=== PATIENT | male | born 1960 | race Two or more races ===

== ENCOUNTER 2016-03-16 18:07 | Inpatient (IN) | payer OTHER ==
[~2016-03-16] VITALS: Ht 177.8 cm; Wt 74.8 kg
[~2016-03-16 18:07] MED LIST: Vancomycin 1 GM in D5W 275 ML IVPB ONE
[2016-03-16 18:09] VITALS: BP 131/118
[2016-03-16] MEDS ORDERED: Acetaminophen 500mg (ES) tab ORAL ONE (18:45)
[2016-03-16 18:58] LABS: MEAN CORPUSCULAR HEMOGLOBIN 31.1 PG (27.0-31.0); MEAN CORPUSCULAR HGB CONC 33.3 G/DL (32.0-36.0); MEAN CORPUSCULAR VOLUME 94 FL (80-99); MEAN PLATELET VOLUME 9.7 FL (6.5-10.1); PLATELET COUNT 57 K/UL (150-450); RED BLOOD COUNT 2.04 M/UL (4.70-6.10); RED CELL DISTRIBUTION WIDTH 16.4 % (11.6-14.8)
--- NOTE | 2016-03-16 18:59 | Emergency Room Report ---
History of Present Illness General Chief Complaint: Generalized Weakness Source: Patient, EMS Present Illness HPI 55 YO M sent from PMD for "anemia" after seen in office yesterday for 1 week of weakness. Patient is HIV+, on HAART. Doesnt know CD4, viral load - last checked 1 month ago, but told PMD he "doesnt want to know the result because its probably low." No history of PCP PNA. Denies rectal bleed, hematuria, hematemesis. Denies known anemia. Denies chest pain, SOB. Denies fever/ chills. Endorses "mild cough." Allergies: Coded Allergies: No Known Allergies (Unverified , 03/16/16) Patient History Past Medical History: HIV Past Surgical History: none Pertinent Family History: none Social History: Denies: alcohol use, drug use, smoking Immunizations: UTD Reviewed Nursing Documentation: PMH: Agreed, PSxH: Agreed Nursing Documentation-[facility] Past Medical History: No History, Except For Review of Systems All Other Systems: negative except mentioned in HPI Physical Exam Vital Signs Date Time Temp Pulse Resp B/P Pulse Ox O2 Delivery O2 Flow Rate FiO2 03/16/16 17:57 99.3 118 21 93/59 100 Room Air Sp02 EP Interpretation: reviewed, abnormal General Appearance: alert, non-toxic, moderate distress, cachetic, other - oale Head: normocephalic, atraumatic Eyes: bilateral eye EOMI, bilateral eye PERRL ENT: normal ENT inspection, hearing grossly normal, normal voice Neck: normal inspection, full range of motion, supple, no bony tend Respiratory: normal inspection, lungs clear, normal breath sounds, no respiratory distress, no retraction, no wheezing, other - bilateral lower lung rhonci Cardiovascular #1: regular rate, rhythm, no edema, tachycardia Gastrointestinal: normal inspection, normal bowel sounds, non tender, soft, no guarding, no hernia Genitourinary: no CVA tenderness Musculoskeletal: normal inspection, back normal, normal range of motion, Judith' s Sign negative Neurologic: normal inspection, alert, oriented x3, responsive, doctor of pharmacy III-XII nml as tested, motor strength/tone normal, speech normal Psychiatric: normal inspection, judgement/insight normal, mood/affect normal Skin: normal inspection Lymphatic: normal inspection Medical Decision Making Diagnostic Impression: Primary Impression: Episode of generalized weakness Additional Impressions: Anemia Qualified Codes: D64.9 - Anemia, unspecified Pneumonia Qualified Codes: J18.9 - Pneumonia, unspecified organism Hypocalcemia Anemia in chronic illness Hypokalemia JF (acute kidney injury) Thrombocytopenia CAP (community acquired pneumonia) ER Course 55 YO M with anemia, clinical PNA. VS notable for tachycardia. Fever 103 oral. Empiric Abx Cef/Azithro given, PO tylenol, IVF NS EKG Diagnostic Results Rate: tachycardiac Rhythm: NSR ST Segments: no acute changes ASA given to the pt in ED: No Rhythm Strip Diag. Results EP Interpretation: yes Rate: 123 Rhythm: NSR, no PVC's, no ectopy Chest X-Ray Diagnostic Results EP Interpretation: Yes Findings: no effusion, no pneumothorax, no acute cardiopulmonary disease, other - possible LLQ pneumonia Reevaluation Time: 20:07 Last Vital Signs Date Time Temp Pulse Resp B/P Pulse Ox O2 Delivery O2 Flow Rate FiO2 03/16/16 18:09 103.0 124 21 131/118 100 Room Air Status: improved Reevaluation Impression Labs: 5K. H&H 6.3/19. Platelets 57. SerumCr 1.5 K 2.9 Calcium 3,.6 Trop 0 CXR: No obvious lobar pna A: 1) Anemia. Likely anemia of chronic disease d/t HIV. Will transfuse 2U PRBC 2) Clinical PNA. Possible infiltrate on CXR. Leuks 5K, but HIV + so ?actual leukocytosis might not be present. Empiric Abx given 3_ hypoK and hypoCA will be repleted 4_ Thrombocytopenia. Likely d/t chronic disease as well. Will need Hem?onc Endorsed to Dr Helton at 815pm for tele admission Disposition: ADMITTED INPATIENT Condition: Critical ILYA CRISOSTOMO M.D. Mar 16, 2016 18:59
[2016-03-16] MEDS ORDERED: cefTRIAXone 1 GM in NS 55 ML IV ONE (19:00)
[2016-03-16] MEDS ORDERED: Azithromycin 500 MG in NS 275 ML IV ONE (19:00)
[2016-03-16] MEDS ORDERED: Azithromycin Inj IV ONE (19:03)
[2016-03-16 19:10] LABS: INR 1.3 (0.9-1.1); PROTHROMBIN TIME 13.2 SEC (9.30-11.50)
[2016-03-16 19:11] LABS: TROPONIN I < 0.30 ng/mL (<=0.30)
[2016-03-16 19:16] LABS: ALANINE AMINOTRANSFERASE 8 U/L (3-41); ALBUMIN/GLOBULIN RATIO 0.3 (1.0-2.7); ANION GAP 16 (5-15); ASPARTATE AMINO TRANSFERASE 14 U/L (5-40); CARBON DIOXIDE 11 mEQ/L (20-30); CHLORIDE 115 mEQ/L (98-107); CREATININE 1.5 mg/dL (0.7-1.2); GLOMERULAR FILTRATION RATE 48.6 mL/min (>60); HEMOLYSIS 15; POTASSIUM 2.9 mEQ/L (3.4-4.9); SODIUM 142 mEQ/L (135-145); TOTAL PROTEIN 3.2 g/dL (6.6-8.7)
[2016-03-16 19:26] LABS: CKMB < 1.5 ng/mL (< 6.7)
[2016-03-16 19:42] LABS: CALCIUM 3.6 mg/dL (8.6-10.2)
[2016-03-16 19:59] LABS: LYMPHOCYTES % (MANUAL) 26 % (20-45); NEUTROPHILS % (MANUAL) 64 % (45-75); TOTAL CELLS COUNTED 100
[2016-03-16 20:02] LABS: BAND NEUTROPHILS % (MANUAL) 0 % (0-8); BASOPHILS % (MANUAL) 0 % (0-2); EOSINOPHILS % (MANUAL) 0 % (0-3); PLATELET ESTIMATE DECREASED
[2016-03-16 20:04] LABS: ANISOCYTOSIS 1+; HYPOCHROMASIA 3+; PLATELET MORPHOLOGY NORMAL
[2016-03-16] MEDS ORDERED: Nitroglycerin Subl 0.4mg tab (Bottle Of 25) SL PRN (22:15)
[2016-03-16] MEDS ORDERED: Miralax 17gm pkt ORAL PRN (22:15)
[2016-03-16] MEDS ORDERED: Morphine Sulfate 2mg/ml Inj IVP PRN (22:15)
[2016-03-16] MEDS ORDERED: DuoNeb 0.5-3(2.5)mg/3ml neb HHN PRN (22:15)
[2016-03-16 22:58] VITALS: BP 80/48
[2016-03-17] VITALS (9 sets, daily range): BP systolic 87–118; BP diastolic 47–57
[2016-03-17] MEDS ORDERED: Vancomycin 1 GM in D5W 275 ML IVPB ONE (01:00)
[2016-03-17] MEDS ORDERED: Vancomycin 1gm inj IVPB ONE (02:07)
[2016-03-17] MEDS ORDERED: TIVICAY50 MG ORAL (06:10)
[2016-03-17 07:09] LABS: INR 1.3 (0.9-1.1); PROTHROMBIN TIME 13.4 SEC (9.30-11.50)
[2016-03-17 07:18] LABS: ALANINE AMINOTRANSFERASE 18 U/L (3-41); ALBUMIN/GLOBULIN RATIO 0.4 (1.0-2.7); ANION GAP 13 (5-15); ASPARTATE AMINO TRANSFERASE 24 U/L (5-40); CALCIUM 7.5 mg/dL (8.6-10.2); CARBON DIOXIDE 22 mEQ/L (20-30); CHLORIDE 94 mEQ/L (98-107); CREATININE 2.8 mg/dL (0.7-1.2); GLOMERULAR FILTRATION RATE 23.6 mL/min (>60); LACTATE DEHYDROGENASE 180 U/L (135-230); MAGNESIUM 2.4 mg/dL (1.7-2.5); POTASSIUM 5.1 mEQ/L (3.4-4.9); SODIUM 129 mEQ/L (135-145); URIC ACID 10.3 mg/dL (3.0-7.5)
[2016-03-17 07:19] LABS: MEAN CORPUSCULAR HEMOGLOBIN 31.5 PG (27.0-31.0); MEAN CORPUSCULAR HGB CONC 33.8 G/DL (32.0-36.0); MEAN CORPUSCULAR VOLUME 93 FL (80-99); MEAN PLATELET VOLUME 9.5 FL (6.5-10.1); PLATELET COUNT 55 K/UL (150-450); RED CELL DISTRIBUTION WIDTH 15.7 % (11.6-14.8); WHITE BLOOD COUNT 4.6 K/UL (4.8-10.8)
[2016-03-17 07:33] LABS: FREE T3 1.3 pg/mL (2.3-4.2)
[2016-03-17 07:51] LABS: HEMOLYSIS 1; IRON 16 ug/dL (59-158); TOTAL IRON BINDING CAPACITY 199 ug/dL (250-400)
[2016-03-17 08:51] LABS: ERYTHROCYTE SEDIMENTATION RATE 140 MM/HR (0-20); PATH BLOOD SMEAR/OMC SENT TO PATHOLOGIST
[2016-03-17 08:53] LABS: BAND NEUTROPHILS % (MANUAL) 0 % (0-8); BASOPHILS % (MANUAL) 0 % (0-2); EOSINOPHILS % (MANUAL) 0 % (0-3); LYMPHOCYTES % (MANUAL) 18 % (20-45); NEUTROPHILS % (MANUAL) 76 % (45-75); PLATELET ESTIMATE DECREASED; TOTAL CELLS COUNTED 100
[2016-03-17 08:55] LABS: ANISOCYTOSIS 1+; HYPOCHROMASIA 1+; PLATELET MORPHOLOGY NORMAL
[2016-03-17] MEDS ORDERED: Cefepime HCl 2 GM in D5W 110 ML IV SCH (09:00)
[2016-03-17] MEDS ORDERED: Heparin 5000 units/ml inj SUBQ SCH (09:00)
[2016-03-17 10:05] LABS: RETICULOCYTE COUNT 0.3 % (0.0-2.0)
--- NOTE | 2016-03-17 11:11 | Diagnostic Imaging Report ---
Indication: Chest pain Technique: One view of the chest Comparison: none Findings: Lungs and pleural spaces are clear. Heart size is normal. Lower cervical spine fusion hardware is incidentally noted Impression: No acute process
[2016-03-17] MEDS ORDERED: Vancomycin 750mg/D5W 275ml IVPB SCH ×2 (13:00)
--- NOTE | 2016-03-17 15:02 | Diagnostic Imaging Report ---
Indication: Abnormal renal function tests Technique: Grayscale and duplex images of the kidneys, retroperitoneum, and bladder were obtained. Comparison: Findings: Right kidney measures 11.7 cm in length. Left kidney measures 11.4 cm in length. Both kidneys demonstrate normal echogenicity. No hydronephrosis. The left kidney demonstrates an 11 mm upper pole cyst. Normal inferior vena cava. Bladder is normal. Incidental noted is marked enlargement of the spleen, which measures 22 cm long axis dimension Impression: Negative for hydronephrosis Incidental finding of a left upper pole renal cyst Massive splenomegaly also noted.
[2016-03-17 16:37] LABS: APPEARANCE,URINE CLEAR; KETONES,URINE NEGATIVE (NEGATIVE); LEUKOCYTE ESTERASE ,URINE NEGATIVE (NEGATIVE); NITRITE,URINE NEGATIVE (NEGATIVE); PH,URINE 5 (4.5-8.0); PROTEIN,URINE 2+ (NEGATIVE); UROBILINOGEN,URINE NORMAL MG/DL (0.0-1.0)
[2016-03-17 16:39] LABS: BACTERIA,URINE MODERATE /HPF; RBC,URINE 0-2 /HPF (0 - 0); WBC,URINE 0-2 /HPF (0 - 0)
--- NOTE | 2016-03-17 17:30 | Consultation ---
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 // Leukopenia / pancytopenia r/o bone marrow infiltrative process - LDH WNL // Fever - improved // Symptomatic anemia SP PRBCs - denies blood loss // ARF - worse // Hypocalcemia / electrolyte imbalance // Massive splenomegaly // Thrombocytopenia // Elevated ESR // NKDA // Full Code PLAN: - continue empiric broad spectrum IV vancomycin, cefepime d# 1 - continue cART ( prezcobix, tivicay - ok for pt to take own meds ), change bactrim prophy to mepron given cytopenias - check AFB BCx, CrAg, coccidioides, histoplasma, blastomyces, parvovirus, QFT TB gold, stool studies, cortisol, ARMIDA, LAP, CD4 - check CT C/A/P - consider heme eval - f/u cultures - monitor CBC, temperatures - monitor BMP - transfuse prn Thanks! Will follow MANJEET GARDNER Mar 17, 2016 17:30
--- NOTE | 2016-03-17 18:00 | History and Physical ---
History of Present Illness General Date patient seen: Mar 17, 2016 Reason for Hospitalization: Generalized Weakness Present Illness HPI 55 year old male with Hx of HIV, wassent from PMD for "anemia" and weakness. there is no history of PCP PNA. His main complain is severe fatigue. Seems very noncompliant. He was diagnosed to have severe anemia and renal failure and admitted for further care. Allergies: Coded Allergies: No Known Allergies (Unverified , 03/16/16) Medication History Scheduled Dolutegravir Sodium (Tivicay), 50 MG ORAL DAILY, (Reported) Patient History Healthcare decision maker Resuscitation status Advanced Directive on File Past Medical/Surgical History Past Medical/Surgical History: (1) HIV disease Review of Systems Constitutional: Reports: malaise, weakness Respiratory: Reports: cough, sputum Physical Exam Lines, tubes and drains: peripheral HEENT: normocephalic, atraumatic Neck: non-tender, normal alignment Respiratory/Chest: chest wall non-tender, lungs clear Cardiovascular/Chest: normal peripheral pulses, normal rate Abdomen: normal bowel sounds Genitourinary/Rectal: normal genital exam, heme negative stool Last 24 Hour Vital Signs Date Time Temp Pulse Resp B/P Pulse Ox O2 Delivery O2 Flow Rate FiO2 03/17/16 17:35 99.7 118 22 90/57 98 Room Air 03/17/16 16:17 98.8 118 20 96/47 100 Room Air 03/17/16 11:51 99.1 113 20 96/55 98 Room Air 03/17/16 08:20 98.8 112 20 87/52 98 Nasal Cannula 2.0 03/17/16 07:15 95 20 Nasal Cannula 3.0 32 03/17/16 04:00 98.2 125 19 106/50 97 Nasal Cannula 3.0 03/17/16 01:05 97.5 97 20 93/54 86 Nasal Cannula 3.0 03/17/16 00:50 97.6 90 20 92/52 100 Room Air 21 03/17/16 00:24 97.6 94 19 03/17/16 00:15 98.4 90 20 92/52 100 Room Air 21 03/17/16 00:10 98.4 96 20 88/49 100 Room Air 03/17/16 00:10 98.4 96 20 03/17/16 00:06 84 20 Room Air 21 03/16/16 22:58 99.7 87 21 80/48 100 Room Air 03/16/16 18:09 103.0 124 21 131/118 100 Room Air Intake and Output 03/16/16 03/17/16 19:00 07:00 Intake Total 400 ml Output Total 300 ml Balance 100 ml IV Total 400 ml Output Urine Total 300 ml # Voids 1 1 Laboratory Tests Test 03/16/16 18:25 03/17/16 05:10 03/17/16 12:00 White Blood Count 5.0 K/UL (4.8-10.8) 4.6 K/UL (4.8-10.8) L Red Blood Count 2.04 M/UL (4.70-6.10) L 2.30 M/UL (4.70-6.10) L Hemoglobin 6.3 G/DL (14.2-18.0) *L 7.2 G/DL (14.2-18.0) L Hematocrit 19.0 % (42.0-52.0) L 21.4 % (42.0-52.0) L Mean Corpuscular Volume 94 FL (80-99) 93 FL (80-99) Mean Corpuscular Hemoglobin 31.1 PG (27.0-31.0) H 31.5 PG (27.0-31.0) H Mean Corpuscular Hemoglobin Concent 33.3 G/DL (32.0-36.0) 33.8 G/DL (32.0-36.0) Red Cell Distribution Width 16.4 % (11.6-14.8) H 15.7 % (11.6-14.8) H Platelet Count 57 K/UL (150-450) L 55 K/UL (150-450) L Mean Platelet Volume 9.7 FL (6.5-10.1) 9.5 FL (6.5-10.1) Neutrophils (%) (Auto) % (45.0-75.0) % (45.0-75.0) Lymphocytes (%) (Auto) % (20.0-45.0) % (20.0-45.0) Monocytes (%) (Auto) % (1.0-10.0) % (1.0-10.0) Eosinophils (%) (Auto) % (0.0-3.0) % (0.0-3.0) Basophils (%) (Auto) % (0.0-2.0) % (0.0-2.0) Differential Total Cells Counted 100 100 Neutrophils % (Manual) 64 % (45-75) 76 % (45-75) H Lymphocytes % (Manual) 26 % (20-45) 18 % (20-45) L Monocytes % (Manual) 10 % (1-10) 6 % (1-10) Eosinophils % (Manual) 0 % (0-3) 0 % (0-3) Basophils % (Manual) 0 % (0-2) 0 % (0-2) Band Neutrophils 0 % (0-8) 0 % (0-8) Platelet Estimate Decreased L Decreased L Platelet Morphology Normal Normal Red Blood Cell Morphology Normal Hypochromasia 3+ 1+ Anisocytosis 1+ 1+ Prothrombin Time 13.2 SEC (9.30-11.50) H 13.4 SEC (9.30-11.50) H Prothromb Time International Ratio 1.3 (0.9-1.1) H 1.3 (0.9-1.1) H Activated Partial Thromboplast Time 34 SEC (23-33) H 35 SEC (23-33) H Sodium Level 142 mEQ/L (135-145) 129 mEQ/L (135-145) #L Potassium Level 2.9 mEQ/L (3.4-4.9) L 5.1 mEQ/L (3.4-4.9) #H Chloride Level 115 mEQ/L (98-107) H 94 mEQ/L (98-107) L Carbon Dioxide Level 11 mEQ/L (20-30) L 22 mEQ/L (20-30) Anion Gap 16 (5-15) H 13 (5-15) Blood Urea Nitrogen 32 mg/dL (7-23) H 56 mg/dL (7-23) H Creatinine 1.5 mg/dL (0.7-1.2) H 2.8 mg/dL (0.7-1.2) #H Estimat Glomerular Filtration Rate 48.6 mL/min (>60) 23.6 mL/min (>60) Glucose Level 70 mg/dL (74-106) L 135 mg/dL (74-106) H Calcium Level 3.6 mg/dL (8.6-10.2) *L 7.5 mg/dL (8.6-10.2) #L Total Bilirubin < 0.2 mg/dL (0.0-1.2) 0.4 mg/dL (0.0-1.2) Aspartate Amino Transf (AST/SGOT) 14 U/L (5-40) 24 U/L (5-40) Alanine Aminotransferase (ALT/SGPT) 8 U/L (3-41) 18 U/L (3-41) Alkaline Phosphatase 41 U/L (40-129) 85 U/L (40-129) Total Creatine Kinase 8 U/L (38-174) L 15 U/L (38-174) L Creatine Kinase MB < 1.5 ng/mL (< 6.7) Creatine Kinase MB Relative Index 18.7 Troponin I < 0.30 ng/mL (<=0.30) Total Protein 3.2 g/dL (6.6-8.7) L 7.0 g/dL (6.6-8.7) # Albumin 0.9 g/dL (3.5-5.2) L 2.1 g/dL (3.5-5.2) L Globulin 2.3 g/dL 4.9 g/dL Albumin/Globulin Ratio 0.3 (1.0-2.7) L 0.4 (1.0-2.7) L Erythrocyte Sedimentation Rate 140 MM/HR (0-20) H Reticulocyte Count 0.3 % (0.0-2.0) Plasma/Serum Osmolality Pending Uric Acid 10.3 mg/dL (3.0-7.5) H Phosphorus Level 4.0 mg/dL (2.5-4.8) Magnesium Level 2.4 mg/dL (1.7-2.5) Iron Level 16 ug/dL (59-158) L Total Iron Binding Capacity 199 ug/dL (250-400) L Percent Iron Saturation 8 % (15-50) L Unsaturated Iron Binding 183 ug/dL (112-346) Lactate Dehydrogenase 180 U/L (135-230) Carcinoembryonic Antigen 0.6 ng/mL Vitamin B12 Level 474 pg/mL (211-946) Folate Pending Thyroid Stimulating Hormone (TSH) 1.830 uIU/mL (0.300-4.500) Free Thyroxine 1.01 ng/dL (0.86-1.85) Free Triiodothyronine 1.3 pg/mL (2.3-4.2) L Cortisol Pending Urine Color Yellow Urine Appearance Clear Urine pH 5 (4.5-8.0) Urine Specific [place] 1.010 (1.005-1.035) Urine Protein 2+ (NEGATIVE) H Urine Glucose (UA) Negative (NEGATIVE) Urine Ketones Negative (NEGATIVE) Urine Occult Blood Negative (NEGATIVE) Urine Nitrite Negative (NEGATIVE) Urine Bilirubin Negative (NEGATIVE) Urine Urobilinogen Normal MG/DL (0.0-1.0) Urine Leukocyte Esterase Negative (NEGATIVE) Urine RBC 0-2 /HPF (0 - 0) H Urine WBC 0-2 /HPF (0 - 0) Urine Squamous Epithelial Cells None /LPF (NONE/OCC) Urine Bacteria Moderate /HPF (NONE) H Height (Feet): 5 Height (Inches): 10.00 Weight (Pounds): 165 Medications Current Medications Medications (Trade) Dose Ordered Sig/Godwin Route PRN Reason Start Time Stop Time Status Last Admin Dose Admin Acetaminophen (Tylenol) 650 mg Q4H PRN ORAL fever 03/16/16 22:15 04/15/16 22:14 Albuterol/ Ipratropium (DuoNeb 0.5-3(2.5)mg/3ml) 3 ml EVERY 4 HOURS PRN HHN Shortness of Breath 03/16/16 22:15 03/21/16 22:14 Cefepime HCl/ Dextrose (Maxipime/D5W) 110 ml @ 220 mls/hr Q24H IV 03/18/16 10:00 03/25/16 09:59 Morphine Sulfate (Morphine Sulfate) 2 mg EVERY 4 HOURS PRN IVP Moderate Pain (Pain Scale 4-6) 03/16/16 22:15 03/23/16 22:14 Nitroglycerin (Ntg) 0.4 mg Every 5 Minutes PRN SL Prn Chest Pain 03/16/16 22:15 04/15/16 22:14 Ondansetron HCl (Zofran) 4 mg Q6H PRN IVP Nausea & Vomiting 03/16/16 22:15 04/15/16 22:14 Polyethylene Glycol (Miralax) 17 gm DAILYPRN PRN ORAL Constipation 03/16/16 22:15 04/15/16 22:14 Sodium Chloride (Sodium Chloride 1000ml bag) 1,000 ml @ 50 mls/hr Q20H IVLG 03/17/16 00:21 04/16/16 00:20 03/17/16 00:21 Temazepam (Restoril) 15 mg HSPRN PRN ORAL Insomnia 03/16/16 22:15 03/23/16 22:14 Vancomycin HCl 1 ea 1 ea DAILY PRN MISC . 03/17/16 17:00 04/16/16 16:59 Assessment/Plan Problem List: (1) Anemia ICD Codes: D64.9 - Anemia, unspecified SNOMED: 937220906 Qualifiers: Qualified Codes: D64.9 - Anemia, unspecified (2) JF (acute kidney injury) ICD Codes: N17.9 - Acute kidney failure, unspecified SNOMED: 58062053 (3) HIV disease ICD Codes: B20 - Human immunodeficiency virus [HIV] disease SNOMED: 33332472 (4) Thrombocytopenia ICD Codes: D69.6 - Thrombocytopenia, unspecified SNOMED: 190518793 (5) Hypocalcemia ICD Codes: E83.51 - Hypocalcemia SNOMED: 5056836 Assessment/Plan prbc anemia w/u stool for OB ID evaluation renal US MARIA ISABEL SZYMANSKI Mar 17, 2016 18:00
[2016-03-17] MEDS ORDERED: Nitroglycerin Subl 0.4mg tab (Bottle Of 25) SL PRN (19:15)
[2016-03-17] MEDS ORDERED: Miralax 17gm pkt ORAL PRN (20:00)
[2016-03-17] MEDS ORDERED: DuoNeb 0.5-3(2.5)mg/3ml neb HHN PRN (21:00)
[2016-03-17] MEDS ORDERED: Morphine Sulfate 2mg/ml Inj IVP PRN (21:00)
[2016-03-18] VITALS: BP 94/44
--- NOTE | 2016-03-18 00:58 | Consultation ---
DATE OF CONSULTATION: 03/17/2016 INFECTIOUS DISEASE CONSULTATION CONSULTING PHYSICIAN: Shivam Galarza M.D. REQUESTING PHYSICIAN: Rose Marie Helton M.D. REASON FOR CONSULTATION: Acquired immune deficiency syndrome. HISTORY OF PRESENT ILLNESS: This is a 55-year-old male with a history of HIV4/AIDS, on antiretroviral therapy, recently changed due to resistance, admitted from primary care's office for severe symptomatic anemia. Hemoglobin was 6.3. He has been transfused two units of packed red blood cells. Hemoglobin is now starting from 2. He has evidence of pancytopenia, and a fever of 103, elevated ESR and uric acid. LDH and LFTs are within normal limits. Urine culture is pending. He has been started on empiric IV vancomycin, cefepime and ID now consulted to assist in management. PAST MEDICAL HISTORY: 1. Human immunodeficiency virus 4/AIDS, on antiretroviral therapy. Recently changed to and tivicay due to resistance. 2. History of thrush. 3. Chronic anemia. PAST SURGICAL HISTORY: None. FAMILY HISTORY: Noncontributory. SOCIAL HISTORY: Unremarkable. ALLERGIES: No known drug allergies. MEDICATIONS: 1. Vancomycin. 2. Cefepime. REVIEW OF SYSTEMS: As per history present illness. Ten systems reviewed. All pertinent positives and negatives noted. PHYSICAL EXAMINATION: VITAL SIGNS: Maximum temperature 100.3, blood pressure 96/47, heart rate 118, respiratory rate 20, and saturating 100% on room air. GENERAL: The patient is chronically ill-appearing. HEENT: No thrush. Poor dentition. CARDIOVASCULAR: Tachycardic, no murmurs. PULMONARY: Coarse breath sounds bilaterally. ABDOMEN: Bowel sounds present. Soft, nondistended, and nontender. EXTREMITIES: No edema. SKIN: Multiple purple patches consistent with Kaposi sarcoma. NEUROLOGICAL: Alert and oriented x3, nonfocal. LABORATORY DATA: White blood cell count 4.6 with left shift, hemoglobin 7.2 increased from 6.3, platelets 55,000. Sodium 129, potassium 5.1, chloride 94, bicarbonate 22, BUN 56, creatinine 2.8, increased from 1.5. ESR 140, uric acid 10.3. LDH and liver function tests within normal limits. MICROBIOLOGY: On 03/17, urine culture pending. IMAGING: Reviewed. ASSESSMENT: 1. Probable sepsis, rule out opportunistic infection. 2. Diarrhea, rule out infectious. 3. Human immunodeficiency virus 4/AIDS, on a combination antiretroviral therapy with unknown CD4 count presumed less than 50. 4. Kaposi sarcoma. Rule out basilar involvement. 5. Leukopenia/pancytopenia. Rule out bone marrow infiltrative process. An LDH is within normal limits. 6. Fever, improved. 7. Symptomatic anemia, status post transfusion. Denies blood loss. 8. Acute renal failure, worsening. 9. Hypocalcemia and electrolyte imbalance. 10. Massive splenomegaly. 11. Thrombocytopenia. 12. Elevated erythrocyte sedimentation rate. 13. No known drug allergies. 14. Full Code. PLAN: 1. Continue empiric broad-spectrum IV vancomycin and cefepime day #1. 2. Continue combination of antiretroviral therapy with and tivicay. Okay for the patient to take his own medications. We will change his Bactrim prophylaxis to atovaquone given cytopenias. 3. Check AFB blood cultures, cryptococcal antigen coccidioides, serology, histoplasma and Blastomyces and parvovirus serology QuantiFERON-TB Gold, stool studies, Cortisol ARMIDA, leukocyte phosphatase stain and CD4. 4. Check CT of the chest, abdomen and pelvis. 5. Consider hematology evaluation. 6. Follow up cultures. 7. Monitor CBC and temperatures. 8. Monitor BMP. 9. Transfuse as needed. Thank you. We will follow. Shivam Galarza M.D. DR: JAMARCUS JOB#: [id number] CC: Rose Marie Helton M.D.; Fax#: [phone] Alborzi, M.D ; Fax#: [phone] Smith, M.D.
[2016-03-18 04:00] VITALS: BP 94/44
[2016-03-18 06:20] LABS: MEAN CORPUSCULAR HEMOGLOBIN 31.1 PG (27.0-31.0); MEAN CORPUSCULAR VOLUME 94 FL (80-99); PLATELET COUNT 54 K/UL (150-450); RED BLOOD COUNT 2.89 M/UL (4.70-6.10); RED CELL DISTRIBUTION WIDTH 15.8 % (11.6-14.8); WHITE BLOOD COUNT 5.4 K/UL (4.8-10.8)
[2016-03-18 07:23] LABS: ALBUMIN/GLOBULIN RATIO 0.5 (1.0-2.7); CALCIUM 7.5 mg/dL (8.6-10.2); CREATININE 2.7 mg/dL (0.7-1.2); GLOMERULAR FILTRATION RATE 24.7 mL/min (>60); POTASSIUM 5.3 mEQ/L (3.4-4.9); TOTAL PROTEIN 6.4 g/dL (6.6-8.7)
[2016-03-18 08:00] VITALS: BP 96/58
[2016-03-18] MEDS ORDERED: Atovaquone 750mg/5ml Susp ORAL SCH (09:00)
[2016-03-18] MEDS: PREZCOBIX ORAL SCH (09:13)
[2016-03-18] MEDS: Atovaquone 750mg/5ml Susp ORAL SCH (09:14)
[2016-03-18] MEDS ORDERED: Cefepime HCl 2 GM in D5W 110 ML IV SCH (10:00)
[2016-03-18] MEDS: Cefepime HCl 2 GM in D5W 110 ML IV SCH (10:16)
[2016-03-18] MEDS ORDERED: Sodium Polystyrene Sulfonate 15gm Powder ORAL ONE (11:15)
[2016-03-18 11:34] LABS: URIC ACID 8.1 mg/dL (3.0-7.5)
[2016-03-18 11:47] LABS: FREE T3 1.2 pg/mL (2.3-4.2)
[2016-03-18 12:00] VITALS: BP 86/47
--- NOTE | 2016-03-18 12:47 | Pulmonology Progress Note ---
Assessment/Plan Problems: (1) Anemia (2) JF (acute kidney injury) (3) HIV disease (4) Thrombocytopenia (5) Hypocalcemia Assessment/Plan s/p prbc Ct of abdomen done respiratory treatment continue antiboitics serology pending nephrology evaluation Subjective ROS Limited/Unobtainable: No Interval Events: feeling better Allergies: Coded Allergies: No Known Allergies (Unverified , 03/16/16) Objective Last 24 Hour Vital Signs Date Time Temp Pulse Resp B/P Pulse Ox O2 Delivery O2 Flow Rate FiO2 03/18/16 08:00 97.3 107 22 96/58 96 Nasal Cannula 03/18/16 08:00 119 03/18/16 06:52 Nasal Cannula 3.0 03/18/16 06:50 96 Nasal Cannula 3.0 03/18/16 06:49 88 18 Nasal Cannula 3.0 03/18/16 04:07 122 03/18/16 04:00 101.7 103 20 94/44 100 Nasal Cannula 03/18/16 00:00 99.1 103 24 94/44 100 Nasal Cannula 2.0 03/17/16 23:32 102 03/17/16 22:17 100.1 03/17/16 19:30 100.1 118 20 118/57 96 Room Air 03/17/16 19:00 93 20 Nasal Cannula 3.0 32 03/17/16 17:35 99.7 118 22 90/57 98 Room Air 03/17/16 16:17 98.8 118 20 96/47 100 Room Air Intake and Output 03/17/16 03/18/16 19:00 07:00 Intake Total 1560.0 ml 1865 ml Output Total 400 ml 300 ml Balance 1160.0 ml 1565 ml Intake Oral 650 ml 240 ml IV Total 910.0 ml 1625 ml Output Urine Total 400 ml 300 ml # Voids 2 # Bowel Movements 2 1 General Appearance: WD/WN, no acute distress HEENT: normocephalic, mucous membranes moist Respiratory/Chest: crackles/rales Cardiovascular: normal peripheral pulses, normal rate Abdomen: normal bowel sounds, soft, non tender Genitourinary: normal external genitalia Extremities: no cyanosis Skin: no rash 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: superintendent transmission II-XII grossly normal, no motor/sensory deficits Lymphatic: no neck adenopathy Microbiology Date/Time Source Procedure Growth Status 03/17/16 12:00 Urine,Clean Catch Urine Culture - Preliminary NO GROWTH Resulted Laboratory Tests 03/18/16 04:10: White Blood Count 5.4, Red Blood Count 2.89L, Hemoglobin 9.0L, Hematocrit 27.2L , Mean Corpuscular Volume 94, Mean Corpuscular Hemoglobin 31.1H, Mean Corpuscular Hemoglobin Concent 33.0, Red Cell Distribution Width 15.8H, Platelet Count 54L, Mean Platelet Volume 9.0, Neutrophils (%) (Auto) , Lymphocytes (%) (Auto) , Monocytes (%) (Auto) , Eosinophils (%) (Auto) , Basophils (%) (Auto) , Sodium Level 130L, Potassium Level 5.3H, Chloride Level 95L, Carbon Dioxide Level 20, Anion Gap 15, Blood Urea Nitrogen 53H, Creatinine 2.7H, Estimat Glomerular Filtration Rate 24.7, Glucose Level 126H, Calcium Level 7.5L, Total Bilirubin 0.3, Aspartate Amino Transf (AST/SGOT) 29, Alanine Aminotransferase (ALT/SGPT) 18, Alkaline Phosphatase 88, Pro-B-Type Natriuretic Peptide 1975H, Total Protein 6.4L, Albumin 2.2L, Globulin 4.2, Albumin/Globulin Ratio 0.5L, Random Vancomycin Level 24.3 03/18/16 11:10: Plasma/Serum Osmolality [Pending], Uric Acid 8.1H, Total Creatine Kinase 12L, Thyroid Stimulating Hormone (TSH) 2.300, Free Thyroxine 0.94, Free Triiodothyronine 1.2L, Cortisol [Pending], Anti-Nuclear Antibody Screen [Pending ], Blastomyces Ab Immunodiffusion [Pending], Coccidioides Antibody (Comp Fix) [ Pending], Cryptococcus Antigen [Pending], Histoplasma Mycelial Antibody [Pending ], Histoplasma Antibody w Mycelial Ag [Pending], Histoplasma Antibody with Yeast Ag [Pending], Parvovirus (B19) IgG Antibody [Pending], Parvovirus (B19) IgM Antibody [Pending], TB Test (T-Spot) [Pending], TB Test Nil Control (T-Spot ) [Pending], TB Test Panel A (T-Spot) [Pending], TB Test Panel B (T-Spot) [ Pending], TB Test Positive Control (T-Spot) [Pending] Current Medications Medications (Trade) Dose Ordered Sig/Godwin Route PRN Reason Start Time Stop Time Status Last Admin Dose Admin Acetaminophen (Tylenol) 650 mg Q4H PRN ORAL fever 03/17/16 20:00 04/16/16 19:59 03/18/16 06:36 Albuterol/ Ipratropium (DuoNeb 0.5-3(2.5)mg/3ml) 3 ml Q4H PRN HHN Shortness of Breath 03/17/16 21:00 03/22/16 20:59 Atovaquone (Mepron Susp) 1,500 mg DAILY ORAL 03/18/16 09:00 04/17/16 08:59 03/18/16 09:14 Cefepime HCl 2 gm/ Dextrose 110 ml @ 220 mls/hr Q24H IV 03/18/16 10:00 03/25/16 09:59 03/18/16 10:16 Morphine Sulfate (Morphine Sulfate) 2 mg Q4H PRN IVP Moderate Pain (Pain Scale 4-6) 03/17/16 21:00 03/24/16 20:59 Nitroglycerin (Ntg) 0.4 mg Every 5 Minutes PRN SL Prn Chest Pain 03/17/16 19:15 04/16/16 19:14 Ondansetron HCl (Zofran) 4 mg Q6H PRN IVP Nausea & Vomiting 03/17/16 20:00 04/16/16 19:59 Patient Own Medication (Patient's Own Med) 1 ea DAILY ORAL 03/18/16 09:00 04/17/16 08:59 03/18/16 09:13 Patient Own Medication (Patient's Own Med) 1 ea DAILY ORAL 03/18/16 09:00 04/17/16 08:59 03/18/16 09:13 Polyethylene Glycol (Miralax) 17 gm DAILYPRN PRN ORAL Constipation 03/17/16 20:00 04/16/16 19:59 Sodium Chloride (Sodium Chloride 1000ml bag) 1,000 ml @ 125 mls/hr Q8H IVLG 03/17/16 20:00 04/16/16 19:59 03/18/16 06:23 Temazepam (Restoril) 15 mg HSPRN PRN ORAL Insomnia 03/17/16 21:00 03/24/16 20:59 Vancomycin HCl (Vanco rx to dose) 1 ea DAILY PRN MISC PER RX PROTOCOL 03/17/16 20:00 04/16/16 19:59 MARIA ISABEL SZYMANSKI Mar 18, 2016 12:47
[2016-03-18 13:12] LABS: CORTISOL LC 23.1 ug/dL (.)
--- NOTE | 2016-03-18 14:11 | Diagnostic Imaging Report ---
Indication: ABN LABS Technique: Patient given oral contrast. No IV contrast, due to history of abnormal renal function. Spiral acquisitions obtained through the chest, abdomen, and pelvis. Multiplanar reconstructions were generated. Total dose length product 1006 mGycm. CTDIvol(s) 14 mGy. Radiation dose was minimized using automated exposure control Comparison: None Findings: Chest: There is trace pleural fluid bilaterally, slightly more abundant on the right. There is considerable atelectatic change at both lung bases, right greater than left, as well as possibly some consolidation. There is generalized bronchial wall thickening. There is interstitial septal thickening bilaterally, most striking in the right upper lobe. Some linear secretions are seen within the trachea and right mainstem bronchus. There is an irregular 4 mm pleural-based nodule adjacent to the inferior major fissure at the left lung base. Multiple sub-5 mm parenchymal nodules are seen throughout the left lung. The heart size is normal. There is anterior wall pericardial thickening versus fluid, thickness measuring approximately 6 mm. There is extensive mediastinal lymphadenopathy, with nodes measuring up to 28 mm long axis dimension. There is also bilateral axillary lymphadenopathy, largest node in left axilla measuring 2.6 cm long axis dimension. Abdomen pelvis: Lack of IV contrast limits assessment of the other solid organs. There is extensive lymphadenopathy, with numerous enlarged nodes present within the peripancreatic region, lesser sac, splenic hilum, mesenteric root, retroperitoneum, bilateral iliac chains and perirectal fat. Solid organs. The spleen is enlarged, measuring 15 cm long axis dimension. The liver, gallbladder, bile ducts, pancreas, bilateral are unremarkable. There is nonspecific bilateral perinephric fat stranding. No focal renal abnormality. No pelvic mass other than the above-described lymphadenopathy. The bladder is unremarkable. The stomach and duodenum are unremarkable. The appendix is normal. No evidence of diverticulosis or diverticulitis. No small bowel distention or small bowel wall thickening. Contrast is seen as far distally as the distal descending colon. No free or loculated intraperitoneal air or fluid. Impression: Splenomegaly Extensive thoracic, abdominal, and pelvic lymphadenopathy, as detailed above. This is nonspecific, likely related to stated clinical history of HIV. May indicate reactive, inflammatory, infectious adenopathy, or a lymphoproliferative disorder. Correlate with clinical history and findings Evidence of predominantly upper lobe pulmonary interstitial disease, as described, predominant findings being interstitial septal thickening and bronchial wall thickening. While the differential for this is quite broad, given the history of HIV positivity the possibility of lymphocytic interstitial pneumonitis should be considered Multiple sub-5 mm parenchymal nodules seen throughout the left lung. Possibly related to the above. If there are significant risk factors for lung carcinoma, however, short interval followup CT at 6-12 months should be considered. Bilateral basilar pulmonary parenchymal atelectatic changes and possibly some consolidation Small bilateral pleural effusions Nonspecific bilateral perinephric fat stranding The CT scanner at [facility] is accredited by the [employer] and the scans are performed using protocols designed to limit radiation exposure to as low as reasonably achievable to attain images of sufficient resolution adequate for diagnostic evaluation.
--- NOTE | 2016-03-18 14:28 | Infectious Diseases Prog Note ---
Assessment/Plan Assessment/Plan ASSESSMENT: 55 y/o male with: // Probable sepsis r/o opportunistic infection - cultures, serology pending // Diarrhea r/o infectious - stool studies pending // Possible PNA - CT: predominantly upper lobe pulmonary interstitial disease, possible lymphocytic interstitial pneumonitis. Multiple sub-5 mm parenchymal nodules seen throughout the left lung. Bilateral basilar pulmonary parenchymal atelectatic changes and possibly some consolidation. Small bilateral pleural effusions - LDH WNL, on bactrim PCP prophy prior to admission // Diffuse LAD r/o infectious vs myeloproliferative disorder - CT: Extensive thoracic, abdominal, and pelvic lymphadenopathy // HIV / AIDS, on cART ( recently changed to prezcobix, tivicay d/t genotype ) - unknown CD4 pending // Kaposi sarcoma // Leukopenia / pancytopenia r/o bone marrow infiltrative process - LDH WNL // Fever - improved // Symptomatic anemia SP PRBCs - denies blood loss // ARF - worse // Hypocalcemia / electrolyte imbalance // Massive splenomegaly // Thrombocytopenia // Elevated ESR // NKDA // Full Code PLAN: - continue empiric broad spectrum IV vancomycin, cefepime d# 2 - continue cART ( prezcobix, tivicay - ok for pt to take own meds ), changed bactrim prophy to mepron given cytopenias - consider heme eval, LN or BMBx r/o HIV-associated lymphoma - f/u AFB BCx, CrAg, coccidioides, histoplasma, blastomyces, parvovirus, QFT TB gold, stool studies, ARMIDA, LAP, CD4 - monitor CBC, temperatures - monitor BMP - transfuse prn Subjective Allergies: Coded Allergies: No Known Allergies (Unverified , 03/16/16) Subjective fever improved, feeling better SP PRBCs Objective Vital Signs Last 24 Hour Vital Signs Date Time Temp Pulse Resp B/P Pulse Ox O2 Delivery O2 Flow Rate FiO2 03/18/16 12:43 100 03/18/16 12:00 97.5 94 24 86/47 96 Nasal Cannula 03/18/16 08:00 97.3 107 22 96/58 96 Nasal Cannula 03/18/16 08:00 119 03/18/16 06:52 Nasal Cannula 3.0 03/18/16 06:50 96 Nasal Cannula 3.0 03/18/16 06:49 88 18 Nasal Cannula 3.0 03/18/16 04:07 122 03/18/16 04:00 101.7 103 20 94/44 100 Nasal Cannula 03/18/16 00:00 99.1 103 24 94/44 100 Nasal Cannula 2.0 03/17/16 23:32 102 03/17/16 22:17 100.1 03/17/16 19:30 100.1 118 20 118/57 96 Room Air 03/17/16 19:00 93 20 Nasal Cannula 3.0 32 03/17/16 17:35 99.7 118 22 90/57 98 Room Air 03/17/16 16:17 98.8 118 20 96/47 100 Room Air Height (Feet): 5 Height (Inches): 10.00 Weight (Pounds): 165 General Appearance: no acute distress HEENT: other - poor dentition Respiratory/Chest: no respiratory distress Cardiovascular: normal rate, regular rhythm Abdomen: normal bowel sounds, soft, non tender, non distended Skin: lesions Microbiology Date/Time Source Procedure Growth Status 03/17/16 12:00 Urine,Clean Catch Urine Culture - Preliminary NO GROWTH Resulted Laboratory Tests Test 03/18/16 04:10 03/18/16 11:10 White Blood Count 5.4 K/UL (4.8-10.8) Red Blood Count 2.89 M/UL (4.70-6.10) L Hemoglobin 9.0 G/DL (14.2-18.0) L Hematocrit 27.2 % (42.0-52.0) L Mean Corpuscular Volume 94 FL (80-99) Mean Corpuscular Hemoglobin 31.1 PG (27.0-31.0) H Mean Corpuscular Hemoglobin Concent 33.0 G/DL (32.0-36.0) Red Cell Distribution Width 15.8 % (11.6-14.8) H Platelet Count 54 K/UL (150-450) L Mean Platelet Volume 9.0 FL (6.5-10.1) Neutrophils (%) (Auto) % (45.0-75.0) Lymphocytes (%) (Auto) % (20.0-45.0) Monocytes (%) (Auto) % (1.0-10.0) Eosinophils (%) (Auto) % (0.0-3.0) Basophils (%) (Auto) % (0.0-2.0) Sodium Level 130 mEQ/L (135-145) L Potassium Level 5.3 mEQ/L (3.4-4.9) H Chloride Level 95 mEQ/L (98-107) L Carbon Dioxide Level 20 mEQ/L (20-30) Anion Gap 15 (5-15) Blood Urea Nitrogen 53 mg/dL (7-23) H Creatinine 2.7 mg/dL (0.7-1.2) H Estimat Glomerular Filtration Rate 24.7 mL/min (>60) Glucose Level 126 mg/dL (74-106) H Calcium Level 7.5 mg/dL (8.6-10.2) L Total Bilirubin 0.3 mg/dL (0.0-1.2) Aspartate Amino Transf (AST/SGOT) 29 U/L (5-40) Alanine Aminotransferase (ALT/SGPT) 18 U/L (3-41) Alkaline Phosphatase 88 U/L (40-129) Pro-B-Type Natriuretic Peptide 1975 pg/mL (0-125) H Total Protein 6.4 g/dL (6.6-8.7) L Albumin 2.2 g/dL (3.5-5.2) L Globulin 4.2 g/dL Albumin/Globulin Ratio 0.5 (1.0-2.7) L Random Vancomycin Level 24.3 ug/mL Plasma/Serum Osmolality Pending Uric Acid 8.1 mg/dL (3.0-7.5) H Total Creatine Kinase 12 U/L (38-174) L Thyroid Stimulating Hormone (TSH) 2.300 uIU/mL (0.300-4.500) Free Thyroxine 0.94 ng/dL (0.86-1.85) Free Triiodothyronine 1.2 pg/mL (2.3-4.2) L Cortisol Pending Anti-Nuclear Antibody Screen Pending Blastomyces Ab Immunodiffusion Pending Coccidioides Antibody (Comp Fix) Pending Cryptococcus Antigen Pending Histoplasma Mycelial Antibody Pending Histoplasma Antibody w Mycelial Ag Pending Histoplasma Antibody with Yeast Ag Pending Parvovirus (B19) IgG Antibody Pending Parvovirus (B19) IgM Antibody Pending TB Test (T-Spot) Pending TB Test Nil Control (T-Spot) Pending TB Test Panel A (T-Spot) Pending TB Test Panel B (T-Spot) Pending TB Test Positive Control (T-Spot) Pending Current Medications Medications (Trade) Dose Ordered Sig/Godwin Route PRN Reason Start Time Stop Time Status Last Admin Dose Admin Acetaminophen (Tylenol) 650 mg Q4H PRN ORAL fever 03/17/16 20:00 04/16/16 19:59 03/18/16 06:36 Albuterol/ Ipratropium (DuoNeb 0.5-3(2.5)mg/3ml) 3 ml Q4H PRN HHN Shortness of Breath 03/17/16 21:00 03/22/16 20:59 Atovaquone (Mepron Susp) 1,500 mg DAILY ORAL 03/18/16 09:00 04/17/16 08:59 03/18/16 09:14 Cefepime HCl 2 gm/ Dextrose 110 ml @ 220 mls/hr Q24H IV 03/18/16 10:00 03/25/16 09:59 03/18/16 10:16 Morphine Sulfate (Morphine Sulfate) 2 mg Q4H PRN IVP Moderate Pain (Pain Scale 4-6) 03/17/16 21:00 03/24/16 20:59 Nitroglycerin (Ntg) 0.4 mg Every 5 Minutes PRN SL Prn Chest Pain 03/17/16 19:15 04/16/16 19:14 Ondansetron HCl (Zofran) 4 mg Q6H PRN IVP Nausea & Vomiting 03/17/16 20:00 04/16/16 19:59 Patient Own Medication (Patient's Own Med) 1 ea DAILY ORAL 03/18/16 09:00 04/17/16 08:59 03/18/16 09:13 Patient Own Medication (Patient's Own Med) 1 ea DAILY ORAL 03/18/16 09:00 04/17/16 08:59 03/18/16 09:13 Polyethylene Glycol (Miralax) 17 gm DAILYPRN PRN ORAL Constipation 03/17/16 20:00 04/16/16 19:59 Sodium Chloride (Sodium Chloride 1000ml bag) 1,000 ml @ 125 mls/hr Q8H IVLG 03/17/16 20:00 04/16/16 19:59 03/18/16 06:23 Temazepam (Restoril) 15 mg HSPRN PRN ORAL Insomnia 03/17/16 21:00 03/24/16 20:59 Vancomycin HCl (Vanco rx to dose) 1 ea DAILY PRN MISC PER RX PROTOCOL 03/17/16 20:00 04/16/16 19:59 MANJEET GARDNER Mar 18, 2016 14:28
[2016-03-18 16:00] VITALS: BP 101/52
--- NOTE | 2016-03-18 16:36 | Consultation ---
Consult Note Consult Note asked to evaluate for worsening renal failure- Chief Complaint: Generalized Weakness 55 YO M sent from PMD for "anemia" after seen in office yesterday for 1 week of weakness. Patient is HIV+, on HAART. Doesnt know CD4, viral load - last checked 1 month ago, but told PMD he "doesnt want to know the result because its probably low." No history of PCP PNA. Denies rectal bleed, hematuria, hematemesis. Denies known anemia. Denies chest pain, SOB. Denies fever/ chills. Endorses "mild cough." Past Medical History: HIV Interviewed, examined- data reviewed . Assessment/Plan acute renal failure, multifactorial ( sepsis, HIV , Vanco...) PreRenal superimposed on Renal Sepsis, Diarrhea, HIV , Kaposi's Pneumonia Hypocalcemia, electrolyte imbalance Anemia in chronic illness, symptomatic Hypokalemia on admit now K elevated JF (acute kidney injury) Thrombocytopenia, massive splenomegali CAP (community acquired pneumonia) Plan: Hydrate- Hold Vanco- Check levels- Urine studies- Cortisol levels- Monitor renal parameters and lytes- Avoid Nephrotoxics Monitor Urine out put DEREK SMITH Mar 18, 2016 16:36
[2016-03-18 20:00] VITALS: BP 101/60
[2016-03-18] MEDS ORDERED: Tubing Blood Filter IV ONE (20:59)
[2016-03-18] MEDS ORDERED: NS 550ML IV ONE (20:59)
[2016-03-19] VITALS (7 sets, daily range): BP systolic 102–126; BP diastolic 46–80
[2016-03-19 04:50] LABS: APPEARANCE,URINE CLEAR; KETONES,URINE NEGATIVE (NEGATIVE); LEUKOCYTE ESTERASE ,URINE NEGATIVE (NEGATIVE); NITRITE,URINE NEGATIVE (NEGATIVE); PH,URINE 5 (4.5-8.0); PROTEIN,URINE 2+ (NEGATIVE); UROBILINOGEN,URINE 4 MG/DL (0.0-1.0)
[2016-03-19 05:03] LABS: RBC,URINE 0-2 /HPF (0 - 0); WBC,URINE 0-2 /HPF (0 - 0)
[2016-03-19 05:04] LABS: COARSE GRANULAR CASTS,URINE 0-2 /LPF
[2016-03-19 05:39] LABS: MEAN CORPUSCULAR HEMOGLOBIN 31.3 PG (27.0-31.0); MEAN CORPUSCULAR HGB CONC 33.7 G/DL (32.0-36.0); MEAN CORPUSCULAR VOLUME 93 FL (80-99); MEAN PLATELET VOLUME 8.9 FL (6.5-10.1); PLATELET COUNT 41 K/UL (150-450); RED BLOOD COUNT 2.35 M/UL (4.70-6.10); RED CELL DISTRIBUTION WIDTH 15.1 % (11.6-14.8); WHITE BLOOD COUNT 4.6 K/UL (4.8-10.8)
[2016-03-19 05:43] LABS: INR 1.4 (0.9-1.1); PROTHROMBIN TIME 13.9 SEC (9.30-11.50)
[2016-03-19 06:08] LABS: ALBUMIN/GLOBULIN RATIO 0.3 (1.0-2.7); CALCIUM 7.2 mg/dL (8.6-10.2); CREATININE 1.6 mg/dL (0.7-1.2); GLOMERULAR FILTRATION RATE 45.1 mL/min (>60); POTASSIUM 4.6 mEQ/L (3.4-4.9); TOTAL PROTEIN 6.1 g/dL (6.6-8.7)
[2016-03-19 06:09] LABS: CHOLESTEROL 60 mg/dL (< 200); CRP QUANT 22.5 mg/dL (< 0.5); HEMOLYSIS 2; LDL CHOLESTEROL (CALC.) 26 mg/dL (60-99); MAGNESIUM 1.9 mg/dL (1.7-2.5); PHOSPHORUS 3.4 mg/dL (2.5-4.8); URIC ACID 6.7 mg/dL (3.0-7.5)
[2016-03-19 08:08] LABS: CORTISOL LC 17.3 ug/dL (.)
--- NOTE | 2016-03-19 09:03 | General Progress Note ---
Assessment/Plan Status: stable - from renal stand Status Narrative Cr lower- Vanco level OK Assessment/Plan acute renal failure, multifactorial ( sepsis, HIV , Vanco...) PreRenal superimposed on Renal Sepsis, Diarrhea, HIV , Kaposi's Pneumonia Hypocalcemia, electrolyte imbalance Anemia in chronic illness, symptomatic Hypokalemia on admit now K elevated JF (acute kidney injury) Thrombocytopenia, massive splenomegali CAP (community acquired pneumonia) Plan: Hydrate- Resume Vanco- Check levels- Urine studies- Cortisol levels- Monitor renal parameters and lytes- Avoid Nephrotoxics Monitor Urine out put Protonix Transfuse Subjective ROS Limited/Unobtainable: No Constitutional: Reports: malaise, weakness Allergies: Coded Allergies: No Known Allergies (Unverified , 03/16/16) Objective Last 24 Hour Vital Signs Date Time Temp Pulse Resp B/P Pulse Ox O2 Delivery O2 Flow Rate FiO2 03/19/16 06:30 98.2 03/19/16 06:30 98.2 03/19/16 04:00 112 03/19/16 04:00 101.7 118 22 110/62 97 Nasal Cannula 03/19/16 00:00 98.4 116 22 102/62 98 Nasal Cannula 03/19/16 00:00 118 03/18/16 20:00 126 03/18/16 20:00 98.4 118 22 101/60 96 Nasal Cannula 03/18/16 19:00 95 Nasal Cannula 3.0 32 03/18/16 19:00 112 20 Nasal Cannula 3.0 32 03/18/16 19:00 Nasal Cannula 3.0 32 03/18/16 16:00 121 03/18/16 16:00 98.2 116 22 101/52 96 Nasal Cannula 03/18/16 12:43 100 03/18/16 12:00 97.5 94 24 86/47 96 Nasal Cannula Intake and Output 03/18/16 03/19/16 19:00 07:00 Intake Total 1737 ml 1402 ml Output Total 1200 ml 1875 ml Balance 537 ml -473 ml Intake Oral 240 ml IV Total 1497 ml 1402 ml Output Urine Total 1200 ml 1875 ml # Voids 5 8 # Bowel Movements 2 Laboratory Tests 03/18/16 11:10: Plasma/Serum Osmolality [Pending], Uric Acid 8.1H, Total Creatine Kinase 12L, Thyroid Stimulating Hormone (TSH) 2.300, Free Thyroxine 0.94, Free Triiodothyronine 1.2L, Cortisol 17.3, Anti-Nuclear Antibody Screen [Pending], Blastomyces Ab Immunodiffusion [Pending], Coccidioides Antibody (Comp Fix) [ Pending], Cryptococcus Antigen [Pending], Histoplasma Mycelial Antibody [Pending ], Histoplasma Antibody w Mycelial Ag [Pending], Histoplasma Antibody with Yeast Ag [Pending], Parvovirus (B19) IgG Antibody [Pending], Parvovirus (B19) IgM Antibody [Pending], TB Test (T-Spot) [Pending], TB Test Nil Control (T-Spot ) [Pending], TB Test Panel A (T-Spot) [Pending], TB Test Panel B (T-Spot) [ Pending], TB Test Positive Control (T-Spot) [Pending] 03/18/16 22:00: Urine Random Sodium 44 03/19/16 00:00: Urine Eosinophils [Pending] 03/19/16 02:00: Urine Random Sodium 55, Urine Eosinophils None seen, Urine Color Yellow, Urine Appearance Clear, Urine pH 5, Urine Specific [place] 1.010, Urine Protein 2+H, Urine Glucose (UA) Negative, Urine Ketones Negative, Urine Occult Blood 2+H, Urine Nitrite Negative, Urine Bilirubin Negative, Urine Urobilinogen 4H, Urine Leukocyte Esterase Negative, Urine RBC 0-2H, Urine WBC 0-2, Urine Squamous Epithelial Cells None, Urine Bacteria None, Urine Coarse Granular Casts 0-2H, Urine Random Chloride 46, Urine Potassium Timed 22 03/19/16 03:55: White Blood Count [Pending], Red Blood Count 2.35L, Hemoglobin 7.4L, Hematocrit 21.9L, Mean Corpuscular Volume 93, Mean Corpuscular Hemoglobin 31.3H, Mean Corpuscular Hemoglobin Concent 33.7, Red Cell Distribution Width 15.1H, Platelet Count 41L, Mean Platelet Volume 8.9, Neutrophils (%) (Auto) , Lymphocytes (%) (Auto) , Monocytes (%) (Auto) , Eosinophils (%) (Auto) , Basophils (%) (Auto) , Neutrophils % (Manual) [Pending], Lymphocytes % (Manual) [Pending], Lymphocytes [Pending], Platelet Estimate [Pending], Platelet Morphology [Pending], Prothrombin Time 13.9H, Prothromb Time International Ratio 1.4H, Activated Partial Thromboplast Time 38H, Sodium Level 129L, Potassium Level 4.6, Chloride Level 95L, Carbon Dioxide Level 21, Anion Gap 13, Blood Urea Nitrogen 28#H, Creatinine 1.6H, Estimat Glomerular Filtration Rate 45.1, Glucose Level 103, Hemoglobin A1c 5.0, Uric Acid 6.7, Calcium Level 7.2L, Phosphorus Level 3.4, Magnesium Level 1.9, Total Bilirubin 0.8, Gamma Glutamyl Transpeptidase 48, Aspartate Amino Transf (AST/SGOT) 34, Alanine Aminotransferase (ALT/SGPT) 24, Alkaline Phosphatase 134H, Total Creatine Kinase 11L, C-Reactive Protein, Quantitative 22.5H, Pro-B-Type Natriuretic Peptide 2811H, Total Protein 6.1L, Albumin 1.6L, Globulin 4.5, Albumin/Globulin Ratio 0.3L, Triglycerides Level 152H, Cholesterol Level 60, LDL Cholesterol 26L , HDL Cholesterol < 4, Cholesterol/HDL Ratio 15.0H, Vitamin B12 Level 391, Folate [Pending], Cortisol [Pending], Random Vancomycin Level 2.8, Percent CD3 Cells [Pending], Absolute CD3 Count [Pending], Percent CD4 Cells [Pending], Absolute CD4 Count [Pending], T-Lymphocyte CD4/CD8 Ratio [Pending], Percent CD8 Cells [Pending], Absolute CD8 Count [Pending] Height (Feet): 5 Height (Inches): 10.00 Weight (Pounds): 165 DEREK SMITH Mar 19, 2016 09:03
[2016-03-19] MEDS: Atovaquone 750mg/5ml Susp ORAL SCH (09:25)
[2016-03-19] MEDS: Cefepime HCl 2 GM in D5W 110 ML IV SCH (09:25)
[2016-03-19] MEDS: PREZCOBIX ORAL SCH (09:49)
[2016-03-19] MEDS ORDERED: Vitamin B12 1000mcg/ml Inj SUBQ SCH (10:00)
--- NOTE | 2016-03-19 10:25 | Pulmonology Progress Note ---
Assessment/Plan Problems: (1) Anemia (2) JF (acute kidney injury) (3) HIV disease (4) Thrombocytopenia (5) Hypocalcemia Assessment/Plan s/p prbc, still anemic, will transfuse again Ct of abdomen reviewed Ct chest showed muliple nodules respiratory treatment continue antiboitics serology pending nephrology evaluation Isolation, afb for sputum, ppd skin testing because of positive nodules on Ct scan Subjective Interval Events: feeling slightly better Allergies: Coded Allergies: No Known Allergies (Unverified , 03/16/16) Objective Last 24 Hour Vital Signs Date Time Temp Pulse Resp B/P Pulse Ox O2 Delivery O2 Flow Rate FiO2 03/19/16 08:00 102 03/19/16 07:43 Nasal Cannula 2.0 28 03/19/16 07:43 100 Nasal Cannula 2.0 28 03/19/16 07:43 102 18 Nasal Cannula 2.0 28 03/19/16 06:30 98.2 03/19/16 06:30 98.2 03/19/16 04:00 112 03/19/16 04:00 101.7 118 22 110/62 97 Nasal Cannula 03/19/16 00:00 98.4 116 22 102/62 98 Nasal Cannula 03/19/16 00:00 118 03/18/16 20:00 126 03/18/16 20:00 98.4 118 22 101/60 96 Nasal Cannula 03/18/16 19:00 95 Nasal Cannula 3.0 32 03/18/16 19:00 112 20 Nasal Cannula 3.0 32 03/18/16 19:00 Nasal Cannula 3.0 32 03/18/16 16:00 121 03/18/16 16:00 98.2 116 22 101/52 96 Nasal Cannula 03/18/16 12:43 100 03/18/16 12:00 97.5 94 24 86/47 96 Nasal Cannula Intake and Output 03/18/16 03/19/16 19:00 07:00 Intake Total 1737 ml 1402 ml Output Total 1200 ml 1875 ml Balance 537 ml -473 ml Intake Oral 240 ml IV Total 1497 ml 1402 ml Output Urine Total 1200 ml 1875 ml # Voids 5 8 # Bowel Movements 2 General Appearance: WD/WN HEENT: normocephalic, anicteric Respiratory/Chest: chest wall non-tender, normal breath sounds Cardiovascular: normal peripheral pulses, normal rate Abdomen: normal bowel sounds, soft, non tender Extremities: no cyanosis, no clubbing 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: 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, no motor/sensory deficits Microbiology Date/Time Source Procedure Growth Status 03/17/16 12:00 Urine,Clean Catch Urine Culture - Final NO GROWTH AFTER 48 HOURS Complete Laboratory Tests 03/18/16 11:10: Plasma/Serum Osmolality [Pending], Uric Acid 8.1H, Total Creatine Kinase 12L, Thyroid Stimulating Hormone (TSH) 2.300, Free Thyroxine 0.94, Free Triiodothyronine 1.2L, Cortisol 17.3, Anti-Nuclear Antibody Screen [Pending], Blastomyces Ab Immunodiffusion [Pending], Coccidioides Antibody (Comp Fix) [ Pending], Cryptococcus Antigen [Pending], Histoplasma Mycelial Antibody [Pending ], Histoplasma Antibody w Mycelial Ag [Pending], Histoplasma Antibody with Yeast Ag [Pending], Parvovirus (B19) IgG Antibody [Pending], Parvovirus (B19) IgM Antibody [Pending], TB Test (T-Spot) [Pending], TB Test Nil Control (T-Spot ) [Pending], TB Test Panel A (T-Spot) [Pending], TB Test Panel B (T-Spot) [ Pending], TB Test Positive Control (T-Spot) [Pending] 03/18/16 22:00: Urine Random Sodium 44 03/19/16 00:00: Urine Eosinophils [Pending] 03/19/16 02:00: Urine Random Sodium 55, Urine Eosinophils None seen, Urine Color Yellow, Urine Appearance Clear, Urine pH 5, Urine Specific [place] 1.010, Urine Protein 2+H, Urine Glucose (UA) Negative, Urine Ketones Negative, Urine Occult Blood 2+H, Urine Nitrite Negative, Urine Bilirubin Negative, Urine Urobilinogen 4H, Urine Leukocyte Esterase Negative, Urine RBC 0-2H, Urine WBC 0-2, Urine Squamous Epithelial Cells None, Urine Bacteria None, Urine Coarse Granular Casts 0-2H, Urine Random Chloride 46, Urine Potassium Timed 22 03/19/16 03:55: White Blood Count [Pending], Red Blood Count 2.35L, Hemoglobin 7.4L, Hematocrit 21.9L, Mean Corpuscular Volume 93, Mean Corpuscular Hemoglobin 31.3H, Mean Corpuscular Hemoglobin Concent 33.7, Red Cell Distribution Width 15.1H, Platelet Count 41L, Mean Platelet Volume 8.9, Neutrophils (%) (Auto) , Lymphocytes (%) (Auto) , Monocytes (%) (Auto) , Eosinophils (%) (Auto) , Basophils (%) (Auto) , Neutrophils % (Manual) [Pending], Lymphocytes % (Manual) [Pending], Lymphocytes [Pending], Platelet Estimate [Pending], Platelet Morphology [Pending], Prothrombin Time 13.9H, Prothromb Time International Ratio 1.4H, Activated Partial Thromboplast Time 38H, Sodium Level 129L, Potassium Level 4.6, Chloride Level 95L, Carbon Dioxide Level 21, Anion Gap 13, Blood Urea Nitrogen 28#H, Creatinine 1.6H, Estimat Glomerular Filtration Rate 45.1, Glucose Level 103, Hemoglobin A1c 5.0, Uric Acid 6.7, Calcium Level 7.2L, Phosphorus Level 3.4, Magnesium Level 1.9, Total Bilirubin 0.8, Gamma Glutamyl Transpeptidase 48, Aspartate Amino Transf (AST/SGOT) 34, Alanine Aminotransferase (ALT/SGPT) 24, Alkaline Phosphatase 134H, Total Creatine Kinase 11L, C-Reactive Protein, Quantitative 22.5H, Pro-B-Type Natriuretic Peptide 2811H, Total Protein 6.1L, Albumin 1.6L, Globulin 4.5, Albumin/Globulin Ratio 0.3L, Triglycerides Level 152H, Cholesterol Level 60, LDL Cholesterol 26L , HDL Cholesterol < 4, Cholesterol/HDL Ratio 15.0H, Vitamin B12 Level 391, Folate [Pending], Cortisol [Pending], Random Vancomycin Level 2.8, Percent CD3 Cells [Pending], Absolute CD3 Count [Pending], Percent CD4 Cells [Pending], Absolute CD4 Count [Pending], T-Lymphocyte CD4/CD8 Ratio [Pending], Percent CD8 Cells [Pending], Absolute CD8 Count [Pending] Current Medications Medications (Trade) Dose Ordered Sig/Godwin Route PRN Reason Start Time Stop Time Status Last Admin Dose Admin Acetaminophen (Tylenol) 650 mg Q4H PRN ORAL fever 03/17/16 20:00 04/16/16 19:59 03/19/16 05:31 Albuterol/ Ipratropium (DuoNeb 0.5-3(2.5)mg/3ml) 3 ml Q4H PRN HHN Shortness of Breath 03/17/16 21:00 03/22/16 20:59 Atovaquone (Mepron Susp) 1,500 mg DAILY ORAL 03/18/16 09:00 04/17/16 08:59 03/19/16 09:25 Cefepime HCl/ Dextrose (Maxipime/D5W) 110 ml @ 220 mls/hr Q24H IV 03/18/16 10:00 03/25/16 09:59 03/19/16 09:25 Cyanocobalamin (Vitamin B12) 1,000 mcg DAILY SUBQ 03/19/16 10:00 03/21/16 09:01 03/19/16 09:37 Iron Sucrose/ Sodium Chloride (Venofer/Sodium Chloride) 120 ml @ 240 mls/hr ONCE ONCE IVPB 03/19/16 11:00 03/19/16 11:29 Morphine Sulfate (Morphine Sulfate) 2 mg Q4H PRN IVP Moderate Pain (Pain Scale 4-6) 03/17/16 21:00 03/24/16 20:59 Nitroglycerin (Ntg) 0.4 mg Every 5 Minutes PRN SL Prn Chest Pain 03/17/16 19:15 04/16/16 19:14 Ondansetron HCl (Zofran) 4 mg Q6H PRN IVP Nausea & Vomiting 03/17/16 20:00 04/16/16 19:59 Pantoprazole (Protonix) 40 mg EVERY 12 HOURS ORAL 03/19/16 10:00 04/18/16 09:59 03/19/16 09:36 Patient Own Medication (Patient's Own Med) 1 ea DAILY ORAL 03/18/16 09:00 04/17/16 08:59 03/19/16 09:49 Patient Own Medication 1 ea 1 ea DAILY ORAL 03/18/16 09:00 04/17/16 08:59 03/19/16 09:49 Polyethylene Glycol (Miralax) 17 gm DAILYPRN PRN ORAL Constipation 03/17/16 20:00 04/16/16 19:59 Sodium Chloride (Sodium Chloride 1000ml bag) 1,000 ml @ 75 mls/hr [id number] IVLG 03/19/16 20:00 04/18/16 19:59 03/19/16 09:29 Temazepam (Restoril) 15 mg HSPRN PRN ORAL Insomnia 03/17/16 21:00 03/24/16 20:59 Vancomycin HCl 1 ea 1 ea DAILY PRN MISC Per rx protocol 03/19/16 09:00 04/18/16 08:59 MARIA ISABEL JAMES Mar 19, 2016 10:25
[2016-03-19 10:32] LABS: ANISOCYTOSIS 1+; BAND NEUTROPHILS % (MANUAL) 0 % (0-8); BASOPHILS % (MANUAL) 0 % (0-2); EOSINOPHILS % (MANUAL) 0 % (0-3); HYPOCHROMASIA 1+; LYMPHOCYTES % (MANUAL) 12 % (20-45); NEUTROPHILS % (MANUAL) 77 % (45-75); PLATELET ESTIMATE DECREASED; PLATELET MORPHOLOGY NORMAL; TOTAL CELLS COUNTED 100
[2016-03-19] MEDS ORDERED: Iron Sucrose 200 MG in NS 110 ML IVPB ONE (11:00)
[2016-03-19] MEDS ORDERED: Nitroglycerin Subl 0.4mg tab (Bottle Of 25) SL PRN (11:45)
[2016-03-19] MEDS ORDERED: DuoNeb 0.5-3(2.5)mg/3ml neb HHN PRN (12:00)
[2016-03-19] MEDS ORDERED: Vancomycin 1 GM in D5W 275 ML IVPB ONE (12:00)
[2016-03-19] MEDS ORDERED: PPD Tuberculin Skin Test 5TU IDERMAL ONE ×2 (12:00→13:00)
[2016-03-19] MEDS ORDERED: Vancomycin 1gm in D5W 275ml IVPB ONE (12:00)
[2016-03-19] MEDS ORDERED: Miralax 17gm pkt ORAL PRN (12:00)
[2016-03-19 16:09] LABS: MEAN CORPUSCULAR HEMOGLOBIN 31.4 PG (27.0-31.0); MEAN CORPUSCULAR HGB CONC 33.9 G/DL (32.0-36.0); MEAN CORPUSCULAR VOLUME 93 FL (80-99); MEAN PLATELET VOLUME 10.8 FL (6.5-10.1); PLATELET COUNT 33 K/UL (150-450); RED BLOOD COUNT 2.74 M/UL (4.70-6.10); RED CELL DISTRIBUTION WIDTH 15.4 % (11.6-14.8); WHITE BLOOD COUNT 5.6 K/UL (4.8-10.8)
[2016-03-19 16:13] LABS: ANTI-NUCLEAR ANTIBODY SCREEN Negative (Negative)
[2016-03-19 16:13] LABS: BASOPHILS % (AUTO) 0.2 % (0.0-2.0); EOSINOPHILS % (AUTO) 0.1 % (0.0-3.0); LYMPHOCYTES % (AUTO) 11.4 % (20.0-45.0); MONOCYTES % (AUTO) 5.8 % (1.0-10.0); NEUTROPHILS % (AUTO) 82.4 % (45.0-75.0)
--- NOTE | 2016-03-19 21:36 | General Progress Note ---
Assessment/Plan Assessment/Plan Assessment - Anemia - Thrombocytopenia - HIV - Diarrhea Recommendations - Stool w.u - check OB - consider Heme eval - EGD/Colon when stable Subjective Allergies: Coded Allergies: No Known Allergies (Unverified , 03/16/16) Objective Last 24 Hour Vital Signs Date Time Temp Pulse Resp B/P Pulse Ox O2 Delivery O2 Flow Rate FiO2 03/19/16 20:31 112 18 Nasal Cannula 2.0 28 03/19/16 20:31 96 Nasal Cannula 2.0 28 03/19/16 20:31 Nasal Cannula 2.0 28 03/19/16 20:00 98.6 101 20 107/46 96 03/19/16 16:17 98.4 122 20 119/65 95 Nasal Cannula 2.0 03/19/16 14:00 99.3 126 126/80 03/19/16 12:50 98.9 116 20 120/64 95 Nasal Cannula 2.0 03/19/16 08:00 102 03/19/16 08:00 98.2 106 21 114/60 100 Nasal Cannula 03/19/16 07:43 Nasal Cannula 2.0 28 03/19/16 07:43 100 Nasal Cannula 2.0 28 03/19/16 07:43 102 18 Nasal Cannula 2.0 28 03/19/16 06:30 98.2 03/19/16 06:30 98.2 03/19/16 04:00 112 03/19/16 04:00 101.7 118 22 110/62 97 Nasal Cannula 03/19/16 00:00 98.4 116 22 102/62 98 Nasal Cannula 03/19/16 00:00 118 Intake and Output 03/18/16 03/19/16 19:00 07:00 Intake Total 1737 ml 1402 ml Output Total 1200 ml 1875 ml Balance 537 ml -473 ml Intake Oral 240 ml IV Total 1497 ml 1402 ml Output Urine Total 1200 ml 1875 ml # Voids 5 8 # Bowel Movements 2 Laboratory Tests 03/18/16 22:00: Urine Random Sodium 44 03/19/16 00:00: Urine Eosinophils [Pending] 03/19/16 02:00: Urine Random Sodium 55, Urine Eosinophils None seen, Urine Color Yellow, Urine Appearance Clear, Urine pH 5, Urine Specific [place] 1.010, Urine Protein 2+H, Urine Glucose (UA) Negative, Urine Ketones Negative, Urine Occult Blood 2+H, Urine Nitrite Negative, Urine Bilirubin Negative, Urine Urobilinogen 4H, Urine Leukocyte Esterase Negative, Urine RBC 0-2H, Urine WBC 0-2, Urine Squamous Epithelial Cells None, Urine Bacteria None, Urine Coarse Granular Casts 0-2H, Urine Random Chloride 46, Urine Potassium Timed 22 03/19/16 03:55: White Blood Count [Pending], Red Blood Count 2.35L, Hemoglobin 7.4L, Hematocrit 21.9L, Mean Corpuscular Volume 93, Mean Corpuscular Hemoglobin 31.3H, Mean Corpuscular Hemoglobin Concent 33.7, Red Cell Distribution Width 15.1H, Platelet Count 41L, Mean Platelet Volume 8.9, Neutrophils (%) (Auto) , Lymphocytes (%) (Auto) , Monocytes (%) (Auto) , Eosinophils (%) (Auto) , Basophils (%) (Auto) , Differential Total Cells Counted 100, Neutrophils % ( Manual) 77H, Lymphocytes % (Manual) 12L, Monocytes % (Manual) 11H, Eosinophils % (Manual) 0, Basophils % (Manual) 0, Band Neutrophils 0, Lymphocytes [Pending] , Platelet Estimate DecreasedL, Platelet Morphology Normal, Hypochromasia 1+, Anisocytosis 1+, Prothrombin Time 13.9H, Prothromb Time International Ratio 1.4H , Activated Partial Thromboplast Time 38H, Sodium Level 129L, Potassium Level 4.6, Chloride Level 95L, Carbon Dioxide Level 21, Anion Gap 13, Blood Urea Nitrogen 28#H, Creatinine 1.6H, Estimat Glomerular Filtration Rate 45.1, Glucose Level 103, Hemoglobin A1c 5.0, Uric Acid 6.7, Calcium Level 7.2L, Phosphorus Level 3.4, Magnesium Level 1.9, Total Bilirubin 0.8, Gamma Glutamyl Transpeptidase 48, Aspartate Amino Transf (AST/SGOT) 34, Alanine Aminotransferase (ALT/SGPT) 24, Alkaline Phosphatase 134H, Lactate Dehydrogenase 160, Total Creatine Kinase 11L, C-Reactive Protein, Quantitative 22.5H, Pro-B-Type Natriuretic Peptide 2811H, Total Protein 6.1L, Albumin 1.6L, Globulin 4.5, Albumin/Globulin Ratio 0.3L, Triglycerides Level 152H, Cholesterol Level 60, LDL Cholesterol 26L, HDL Cholesterol < 4, Cholesterol/HDL Ratio 15.0H, Carcinoembryonic Antigen 0.7, Vitamin B12 Level 391, Folate [ Pending], Cortisol [Pending], Random Vancomycin Level 2.8, Percent CD3 Cells [ Pending], Absolute CD3 Count [Pending], Percent CD4 Cells [Pending], Absolute CD4 Count [Pending], T-Lymphocyte CD4/CD8 Ratio [Pending], Percent CD8 Cells [ Pending], Absolute CD8 Count [Pending] 03/19/16 15:35: White Blood Count 5.6, Red Blood Count 2.74L, Hemoglobin 8.6L, Hematocrit 25.4L , Mean Corpuscular Volume 93, Mean Corpuscular Hemoglobin 31.4H, Mean Corpuscular Hemoglobin Concent 33.9, Red Cell Distribution Width 15.4H, Platelet Count 33L, Mean Platelet Volume 10.8H, Neutrophils (%) (Auto) 82.4H, Lymphocytes (%) (Auto) 11.4L, Monocytes (%) (Auto) 5.8, Eosinophils (%) (Auto) 0.1, Basophils (%) (Auto) 0.2 Height (Feet): 5 Height (Inches): 10.00 Weight (Pounds): 165 MARCELOTOMMYDIO Mar 19, 2016 21:36
[2016-03-20] MEDS ORDERED: Vancomycin 750 MG in D5W 275 ML IVPB SCH (01:00)
[2016-03-20] MEDS ORDERED: Vancomycin 750mg/D5W 275ml IVPB SCH ×2 (01:00)
[2016-03-20] MEDS ORDERED: Vancomycin 750mg Inj IVPB ONE (01:27)
[2016-03-20 04:30] VITALS: BP 95/47
[2016-03-20 06:42] LABS: MEAN CORPUSCULAR HEMOGLOBIN 30.9 PG (27.0-31.0); MEAN CORPUSCULAR HGB CONC 33.8 G/DL (32.0-36.0); MEAN CORPUSCULAR VOLUME 91 FL (80-99); MEAN PLATELET VOLUME 10.8 FL (6.5-10.1); PLATELET COUNT 29 K/UL (150-450); RED CELL DISTRIBUTION WIDTH 15.4 % (11.6-14.8); WHITE BLOOD COUNT 4.9 K/UL (4.8-10.8)
[2016-03-20 07:20] LABS: ALANINE AMINOTRANSFERASE 20 U/L (3-41); ALBUMIN/GLOBULIN RATIO 0.3 (1.0-2.7); ANION GAP 14 (5-15); ASPARTATE AMINO TRANSFERASE 30 U/L (5-40); CALCIUM 7.5 mg/dL (8.6-10.2); CARBON DIOXIDE 22 mEQ/L (20-30); CHLORIDE 92 mEQ/L (98-107); CREATININE 1.6 mg/dL (0.7-1.2); GLOMERULAR FILTRATION RATE 45.1 mL/min (>60); HEMOLYSIS 3; MAGNESIUM 1.8 mg/dL (1.7-2.5); PHOSPHORUS 3.7 mg/dL (2.5-4.8); POTASSIUM 4.2 mEQ/L (3.4-4.9); SODIUM 128 mEQ/L (135-145); URIC ACID 6.1 mg/dL (3.0-7.5)
[2016-03-20 08:10] VITALS: BP 95/50
[2016-03-20] MEDS: PREZCOBIX ORAL SCH (09:53)
[2016-03-20] MEDS: Vitamin B12 1000mcg/ml Inj SUBQ SCH (09:53)
[2016-03-20] MEDS: DOLUTEGRAVIR 50 MG ORAL SCH (09:53)
[2016-03-20] MEDS: Atovaquone 750mg/5ml Susp ORAL SCH (09:55)
[2016-03-20 09:59] LABS: ANISOCYTOSIS 1+; BAND NEUTROPHILS % (MANUAL) 1 % (0-8); BASOPHILS % (MANUAL) 0 % (0-2); EOSINOPHILS % (MANUAL) 0 % (0-3); HYPOCHROMASIA 1+; LYMPHOCYTES % (MANUAL) 15 % (20-45); NEUTROPHILS % (MANUAL) 75 % (45-75); PLATELET ESTIMATE DECREASED; PLATELET MORPHOLOGY NORMAL; TOTAL CELLS COUNTED 100
[2016-03-20] MEDS ORDERED: Cefepime HCl 2 GM in D5W 110 ML IV SCH ×4 (10:00)
[2016-03-20] MEDS: Morphine Sulfate 2mg/ml Inj IVP PRN (10:09)
--- NOTE | 2016-03-20 10:40 | Infectious Diseases Prog Note ---
Assessment/Plan Assessment/Plan ASSESSMENT: 55 y/o male with: // Probable sepsis r/o opportunistic infection - cultures, serology pending // Diarrhea r/o infectious - stool studies pending // Possible PNA - CT: predominantly upper lobe pulmonary interstitial disease, possible lymphocytic interstitial pneumonitis. Multiple sub-5 mm parenchymal nodules seen throughout the left lung. Bilateral basilar pulmonary parenchymal atelectatic changes and possibly some consolidation. Small bilateral pleural effusions - LDH WNL, on bactrim PCP prophy prior to admission // Diffuse LAD r/o infectious vs myeloproliferative disorder - CT: Extensive thoracic, abdominal, and pelvic lymphadenopathy // HIV / AIDS, on cART ( recently changed to prezcobix, tivicay d/t genotype ) - unknown CD4 pending // Kaposi sarcoma // Leukopenia / pancytopenia r/o bone marrow infiltrative process - LDH WNL // Fever - improved // Symptomatic anemia SP PRBCs - denies blood loss // ARF improved // Hypocalcemia / electrolyte imbalance // Massive splenomegaly // Thrombocytopenia // Elevated ESR // NKDA // Full Code PLAN: - continue empiric broad spectrum IV vancomycin, cefepime d# 4 - continue cART ( prezcobix, tivicay - ok for pt to take own meds ), changed bactrim prophy to mepron given cytopenias - consider heme eval, LN or BMBx r/o HIV-associated lymphoma - f/u AFB BCx, CrAg, coccidioides, histoplasma, blastomyces, parvovirus, QFT TB gold, stool studies, ARMIDA, LAP, CD4 - monitor CBC, temperatures - monitor BMP - transfuse prn Subjective Constitutional: Denies: anorexia, chills, drenching sweats, fatigue, fever, no symptoms, other Allergies: Coded Allergies: No Known Allergies (Unverified , 03/16/16) Objective Vital Signs Last 24 Hour Vital Signs Date Time Temp Pulse Resp B/P Pulse Ox O2 Delivery O2 Flow Rate FiO2 03/20/16 08:10 98.1 108 20 95/50 96 Nasal Cannula 2.0 03/20/16 08:00 116 03/20/16 07:44 97 Nasal Cannula 2.0 28 03/20/16 07:44 106 18 Nasal Cannula 2.0 28 03/20/16 07:33 Nasal Cannula 2.0 28 03/20/16 04:30 98.6 55 20 95/47 96 Room Air 03/20/16 04:00 110 03/20/16 00:00 112 03/19/16 20:31 112 18 Nasal Cannula 2.0 28 03/19/16 20:31 96 Nasal Cannula 2.0 28 03/19/16 20:31 Nasal Cannula 2.0 28 03/19/16 20:00 98.6 101 20 107/46 96 03/19/16 20:00 109 03/19/16 16:17 98.4 122 20 119/65 95 Nasal Cannula 2.0 03/19/16 16:00 122 03/19/16 14:00 99.3 126 126/80 03/19/16 12:50 98.9 116 20 120/64 95 Nasal Cannula 2.0 Height (Feet): 5 Height (Inches): 10.00 Weight (Pounds): 165 HEENT: anicteric Respiratory/Chest: no respiratory distress Cardiovascular: regularly irregular Abdomen: non distended Microbiology Date/Time Source Procedure Growth Status 03/18/16 08:15 Blood Blood Culture - Preliminary NO GROWTH AFTER 24 HOURS Resulted 03/18/16 07:40 Blood Blood Culture - Preliminary NO GROWTH AFTER 24 HOURS Resulted 03/17/16 12:00 Urine,Clean Catch Urine Culture - Final NO GROWTH AFTER 48 HOURS Complete Laboratory Tests Test 03/19/16 15:35 03/20/16 05:15 03/20/16 07:30 White Blood Count 5.6 K/UL (4.8-10.8) 4.9 K/UL (4.8-10.8) Red Blood Count 2.74 M/UL (4.70-6.10) L 2.60 M/UL (4.70-6.10) L Hemoglobin 8.6 G/DL (14.2-18.0) L 8.0 G/DL (14.2-18.0) L Hematocrit 25.4 % (42.0-52.0) L 23.8 % (42.0-52.0) L Mean Corpuscular Volume 93 FL (80-99) 91 FL (80-99) Mean Corpuscular Hemoglobin 31.4 PG (27.0-31.0) H 30.9 PG (27.0-31.0) Mean Corpuscular Hemoglobin Concent 33.9 G/DL (32.0-36.0) 33.8 G/DL (32.0-36.0) Red Cell Distribution Width 15.4 % (11.6-14.8) H 15.4 % (11.6-14.8) H Platelet Count 33 K/UL (150-450) L 29 K/UL (150-450) L Mean Platelet Volume 10.8 FL (6.5-10.1) H 10.8 FL (6.5-10.1) H Neutrophils (%) (Auto) 82.4 % (45.0-75.0) H % (45.0-75.0) Lymphocytes (%) (Auto) 11.4 % (20.0-45.0) L % (20.0-45.0) Monocytes (%) (Auto) 5.8 % (1.0-10.0) % (1.0-10.0) Eosinophils (%) (Auto) 0.1 % (0.0-3.0) % (0.0-3.0) Basophils (%) (Auto) 0.2 % (0.0-2.0) % (0.0-2.0) Differential Total Cells Counted 100 Neutrophils % (Manual) 75 % (45-75) Lymphocytes % (Manual) 15 % (20-45) L Monocytes % (Manual) 9 % (1-10) Eosinophils % (Manual) 0 % (0-3) Basophils % (Manual) 0 % (0-2) Band Neutrophils 1 % (0-8) Platelet Estimate Decreased L Platelet Morphology Normal Hypochromasia 1+ Anisocytosis 1+ Sodium Level 128 mEQ/L (135-145) L Potassium Level 4.2 mEQ/L (3.4-4.9) Chloride Level 92 mEQ/L (98-107) L Carbon Dioxide Level 22 mEQ/L (20-30) Anion Gap 14 (5-15) Blood Urea Nitrogen 24 mg/dL (7-23) H Creatinine 1.6 mg/dL (0.7-1.2) H Estimat Glomerular Filtration Rate 45.1 mL/min (>60) Glucose Level 106 mg/dL (74-106) Uric Acid 6.1 mg/dL (3.0-7.5) Calcium Level 7.5 mg/dL (8.6-10.2) L Phosphorus Level 3.7 mg/dL (2.5-4.8) Magnesium Level 1.8 mg/dL (1.7-2.5) Total Bilirubin 1.0 mg/dL (0.0-1.2) Gamma Glutamyl Transpeptidase 58 U/L (8-61) Aspartate Amino Transf (AST/SGOT) 30 U/L (5-40) Alanine Aminotransferase (ALT/SGPT) 20 U/L (3-41) Alkaline Phosphatase 150 U/L (40-129) H Total Creatine Kinase 9 U/L (38-174) L C-Reactive Protein, Quantitative 22.0 mg/dL (< 0.5) H Pro-B-Type Natriuretic Peptide 3374 pg/mL (0-125) H Total Protein 6.0 g/dL (6.6-8.7) L Albumin 1.6 g/dL (3.5-5.2) L Globulin 4.4 g/dL Albumin/Globulin Ratio 0.3 (1.0-2.7) L Urine Eosinophils None seen Current Medications Medications (Trade) Dose Ordered Sig/Godwin Route PRN Reason Start Time Stop Time Status Last Admin Dose Admin Acetaminophen (Tylenol) 650 mg Q4H PRN ORAL fever 03/19/16 12:00 04/18/16 11:59 Albuterol/ Ipratropium (DuoNeb 0.5-3(2.5)mg/3ml) 3 ml Q4H PRN HHN Shortness of Breath 03/19/16 12:00 03/24/16 11:59 Atovaquone (Mepron Susp) 1,500 mg DAILY ORAL 03/20/16 09:00 04/19/16 08:59 03/20/16 09:55 Cefepime HCl/ Dextrose (Maxipime/D5W) 110 ml @ 220 mls/hr Q12H IV 03/20/16 10:00 03/26/16 21:59 03/20/16 09:54 Cyanocobalamin (Vitamin B12) 1,000 mcg DAILY SUBQ 03/20/16 09:00 03/21/16 09:01 03/20/16 09:53 Morphine Sulfate (Morphine Sulfate) 2 mg Q4H PRN IVP Moderate Pain (Pain Scale 4-6) 03/19/16 12:00 03/26/16 11:59 03/20/16 10:09 Nitroglycerin (Ntg) 0.4 mg Every 5 Minutes PRN SL Prn Chest Pain 03/19/16 11:45 04/18/16 11:44 Ondansetron HCl (Zofran) 4 mg Q6H PRN IVP Nausea & Vomiting 03/19/16 12:00 04/18/16 11:59 Pantoprazole (Protonix) 40 mg EVERY 12 HOURS ORAL 03/19/16 21:00 04/18/16 20:59 03/20/16 09:53 Patient Own Medication (Patient's Own Med) 1 ea DAILY ORAL 03/20/16 09:00 04/19/16 08:59 03/20/16 09:53 Patient Own Medication (Patient's Own Med) 1 ea DAILY ORAL 03/20/16 09:00 04/19/16 08:59 03/20/16 09:53 Polyethylene Glycol (Miralax) 17 gm DAILYPRN PRN ORAL Constipation 03/19/16 12:00 04/18/16 11:59 Sodium Chloride 1,000 ml @ 75 mls/hr [id number] IVLG 03/19/16 12:30 04/18/16 12:29 03/20/16 01:37 Temazepam (Restoril) 15 mg HSPRN PRN ORAL Insomnia 03/19/16 21:00 03/26/16 20:59 Vancomycin HCl 1 ea 1 ea DAILY PRN MISC Per rx protocol 03/20/16 09:00 04/19/16 08:59 Vancomycin HCl/ Dextrose (Vancomycin/D5W) 275 ml @ 183.708 mls/hr Q12H IVPB 03/20/16 01:00 03/25/16 00:59 03/20/16 01:37 DANIEL GODINEZ M.D. Mar 20, 2016 10:40
[2016-03-20 11:30] VITALS: BP 104/47
--- NOTE | 2016-03-20 13:24 | Pulmonology Progress Note ---
Assessment/Plan Problems: (1) Sepsis (2) Pneumonia (3) Anemia (4) JF (acute kidney injury) (5) HIV disease (6) Thrombocytopenia (7) Hypocalcemia (8) Splenomegaly with HIV infection Assessment/Plan s/p prbc, still anemic, will transfuse again Ct of abdomen reviewed Ct chest showed muliple nodules respiratory treatment continue antiboitics serology pending nephrology evaluation bone marrow biopsy Isolation, afb for sputum, ppd skin testing because of positive nodules on Ct scan Subjective ROS Limited/Unobtainable: No Interval Events: no Constitutional: Reports: no symptoms HEENT: Repors: no symptoms Respiratory: Reports: no symptoms Cardiovascular: Reports: no symptoms Gastrointestinal/Abdominal: Reports: no symptoms Allergies: Coded Allergies: No Known Allergies (Unverified , 03/16/16) Objective Last 24 Hour Vital Signs Date Time Temp Pulse Resp B/P Pulse Ox O2 Delivery O2 Flow Rate FiO2 03/20/16 11:30 98.8 113 20 104/47 96 Nasal Cannula 2.0 03/20/16 10:40 98.1 03/20/16 08:10 98.1 108 20 95/50 96 Nasal Cannula 2.0 03/20/16 08:00 116 03/20/16 07:44 97 Nasal Cannula 2.0 28 03/20/16 07:44 106 18 Nasal Cannula 2.0 28 03/20/16 07:33 Nasal Cannula 2.0 28 03/20/16 04:30 98.6 55 20 95/47 96 Room Air 03/20/16 04:00 110 03/20/16 00:00 112 03/19/16 20:31 112 18 Nasal Cannula 2.0 28 03/19/16 20:31 96 Nasal Cannula 2.0 28 03/19/16 20:31 Nasal Cannula 2.0 28 03/19/16 20:00 98.6 101 20 107/46 96 03/19/16 20:00 109 03/19/16 16:17 98.4 122 20 119/65 95 Nasal Cannula 2.0 03/19/16 16:00 122 03/19/16 14:00 99.3 126 126/80 Intake and Output 03/19/16 03/20/16 19:00 07:00 Intake Total 1220 ml 628 ml Output Total 850 ml Balance 370 ml 628 ml Intake Oral 365 ml IV Total 855 ml 628 ml Output Urine Total 850 ml # Bowel Movements 1 General Appearance: WD/WN HEENT: normocephalic Respiratory/Chest: chest wall non-tender, lungs clear Cardiovascular: normal peripheral pulses, regular rhythm Abdomen: normal bowel sounds, soft, non tender, no scars Extremities: no cyanosis Skin: no lesions 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: 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 normal Microbiology Date/Time Source Procedure Growth Status 03/18/16 08:15 Blood Blood Culture - Preliminary NO GROWTH AFTER 24 HOURS Resulted 03/18/16 07:40 Blood Blood Culture - Preliminary NO GROWTH AFTER 24 HOURS Resulted Laboratory Tests 03/19/16 15:35: White Blood Count 5.6, Red Blood Count 2.74L, Hemoglobin 8.6L, Hematocrit 25.4L , Mean Corpuscular Volume 93, Mean Corpuscular Hemoglobin 31.4H, Mean Corpuscular Hemoglobin Concent 33.9, Red Cell Distribution Width 15.4H, Platelet Count 33L, Mean Platelet Volume 10.8H, Neutrophils (%) (Auto) 82.4H, Lymphocytes (%) (Auto) 11.4L, Monocytes (%) (Auto) 5.8, Eosinophils (%) (Auto) 0.1, Basophils (%) (Auto) 0.2 03/20/16 05:15: White Blood Count 4.9, Red Blood Count 2.60L, Hemoglobin 8.0L, Hematocrit 23.8L , Mean Corpuscular Volume 91, Mean Corpuscular Hemoglobin 30.9, Mean Corpuscular Hemoglobin Concent 33.8, Red Cell Distribution Width 15.4H, Platelet Count 29L, Mean Platelet Volume 10.8H, Neutrophils (%) (Auto) , Lymphocytes (%) (Auto) , Monocytes (%) (Auto) , Eosinophils (%) (Auto) , Basophils (%) (Auto) , Differential Total Cells Counted 100, Neutrophils % ( Manual) 75, Lymphocytes % (Manual) 15L, Monocytes % (Manual) 9, Eosinophils % ( Manual) 0, Basophils % (Manual) 0, Band Neutrophils 1, Platelet Estimate DecreasedL, Platelet Morphology Normal, Hypochromasia 1+, Anisocytosis 1+, Sodium Level 128L, Potassium Level 4.2, Chloride Level 92L, Carbon Dioxide Level 22, Anion Gap 14, Blood Urea Nitrogen 24H, Creatinine 1.6H, Estimat Glomerular Filtration Rate 45.1, Glucose Level 106, Uric Acid 6.1, Calcium Level 7.5L, Phosphorus Level 3.7, Magnesium Level 1.8, Total Bilirubin 1.0, Gamma Glutamyl Transpeptidase 58, Aspartate Amino Transf (AST/SGOT) 30, Alanine Aminotransferase (ALT/SGPT) 20, Alkaline Phosphatase 150H, Total Creatine Kinase 9L, C-Reactive Protein, Quantitative 22.0H, Pro-B-Type Natriuretic Peptide 3374H, Total Protein 6.0L, Albumin 1.6L, Globulin 4.4, Albumin/Globulin Ratio 0.3L 03/20/16 07:30: Urine Eosinophils None seen Current Medications Medications (Trade) Dose Ordered Sig/Godwin Route PRN Reason Start Time Stop Time Status Last Admin Dose Admin Acetaminophen (Tylenol) 650 mg Q4H PRN ORAL fever 03/19/16 12:00 04/18/16 11:59 Albuterol/ Ipratropium (DuoNeb 0.5-3(2.5)mg/3ml) 3 ml Q4H PRN HHN Shortness of Breath 03/19/16 12:00 03/24/16 11:59 Atovaquone (Mepron Susp) 1,500 mg DAILY ORAL 03/20/16 09:00 04/19/16 08:59 03/20/16 09:55 Cefepime HCl 2 gm/ Dextrose 110 ml @ 220 mls/hr Q12HR IV 03/20/16 21:00 03/26/16 20:59 Cyanocobalamin (Vitamin B12) 1,000 mcg DAILY SUBQ 03/20/16 09:00 03/21/16 09:01 03/20/16 09:53 Morphine Sulfate (Morphine Sulfate) 2 mg Q4H PRN IVP Moderate Pain (Pain Scale 4-6) 03/19/16 12:00 03/26/16 11:59 03/20/16 10:09 Nitroglycerin (Ntg) 0.4 mg Every 5 Minutes PRN SL Prn Chest Pain 03/19/16 11:45 04/18/16 11:44 Ondansetron HCl (Zofran) 4 mg Q6H PRN IVP Nausea & Vomiting 03/19/16 12:00 04/18/16 11:59 Pantoprazole (Protonix) 40 mg EVERY 12 HOURS ORAL 03/19/16 21:00 04/18/16 20:59 03/20/16 09:53 Patient Own Medication (Patient's Own Med) 1 ea DAILY ORAL 03/20/16 09:00 04/19/16 08:59 03/20/16 09:53 Patient Own Medication (Patient's Own Med) 1 ea DAILY ORAL 03/20/16 09:00 04/19/16 08:59 03/20/16 09:53 Polyethylene Glycol (Miralax) 17 gm DAILYPRN PRN ORAL Constipation 03/19/16 12:00 04/18/16 11:59 Sodium Chloride (Sodium Chloride 1000ml bag) 1,000 ml @ 75 mls/hr [id number] IVLG 03/19/16 12:30 04/18/16 12:29 03/20/16 12:44 Temazepam (Restoril) 15 mg HSPRN PRN ORAL Insomnia 03/19/16 21:00 03/26/16 20:59 Vancomycin HCl 1 ea 1 ea DAILY PRN MISC Per rx protocol 03/20/16 09:00 04/19/16 08:59 Vancomycin HCl/ Dextrose (Vancomycin/D5W) 275 ml @ 183.333 mls/hr Q24H IVPB 03/20/16 22:00 03/25/16 21:59 MARIA ISABEL SZYMANSKI Mar 20, 2016 13:24
--- NOTE | 2016-03-20 14:23 | General Progress Note ---
Assessment/Plan Status: unchanged Assessment/Plan acute renal failure, multifactorial ( sepsis, HIV , Vanco...) PreRenal superimposed on Renal HypoNatremia Sepsis, Diarrhea, HIV , Kaposi's Pneumonia Hypocalcemia, electrolyte imbalance Anemia in chronic illness, symptomatic Hypokalemia on admit now K elevated JF (acute kidney injury) Thrombocytopenia, massive splenomegali CAP (community acquired pneumonia) Plan: Jaciel SOs UOs..Hyponatremia workup Hydrate- Resume Vanco- Check levels- Urine studies- Cortisol levels- Monitor renal parameters and lytes- Avoid Nephrotoxics Monitor Urine out put Protonix Transfuse Subjective ROS Limited/Unobtainable: No Constitutional: Reports: malaise, weakness Allergies: Coded Allergies: No Known Allergies (Unverified , 03/16/16) Objective Last 24 Hour Vital Signs Date Time Temp Pulse Resp B/P Pulse Ox O2 Delivery O2 Flow Rate FiO2 03/20/16 12:00 118 03/20/16 11:30 98.8 113 20 104/47 96 Nasal Cannula 2.0 03/20/16 10:40 98.1 03/20/16 08:10 98.1 108 20 95/50 96 Nasal Cannula 2.0 03/20/16 08:00 116 03/20/16 07:44 97 Nasal Cannula 2.0 28 03/20/16 07:44 106 18 Nasal Cannula 2.0 28 03/20/16 07:33 Nasal Cannula 2.0 28 03/20/16 04:30 98.6 55 20 95/47 96 Room Air 03/20/16 04:00 110 03/20/16 00:00 112 03/19/16 20:31 112 18 Nasal Cannula 2.0 28 03/19/16 20:31 96 Nasal Cannula 2.0 28 03/19/16 20:31 Nasal Cannula 2.0 28 03/19/16 20:00 98.6 101 20 107/46 96 03/19/16 20:00 109 03/19/16 16:17 98.4 122 20 119/65 95 Nasal Cannula 2.0 03/19/16 16:00 122 Intake and Output 03/19/16 03/20/16 19:00 07:00 Intake Total 1220 ml 628 ml Output Total 850 ml Balance 370 ml 628 ml Intake Oral 365 ml IV Total 855 ml 628 ml Output Urine Total 850 ml # Bowel Movements 1 Laboratory Tests 03/19/16 15:35: White Blood Count 5.6, Red Blood Count 2.74L, Hemoglobin 8.6L, Hematocrit 25.4L , Mean Corpuscular Volume 93, Mean Corpuscular Hemoglobin 31.4H, Mean Corpuscular Hemoglobin Concent 33.9, Red Cell Distribution Width 15.4H, Platelet Count 33L, Mean Platelet Volume 10.8H, Neutrophils (%) (Auto) 82.4H, Lymphocytes (%) (Auto) 11.4L, Monocytes (%) (Auto) 5.8, Eosinophils (%) (Auto) 0.1, Basophils (%) (Auto) 0.2 03/20/16 05:15: White Blood Count 4.9, Red Blood Count 2.60L, Hemoglobin 8.0L, Hematocrit 23.8L , Mean Corpuscular Volume 91, Mean Corpuscular Hemoglobin 30.9, Mean Corpuscular Hemoglobin Concent 33.8, Red Cell Distribution Width 15.4H, Platelet Count 29L, Mean Platelet Volume 10.8H, Neutrophils (%) (Auto) , Lymphocytes (%) (Auto) , Monocytes (%) (Auto) , Eosinophils (%) (Auto) , Basophils (%) (Auto) , Differential Total Cells Counted 100, Neutrophils % ( Manual) 75, Lymphocytes % (Manual) 15L, Monocytes % (Manual) 9, Eosinophils % ( Manual) 0, Basophils % (Manual) 0, Band Neutrophils 1, Platelet Estimate DecreasedL, Platelet Morphology Normal, Hypochromasia 1+, Anisocytosis 1+, Sodium Level 128L, Potassium Level 4.2, Chloride Level 92L, Carbon Dioxide Level 22, Anion Gap 14, Blood Urea Nitrogen 24H, Creatinine 1.6H, Estimat Glomerular Filtration Rate 45.1, Glucose Level 106, Uric Acid 6.1, Calcium Level 7.5L, Phosphorus Level 3.7, Magnesium Level 1.8, Total Bilirubin 1.0, Gamma Glutamyl Transpeptidase 58, Aspartate Amino Transf (AST/SGOT) 30, Alanine Aminotransferase (ALT/SGPT) 20, Alkaline Phosphatase 150H, Total Creatine Kinase 9L, C-Reactive Protein, Quantitative 22.0H, Pro-B-Type Natriuretic Peptide 3374H, Total Protein 6.0L, Albumin 1.6L, Globulin 4.4, Albumin/Globulin Ratio 0.3L 03/20/16 07:30: Urine Eosinophils None seen Height (Feet): 5 Height (Inches): 10.00 Weight (Pounds): 165 General Appearance: mild distress Cardiovascular: tachycardia Respiratory/Chest: decreased breath sounds Abdomen: distended Objective other PE not changed DEREK SMITH Mar 20, 2016 14:23
--- NOTE | 2016-03-20 15:27 | General Progress Note ---
Assessment/Plan Assessment/Plan Assessment - Anemia - Thrombocytopenia - HIV - Diarrhea Recommendations - Stool w.u - check OB - consider Heme eval - EGD/Colon when stable Subjective Allergies: Coded Allergies: No Known Allergies (Unverified , 03/16/16) Subjective No vomiting tolerating PO Objective Last 24 Hour Vital Signs Date Time Temp Pulse Resp B/P Pulse Ox O2 Delivery O2 Flow Rate FiO2 03/20/16 12:00 118 03/20/16 11:30 98.8 113 20 104/47 96 Nasal Cannula 2.0 03/20/16 10:40 98.1 03/20/16 08:10 98.1 108 20 95/50 96 Nasal Cannula 2.0 03/20/16 08:00 116 03/20/16 07:44 97 Nasal Cannula 2.0 28 03/20/16 07:44 106 18 Nasal Cannula 2.0 28 03/20/16 07:33 Nasal Cannula 2.0 28 03/20/16 04:30 98.6 55 20 95/47 96 Room Air 03/20/16 04:00 110 03/20/16 00:00 112 03/19/16 20:31 112 18 Nasal Cannula 2.0 28 03/19/16 20:31 96 Nasal Cannula 2.0 28 03/19/16 20:31 Nasal Cannula 2.0 28 03/19/16 20:00 98.6 101 20 107/46 96 03/19/16 20:00 109 03/19/16 16:17 98.4 122 20 119/65 95 Nasal Cannula 2.0 03/19/16 16:00 122 Intake and Output 03/19/16 03/20/16 19:00 07:00 Intake Total 1220 ml 628 ml Output Total 850 ml Balance 370 ml 628 ml Intake Oral 365 ml IV Total 855 ml 628 ml Output Urine Total 850 ml # Bowel Movements 1 Laboratory Tests 03/19/16 15:35: White Blood Count 5.6, Red Blood Count 2.74L, Hemoglobin 8.6L, Hematocrit 25.4L , Mean Corpuscular Volume 93, Mean Corpuscular Hemoglobin 31.4H, Mean Corpuscular Hemoglobin Concent 33.9, Red Cell Distribution Width 15.4H, Platelet Count 33L, Mean Platelet Volume 10.8H, Neutrophils (%) (Auto) 82.4H, Lymphocytes (%) (Auto) 11.4L, Monocytes (%) (Auto) 5.8, Eosinophils (%) (Auto) 0.1, Basophils (%) (Auto) 0.2 03/20/16 05:15: White Blood Count 4.9, Red Blood Count 2.60L, Hemoglobin 8.0L, Hematocrit 23.8L , Mean Corpuscular Volume 91, Mean Corpuscular Hemoglobin 30.9, Mean Corpuscular Hemoglobin Concent 33.8, Red Cell Distribution Width 15.4H, Platelet Count 29L, Mean Platelet Volume 10.8H, Neutrophils (%) (Auto) , Lymphocytes (%) (Auto) , Monocytes (%) (Auto) , Eosinophils (%) (Auto) , Basophils (%) (Auto) , Differential Total Cells Counted 100, Neutrophils % ( Manual) 75, Lymphocytes % (Manual) 15L, Monocytes % (Manual) 9, Eosinophils % ( Manual) 0, Basophils % (Manual) 0, Band Neutrophils 1, Platelet Estimate DecreasedL, Platelet Morphology Normal, Hypochromasia 1+, Anisocytosis 1+, Sodium Level 128L, Potassium Level 4.2, Chloride Level 92L, Carbon Dioxide Level 22, Anion Gap 14, Blood Urea Nitrogen 24H, Creatinine 1.6H, Estimat Glomerular Filtration Rate 45.1, Glucose Level 106, Uric Acid 6.1, Calcium Level 7.5L, Phosphorus Level 3.7, Magnesium Level 1.8, Total Bilirubin 1.0, Gamma Glutamyl Transpeptidase 58, Aspartate Amino Transf (AST/SGOT) 30, Alanine Aminotransferase (ALT/SGPT) 20, Alkaline Phosphatase 150H, Total Creatine Kinase 9L, C-Reactive Protein, Quantitative 22.0H, Pro-B-Type Natriuretic Peptide 3374H, Total Protein 6.0L, Albumin 1.6L, Globulin 4.4, Albumin/Globulin Ratio 0.3L 03/20/16 07:30: Urine Eosinophils None seen, Urine Osmolality [Pending], Urine Random Sodium 40 Height (Feet): 5 Height (Inches): 10.00 Weight (Pounds): 165 Objective WDWN NCAT supple CTA RRR Soft NT no edema MARCELOSYL Mar 20, 2016 15:27
--- NOTE | 2016-03-20 15:49 | Consultation ---
DATE OF CONSULTATION: 03/19/2016 NOTE: POOR AUDIO QUALITY GASTROLOGY CONSULTATION: CHIEF COMPLAINT: I was asked to see this patient by Dr. Rose Marie Helton for evaluation of anemia. HISTORY OF PRESENT ILLNESS: The patient is a 55-year-old white man with a history of HIV who was admitted for weakness and severe anemia. I was asked to evaluate anti-retroviral agents, but he is not aware of his CD4 count. The patient denies any abdominal pain, nausea, vomiting or hematochezia. He has never had endoscopy or colonoscopy before. somewhat better. He also has iron infusions. He is complaining about diarrhea. PAST MEDICAL HISTORY: HIV. FAMILY HISTORY: Noncontributory. SOCIAL HISTORY: The patient . PHYSICAL EXAMINATION: GENERAL: The patient is a pleasant white man seen in his room. HEENT: Normocephalic and atraumatic. Sclerae anicteric. Oropharynx clear. NECK: Supple. CHEST: Clear to auscultation. CARDIOVASCULAR: Revealed regular rate. ABDOMEN: Soft. EXTREMITIES: Revealed no edema. LABORATORY DATA: Noted. ASSESSMENT: This patient presents with severe anemia somewhat pancytopenia. The patient has a very low platelet count and also very low white count. This disorder and therefore hematology to be consulted to see if the . In the meantime, the patient can have iron infusions and blood transfusion and also stool evaluations. The patient's condition improved and becomes endoscopy and colonoscopy screening colonoscopy . RECOMMENDATIONS: 1. Continue current management. 2. Monitor CBC. 3. Transfuse as needed. 4. Iron infusion. 5. Check stool evaluation. 6. Further recommendations to follow. Thank you for asking me to participate in the care of this patient. Nidia Frost M.D. DR: NEWTON JOB#: [id number] CC:
[2016-03-20 16:28] VITALS: BP 102/51
[2016-03-20] MEDS ORDERED: Tubing Blood Filter IV ONE (17:26)
[2016-03-20] MEDS ORDERED: Tubing IV Secondary IV ONE (17:26)
[2016-03-20] MEDS ORDERED: NS 275ml ONE (17:26)
[2016-03-20 20:00] VITALS: BP 105/51
[2016-03-20] MEDS: Cefepime HCl 2 GM in D5W 110 ML IV SCH (20:01)
[2016-03-20] MEDS ORDERED: D5W 275ml ONE (22:30)
[2016-03-20] MEDS: Vancomycin 1250mg/D5W 275ml IVPB SCH ×2 (22:48)
[2016-03-21] VITALS: BP 99/52
[2016-03-21 04:30] VITALS: BP 96/44
[2016-03-21 07:34] LABS: MEAN CORPUSCULAR HEMOGLOBIN 31.2 PG (27.0-31.0); MEAN CORPUSCULAR HGB CONC 34.4 G/DL (32.0-36.0); MEAN CORPUSCULAR VOLUME 91 FL (80-99); MEAN PLATELET VOLUME 11.3 FL (6.5-10.1); PLATELET COUNT 24 K/UL (150-450); RED BLOOD COUNT 2.52 M/UL (4.70-6.10); RED CELL DISTRIBUTION WIDTH 15.4 % (11.6-14.8)
[2016-03-21 07:37] LABS: CRP QUANT 17.5 mg/dL (< 0.5); PHOSPHORUS 2.9 mg/dL (2.5-4.8); URIC ACID 5.5 mg/dL (3.0-7.5)
[2016-03-21 07:44] LABS: ALANINE AMINOTRANSFERASE 15 U/L (3-41); ALBUMIN/GLOBULIN RATIO 0.3 (1.0-2.7); ANION GAP 14 (5-15); ASPARTATE AMINO TRANSFERASE 24 U/L (5-40); CALCIUM 7.2 mg/dL (8.6-10.2); CARBON DIOXIDE 20 mEQ/L (20-30); CHLORIDE 93 mEQ/L (98-107); CHOLESTEROL 66 mg/dL (< 200); CREATININE 1.6 mg/dL (0.7-1.2); GLOMERULAR FILTRATION RATE 45.1 mL/min (>60); HEMOLYSIS 1; LDL CHOLESTEROL (CALC.) 30 mg/dL (60-99); POTASSIUM 4.1 mEQ/L (3.4-4.9); SODIUM 127 mEQ/L (135-145); TOTAL PROTEIN 5.7 g/dL (6.6-8.7)
[2016-03-21 08:00] VITALS: BP 100/54
[2016-03-21 08:13] LABS: BILIRUBIN,DIRECT 1.1 mg/dL (0.1-0.3)
[2016-03-21] MEDS: DOLUTEGRAVIR 50 MG ORAL SCH (09:28)
[2016-03-21] MEDS: PREZCOBIX ORAL SCH (09:28)
[2016-03-21] MEDS: Vitamin B12 1000mcg/ml Inj SUBQ SCH (09:29)
[2016-03-21] MEDS: Atovaquone 750mg/5ml Susp ORAL SCH (09:29)
[2016-03-21] MEDS: Cefepime HCl 2 GM in D5W 110 ML IV SCH ×2 (09:30→20:47)
[2016-03-21 10:16] LABS: CRYPTOCOCCAL ANTIGEN SERUM Negative (Negative)
[2016-03-21 11:19] LABS: ANISOCYTOSIS 1+; BAND NEUTROPHILS % (MANUAL) 0 % (0-8); BASOPHILS % (MANUAL) 0 % (0-2); EOSINOPHILS % (MANUAL) 1 % (0-3); HYPOCHROMASIA 3+; LYMPHOCYTES % (MANUAL) 2 % (20-45); NEUTROPHILS % (MANUAL) 93 % (45-75); NUCLEATED RED BLOOD CELLS 1 /100 WBC; PLATELET ESTIMATE DECREASED; PLATELET MORPHOLOGY NORMAL; TOTAL CELLS COUNTED 100
--- NOTE | 2016-03-21 11:31 | General Progress Note ---
Assessment/Plan Status: unchanged Status Narrative Na 127 Assessment/Plan acute renal failure, multifactorial ( sepsis, HIV , Vanco...) PreRenal superimposed on Renal HypoNatremia Sepsis, Diarrhea, HIV , Kaposi's Pneumonia Hypocalcemia, electrolyte imbalance Anemia in chronic illness, symptomatic Hypokalemia on admit now K elevated JF (acute kidney injury) Thrombocytopenia, massive splenomegali CAP (community acquired pneumonia) Plan: Jaciel SOs UOs..Hyponatremia workup- pending Hydrate- Resume Vanco- Check levels- Urine studies- Cortisol levels- pending Monitor renal parameters and lytes- Avoid Nephrotoxics Monitor Urine out put Protonix Transfuse ? stress dose of steroids? Subjective ROS Limited/Unobtainable: No Allergies: Coded Allergies: No Known Allergies (Unverified , 03/16/16) Objective Last 24 Hour Vital Signs Date Time Temp Pulse Resp B/P Pulse Ox O2 Delivery O2 Flow Rate FiO2 03/21/16 08:00 113 03/21/16 08:00 96.5 114 20 100/54 100 Nasal Cannula 2.0 03/21/16 06:45 116 21 Room Air 2.0 28 03/21/16 06:45 98 Nasal Cannula 2.0 28 03/21/16 06:45 Nasal Cannula 2.0 28 03/21/16 04:30 97.0 116 20 96/44 99 Room Air 03/21/16 04:00 113 03/21/16 00:00 98.0 100 20 99/52 99 Nasal Cannula 2.0 03/21/16 00:00 117 03/20/16 20:00 100.8 121 25 105/51 96 03/20/16 20:00 119 03/20/16 16:28 99.3 118 20 102/51 100 Nasal Cannula 2.0 03/20/16 16:00 117 03/20/16 12:00 118 03/20/16 11:30 98.8 113 20 104/47 96 Nasal Cannula 2.0 Intake and Output 03/20/16 03/21/16 19:00 07:00 Intake Total 1440 ml 450 ml Output Total 600 ml 550 ml Balance 840 ml -100 ml Intake Oral 480 ml 450 ml IV Total 710 ml Blood Product 250 ml Output Urine Total 600 ml 550 ml Laboratory Tests 03/20/16 19:50: Stool Occult Blood Negative, Giardia Antigen [Pending] 03/21/16 05:05: White Blood Count 5.0, Red Blood Count 2.52L, Hemoglobin 7.9L, Hematocrit 22.9L , Mean Corpuscular Volume 91, Mean Corpuscular Hemoglobin 31.2H, Mean Corpuscular Hemoglobin Concent 34.4, Red Cell Distribution Width 15.4H, Platelet Count 24L, Mean Platelet Volume 11.3H, Neutrophils (%) (Auto) , Lymphocytes (%) (Auto) , Monocytes (%) (Auto) , Eosinophils (%) (Auto) , Basophils (%) (Auto) , Differential Total Cells Counted 100, Neutrophils % ( Manual) 93H, Lymphocytes % (Manual) 2L, Monocytes % (Manual) 4, Eosinophils % ( Manual) 1, Basophils % (Manual) 0, Band Neutrophils 0, Nucleated Red Blood Cells 1, Platelet Estimate DecreasedL, Platelet Morphology Normal, Hypochromasia 3+, Anisocytosis 1+, Sodium Level 127L, Potassium Level 4.1, Chloride Level 93L, Carbon Dioxide Level 20, Anion Gap 14, Blood Urea Nitrogen 23, Creatinine 1.6H, Estimat Glomerular Filtration Rate 45.1, Glucose Level 92, Plasma/Serum Osmolality [Pending], Uric Acid 5.5, Calcium Level 7.2L, Phosphorus Level 2.9, Total Bilirubin 1.5H, Direct Bilirubin 1.1H, Gamma Glutamyl Transpeptidase 49, Aspartate Amino Transf (AST/SGOT) 24, Alanine Aminotransferase (ALT/SGPT) 15, Alkaline Phosphatase 121, Total Creatine Kinase 16L, C-Reactive Protein, Quantitative 17.5H, Pro-B-Type Natriuretic Peptide 4498H, Total Protein 5.7L, Albumin 1.6L, Globulin 4.1, Albumin/Globulin Ratio 0.3L, Triglycerides Level 161H, Cholesterol Level 66, LDL Cholesterol 30L, HDL Cholesterol < 4, Cholesterol/HDL Ratio 16.0H, Thyroid Stimulating Hormone (TSH) 2.960, TB Test (T-Spot) [Pending], TB Test Nil Control (T-Spot) [Pending], TB Test Panel A (T-Spot) [Pending], TB Test Panel B (T-Spot) [Pending], TB Test Positive Control (T-Spot) [Pending] Height (Feet): 5 Height (Inches): 10.00 Weight (Pounds): 165 General Appearance: mild distress Cardiovascular: tachycardia Respiratory/Chest: decreased breath sounds Abdomen: distended Objective other PE not changed DEREK SMITH Mar 21, 2016 11:31
[2016-03-21 12:00] VITALS: BP 121/50
--- NOTE | 2016-03-21 12:38 | GI Progress Note ---
Assessment/Plan Problems: (1) Diarrhea ICD Codes: R19.7 - Diarrhea, unspecified SNOMED: 22176777 (2) Splenomegaly with HIV infection ICD Codes: B20 - Human immunodeficiency virus [HIV] disease; R16.1 - Splenomegaly, not elsewhere classified SNOMED: 932599263 (3) Anemia ICD Codes: D64.9 - Anemia, unspecified SNOMED: 221953877 Qualifiers: Qualified Codes: D64.9 - Anemia, unspecified (4) Thrombocytopenia ICD Codes: D69.6 - Thrombocytopenia, unspecified SNOMED: 907656755 (5) HIV disease ICD Codes: B20 - Human immunodeficiency virus [HIV] disease SNOMED: 50590626 (6) Episode of generalized weakness ICD Codes: R53.1 - Weakness SNOMED: 12451718 Status: unchanged Status Narrative Discussed with Dr. Epps. Assessment/Plan Assessment - Anemia - Thrombocytopenia - HIV - Diarrhea - r/o TB Recommendations - monitor H&H, transfuse prn - Stool w.u >> negative - check OB >> negative - consider Heme eval - EGD/Colon when stable - APCT reviewed. Subjective Gastrointestinal/Abdominal: Reports: diarrhea - improved Objective Last 24 Hour Vital Signs Date Time Temp Pulse Resp B/P Pulse Ox O2 Delivery O2 Flow Rate FiO2 03/21/16 08:00 113 03/21/16 08:00 96.5 114 20 100/54 100 Nasal Cannula 2.0 03/21/16 06:45 116 21 Room Air 2.0 28 03/21/16 06:45 98 Nasal Cannula 2.0 28 03/21/16 06:45 Nasal Cannula 2.0 28 03/21/16 04:30 97.0 116 20 96/44 99 Room Air 03/21/16 04:00 113 03/21/16 00:00 98.0 100 20 99/52 99 Nasal Cannula 2.0 03/21/16 00:00 117 03/20/16 20:00 100.8 121 25 105/51 96 03/20/16 20:00 119 03/20/16 16:28 99.3 118 20 102/51 100 Nasal Cannula 2.0 03/20/16 16:00 117 Intake and Output 03/20/16 03/21/16 19:00 07:00 Intake Total 1440 ml 450 ml Output Total 600 ml 550 ml Balance 840 ml -100 ml Intake Oral 480 ml 450 ml IV Total 710 ml Blood Product 250 ml Output Urine Total 600 ml 550 ml Laboratory Tests Test 03/20/16 19:50 03/21/16 05:05 Stool Occult Blood Negative (NEGATIVE) Giardia Antigen Pending White Blood Count 5.0 K/UL (4.8-10.8) Red Blood Count 2.52 M/UL (4.70-6.10) L Hemoglobin 7.9 G/DL (14.2-18.0) L Hematocrit 22.9 % (42.0-52.0) L Mean Corpuscular Volume 91 FL (80-99) Mean Corpuscular Hemoglobin 31.2 PG (27.0-31.0) H Mean Corpuscular Hemoglobin Concent 34.4 G/DL (32.0-36.0) Red Cell Distribution Width 15.4 % (11.6-14.8) H Platelet Count 24 K/UL (150-450) L Mean Platelet Volume 11.3 FL (6.5-10.1) H Neutrophils (%) (Auto) % (45.0-75.0) Lymphocytes (%) (Auto) % (20.0-45.0) Monocytes (%) (Auto) % (1.0-10.0) Eosinophils (%) (Auto) % (0.0-3.0) Basophils (%) (Auto) % (0.0-2.0) Differential Total Cells Counted 100 Neutrophils % (Manual) 93 % (45-75) H Lymphocytes % (Manual) 2 % (20-45) L Monocytes % (Manual) 4 % (1-10) Eosinophils % (Manual) 1 % (0-3) Basophils % (Manual) 0 % (0-2) Band Neutrophils 0 % (0-8) Nucleated Red Blood Cells 1 /100 WBC Platelet Estimate Decreased L Platelet Morphology Normal Hypochromasia 3+ Anisocytosis 1+ Sodium Level 127 mEQ/L (135-145) L Potassium Level 4.1 mEQ/L (3.4-4.9) Chloride Level 93 mEQ/L (98-107) L Carbon Dioxide Level 20 mEQ/L (20-30) Anion Gap 14 (5-15) Blood Urea Nitrogen 23 mg/dL (7-23) Creatinine 1.6 mg/dL (0.7-1.2) H Estimat Glomerular Filtration Rate 45.1 mL/min (>60) Glucose Level 92 mg/dL (74-106) Plasma/Serum Osmolality Pending Uric Acid 5.5 mg/dL (3.0-7.5) Calcium Level 7.2 mg/dL (8.6-10.2) L Phosphorus Level 2.9 mg/dL (2.5-4.8) Total Bilirubin 1.5 mg/dL (0.0-1.2) H Direct Bilirubin 1.1 mg/dL (0.1-0.3) H Gamma Glutamyl Transpeptidase 49 U/L (8-61) Aspartate Amino Transf (AST/SGOT) 24 U/L (5-40) Alanine Aminotransferase (ALT/SGPT) 15 U/L (3-41) Alkaline Phosphatase 121 U/L (40-129) Total Creatine Kinase 16 U/L (38-174) L C-Reactive Protein, Quantitative 17.5 mg/dL (< 0.5) H Pro-B-Type Natriuretic Peptide 4498 pg/mL (0-125) H Total Protein 5.7 g/dL (6.6-8.7) L Albumin 1.6 g/dL (3.5-5.2) L Globulin 4.1 g/dL Albumin/Globulin Ratio 0.3 (1.0-2.7) L Triglycerides Level 161 mg/dL (< 150) H Cholesterol Level 66 mg/dL (< 200) LDL Cholesterol 30 mg/dL (60-99) L HDL Cholesterol < 4 mg/dL (> 60) Cholesterol/HDL Ratio 16.0 (3.3-4.4) H Thyroid Stimulating Hormone (TSH) 2.960 uIU/mL (0.300-4.500) TB Test (T-Spot) Pending TB Test Nil Control (T-Spot) Pending TB Test Panel A (T-Spot) Pending TB Test Panel B (T-Spot) Pending TB Test Positive Control (T-Spot) Pending Microbiology Date/Time Source Procedure Growth Status 03/20/16 19:50 Stool Stool Culture - Preliminary Resulted Height (Feet): 5 Height (Inches): 10.00 Weight (Pounds): 165 General Appearance: no apparent distress, alert Cardiovascular: normal rate Respiratory/Chest: no respiratory distress, other Abdominal Exam: normal bowel sounds, non tender, soft Extremities: normal range of motion Objective Procedure: CT CHEST Abdomen Pelvis WO Con Indication: ABN LABS Impression: Splenomegaly Extensive thoracic, abdominal, and pelvic lymphadenopathy, as detailed above. This is nonspecific, likely related to stated clinical history of HIV. May indicate reactive, inflammatory, infectious adenopathy, or a lymphoproliferative disorder. Correlate with clinical history and findings Evidence of predominantly upper lobe pulmonary interstitial disease, as described, predominant findings being interstitial septal thickening and bronchial wall thickening. While the differential for this is quite broad, given the history of HIV positivity the possibility of lymphocytic interstitial pneumonitis should be considered Multiple sub-5 mm parenchymal nodules seen throughout the left lung. Possibly related to the above. If there are significant risk factors for lung carcinoma, however, short interval followup CT at 6-12 months should be considered. Bilateral basilar pulmonary parenchymal atelectatic changes and possibly some consolidation Small bilateral pleural effusions Nonspecific bilateral perinephric fat stranding Genesis Keller N.P. Mar 21, 2016 12:38
[2016-03-21 13:11] LABS: PARVOVIRUS B-19 ANTIBODY IGM 0.3 index (0.0-0.8)
--- NOTE | 2016-03-21 14:18 | Diagnostic Imaging Report ---
Indication: DYSPNEA Technique: One view of the chest Comparison: 03/18/2016 Findings: There is increased infiltrate and pleural fluid at the right lung base, as well as persistent atelectatic change. Left lung and pleural space remain clear. Heart size is normal. Impression: Increasing right basilar consolidation and pleural fluid, over 3 days
--- NOTE | 2016-03-21 15:00 | Pulmonology Progress Note ---
Assessment/Plan Problems: (1) Sepsis (2) Pneumonia (3) Anemia (4) JF (acute kidney injury) (5) HIV disease (6) Thrombocytopenia (7) Hypocalcemia (8) Splenomegaly with HIV infection Assessment/Plan s/p prbc, still anemic, will transfuse again Ct of abdomen reviewed Ct chest showed muliple nodules respiratory treatment d/w pathologist about bone marrow biopsy, apparently pt declined continue antiboitics serology pending nephrology evaluation Isolation, afb for sputum, ppd skin testing because of positive nodules on Ct scan Subjective ROS Limited/Unobtainable: No Interval Events: feeling better Constitutional: Reports: no symptoms HEENT: Repors: no symptoms Respiratory: Reports: no symptoms Allergies: Coded Allergies: No Known Allergies (Unverified , 03/16/16) Objective Last 24 Hour Vital Signs Date Time Temp Pulse Resp B/P Pulse Ox O2 Delivery O2 Flow Rate FiO2 03/21/16 12:00 106 03/21/16 12:00 97.2 70 19 121/50 96 Nasal Cannula 2.0 03/21/16 08:00 113 03/21/16 08:00 96.5 114 20 100/54 100 Nasal Cannula 2.0 03/21/16 06:45 116 21 Room Air 2.0 28 03/21/16 06:45 98 Nasal Cannula 2.0 28 03/21/16 06:45 Nasal Cannula 2.0 28 03/21/16 04:30 97.0 116 20 96/44 99 Room Air 03/21/16 04:00 113 03/21/16 00:00 98.0 100 20 99/52 99 Nasal Cannula 2.0 03/21/16 00:00 117 03/20/16 20:00 100.8 121 25 105/51 96 03/20/16 20:00 119 03/20/16 16:28 99.3 118 20 102/51 100 Nasal Cannula 2.0 03/20/16 16:00 117 Intake and Output 03/20/16 03/21/16 19:00 07:00 Intake Total 1440 ml 450 ml Output Total 600 ml 550 ml Balance 840 ml -100 ml Intake Oral 480 ml 450 ml IV Total 710 ml Blood Product 250 ml Output Urine Total 600 ml 550 ml General Appearance: WD/WN HEENT: normocephalic, atraumatic Respiratory/Chest: chest wall non-tender, lungs clear Cardiovascular: normal peripheral pulses, normal rate Abdomen: normal bowel sounds, soft, non tender Genitourinary: normal external genitalia Extremities: no cyanosis Skin: no rash, no lesions 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: clinical data assistant II-XII grossly normal, no motor/sensory deficits Microbiology Date/Time Source Procedure Growth Status 03/20/16 19:50 Stool Stool Culture - Preliminary Resulted Laboratory Tests 03/20/16 19:50: Stool Occult Blood Negative, Giardia Antigen [Pending] 03/21/16 05:05: White Blood Count 5.0, Red Blood Count 2.52L, Hemoglobin 7.9L, Hematocrit 22.9L , Mean Corpuscular Volume 91, Mean Corpuscular Hemoglobin 31.2H, Mean Corpuscular Hemoglobin Concent 34.4, Red Cell Distribution Width 15.4H, Platelet Count 24L, Mean Platelet Volume 11.3H, Neutrophils (%) (Auto) , Lymphocytes (%) (Auto) , Monocytes (%) (Auto) , Eosinophils (%) (Auto) , Basophils (%) (Auto) , Differential Total Cells Counted 100, Neutrophils % ( Manual) 93H, Lymphocytes % (Manual) 2L, Monocytes % (Manual) 4, Eosinophils % ( Manual) 1, Basophils % (Manual) 0, Band Neutrophils 0, Nucleated Red Blood Cells 1, Platelet Estimate DecreasedL, Platelet Morphology Normal, Hypochromasia 3+, Anisocytosis 1+, Sodium Level 127L, Potassium Level 4.1, Chloride Level 93L, Carbon Dioxide Level 20, Anion Gap 14, Blood Urea Nitrogen 23, Creatinine 1.6H, Estimat Glomerular Filtration Rate 45.1, Glucose Level 92, Plasma/Serum Osmolality [Pending], Uric Acid 5.5, Calcium Level 7.2L, Phosphorus Level 2.9, Total Bilirubin 1.5H, Direct Bilirubin 1.1H, Gamma Glutamyl Transpeptidase 49, Aspartate Amino Transf (AST/SGOT) 24, Alanine Aminotransferase (ALT/SGPT) 15, Alkaline Phosphatase 121, Total Creatine Kinase 16L, C-Reactive Protein, Quantitative 17.5H, Pro-B-Type Natriuretic Peptide 4498H, Total Protein 5.7L, Albumin 1.6L, Globulin 4.1, Albumin/Globulin Ratio 0.3L, Triglycerides Level 161H, Cholesterol Level 66, LDL Cholesterol 30L, HDL Cholesterol < 4, Cholesterol/HDL Ratio 16.0H, Thyroid Stimulating Hormone (TSH) 2.960, TB Test (T-Spot) [Pending], TB Test Nil Control (T-Spot) [Pending], TB Test Panel A (T-Spot) [Pending], TB Test Panel B (T-Spot) [Pending], TB Test Positive Control (T-Spot) [Pending] Current Medications Medications (Trade) Dose Ordered Sig/Godwin Route PRN Reason Start Time Stop Time Status Last Admin Dose Admin Acetaminophen (Tylenol) 650 mg Q4H PRN ORAL fever 03/19/16 12:00 04/18/16 11:59 Albuterol/ Ipratropium (DuoNeb 0.5-3(2.5)mg/3ml) 3 ml Q4H PRN HHN Shortness of Breath 03/19/16 12:00 03/24/16 11:59 Atovaquone (Mepron Susp) 1,500 mg DAILY ORAL 03/20/16 09:00 04/19/16 08:59 03/21/16 09:29 Cefepime HCl 2 gm/ Dextrose 110 ml @ 220 mls/hr Q12HR IV 03/20/16 21:00 03/26/16 20:59 03/21/16 09:30 Morphine Sulfate (Morphine Sulfate) 2 mg Q4H PRN IVP Moderate Pain (Pain Scale 4-6) 03/19/16 12:00 03/26/16 11:59 03/20/16 10:09 Nitroglycerin (Ntg) 0.4 mg Every 5 Minutes PRN SL Prn Chest Pain 03/19/16 11:45 04/18/16 11:44 Ondansetron HCl (Zofran) 4 mg Q6H PRN IVP Nausea & Vomiting 03/19/16 12:00 04/18/16 11:59 Pantoprazole (Protonix) 40 mg EVERY 12 HOURS ORAL 03/19/16 21:00 04/18/16 20:59 03/21/16 09:29 Patient Own Medication (Patient's Own Med) 1 ea DAILY ORAL 03/20/16 09:00 04/19/16 08:59 03/21/16 09:28 Patient Own Medication (Patient's Own Med) 1 ea DAILY ORAL 03/20/16 09:00 04/19/16 08:59 03/21/16 09:28 Polyethylene Glycol (Miralax) 17 gm DAILYPRN PRN ORAL Constipation 03/19/16 12:00 04/18/16 11:59 Sodium Chloride (Sodium Chloride 1000ml bag) 1,000 ml @ 75 mls/hr [id number] IVLG 03/19/16 12:30 04/18/16 12:29 03/21/16 04:11 Temazepam (Restoril) 15 mg HSPRN PRN ORAL Insomnia 03/19/16 21:00 03/26/16 20:59 03/21/16 05:35 Vancomycin HCl 1 ea 1 ea DAILY PRN MISC Per rx protocol 03/20/16 09:00 04/19/16 08:59 Vancomycin HCl/ Dextrose (Vancomycin/D5W) 275 ml @ 183.333 mls/hr Q24H IVPB 03/20/16 22:00 03/25/16 21:59 03/20/16 22:48 MARIA ISABEL SZYMANSKI Mar 21, 2016 15:00
--- NOTE | 2016-03-21 15:12 | Infectious Diseases Prog Note ---
Assessment/Plan Assessment/Plan ASSESSMENT: 55 y/o male with: // Probable sepsis r/o opportunistic infection - cultures NGTD, serology pending // Diarrhea r/o infectious - stool studies pending // Possible PNA r/o TB, NTM, fungal - sputum AFB, QFT TB gold pending - CT: predominantly upper lobe pulmonary interstitial disease, possible lymphocytic interstitial pneumonitis. Multiple sub-5 mm parenchymal nodules seen throughout the left lung. Bilateral basilar pulmonary parenchymal atelectatic changes and possibly some consolidation. Small bilateral pleural effusions - negative/WNL: LDH, CrAg // Diffuse LAD r/o infectious vs myeloproliferative disorder - CT: Extensive thoracic, abdominal, and pelvic lymphadenopathy // HIV / AIDS, on cART ( recently changed to prezcobix, tivicay d/t genotype ) - unknown CD4 pending // Kaposi sarcoma // Leukopenia / pancytopenia r/o bone marrow infiltrative process - pt agrees - negative/WNL: LDH, ARMIDA, CrAg, Parvovirus IgM // Fever - persistent intermittent // Symptomatic anemia SP PRBCs - denies blood loss // ARF - improved, stable // Hypocalcemia / electrolyte imbalance // Massive splenomegaly // Thrombocytopenia // Anxiety // Elevated ESR // NKDA // Full Code PLAN: - continue empiric broad spectrum IV vancomycin, cefepime d# 5 - continue cART ( prezcobix, tivicay - ok for pt to take own meds ), changed bactrim prophy to mepron given cytopenias - discussed BMBx, pt agreed - f/u AFB BCx, coccidioides, histoplasma, blastomyces, QFT TB gold, stool studies, LAP, CD4 - monitor CBC, temperatures - monitor BMP - transfuse prn - anxiolytic prn Subjective Allergies: Coded Allergies: No Known Allergies (Unverified , 03/16/16) Subjective intermittent low grade fevers anxious, wants rest Objective Vital Signs Last 24 Hour Vital Signs Date Time Temp Pulse Resp B/P Pulse Ox O2 Delivery O2 Flow Rate FiO2 03/21/16 12:00 106 03/21/16 12:00 97.2 70 19 121/50 96 Nasal Cannula 2.0 03/21/16 08:00 113 03/21/16 08:00 96.5 114 20 100/54 100 Nasal Cannula 2.0 03/21/16 06:45 116 21 Room Air 2.0 28 03/21/16 06:45 98 Nasal Cannula 2.0 28 03/21/16 06:45 Nasal Cannula 2.0 28 03/21/16 04:30 97.0 116 20 96/44 99 Room Air 03/21/16 04:00 113 03/21/16 00:00 98.0 100 20 99/52 99 Nasal Cannula 2.0 03/21/16 00:00 117 03/20/16 20:00 100.8 121 25 105/51 96 03/20/16 20:00 119 03/20/16 16:28 99.3 118 20 102/51 100 Nasal Cannula 2.0 03/20/16 16:00 117 Height (Feet): 5 Height (Inches): 10.00 Weight (Pounds): 165 General Appearance: no acute distress Respiratory/Chest: no respiratory distress Cardiovascular: normal rate, regular rhythm Abdomen: normal bowel sounds, soft, non tender, non distended Microbiology Date/Time Source Procedure Growth Status 03/20/16 19:50 Stool Stool Culture - Preliminary Resulted Laboratory Tests Test 03/20/16 19:50 03/21/16 05:05 Stool Occult Blood Negative (NEGATIVE) Giardia Antigen Pending White Blood Count 5.0 K/UL (4.8-10.8) Red Blood Count 2.52 M/UL (4.70-6.10) L Hemoglobin 7.9 G/DL (14.2-18.0) L Hematocrit 22.9 % (42.0-52.0) L Mean Corpuscular Volume 91 FL (80-99) Mean Corpuscular Hemoglobin 31.2 PG (27.0-31.0) H Mean Corpuscular Hemoglobin Concent 34.4 G/DL (32.0-36.0) Red Cell Distribution Width 15.4 % (11.6-14.8) H Platelet Count 24 K/UL (150-450) L Mean Platelet Volume 11.3 FL (6.5-10.1) H Neutrophils (%) (Auto) % (45.0-75.0) Lymphocytes (%) (Auto) % (20.0-45.0) Monocytes (%) (Auto) % (1.0-10.0) Eosinophils (%) (Auto) % (0.0-3.0) Basophils (%) (Auto) % (0.0-2.0) Differential Total Cells Counted 100 Neutrophils % (Manual) 93 % (45-75) H Lymphocytes % (Manual) 2 % (20-45) L Monocytes % (Manual) 4 % (1-10) Eosinophils % (Manual) 1 % (0-3) Basophils % (Manual) 0 % (0-2) Band Neutrophils 0 % (0-8) Nucleated Red Blood Cells 1 /100 WBC Platelet Estimate Decreased L Platelet Morphology Normal Hypochromasia 3+ Anisocytosis 1+ Sodium Level 127 mEQ/L (135-145) L Potassium Level 4.1 mEQ/L (3.4-4.9) Chloride Level 93 mEQ/L (98-107) L Carbon Dioxide Level 20 mEQ/L (20-30) Anion Gap 14 (5-15) Blood Urea Nitrogen 23 mg/dL (7-23) Creatinine 1.6 mg/dL (0.7-1.2) H Estimat Glomerular Filtration Rate 45.1 mL/min (>60) Glucose Level 92 mg/dL (74-106) Plasma/Serum Osmolality Pending Uric Acid 5.5 mg/dL (3.0-7.5) Calcium Level 7.2 mg/dL (8.6-10.2) L Phosphorus Level 2.9 mg/dL (2.5-4.8) Total Bilirubin 1.5 mg/dL (0.0-1.2) H Direct Bilirubin 1.1 mg/dL (0.1-0.3) H Gamma Glutamyl Transpeptidase 49 U/L (8-61) Aspartate Amino Transf (AST/SGOT) 24 U/L (5-40) Alanine Aminotransferase (ALT/SGPT) 15 U/L (3-41) Alkaline Phosphatase 121 U/L (40-129) Total Creatine Kinase 16 U/L (38-174) L C-Reactive Protein, Quantitative 17.5 mg/dL (< 0.5) H Pro-B-Type Natriuretic Peptide 4498 pg/mL (0-125) H Total Protein 5.7 g/dL (6.6-8.7) L Albumin 1.6 g/dL (3.5-5.2) L Globulin 4.1 g/dL Albumin/Globulin Ratio 0.3 (1.0-2.7) L Triglycerides Level 161 mg/dL (< 150) H Cholesterol Level 66 mg/dL (< 200) LDL Cholesterol 30 mg/dL (60-99) L HDL Cholesterol < 4 mg/dL (> 60) Cholesterol/HDL Ratio 16.0 (3.3-4.4) H Thyroid Stimulating Hormone (TSH) 2.960 uIU/mL (0.300-4.500) TB Test (T-Spot) Pending TB Test Nil Control (T-Spot) Pending TB Test Panel A (T-Spot) Pending TB Test Panel B (T-Spot) Pending TB Test Positive Control (T-Spot) Pending Current Medications Medications (Trade) Dose Ordered Sig/Godwin Route PRN Reason Start Time Stop Time Status Last Admin Dose Admin Acetaminophen (Tylenol) 650 mg Q4H PRN ORAL fever 03/19/16 12:00 04/18/16 11:59 Albuterol/ Ipratropium (DuoNeb 0.5-3(2.5)mg/3ml) 3 ml Q4H PRN HHN Shortness of Breath 03/19/16 12:00 03/24/16 11:59 Atovaquone (Mepron Susp) 1,500 mg DAILY ORAL 03/20/16 09:00 04/19/16 08:59 03/21/16 09:29 Cefepime HCl 2 gm/ Dextrose 110 ml @ 220 mls/hr Q12HR IV 03/20/16 21:00 03/26/16 20:59 03/21/16 09:30 Morphine Sulfate (Morphine Sulfate) 2 mg Q4H PRN IVP Moderate Pain (Pain Scale 4-6) 03/19/16 12:00 03/26/16 11:59 03/20/16 10:09 Nitroglycerin (Ntg) 0.4 mg Every 5 Minutes PRN SL Prn Chest Pain 03/19/16 11:45 04/18/16 11:44 Ondansetron HCl (Zofran) 4 mg Q6H PRN IVP Nausea & Vomiting 03/19/16 12:00 04/18/16 11:59 Pantoprazole (Protonix) 40 mg EVERY 12 HOURS ORAL 03/19/16 21:00 04/18/16 20:59 03/21/16 09:29 Patient Own Medication (Patient's Own Med) 1 ea DAILY ORAL 03/20/16 09:00 04/19/16 08:59 03/21/16 09:28 Patient Own Medication (Patient's Own Med) 1 ea DAILY ORAL 03/20/16 09:00 04/19/16 08:59 03/21/16 09:28 Polyethylene Glycol (Miralax) 17 gm DAILYPRN PRN ORAL Constipation 03/19/16 12:00 04/18/16 11:59 Temazepam (Restoril) 15 mg HSPRN PRN ORAL Insomnia 03/19/16 21:00 03/26/16 20:59 03/21/16 05:35 Vancomycin HCl 1 ea 1 ea DAILY PRN MISC Per rx protocol 03/20/16 09:00 04/19/16 08:59 Vancomycin HCl/ Dextrose (Vancomycin/D5W) 275 ml @ 183.333 mls/hr Q24H IVPB 03/20/16 22:00 03/25/16 21:59 03/20/16 22:48 MANJEET GARDNER Mar 21, 2016 15:12
[2016-03-21 16:00] VITALS: BP 109/59
[2016-03-21] MEDS: LORazepam 0.5mg tab ORAL PRN (16:05)
[2016-03-21 17:09] LABS: BLASTOMYCES AB - ID Negative (Neg:<1:1)
[2016-03-21 20:00] VITALS: BP 110/78
[2016-03-21] MEDS: Vancomycin 1250mg/D5W 275ml IVPB SCH ×2 (22:00)
[2016-03-22] VITALS: BP 97/58
[2016-03-22 01:13] LABS: CD3 ABSOLUTE 585 /uL (622-2402); CD4 ABSOLUTE 37 /uL (359-1519); CD8 ABSOLUTE 550 /uL (109-897); LYMPHOCYTES ABSOLUTE 0.7 x10E3/uL (0.7-3.1); LYMPHS 17 % (.); WBC 4.3 x10E3/uL (3.4-10.8)
[2016-03-22 04:00] VITALS: BP 104/60
[2016-03-22 08:43] VITALS: BP 90/50
[2016-03-22] MEDS: PREZCOBIX ORAL SCH (09:25)
[2016-03-22] MEDS: Cefepime HCl 2 GM in D5W 110 ML IV SCH ×2 (09:25→21:23)
[2016-03-22] MEDS: DOLUTEGRAVIR 50 MG ORAL SCH (09:25)
[2016-03-22] MEDS: Atovaquone 750mg/5ml Susp ORAL SCH (09:25)
--- NOTE | 2016-03-22 09:41 | GI Progress Note ---
Assessment/Plan Problems: (1) Diarrhea ICD Codes: R19.7 - Diarrhea, unspecified SNOMED: 38886022 (2) Splenomegaly with HIV infection ICD Codes: B20 - Human immunodeficiency virus [HIV] disease; R16.1 - Splenomegaly, not elsewhere classified SNOMED: 393882041 (3) Anemia ICD Codes: D64.9 - Anemia, unspecified SNOMED: 134502906 Qualifiers: Qualified Codes: D64.9 - Anemia, unspecified (4) Thrombocytopenia ICD Codes: D69.6 - Thrombocytopenia, unspecified SNOMED: 250664012 (5) HIV disease ICD Codes: B20 - Human immunodeficiency virus [HIV] disease SNOMED: 36288614 (6) Episode of generalized weakness ICD Codes: R53.1 - Weakness SNOMED: 61959453 Status: unchanged Status Narrative Discussed with Dr. Epps. Assessment/Plan Assessment - Anemia - Thrombocytopenia - HIV - Diarrhea - r/o TB Recommendations - monitor H&H, transfuse prn - Stool w.u >> negative - check OB >> negative / #2 pending - consider Heme eval - EGD/Colon when stable - APCT reviewed. Subjective Gastrointestinal/Abdominal: Reports: no symptoms Subjective No vomiting tolerating PO Objective Last 24 Hour Vital Signs Date Time Temp Pulse Resp B/P Pulse Ox O2 Delivery O2 Flow Rate FiO2 03/22/16 08:43 98.1 104 20 90/50 95 Nasal Cannula 2.0 03/22/16 07:52 Nasal Cannula 3.0 32 03/22/16 07:51 95 Nasal Cannula 3.0 32 03/22/16 07:50 104 20 Nasal Cannula 3.0 32 03/22/16 04:00 118 03/22/16 04:00 97.5 110 22 104/60 96 Room Air 03/22/16 00:00 108 03/22/16 00:00 97.9 119 22 97/58 94 Room Air 03/21/16 20:00 114 03/21/16 20:00 98.4 118 20 110/78 Nasal Cannula 2.0 98 03/21/16 19:30 95 Nasal Cannula 3.0 32 03/21/16 19:30 112 20 Nasal Cannula 3.0 32 03/21/16 19:30 Nasal Cannula 3.0 32 03/21/16 16:00 118 03/21/16 16:00 117 18 109/59 Nasal Cannula 2.0 97 03/21/16 12:00 106 03/21/16 12:00 97.2 70 19 121/50 96 Nasal Cannula 2.0 Intake and Output 03/21/16 03/22/16 19:00 07:00 Intake Total 1425 ml 500 ml Output Total 700 ml Balance 1425 ml -200 ml Intake Oral 680 ml 500 ml IV Total 745 ml Output Urine Total 700 ml # Voids 1 Laboratory Tests Test 03/21/16 19:00 Stool Occult Blood Pending Height (Feet): 5 Height (Inches): 10.00 Weight (Pounds): 165 General Appearance: no apparent distress, alert Cardiovascular: normal rate Respiratory/Chest: other - 2LNC Abdominal Exam: normal bowel sounds, non tender, soft Extremities: normal range of motion Objective Procedure: CT CHEST Abdomen Pelvis WO Con Indication: ABN LABS Impression: Splenomegaly Extensive thoracic, abdominal, and pelvic lymphadenopathy, as detailed above. This is nonspecific, likely related to stated clinical history of HIV. May indicate reactive, inflammatory, infectious adenopathy, or a lymphoproliferative disorder. Correlate with clinical history and findings Evidence of predominantly upper lobe pulmonary interstitial disease, as described, predominant findings being interstitial septal thickening and bronchial wall thickening. While the differential for this is quite broad, given the history of HIV positivity the possibility of lymphocytic interstitial pneumonitis should be considered Multiple sub-5 mm parenchymal nodules seen throughout the left lung. Possibly related to the above. If there are significant risk factors for lung carcinoma, however, short interval followup CT at 6-12 months should be considered. Bilateral basilar pulmonary parenchymal atelectatic changes and possibly some consolidation Small bilateral pleural effusions Nonspecific bilateral perinephric fat stranding Genesis Keller N.P. Mar 22, 2016 09:41
[2016-03-22 11:47] VITALS: BP 97/48
--- NOTE | 2016-03-22 12:38 | General Progress Note ---
Assessment/Plan Status: unchanged Assessment/Plan acute renal failure, multifactorial ( sepsis, HIV , Vanco...) PreRenal superimposed on Renal HypoNatremia Sepsis, Diarrhea, HIV , Kaposi's Pneumonia Hypocalcemia, electrolyte imbalance Anemia in chronic illness, symptomatic Hypokalemia on admit now K elevated JF (acute kidney injury) Thrombocytopenia, massive splenomegali CAP (community acquired pneumonia) Plan: No labs today Jcaiel SOs UOs..Hyponatremia workup- pending Hydrate- Resume Vanco- Check levels- Urine studies- Cortisol levels- pending Monitor renal parameters and lytes- Avoid Nephrotoxics Monitor Urine out put Protonix Transfuse ? stress dose of steroids? Subjective ROS Limited/Unobtainable: No Constitutional: Reports: malaise, weakness Allergies: Coded Allergies: No Known Allergies (Unverified , 03/16/16) Objective Last 24 Hour Vital Signs Date Time Temp Pulse Resp B/P Pulse Ox O2 Delivery O2 Flow Rate FiO2 03/22/16 11:47 97.9 110 20 97/48 97 Nasal Cannula 2.0 03/22/16 08:43 98.1 104 20 90/50 95 Nasal Cannula 2.0 03/22/16 08:00 105 03/22/16 07:52 Nasal Cannula 3.0 32 03/22/16 07:51 95 Nasal Cannula 3.0 32 03/22/16 07:50 104 20 Nasal Cannula 3.0 32 03/22/16 04:00 118 03/22/16 04:00 97.5 110 22 104/60 96 Room Air 03/22/16 00:00 108 03/22/16 00:00 97.9 119 22 97/58 94 Room Air 03/21/16 20:00 114 03/21/16 20:00 98.4 118 20 110/78 Nasal Cannula 2.0 98 03/21/16 19:30 95 Nasal Cannula 3.0 32 03/21/16 19:30 112 20 Nasal Cannula 3.0 32 03/21/16 19:30 Nasal Cannula 3.0 32 03/21/16 16:00 118 03/21/16 16:00 117 18 109/59 Nasal Cannula 2.0 97 Intake and Output 03/21/16 03/22/16 19:00 07:00 Intake Total 1425 ml 500 ml Output Total 700 ml Balance 1425 ml -200 ml Intake Oral 680 ml 500 ml IV Total 745 ml Output Urine Total 700 ml # Voids 1 Laboratory Tests 03/21/16 19:00: Stool Occult Blood [Pending] Height (Feet): 5 Height (Inches): 10.00 Weight (Pounds): 165 General Appearance: no apparent distress Objective other PE not changed DEREK SMITH Mar 22, 2016 12:38
--- NOTE | 2016-03-22 12:58 | Infectious Diseases Prog Note ---
Assessment/Plan Assessment/Plan ASSESSMENT: 55 y/o male with: // Probable sepsis r/o opportunistic infection - cultures NGTD, serology pending // Diarrhea r/o infectious - stool studies pending // Possible PNA r/o TB, NTM, fungal - sputum AFB, QFT TB gold pending - CT: predominantly upper lobe pulmonary interstitial disease, possible lymphocytic interstitial pneumonitis. Multiple sub-5 mm parenchymal nodules seen throughout the left lung. Bilateral basilar pulmonary parenchymal atelectatic changes and possibly some consolidation. Small bilateral pleural effusions - negative/WNL: LDH, CrAg, blastomyces // Diffuse LAD r/o infectious vs myeloproliferative disorder - CT: Extensive thoracic, abdominal, and pelvic lymphadenopathy // HIV / AIDS, on cART ( recently changed to prezcobix, tivicay d/t genotype ) - CD4 37(5.3%) // Kaposi sarcoma // Leukopenia / pancytopenia r/o bone marrow infiltrative process - pt agrees - negative/WNL: LDH, ARMIDA, CrAg, Parvovirus IgM, blastomyces // Fever - persistent intermittent // Symptomatic anemia SP PRBCs - denies blood loss. GI following, plan EGD/ colonoscopy // ARF - improved, stable // Hypocalcemia / electrolyte imbalance // Massive splenomegaly // Thrombocytopenia // Anxiety // Elevated ESR // NKDA // Full Code PLAN: - continue empiric broad spectrum IV vancomycin, cefepime d# 6 - continue cART ( prezcobix, tivicay - ok for pt to take own meds ), changed bactrim prophy to mepron given cytopenias - discussed BMBx, pt agreed - f/u AFB BCx, coccidioides, histoplasma, QFT TB gold, stool studies, LAP - monitor CBC, temperatures - monitor BMP - transfuse prn - anxiolytic prn Subjective Allergies: Coded Allergies: No Known Allergies (Unverified , 03/16/16) Subjective intermittent low grade fevers no new complaint Objective Vital Signs Last 24 Hour Vital Signs Date Time Temp Pulse Resp B/P Pulse Ox O2 Delivery O2 Flow Rate FiO2 03/22/16 11:47 97.9 110 20 97/48 97 Nasal Cannula 2.0 03/22/16 08:43 98.1 104 20 90/50 95 Nasal Cannula 2.0 03/22/16 08:00 105 03/22/16 07:52 Nasal Cannula 3.0 32 03/22/16 07:51 95 Nasal Cannula 3.0 32 03/22/16 07:50 104 20 Nasal Cannula 3.0 32 03/22/16 04:00 118 03/22/16 04:00 97.5 110 22 104/60 96 Room Air 03/22/16 00:00 108 03/22/16 00:00 97.9 119 22 97/58 94 Room Air 03/21/16 20:00 114 03/21/16 20:00 98.4 118 20 110/78 Nasal Cannula 2.0 98 03/21/16 19:30 95 Nasal Cannula 3.0 32 03/21/16 19:30 112 20 Nasal Cannula 3.0 32 03/21/16 19:30 Nasal Cannula 3.0 32 03/21/16 16:00 118 03/21/16 16:00 117 18 109/59 Nasal Cannula 2.0 97 Height (Feet): 5 Height (Inches): 10.00 Weight (Pounds): 165 General Appearance: no acute distress Respiratory/Chest: no respiratory distress Cardiovascular: normal rate, regular rhythm Abdomen: normal bowel sounds, soft, non tender, non distended Microbiology Date/Time Source Procedure Growth Status 03/20/16 19:50 Stool Stool Culture - Preliminary NO GROWTH Resulted Laboratory Tests Test 03/21/16 19:00 Stool Occult Blood Pending Current Medications Medications (Trade) Dose Ordered Sig/Godwin Route PRN Reason Start Time Stop Time Status Last Admin Dose Admin Acetaminophen (Tylenol) 650 mg Q4H PRN ORAL fever 03/19/16 12:00 04/18/16 11:59 Albuterol/ Ipratropium (DuoNeb 0.5-3(2.5)mg/3ml) 3 ml Q4H PRN HHN Shortness of Breath 03/19/16 12:00 03/24/16 11:59 Atovaquone (Mepron Susp) 1,500 mg DAILY ORAL 03/20/16 09:00 04/19/16 08:59 03/22/16 09:25 Cefepime HCl 2 gm/ Dextrose 110 ml @ 220 mls/hr Q12HR IV 03/20/16 21:00 03/26/16 20:59 03/22/16 09:25 Escitalopram Oxalate (Lexapro) 10 mg DAILY ORAL 03/23/16 09:00 04/22/16 08:59 UNV Lorazepam (Ativan) 0.5 mg Q6H PRN ORAL For Anxiety 03/21/16 15:30 03/28/16 15:29 03/21/16 16:05 Morphine Sulfate (Morphine Sulfate) 2 mg Q4H PRN IVP Moderate Pain (Pain Scale 4-6) 03/19/16 12:00 03/26/16 11:59 03/20/16 10:09 Nitroglycerin (Ntg) 0.4 mg Every 5 Minutes PRN SL Prn Chest Pain 03/19/16 11:45 04/18/16 11:44 Ondansetron HCl (Zofran) 4 mg Q6H PRN IVP Nausea & Vomiting 03/19/16 12:00 04/18/16 11:59 Pantoprazole (Protonix) 40 mg EVERY 12 HOURS ORAL 03/19/16 21:00 04/18/16 20:59 03/22/16 09:25 Patient Own Medication (Patient's Own Med) 1 ea DAILY ORAL 03/20/16 09:00 04/19/16 08:59 03/22/16 09:25 Patient Own Medication (Patient's Own Med) 1 ea DAILY ORAL 03/20/16 09:00 04/19/16 08:59 03/22/16 09:25 Polyethylene Glycol (Miralax) 17 gm DAILYPRN PRN ORAL Constipation 03/19/16 12:00 04/18/16 11:59 Temazepam (Restoril) 15 mg HSPRN PRN ORAL Insomnia 03/19/16 21:00 03/26/16 20:59 03/21/16 23:42 Vancomycin HCl 1 ea 1 ea DAILY PRN MISC Per rx protocol 03/20/16 09:00 04/19/16 08:59 Vancomycin HCl/ Dextrose (Vancomycin/D5W) 275 ml @ 183.333 mls/hr Q24H IVPB 03/20/16 22:00 03/25/16 21:59 03/21/16 22:00 MANJEET GARDNER Mar 22, 2016 12:58
[2016-03-22] MEDS: LORazepam 0.5mg tab ORAL PRN (13:22)
--- NOTE | 2016-03-22 13:33 | Pulmonology Progress Note ---
Assessment/Plan Problems: (1) Sepsis (2) Pneumonia (3) Anemia (4) JF (acute kidney injury) (5) HIV disease (6) Thrombocytopenia (7) Hypocalcemia (8) Splenomegaly with HIV infection Assessment/Plan s/p prbc, still anemic, will transfuse again Ct of abdomen reviewed Ct chest showed muliple nodules respiratory treatment d/w pathologist about bone marrow biopsy, apparently pt declined continue antiboitics serology pending nephrology evaluation Isolation, afb for sputum, ppd skin testing because of positive nodules on Ct scan Subjective ROS Limited/Unobtainable: No Interval Events: feeling better Allergies: Coded Allergies: No Known Allergies (Unverified , 03/16/16) Objective Last 24 Hour Vital Signs Date Time Temp Pulse Resp B/P Pulse Ox O2 Delivery O2 Flow Rate FiO2 03/22/16 11:47 97.9 110 20 97/48 97 Nasal Cannula 2.0 03/22/16 08:43 98.1 104 20 90/50 95 Nasal Cannula 2.0 03/22/16 08:00 105 03/22/16 07:52 Nasal Cannula 3.0 32 03/22/16 07:51 95 Nasal Cannula 3.0 32 03/22/16 07:50 104 20 Nasal Cannula 3.0 32 03/22/16 04:00 118 03/22/16 04:00 97.5 110 22 104/60 96 Room Air 03/22/16 00:00 108 03/22/16 00:00 97.9 119 22 97/58 94 Room Air 03/21/16 20:00 114 03/21/16 20:00 98.4 118 20 110/78 Nasal Cannula 2.0 98 03/21/16 19:30 95 Nasal Cannula 3.0 32 03/21/16 19:30 112 20 Nasal Cannula 3.0 32 03/21/16 19:30 Nasal Cannula 3.0 32 03/21/16 16:00 118 03/21/16 16:00 117 18 109/59 Nasal Cannula 2.0 97 Intake and Output 03/21/16 03/22/16 19:00 07:00 Intake Total 1425 ml 500 ml Output Total 700 ml Balance 1425 ml -200 ml Intake Oral 680 ml 500 ml IV Total 745 ml Output Urine Total 700 ml # Voids 1 Objective General Appearance: WD/WN Lines, tubes and drains: peripheral HEENT: normocephalic, atraumatic Neck: non-tender, normal alignment Respiratory/Chest: chest wall non-tender, rhonchi - left, rhonchi - right Cardiovascular/Chest: normal peripheral pulses, normal rate Abdomen: normal bowel sounds, non tender Genitourinary/Rectal: normal genital exam Extremities: normal range of motion, non-tender, normal inspection, no calf tenderness, normal capillary refill Skin Exam: normal pigmentation 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 Microbiology Date/Time Source Procedure Growth Status 03/20/16 19:50 Stool Stool Culture - Preliminary NO GROWTH Resulted Laboratory Tests 03/21/16 19:00: Stool Occult Blood [Pending] Current Medications Medications (Trade) Dose Ordered Sig/Godwin Route PRN Reason Start Time Stop Time Status Last Admin Dose Admin Acetaminophen (Tylenol) 650 mg Q4H PRN ORAL fever 03/19/16 12:00 04/18/16 11:59 Albuterol/ Ipratropium (DuoNeb 0.5-3(2.5)mg/3ml) 3 ml Q4H PRN HHN Shortness of Breath 03/19/16 12:00 03/24/16 11:59 Atovaquone (Mepron Susp) 1,500 mg DAILY ORAL 03/20/16 09:00 04/19/16 08:59 03/22/16 09:25 Cefepime HCl 2 gm/ Dextrose 110 ml @ 220 mls/hr Q12HR IV 03/20/16 21:00 03/26/16 20:59 03/22/16 09:25 Escitalopram Oxalate (Lexapro) 10 mg DAILY ORAL 03/23/16 09:00 04/22/16 08:59 Lorazepam (Ativan) 0.5 mg Q6H PRN ORAL For Anxiety 03/21/16 15:30 03/28/16 15:29 03/22/16 13:22 Morphine Sulfate (Morphine Sulfate) 2 mg Q4H PRN IVP Moderate Pain (Pain Scale 4-6) 03/19/16 12:00 03/26/16 11:59 03/20/16 10:09 Nitroglycerin (Ntg) 0.4 mg Every 5 Minutes PRN SL Prn Chest Pain 03/19/16 11:45 04/18/16 11:44 Ondansetron HCl (Zofran) 4 mg Q6H PRN IVP Nausea & Vomiting 03/19/16 12:00 04/18/16 11:59 Pantoprazole (Protonix) 40 mg EVERY 12 HOURS ORAL 03/19/16 21:00 04/18/16 20:59 03/22/16 09:25 Patient Own Medication (Patient's Own Med) 1 ea DAILY ORAL 03/20/16 09:00 04/19/16 08:59 03/22/16 09:25 Patient Own Medication (Patient's Own Med) 1 ea DAILY ORAL 03/20/16 09:00 04/19/16 08:59 03/22/16 09:25 Polyethylene Glycol (Miralax) 17 gm DAILYPRN PRN ORAL Constipation 03/19/16 12:00 04/18/16 11:59 Temazepam (Restoril) 15 mg HSPRN PRN ORAL Insomnia 03/19/16 21:00 03/26/16 20:59 03/21/16 23:42 Vancomycin HCl 1 ea 1 ea DAILY PRN MISC Per rx protocol 03/20/16 09:00 04/19/16 08:59 Vancomycin HCl/ Dextrose (Vancomycin/D5W) 275 ml @ 183.333 mls/hr Q24H IVPB 03/20/16 22:00 03/25/16 21:59 03/21/16 22:00 MARIA ISABEL SZYMANSKI Mar 22, 2016 13:33
[2016-03-22 13:55] LABS: PARVOVIRUS B-19 ANTIBODY IGG 6.4 index (0.0-0.8)
[2016-03-22 16:00] VITALS: BP 92/46
[2016-03-22] MEDS ORDERED: Tubing Blood Filter IV ONE (18:05)
[2016-03-22] MEDS ORDERED: NS 275ml ONE (18:05)
[2016-03-22 20:00] VITALS: BP 94/43
--- NOTE | 2016-03-22 20:19 | Consultation ---
DATE OF CONSULTATION: 03/22/2016 HISTORY OF PRESENT ILLNESS: The patient is a 55-year-old male with a history of HIV, anemia, sepsis, thyromegaly, pneumonia, CAD, and acute kidney failure, who has been admitted to the hospital for medical stabilization. The patient has been noncompliant with medication. Complaining of weakness. The patient denies any sadness, however, his affect is very flat. He has an irritable mood and anxiety. The patient has been remained noncompliant with medication. Denies any suicidal or homicidal ideation. No manic or psychotic symptoms. PAST PSYCHIATRIC HISTORY: He denies any psychiatric history of suicidal ideations in the past, suicide attempts, violent behavior, or any psychotropic in the past. However, he stated that he had anxiety. PAST MEDICAL HISTORY: Includes HIV, pneumonia, and sepsis. MEDICATION: He has history of noncompliance with medication. ALLERGIES: No known drug allergies. SUBSTANCE ABUSE HISTORY: No history of illicit drug use or alcohol. MENTAL STATUS EXAMINATION: The patient is alert and oriented x4. Mood is depressed. Affect is constricted. Congruent mood. Thought process is concrete. Thought content, no suicidal or homicidal ideation. 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 Anxiety disorder. AXIS II Deferred. AXIS III Noncompliance. AXIS IV Low. AXIS V Global assessment of functioning is 20. PLAN: 1. The patient will be continued on Ativan p.r.n. and Restoril was started and citalopram 10 mg q.a.m. 2. The patient was discussed about the medication and also was told about having a right to refuse the medication. 3. We will continue to follow and readjust the medications. 4. Provided with reality orientation and supportive therapy. Maria T Zhang M.D. DR: JOSE JOB#: [id number] CC:
[2016-03-22] MEDS: Vancomycin 1250mg/D5W 275ml IVPB SCH ×2 (22:08)
[2016-03-23] VITALS (9 sets, daily range): BP systolic 90–121; BP diastolic 46–68
[2016-03-23 08:03] LABS: MEAN CORPUSCULAR HEMOGLOBIN 30.6 PG (27.0-31.0); MEAN CORPUSCULAR HGB CONC 32.9 G/DL (32.0-36.0); MEAN CORPUSCULAR VOLUME 93 FL (80-99); MEAN PLATELET VOLUME 9.8 FL (6.5-10.1); PLATELET COUNT 17 K/UL (150-450); RED BLOOD COUNT 2.43 M/UL (4.70-6.10); RED CELL DISTRIBUTION WIDTH 14.9 % (11.6-14.8); WHITE BLOOD COUNT 4.1 K/UL (4.8-10.8)
[2016-03-23] MEDS: Cefepime HCl 2 GM in D5W 110 ML IV SCH ×2 (08:13→20:49)
[2016-03-23] MEDS: Atovaquone 750mg/5ml Susp ORAL SCH (08:13)
[2016-03-23] MEDS: DOLUTEGRAVIR 50 MG ORAL SCH (08:14)
[2016-03-23] MEDS: PREZCOBIX ORAL SCH (08:14)
[2016-03-23 08:15] LABS: ALBUMIN/GLOBULIN RATIO 0.3 (1.0-2.7); CALCIUM 7.4 mg/dL (8.6-10.2); CREATININE 1.5 mg/dL (0.7-1.2); CRP QUANT 13.2 mg/dL (< 0.5); GLOMERULAR FILTRATION RATE 48.6 mL/min (>60); MAGNESIUM 1.7 mg/dL (1.7-2.5); PHOSPHORUS 3.2 mg/dL (2.5-4.8); TOTAL PROTEIN 5.7 g/dL (6.6-8.7); URIC ACID 5.3 mg/dL (3.0-7.5)
[2016-03-23] MEDS: LORazepam 0.5mg tab ORAL PRN ×2 (08:32→14:33)
[2016-03-23 10:30] LABS: BILIRUBIN,DIRECT 1.2 mg/dL (0.1-0.3)
[2016-03-23 10:48] LABS: BAND NEUTROPHILS % (MANUAL) 0 % (0-8); BASOPHILS % (MANUAL) 0 % (0-2); EOSINOPHILS % (MANUAL) 0 % (0-3); LYMPHOCYTES % (MANUAL) 15 % (20-45); NEUTROPHILS % (MANUAL) 78 % (45-75); PLATELET ESTIMATE DECREASED; PLATELET MORPHOLOGY NORMAL; TOTAL CELLS COUNTED 100
[2016-03-23 10:49] LABS: ANISOCYTOSIS 1+
[2016-03-23 10:50] LABS: HYPOCHROMASIA 1+
--- NOTE | 2016-03-23 11:05 | GI Progress Note ---
Assessment/Plan Problems: (1) Diarrhea ICD Codes: R19.7 - Diarrhea, unspecified SNOMED: 78350849 (2) Splenomegaly with HIV infection ICD Codes: B20 - Human immunodeficiency virus [HIV] disease; R16.1 - Splenomegaly, not elsewhere classified SNOMED: 581082757 (3) Anemia ICD Codes: D64.9 - Anemia, unspecified SNOMED: 400037842 Qualifiers: Qualified Codes: D64.9 - Anemia, unspecified (4) Thrombocytopenia ICD Codes: D69.6 - Thrombocytopenia, unspecified SNOMED: 052561600 (5) HIV disease ICD Codes: B20 - Human immunodeficiency virus [HIV] disease SNOMED: 21137023 (6) Episode of generalized weakness ICD Codes: R53.1 - Weakness SNOMED: 63041676 Status: unchanged Status Narrative Discussed with Dr. Epps. Assessment/Plan Assessment - Anemia - Thrombocytopenia - HIV - Diarrhea - r/o TB - refused bone biopsy - Stool w.u >> negative - O&P negative Recommendations - monitor H&H, transfuse prn - check OB >> negative / #2 pending - consider Heme eval - EGD/Colon when stable - APCT reviewed. Subjective Subjective No vomiting tolerating PO Objective Last 24 Hour Vital Signs Date Time Temp Pulse Resp B/P Pulse Ox O2 Delivery O2 Flow Rate FiO2 03/23/16 08:23 98.2 102 20 90/46 100 Nasal Cannula 2.0 03/23/16 07:58 Nasal Cannula 2.0 28 03/23/16 07:57 99 Nasal Cannula 2.0 28 03/23/16 07:56 104 20 Nasal Cannula 2.0 28 03/23/16 07:41 102 03/23/16 04:00 107 03/23/16 04:00 97.6 111 20 99/56 97 Nasal Cannula 2.0 03/23/16 00:00 109 03/23/16 00:00 98.2 109 20 97/54 97 Nasal Cannula 2.0 03/22/16 20:00 98.4 112 17 94/43 99 Room Air 03/22/16 20:00 109 03/22/16 19:30 Room Air 21 03/22/16 19:30 97 Room Air 21 03/22/16 19:30 110 20 Room Air 21 03/22/16 16:00 105 03/22/16 16:00 96.8 107 16 92/46 98 Room Air 03/22/16 12:00 106 03/22/16 11:47 97.9 110 20 97/48 97 Nasal Cannula 2.0 Intake and Output 03/22/16 03/23/16 19:00 07:00 Intake Total 460 ml 530 ml Output Total 500 ml Balance -40 ml 530 ml Intake Oral 240 ml 420 ml IV Total 220 ml 110 ml Output Urine Total 500 ml # Voids 4 # Bowel Movements 1 Laboratory Tests Test 03/22/16 21:05 03/23/16 05:00 03/23/16 07:30 Vancomycin Level Trough 11.6 ug/mL (5.0-12.0) Stool Occult Blood Pending White Blood Count 4.1 K/UL (4.8-10.8) L Red Blood Count 2.43 M/UL (4.70-6.10) L Hemoglobin 7.5 G/DL (14.2-18.0) L Hematocrit 22.7 % (42.0-52.0) L Mean Corpuscular Volume 93 FL (80-99) Mean Corpuscular Hemoglobin 30.6 PG (27.0-31.0) Mean Corpuscular Hemoglobin Concent 32.9 G/DL (32.0-36.0) Red Cell Distribution Width 14.9 % (11.6-14.8) H Platelet Count 17 K/UL (150-450) L Mean Platelet Volume 9.8 FL (6.5-10.1) Neutrophils (%) (Auto) % (45.0-75.0) Lymphocytes (%) (Auto) % (20.0-45.0) Monocytes (%) (Auto) % (1.0-10.0) Eosinophils (%) (Auto) % (0.0-3.0) Basophils (%) (Auto) % (0.0-2.0) Differential Total Cells Counted 100 Neutrophils % (Manual) 78 % (45-75) H Lymphocytes % (Manual) 15 % (20-45) L Monocytes % (Manual) 7 % (1-10) Eosinophils % (Manual) 0 % (0-3) Basophils % (Manual) 0 % (0-2) Band Neutrophils 0 % (0-8) Platelet Estimate Decreased L Platelet Morphology Normal Hypochromasia 1+ Anisocytosis 1+ Sodium Level 128 mEQ/L (135-145) L Potassium Level 4.0 mEQ/L (3.4-4.9) Chloride Level 95 mEQ/L (98-107) L Carbon Dioxide Level 20 mEQ/L (20-30) Anion Gap 13 (5-15) Blood Urea Nitrogen 29 mg/dL (7-23) H Creatinine 1.5 mg/dL (0.7-1.2) H Estimat Glomerular Filtration Rate 48.6 mL/min (>60) Glucose Level 102 mg/dL (74-106) Uric Acid 5.3 mg/dL (3.0-7.5) Calcium Level 7.4 mg/dL (8.6-10.2) L Phosphorus Level 3.2 mg/dL (2.5-4.8) Magnesium Level 1.7 mg/dL (1.7-2.5) Total Bilirubin 1.8 mg/dL (0.0-1.2) H Direct Bilirubin 1.2 mg/dL (0.1-0.3) H Aspartate Amino Transf (AST/SGOT) 21 U/L (5-40) Alanine Aminotransferase (ALT/SGPT) 11 U/L (3-41) Alkaline Phosphatase 123 U/L (40-129) C-Reactive Protein, Quantitative 13.2 mg/dL (< 0.5) H Pro-B-Type Natriuretic Peptide 2769 pg/mL (0-125) H Total Protein 5.7 g/dL (6.6-8.7) L Albumin 1.6 g/dL (3.5-5.2) L Globulin 4.1 g/dL Albumin/Globulin Ratio 0.3 (1.0-2.7) L Height (Feet): 5 Height (Inches): 10.00 Weight (Pounds): 165 General Appearance: no apparent distress, alert Cardiovascular: normal rate Respiratory/Chest: other - 2LNC Abdominal Exam: normal bowel sounds, non tender, soft Objective Procedure: CT CHEST Abdomen Pelvis WO Con Indication: ABN LABS Impression: Splenomegaly Extensive thoracic, abdominal, and pelvic lymphadenopathy, as detailed above. This is nonspecific, likely related to stated clinical history of HIV. May indicate reactive, inflammatory, infectious adenopathy, or a lymphoproliferative disorder. Correlate with clinical history and findings Evidence of predominantly upper lobe pulmonary interstitial disease, as described, predominant findings being interstitial septal thickening and bronchial wall thickening. While the differential for this is quite broad, given the history of HIV positivity the possibility of lymphocytic interstitial pneumonitis should be considered Multiple sub-5 mm parenchymal nodules seen throughout the left lung. Possibly related to the above. If there are significant risk factors for lung carcinoma, however, short interval followup CT at 6-12 months should be considered. Bilateral basilar pulmonary parenchymal atelectatic changes and possibly some consolidation Small bilateral pleural effusions Nonspecific bilateral perinephric fat stranding Genesis Keller N.P. Mar 23, 2016 11:05
[2016-03-23] MEDS: Vancomycin 1gm in D5W 275ml IVPB SCH ×2 (11:09→22:59)
--- NOTE | 2016-03-23 12:47 | General Progress Note ---
Assessment/Plan Status: stable - from renal stand Status Narrative NA 128 Assessment/Plan acute renal failure, multifactorial ( sepsis, HIV , Vanco...) PreRenal superimposed on Renal HypoNatremia Cr 2.8 down to 1.5 Sepsis, Diarrhea, HIV , Kaposi's Pneumonia Hypocalcemia, electrolyte imbalance Anemia in chronic illness, symptomatic Hypokalemia on admit now K elevated JF (acute kidney injury) Thrombocytopenia, massive splenomegali CAP (community acquired pneumonia) Plan: Resume Vanco- Check levels- Urine studies- Cortisol levels- 15 Monitor renal parameters and lytes- Avoid Nephrotoxics Monitor Urine out put Protonix Transfuse ? stress dose of steroids? Subjective ROS Limited/Unobtainable: No Constitutional: Reports: malaise Allergies: Coded Allergies: No Known Allergies (Unverified , 03/16/16) Objective Last 24 Hour Vital Signs Date Time Temp Pulse Resp B/P Pulse Ox O2 Delivery O2 Flow Rate FiO2 03/23/16 12:30 103 20 110/65 100 Nasal Cannula 2.0 03/23/16 11:26 97.7 103 20 93/46 99 Nasal Cannula 2.0 03/23/16 08:23 98.2 102 20 90/46 100 Nasal Cannula 2.0 03/23/16 07:58 Nasal Cannula 2.0 28 03/23/16 07:57 99 Nasal Cannula 2.0 28 03/23/16 07:56 104 20 Nasal Cannula 2.0 28 03/23/16 07:41 102 03/23/16 04:00 107 03/23/16 04:00 97.6 111 20 99/56 97 Nasal Cannula 2.0 03/23/16 00:00 109 03/23/16 00:00 98.2 109 20 97/54 97 Nasal Cannula 2.0 03/22/16 20:00 98.4 112 17 94/43 99 Room Air 03/22/16 20:00 109 03/22/16 19:30 Room Air 21 03/22/16 19:30 97 Room Air 21 03/22/16 19:30 110 20 Room Air 21 03/22/16 16:00 105 03/22/16 16:00 96.8 107 16 92/46 98 Room Air Intake and Output 03/22/16 03/23/16 19:00 07:00 Intake Total 460 ml 530 ml Output Total 500 ml Balance -40 ml 530 ml Intake Oral 240 ml 420 ml IV Total 220 ml 110 ml Output Urine Total 500 ml # Voids 4 # Bowel Movements 1 Laboratory Tests 03/22/16 21:05: Vancomycin Level Trough 11.6 03/23/16 05:00: Stool Occult Blood Negative 03/23/16 07:30: White Blood Count 4.1L, Red Blood Count 2.43L, Hemoglobin 7.5L, Hematocrit 22.7L , Mean Corpuscular Volume 93, Mean Corpuscular Hemoglobin 30.6, Mean Corpuscular Hemoglobin Concent 32.9, Red Cell Distribution Width 14.9H, Platelet Count 17L, Mean Platelet Volume 9.8, Neutrophils (%) (Auto) , Lymphocytes (%) (Auto) , Monocytes (%) (Auto) , Eosinophils (%) (Auto) , Basophils (%) (Auto) , Differential Total Cells Counted 100, Neutrophils % ( Manual) 78H, Lymphocytes % (Manual) 15L, Monocytes % (Manual) 7, Eosinophils % ( Manual) 0, Basophils % (Manual) 0, Band Neutrophils 0, Platelet Estimate DecreasedL, Platelet Morphology Normal, Hypochromasia 1+, Anisocytosis 1+, Sodium Level 128L, Potassium Level 4.0, Chloride Level 95L, Carbon Dioxide Level 20, Anion Gap 13, Blood Urea Nitrogen 29H, Creatinine 1.5H, Estimat Glomerular Filtration Rate 48.6, Glucose Level 102, Uric Acid 5.3, Calcium Level 7.4L, Phosphorus Level 3.2, Magnesium Level 1.7, Total Bilirubin 1.8H, Direct Bilirubin 1.2H, Aspartate Amino Transf (AST/SGOT) 21, Alanine Aminotransferase (ALT/SGPT) 11, Alkaline Phosphatase 123, C-Reactive Protein, Quantitative 13.2H, Pro-B-Type Natriuretic Peptide 2769H, Total Protein 5.7L, Albumin 1.6L, Globulin 4.1, Albumin/Globulin Ratio 0.3L Height (Feet): 5 Height (Inches): 10.00 Weight (Pounds): 165 General Appearance: mild distress Cardiovascular: tachycardia Respiratory/Chest: decreased breath sounds Abdomen: soft Objective other PE not changed DEREK SMITH Mar 23, 2016 12:47
--- NOTE | 2016-03-23 14:14 | Infectious Diseases Prog Note ---
Assessment/Plan Assessment/Plan ASSESSMENT: 55 y/o male with: // Probable sepsis r/o opportunistic infection - cultures NGTD // Diarrhea r/o infectious - improved - negative: giardia, O&P // Possible PNA r/o TB, NTM, fungal - sputum AFB, QFT TB gold pending - CT: predominantly upper lobe pulmonary interstitial disease, possible lymphocytic interstitial pneumonitis. Multiple sub-5 mm parenchymal nodules seen throughout the left lung. Bilateral basilar pulmonary parenchymal atelectatic changes and possibly some consolidation. Small bilateral pleural effusions - negative/WNL: LDH, CrAg, blastomyces // Diffuse LAD r/o infectious vs myeloproliferative disorder - CT: Extensive thoracic, abdominal, and pelvic lymphadenopathy // HIV / AIDS, on cART ( recently changed to prezcobix, tivicay d/t genotype ) - CD4 37(5.3%) // Kaposi sarcoma // Leukopenia / pancytopenia r/o bone marrow infiltrative process - negative/WNL: LDH, ARMIDA, CrAg, Parvovirus IgM, blastomyces // Fever - persistent intermittent // Symptomatic FOBT(-) anemia SP PRBCs - denies blood loss. GI following, plan EGD/colonoscopy // ARF - improved, stable // Hypocalcemia / electrolyte imbalance // Massive splenomegaly // Thrombocytopenia // Anxiety // Elevated ESR // NKDA // Full Code PLAN: - continue empiric broad spectrum IV vancomycin, cefepime d# -10 - continue cART ( prezcobix, tivicay - ok for pt to take own meds ), changed bactrim prophy to mepron given cytopenias - consider BMBx, pt agreed - f/u AFB BCx, coccidioides, histoplasma, QFT TB gold, stool studies, LAP - monitor CBC, temperatures - monitor BMP - transfuse prn - anxiolytic prn Subjective Allergies: Coded Allergies: No Known Allergies (Unverified , 03/16/16) Subjective intermittent low grade fevers no new complaint Objective Vital Signs Last 24 Hour Vital Signs Date Time Temp Pulse Resp B/P Pulse Ox O2 Delivery O2 Flow Rate FiO2 03/23/16 13:20 97.7 106 20 119/59 99 Nasal Cannula 2.0 03/23/16 12:44 97.9 103 20 113/62 99 Nasal Cannula 2.0 03/23/16 12:30 103 20 110/65 100 Nasal Cannula 2.0 03/23/16 11:26 97.7 103 20 93/46 99 Nasal Cannula 2.0 03/23/16 08:23 98.2 102 20 90/46 100 Nasal Cannula 2.0 03/23/16 07:58 Nasal Cannula 2.0 28 03/23/16 07:57 99 Nasal Cannula 2.0 28 03/23/16 07:56 104 20 Nasal Cannula 2.0 28 03/23/16 07:41 102 03/23/16 04:00 107 03/23/16 04:00 97.6 111 20 99/56 97 Nasal Cannula 2.0 03/23/16 00:00 109 03/23/16 00:00 98.2 109 20 97/54 97 Nasal Cannula 2.0 03/22/16 20:00 98.4 112 17 94/43 99 Room Air 03/22/16 20:00 109 03/22/16 19:30 Room Air 21 03/22/16 19:30 97 Room Air 21 03/22/16 19:30 110 20 Room Air 21 03/22/16 16:00 105 03/22/16 16:00 96.8 107 16 92/46 98 Room Air Height (Feet): 5 Height (Inches): 10.00 Weight (Pounds): 165 General Appearance: no acute distress Respiratory/Chest: no respiratory distress Cardiovascular: normal rate, regular rhythm Abdomen: normal bowel sounds, soft, non tender, non distended Microbiology Date/Time Source Procedure Growth Status 03/20/16 19:50 Stool Ova and Parasites - Final Complete 03/20/16 19:50 Stool Ova and Parasite Result 1 - Final Complete 03/20/16 19:50 Stool Stool Culture - Preliminary Resulted Laboratory Tests Test 03/22/16 21:05 03/23/16 05:00 03/23/16 07:30 Vancomycin Level Trough 11.6 ug/mL (5.0-12.0) Stool Occult Blood Negative (NEGATIVE) White Blood Count 4.1 K/UL (4.8-10.8) L Red Blood Count 2.43 M/UL (4.70-6.10) L Hemoglobin 7.5 G/DL (14.2-18.0) L Hematocrit 22.7 % (42.0-52.0) L Mean Corpuscular Volume 93 FL (80-99) Mean Corpuscular Hemoglobin 30.6 PG (27.0-31.0) Mean Corpuscular Hemoglobin Concent 32.9 G/DL (32.0-36.0) Red Cell Distribution Width 14.9 % (11.6-14.8) H Platelet Count 17 K/UL (150-450) L Mean Platelet Volume 9.8 FL (6.5-10.1) Neutrophils (%) (Auto) % (45.0-75.0) Lymphocytes (%) (Auto) % (20.0-45.0) Monocytes (%) (Auto) % (1.0-10.0) Eosinophils (%) (Auto) % (0.0-3.0) Basophils (%) (Auto) % (0.0-2.0) Differential Total Cells Counted 100 Neutrophils % (Manual) 78 % (45-75) H Lymphocytes % (Manual) 15 % (20-45) L Monocytes % (Manual) 7 % (1-10) Eosinophils % (Manual) 0 % (0-3) Basophils % (Manual) 0 % (0-2) Band Neutrophils 0 % (0-8) Platelet Estimate Decreased L Platelet Morphology Normal Hypochromasia 1+ Anisocytosis 1+ Sodium Level 128 mEQ/L (135-145) L Potassium Level 4.0 mEQ/L (3.4-4.9) Chloride Level 95 mEQ/L (98-107) L Carbon Dioxide Level 20 mEQ/L (20-30) Anion Gap 13 (5-15) Blood Urea Nitrogen 29 mg/dL (7-23) H Creatinine 1.5 mg/dL (0.7-1.2) H Estimat Glomerular Filtration Rate 48.6 mL/min (>60) Glucose Level 102 mg/dL (74-106) Uric Acid 5.3 mg/dL (3.0-7.5) Calcium Level 7.4 mg/dL (8.6-10.2) L Phosphorus Level 3.2 mg/dL (2.5-4.8) Magnesium Level 1.7 mg/dL (1.7-2.5) Total Bilirubin 1.8 mg/dL (0.0-1.2) H Direct Bilirubin 1.2 mg/dL (0.1-0.3) H Aspartate Amino Transf (AST/SGOT) 21 U/L (5-40) Alanine Aminotransferase (ALT/SGPT) 11 U/L (3-41) Alkaline Phosphatase 123 U/L (40-129) C-Reactive Protein, Quantitative 13.2 mg/dL (< 0.5) H Pro-B-Type Natriuretic Peptide 2769 pg/mL (0-125) H Total Protein 5.7 g/dL (6.6-8.7) L Albumin 1.6 g/dL (3.5-5.2) L Globulin 4.1 g/dL Albumin/Globulin Ratio 0.3 (1.0-2.7) L Current Medications Medications (Trade) Dose Ordered Sig/Godwin Route PRN Reason Start Time Stop Time Status Last Admin Dose Admin Acetaminophen (Tylenol) 650 mg Q4H PRN ORAL fever 03/19/16 12:00 04/18/16 11:59 Albuterol/ Ipratropium (DuoNeb 0.5-3(2.5)mg/3ml) 3 ml Q4H PRN HHN Shortness of Breath 03/19/16 12:00 03/24/16 11:59 Atovaquone (Mepron Susp) 1,500 mg DAILY ORAL 03/20/16 09:00 04/19/16 08:59 03/23/16 08:13 Cefepime HCl/ Dextrose (Maxipime/D5W) 110 ml @ 220 mls/hr Q12HR IV 03/20/16 21:00 03/26/16 20:59 03/23/16 08:13 Escitalopram Oxalate 10 mg 10 mg DAILY ORAL 03/23/16 09:00 04/22/16 08:59 03/23/16 09:24 Lorazepam (Ativan) 0.5 mg Q6H PRN ORAL For Anxiety 03/21/16 15:30 03/28/16 15:29 03/23/16 08:32 Morphine Sulfate (Morphine Sulfate) 2 mg Q4H PRN IVP Moderate Pain (Pain Scale 4-6) 03/19/16 12:00 03/26/16 11:59 03/20/16 10:09 Nitroglycerin (Ntg) 0.4 mg Every 5 Minutes PRN SL Prn Chest Pain 03/19/16 11:45 04/18/16 11:44 Ondansetron HCl (Zofran) 4 mg Q6H PRN IVP Nausea & Vomiting 03/19/16 12:00 04/18/16 11:59 Pantoprazole (Protonix) 40 mg EVERY 12 HOURS ORAL 03/19/16 21:00 04/18/16 20:59 03/23/16 08:13 Patient Own Medication (Patient's Own Med) 1 ea DAILY ORAL 03/20/16 09:00 04/19/16 08:59 03/23/16 08:14 Patient Own Medication (Patient's Own Med) 1 ea DAILY ORAL 03/20/16 09:00 04/19/16 08:59 03/23/16 08:14 Polyethylene Glycol (Miralax) 17 gm DAILYPRN PRN ORAL Constipation 03/19/16 12:00 04/18/16 11:59 Temazepam (Restoril) 15 mg HSPRN PRN ORAL Insomnia 03/19/16 21:00 03/26/16 20:59 03/22/16 22:06 Vancomycin HCl 1 ea 1 ea DAILY PRN MISC Per rx protocol 03/20/16 09:00 04/19/16 08:59 Vancomycin HCl/ Dextrose (Vancomycin/D5W) 275 ml @ 183.708 mls/hr Q12H IVPB 03/23/16 11:00 03/28/16 10:59 03/23/16 11:09 MANJEET GARDNER Mar 23, 2016 14:14
[2016-03-23] MEDS: Morphine Sulfate 2mg/ml Inj IVP PRN (16:08)
--- NOTE | 2016-03-23 17:22 | General Progress Note ---
Progress Note Progress Note Bone marrow aspiration and biopsy procedure Pathology Date/ Time: 03/23/2016 16:00PM Indication: pancytopenia Referred by: Rose Marie Helton M.D. - Time-out was called to confirm: patients name and date of , procedure, side and site of biopsy, safety procedures followed. - Performed by: Sabas Vallecillo M.D - Attending pathologist: Ludmila Smith Steven M.D - Other physicians present: Rose Thompson MD - Informed consent: signed by patient. - Aspiration and biopsy site: Right superior posterior iliac crest. - Patient position: Left lateral decubitus - Preparation and technique: sterile preparation of site with Betadyne, Chloraprep, draped to expose aspirate/biopsy area, local anesthesia with 1% lidocaine (approximately 4 ml), frequent pressure application on incision to maintain hemostasis. - Tissue obtained: bone marrow aspirate and biopsy were successfully obtained in sterile manner. - Toleration of procedure and any complications: slight localized bleeding (<1ml ). Patient tolerated procedure well with minimal pain. ROSE THOMPSON Mar 23, 2016 17:22
--- NOTE | 2016-03-23 18:00 | Pulmonology Progress Note ---
Assessment/Plan Problems: (1) Sepsis (2) Pneumonia (3) Anemia (4) JF (acute kidney injury) (5) HIV disease (6) Thrombocytopenia (7) Hypocalcemia (8) Splenomegaly with HIV infection Assessment/Plan s/p prbc, still anemic, will transfuse again Ct of abdomen reviewed Ct chest showed muliple nodules respiratory treatment d/w pathologist about bone marrow biopsy, apparently pt declined continue antiboitics serology pending nephrology evaluation Isolation, afb for sputum, ppd skin testing because of positive nodules on Ct scan Subjective Allergies: Coded Allergies: No Known Allergies (Unverified , 03/16/16) Objective Last 24 Hour Vital Signs Date Time Temp Pulse Resp B/P Pulse Ox O2 Delivery O2 Flow Rate FiO2 03/23/16 16:00 97.9 105 20 115/68 96 03/23/16 13:20 97.7 106 20 119/59 99 Nasal Cannula 2.0 03/23/16 12:44 97.9 103 20 113/62 99 Nasal Cannula 2.0 03/23/16 12:30 103 20 110/65 100 Nasal Cannula 2.0 03/23/16 11:44 106 03/23/16 11:26 97.7 103 20 93/46 99 Nasal Cannula 2.0 03/23/16 08:23 98.2 102 20 90/46 100 Nasal Cannula 2.0 03/23/16 07:58 Nasal Cannula 2.0 28 03/23/16 07:57 99 Nasal Cannula 2.0 28 03/23/16 07:56 104 20 Nasal Cannula 2.0 28 03/23/16 07:41 102 03/23/16 04:00 107 03/23/16 04:00 97.6 111 20 99/56 97 Nasal Cannula 2.0 03/23/16 00:00 109 03/23/16 00:00 98.2 109 20 97/54 97 Nasal Cannula 2.0 03/22/16 20:00 98.4 112 17 94/43 99 Room Air 03/22/16 20:00 109 03/22/16 19:30 Room Air 21 03/22/16 19:30 97 Room Air 21 03/22/16 19:30 110 20 Room Air 21 Intake and Output 03/22/16 03/23/16 18:59 06:59 Intake Total 460 ml 530 ml Output Total 500 ml Balance -40 ml 530 ml Intake Oral 240 ml 420 ml IV Total 220 ml 110 ml Output Urine Total 500 ml # Voids 4 # Bowel Movements 1 Objective General Appearance: WD/WN Lines, tubes and drains: peripheral HEENT: normocephalic, atraumatic Neck: non-tender, normal alignment Respiratory/Chest: chest wall non-tender, rhonchi - left, rhonchi - right Cardiovascular/Chest: normal peripheral pulses, normal rate Abdomen: normal bowel sounds, non tender Genitourinary/Rectal: normal genital exam Extremities: normal range of motion, non-tender, normal inspection, no calf tenderness, normal capillary refill Skin Exam: normal pigmentation 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: 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 normal Microbiology Date/Time Source Procedure Growth Status 03/20/16 19:50 Stool Ova and Parasites - Final Complete 03/20/16 19:50 Stool Ova and Parasite Result 1 - Final Complete 03/20/16 19:50 Stool Stool Culture - Preliminary Resulted Laboratory Tests 03/22/16 21:05: Vancomycin Level Trough 11.6 03/23/16 05:00: Stool Occult Blood Negative 03/23/16 07:30: White Blood Count 4.1L, Red Blood Count 2.43L, Hemoglobin 7.5L, Hematocrit 22.7L , Mean Corpuscular Volume 93, Mean Corpuscular Hemoglobin 30.6, Mean Corpuscular Hemoglobin Concent 32.9, Red Cell Distribution Width 14.9H, Platelet Count 17L, Mean Platelet Volume 9.8, Neutrophils (%) (Auto) , Lymphocytes (%) (Auto) , Monocytes (%) (Auto) , Eosinophils (%) (Auto) , Basophils (%) (Auto) , Differential Total Cells Counted 100, Neutrophils % ( Manual) 78H, Lymphocytes % (Manual) 15L, Monocytes % (Manual) 7, Eosinophils % ( Manual) 0, Basophils % (Manual) 0, Band Neutrophils 0, Platelet Estimate DecreasedL, Platelet Morphology Normal, Hypochromasia 1+, Anisocytosis 1+, Sodium Level 128L, Potassium Level 4.0, Chloride Level 95L, Carbon Dioxide Level 20, Anion Gap 13, Blood Urea Nitrogen 29H, Creatinine 1.5H, Estimat Glomerular Filtration Rate 48.6, Glucose Level 102, Uric Acid 5.3, Calcium Level 7.4L, Phosphorus Level 3.2, Magnesium Level 1.7, Total Bilirubin 1.8H, Direct Bilirubin 1.2H, Aspartate Amino Transf (AST/SGOT) 21, Alanine Aminotransferase (ALT/SGPT) 11, Alkaline Phosphatase 123, C-Reactive Protein, Quantitative 13.2H, Pro-B-Type Natriuretic Peptide 2769H, Total Protein 5.7L, Albumin 1.6L, Globulin 4.1, Albumin/Globulin Ratio 0.3L Current Medications Medications (Trade) Dose Ordered Sig/Godwin Route PRN Reason Start Time Stop Time Status Last Admin Dose Admin Acetaminophen (Tylenol) 650 mg Q4H PRN ORAL fever 03/19/16 12:00 04/18/16 11:59 Albuterol/ Ipratropium (DuoNeb 0.5-3(2.5)mg/3ml) 3 ml Q4H PRN HHN Shortness of Breath 03/19/16 12:00 03/24/16 11:59 Atovaquone (Mepron Susp) 1,500 mg DAILY ORAL 03/20/16 09:00 04/19/16 08:59 03/23/16 08:13 Cefepime HCl/ Dextrose (Maxipime/D5W) 110 ml @ 220 mls/hr Q12HR IV 03/20/16 21:00 03/26/16 20:59 03/23/16 08:13 Escitalopram Oxalate 10 mg 10 mg DAILY ORAL 03/23/16 09:00 04/22/16 08:59 03/23/16 09:24 Lorazepam (Ativan) 0.5 mg Q6H PRN ORAL For Anxiety 03/21/16 15:30 03/28/16 15:29 03/23/16 14:33 Morphine Sulfate (Morphine Sulfate) 2 mg Q4H PRN IVP Moderate Pain (Pain Scale 4-6) 03/19/16 12:00 03/26/16 11:59 03/23/16 16:08 Nitroglycerin (Ntg) 0.4 mg Every 5 Minutes PRN SL Prn Chest Pain 03/19/16 11:45 04/18/16 11:44 Ondansetron HCl (Zofran) 4 mg Q6H PRN IVP Nausea & Vomiting 03/19/16 12:00 04/18/16 11:59 Pantoprazole (Protonix) 40 mg EVERY 12 HOURS ORAL 03/19/16 21:00 04/18/16 20:59 03/23/16 08:13 Patient Own Medication (Patient's Own Med) 1 ea DAILY ORAL 03/20/16 09:00 04/19/16 08:59 03/23/16 08:14 Patient Own Medication (Patient's Own Med) 1 ea DAILY ORAL 03/20/16 09:00 04/19/16 08:59 03/23/16 08:14 Polyethylene Glycol (Miralax) 17 gm DAILYPRN PRN ORAL Constipation 03/19/16 12:00 04/18/16 11:59 Temazepam (Restoril) 15 mg HSPRN PRN ORAL Insomnia 03/19/16 21:00 03/26/16 20:59 03/22/16 22:06 Vancomycin HCl 1 ea 1 ea DAILY PRN MISC Per rx protocol 03/20/16 09:00 04/19/16 08:59 Vancomycin HCl/ Dextrose (Vancomycin/D5W) 275 ml @ 183.708 mls/hr Q12H IVPB 03/23/16 11:00 03/28/16 10:59 03/23/16 11:09 MARIA ISABEL SZYMANSKI Mar 23, 2016 18:00
[2016-03-23 20:09] LABS: HISTOPLASMA MYCELIAL ID AB Negative (Negative)
[2016-03-24 00:29] VITALS: BP 101/49
[2016-03-24 04:33] LABS: MEAN CORPUSCULAR HEMOGLOBIN 31.4 PG (27.0-31.0); MEAN CORPUSCULAR HGB CONC 33.8 G/DL (32.0-36.0); MEAN CORPUSCULAR VOLUME 93 FL (80-99); MEAN PLATELET VOLUME 8.5 FL (6.5-10.1); PLATELET COUNT 22 K/UL (150-450); RED BLOOD COUNT 2.32 M/UL (4.70-6.10); RED CELL DISTRIBUTION WIDTH 14.2 % (11.6-14.8); WHITE BLOOD COUNT 4.1 K/UL (4.8-10.8)
[2016-03-24 04:38] VITALS: BP 100/54
[2016-03-24 05:12] LABS: ALBUMIN/GLOBULIN RATIO 0.3 (1.0-2.7); CALCIUM 7.5 mg/dL (8.6-10.2); CREATININE 1.6 mg/dL (0.7-1.2); GLOMERULAR FILTRATION RATE 45.1 mL/min (>60); POTASSIUM 4.4 mEQ/L (3.4-4.9); TOTAL PROTEIN 5.7 g/dL (6.6-8.7)
[2016-03-24 08:00] VITALS: BP 105/65
[2016-03-24 08:05] LABS: LYMPHOCYTES % (MANUAL) 11 % (20-45); NEUTROPHILS % (MANUAL) 83 % (45-75); TOTAL CELLS COUNTED 100
[2016-03-24 08:06] LABS: ANISOCYTOSIS 1+; BAND NEUTROPHILS % (MANUAL) 0 % (0-8); BASOPHILS % (MANUAL) 0 % (0-2); EOSINOPHILS % (MANUAL) 0 % (0-3); HYPOCHROMASIA 3+; PLATELET ESTIMATE DECREASED; PLATELET MORPHOLOGY NORMAL
[2016-03-24] MEDS: Atovaquone 750mg/5ml Susp ORAL SCH (09:00)
[2016-03-24] MEDS: DOLUTEGRAVIR 50 MG ORAL SCH (09:38)
[2016-03-24] MEDS: PREZCOBIX ORAL SCH (09:38)
[2016-03-24] MEDS: Cefepime HCl 2 GM in D5W 110 ML IV SCH ×2 (09:39→21:28)
--- NOTE | 2016-03-24 10:33 | General Progress Note ---
Assessment/Plan Status: unchanged Status Narrative stable S Cr- Na 129 stable Assessment/Plan acute renal failure, multifactorial ( sepsis, HIV , Vanco...) PreRenal superimposed on Renal HypoNatremia Cr 2.8 down to 1.5 Sepsis, Diarrhea, HIV , Kaposi's Pneumonia Hypocalcemia, electrolyte imbalance Anemia in chronic illness, symptomatic Hypokalemia on admit now K elevated JF (acute kidney injury) Thrombocytopenia, massive splenomegali CAP (community acquired pneumonia) Plan: Resume Vanco- Check levels- Urine studies- Cortisol levels- 15 Monitor renal parameters and lytes- Avoid Nephrotoxics Monitor Urine out put Protonix Transfuse ? stress dose of steroids? Subjective ROS Limited/Unobtainable: No Constitutional: Reports: malaise, weakness Allergies: Coded Allergies: No Known Allergies (Unverified , 03/16/16) Objective Last 24 Hour Vital Signs Date Time Temp Pulse Resp B/P Pulse Ox O2 Delivery O2 Flow Rate FiO2 03/24/16 08:00 97.0 100 17 105/65 98 Room Air 03/24/16 07:37 98 03/24/16 07:28 98 Nasal Cannula 2.0 28 03/24/16 07:28 98 18 Nasal Cannula 2.0 28 03/24/16 07:28 Nasal Cannula 2.0 28 03/24/16 04:38 97.0 90 20 100/54 98 Room Air 03/24/16 04:00 102 03/24/16 00:29 98.1 114 20 101/49 97 Nasal Cannula 2.0 03/24/16 00:00 111 03/23/16 20:00 97.8 113 20 121/66 97 03/23/16 20:00 114 03/23/16 19:39 Nasal Cannula 2.0 28 03/23/16 19:39 99 Nasal Cannula 2.0 28 03/23/16 19:39 93 20 Nasal Cannula 2.0 28 03/23/16 16:38 97.9 03/23/16 16:00 106 03/23/16 16:00 97.9 105 20 115/68 96 03/23/16 13:20 97.7 106 20 119/59 99 Nasal Cannula 2.0 03/23/16 12:44 97.9 103 20 113/62 99 Nasal Cannula 2.0 03/23/16 12:30 103 20 110/65 100 Nasal Cannula 2.0 03/23/16 11:44 106 03/23/16 11:26 97.7 103 20 93/46 99 Nasal Cannula 2.0 Intake and Output 03/23/16 03/24/16 19:00 07:00 Intake Total 597.416 ml 795.000 ml Output Total 450 ml 500 ml Balance 147.416 ml 295.000 ml Intake Oral 120 ml 300 ml IV Total 477.416 ml 495.000 ml Output Urine Total 450 ml 500 ml # Voids 2 # Bowel Movements 2 1 Laboratory Tests 03/24/16 04:10: White Blood Count 4.1L, Red Blood Count 2.32L, Hemoglobin 7.3L, Hematocrit 21.5L , Mean Corpuscular Volume 93, Mean Corpuscular Hemoglobin 31.4H, Mean Corpuscular Hemoglobin Concent 33.8, Red Cell Distribution Width 14.2, Platelet Count 22L, Mean Platelet Volume 8.5, Neutrophils (%) (Auto) , Lymphocytes (%) ( Auto) , Monocytes (%) (Auto) , Eosinophils (%) (Auto) , Basophils (%) (Auto) , Differential Total Cells Counted 100, Neutrophils % (Manual) 83H, Lymphocytes % (Manual) 11L, Monocytes % (Manual) 6, Eosinophils % (Manual) 0, Basophils % ( Manual) 0, Band Neutrophils 0, Platelet Estimate DecreasedL, Platelet Morphology Normal, Hypochromasia 3+, Anisocytosis 1+, Sodium Level 129L, Potassium Level 4.4, Chloride Level 98, Carbon Dioxide Level 19L, Anion Gap 12, Blood Urea Nitrogen 32H, Creatinine 1.6H, Estimat Glomerular Filtration Rate 45.1, Glucose Level 119H, Calcium Level 7.5L, Total Bilirubin 1.9H, Direct Bilirubin 1.0H, Aspartate Amino Transf (AST/SGOT) 21, Alanine Aminotransferase ( ALT/SGPT) 10, Alkaline Phosphatase 151H, Total Protein 5.7L, Albumin 1.4L, Globulin 4.3, Albumin/Globulin Ratio 0.3L Height (Feet): 5 Height (Inches): 10.00 Weight (Pounds): 165 General Appearance: mild distress Cardiovascular: tachycardia Respiratory/Chest: decreased breath sounds Abdomen: distended Objective other PE not changed DEREK SMITH Mar 24, 2016 10:33
--- NOTE | 2016-03-24 11:04 | GI Progress Note ---
Assessment/Plan Problems: (1) Diarrhea ICD Codes: R19.7 - Diarrhea, unspecified SNOMED: 15691506 (2) Splenomegaly with HIV infection ICD Codes: B20 - Human immunodeficiency virus [HIV] disease; R16.1 - Splenomegaly, not elsewhere classified SNOMED: 715236003 (3) Anemia ICD Codes: D64.9 - Anemia, unspecified SNOMED: 906760411 Qualifiers: Qualified Codes: D64.9 - Anemia, unspecified (4) Thrombocytopenia ICD Codes: D69.6 - Thrombocytopenia, unspecified SNOMED: 598260178 (5) HIV disease ICD Codes: B20 - Human immunodeficiency virus [HIV] disease SNOMED: 16785571 (6) Episode of generalized weakness ICD Codes: R53.1 - Weakness SNOMED: 67939293 Status: unchanged Status Narrative Discussed with Dr. Epps. Assessment/Plan Assessment - Anemia - Thrombocytopenia - HIV - Diarrhea - r/o TB - s/p bone biopsy - Stool w.u >> negative - O&P negative - OB stool negative x 3 Recommendations - monitor H&H, transfuse prn - EGD/Colon when stable - APCT reviewed - ppi - fu labs Subjective Subjective No vomiting tolerating PO Objective Last 24 Hour Vital Signs Date Time Temp Pulse Resp B/P Pulse Ox O2 Delivery O2 Flow Rate FiO2 03/24/16 08:00 97.0 100 17 105/65 98 Room Air 03/24/16 07:37 98 03/24/16 07:28 98 Nasal Cannula 2.0 28 03/24/16 07:28 98 18 Nasal Cannula 2.0 28 03/24/16 07:28 Nasal Cannula 2.0 28 03/24/16 04:38 97.0 90 20 100/54 98 Room Air 03/24/16 04:00 102 03/24/16 00:29 98.1 114 20 101/49 97 Nasal Cannula 2.0 03/24/16 00:00 111 03/23/16 20:00 97.8 113 20 121/66 97 03/23/16 20:00 114 03/23/16 19:39 Nasal Cannula 2.0 28 03/23/16 19:39 99 Nasal Cannula 2.0 28 03/23/16 19:39 93 20 Nasal Cannula 2.0 28 03/23/16 16:38 97.9 03/23/16 16:00 106 03/23/16 16:00 97.9 105 20 115/68 96 03/23/16 13:20 97.7 106 20 119/59 99 Nasal Cannula 2.0 03/23/16 12:44 97.9 103 20 113/62 99 Nasal Cannula 2.0 03/23/16 12:30 103 20 110/65 100 Nasal Cannula 2.0 03/23/16 11:44 106 03/23/16 11:26 97.7 103 20 93/46 99 Nasal Cannula 2.0 Intake and Output 03/23/16 03/24/16 19:00 07:00 Intake Total 597.416 ml 795.000 ml Output Total 450 ml 500 ml Balance 147.416 ml 295.000 ml Intake Oral 120 ml 300 ml IV Total 477.416 ml 495.000 ml Output Urine Total 450 ml 500 ml # Voids 2 # Bowel Movements 2 1 Laboratory Tests Test 03/24/16 04:10 White Blood Count 4.1 K/UL (4.8-10.8) L Red Blood Count 2.32 M/UL (4.70-6.10) L Hemoglobin 7.3 G/DL (14.2-18.0) L Hematocrit 21.5 % (42.0-52.0) L Mean Corpuscular Volume 93 FL (80-99) Mean Corpuscular Hemoglobin 31.4 PG (27.0-31.0) H Mean Corpuscular Hemoglobin Concent 33.8 G/DL (32.0-36.0) Red Cell Distribution Width 14.2 % (11.6-14.8) Platelet Count 22 K/UL (150-450) L Mean Platelet Volume 8.5 FL (6.5-10.1) Neutrophils (%) (Auto) % (45.0-75.0) Lymphocytes (%) (Auto) % (20.0-45.0) Monocytes (%) (Auto) % (1.0-10.0) Eosinophils (%) (Auto) % (0.0-3.0) Basophils (%) (Auto) % (0.0-2.0) Differential Total Cells Counted 100 Neutrophils % (Manual) 83 % (45-75) H Lymphocytes % (Manual) 11 % (20-45) L Monocytes % (Manual) 6 % (1-10) Eosinophils % (Manual) 0 % (0-3) Basophils % (Manual) 0 % (0-2) Band Neutrophils 0 % (0-8) Platelet Estimate Decreased L Platelet Morphology Normal Hypochromasia 3+ Anisocytosis 1+ Sodium Level 129 mEQ/L (135-145) L Potassium Level 4.4 mEQ/L (3.4-4.9) Chloride Level 98 mEQ/L (98-107) Carbon Dioxide Level 19 mEQ/L (20-30) L Anion Gap 12 (5-15) Blood Urea Nitrogen 32 mg/dL (7-23) H Creatinine 1.6 mg/dL (0.7-1.2) H Estimat Glomerular Filtration Rate 45.1 mL/min (>60) Glucose Level 119 mg/dL (74-106) H Calcium Level 7.5 mg/dL (8.6-10.2) L Total Bilirubin 1.9 mg/dL (0.0-1.2) H Direct Bilirubin 1.0 mg/dL (0.1-0.3) H Aspartate Amino Transf (AST/SGOT) 21 U/L (5-40) Alanine Aminotransferase (ALT/SGPT) 10 U/L (3-41) Alkaline Phosphatase 151 U/L (40-129) H Total Protein 5.7 g/dL (6.6-8.7) L Albumin 1.4 g/dL (3.5-5.2) L Globulin 4.3 g/dL Albumin/Globulin Ratio 0.3 (1.0-2.7) L Microbiology Date/Time Source Procedure Growth Status 03/23/16 16:00 Bone Marrow Gram Stain Pending Resulted 03/23/16 16:00 Bone Marrow Bone Marrow Culture - Preliminary NO GROWTH AFTER 24 HOURS Resulted Height (Feet): 5 Height (Inches): 10.00 Weight (Pounds): 165 General Appearance: no apparent distress, alert Cardiovascular: normal rate Respiratory/Chest: normal breath sounds, no respiratory distress Abdominal Exam: normal bowel sounds, non tender, soft Extremities: normal range of motion Objective Procedure: CT CHEST Abdomen Pelvis WO Con Indication: ABN LABS Impression: Splenomegaly Extensive thoracic, abdominal, and pelvic lymphadenopathy, as detailed above. This is nonspecific, likely related to stated clinical history of HIV. May indicate reactive, inflammatory, infectious adenopathy, or a lymphoproliferative disorder. Correlate with clinical history and findings Evidence of predominantly upper lobe pulmonary interstitial disease, as described, predominant findings being interstitial septal thickening and bronchial wall thickening. While the differential for this is quite broad, given the history of HIV positivity the possibility of lymphocytic interstitial pneumonitis should be considered Multiple sub-5 mm parenchymal nodules seen throughout the left lung. Possibly related to the above. If there are significant risk factors for lung carcinoma, however, short interval followup CT at 6-12 months should be considered. Bilateral basilar pulmonary parenchymal atelectatic changes and possibly some consolidation Small bilateral pleural effusions Nonspecific bilateral perinephric fat stranding Genesis Keller N.P. Mar 24, 2016 11:04
[2016-03-24] MEDS ORDERED: Nitroglycerin Subl 0.4mg tab (Bottle Of 25) SL PRN (11:45)
[2016-03-24 11:47] VITALS: BP 100/68
[2016-03-24] MEDS ORDERED: Miralax 17gm pkt ORAL PRN (12:00)
[2016-03-24] MEDS ORDERED: Morphine Sulfate 2mg/ml Inj IVP PRN (12:00)
[2016-03-24] MEDS ORDERED: DuoNeb 0.5-3(2.5)mg/3ml neb HHN PRN (12:00)
[2016-03-24] MEDS: Vancomycin 1 GM in D5W 275 ML IVPB SCH (13:54)
--- NOTE | 2016-03-24 15:30 | Infectious Diseases Prog Note ---
Assessment/Plan Assessment/Plan ASSESSMENT: 55 y/o male with: // Probable sepsis r/o opportunistic infection - cultures NGTD - negative: coccidioides, histoplasma, blastomyces, CrAg, ( coccidioides indeterminant ) // Diarrhea r/o infectious - improved - negative: giardia, O&P // Possible PNA r/o TB, NTM, fungal - sputum AFB, QFT TB gold pending - CT: predominantly upper lobe pulmonary interstitial disease, possible lymphocytic interstitial pneumonitis. Multiple sub-5 mm parenchymal nodules seen throughout the left lung. Bilateral basilar pulmonary parenchymal atelectatic changes and possibly some consolidation. Small bilateral pleural effusions - negative/WNL: LDH, CrAg, blastomyces, histoplasma, ( coccidioides indeterminant ) // Diffuse LAD r/o infectious vs myeloproliferative disorder - CT: Extensive thoracic, abdominal, and pelvic lymphadenopathy // HIV / AIDS, on cART ( recently changed to prezcobix, tivicay d/t genotype ) - CD4 37(5.3%) // Kaposi sarcoma // Leukopenia / pancytopenia r/o bone marrow infiltrative process - SP BMBx 03/23: path pending - negative/WNL: LDH, ARMIDA, CrAg, Parvovirus IgM, blastomyces, histoplasma, ( coccidioides indeterminant ) // Fever - intermittent, improved // Symptomatic FOBT(-) anemia SP PRBCs - denies blood loss. GI following, plan EGD/colonoscopy // ARF - improved, stable // Hypocalcemia / electrolyte imbalance // Massive splenomegaly // Thrombocytopenia // Anxiety // Elevated ESR // NKDA // Full Code PLAN: - continue empiric broad spectrum IV vancomycin, cefepime d# 8 / 10 - continue cART ( prezcobix, tivicay - ok for pt to take own meds ), changed bactrim prophy to mepron given cytopenias - f/u AFB BCx, QFT TB gold, stool studies, LAP - f/u path - monitor CBC, temperatures - monitor BMP - transfuse prn - anxiolytic prn Subjective Allergies: Coded Allergies: No Known Allergies (Unverified , 03/16/16) Subjective intermittent low grade fevers resolved no new complaint SP BMBx, path pending Objective Vital Signs Last 24 Hour Vital Signs Date Time Temp Pulse Resp B/P Pulse Ox O2 Delivery O2 Flow Rate FiO2 03/24/16 11:47 96.9 98 19 100/68 96 Nasal Cannula 2.0 03/24/16 08:00 97.0 100 17 105/65 98 Room Air 03/24/16 07:37 98 03/24/16 07:28 98 Nasal Cannula 2.0 28 03/24/16 07:28 98 18 Nasal Cannula 2.0 28 03/24/16 07:28 Nasal Cannula 2.0 28 03/24/16 04:38 97.0 90 20 100/54 98 Room Air 03/24/16 04:00 102 03/24/16 00:29 98.1 114 20 101/49 97 Nasal Cannula 2.0 03/24/16 00:00 111 03/23/16 20:00 97.8 113 20 121/66 97 03/23/16 20:00 114 03/23/16 19:39 Nasal Cannula 2.0 28 03/23/16 19:39 99 Nasal Cannula 2.0 28 03/23/16 19:39 93 20 Nasal Cannula 2.0 28 03/23/16 16:38 97.9 03/23/16 16:00 106 03/23/16 16:00 97.9 105 20 115/68 96 Height (Feet): 5 Height (Inches): 10.00 Weight (Pounds): 165 General Appearance: no acute distress Respiratory/Chest: no respiratory distress Cardiovascular: normal rate, regular rhythm Abdomen: normal bowel sounds, soft, non tender, non distended Microbiology Date/Time Source Procedure Growth Status 03/23/16 16:00 Bone Marrow Gram Stain - Final Resulted 03/23/16 16:00 Bone Marrow Bone Marrow Culture - Preliminary NO GROWTH AFTER 24 HOURS Resulted Laboratory Tests Test 03/24/16 04:10 03/24/16 12:45 White Blood Count 4.1 K/UL (4.8-10.8) L Red Blood Count 2.32 M/UL (4.70-6.10) L Hemoglobin 7.3 G/DL (14.2-18.0) L Hematocrit 21.5 % (42.0-52.0) L Mean Corpuscular Volume 93 FL (80-99) Mean Corpuscular Hemoglobin 31.4 PG (27.0-31.0) H Mean Corpuscular Hemoglobin Concent 33.8 G/DL (32.0-36.0) Red Cell Distribution Width 14.2 % (11.6-14.8) Platelet Count 22 K/UL (150-450) L Mean Platelet Volume 8.5 FL (6.5-10.1) Neutrophils (%) (Auto) % (45.0-75.0) Lymphocytes (%) (Auto) % (20.0-45.0) Monocytes (%) (Auto) % (1.0-10.0) Eosinophils (%) (Auto) % (0.0-3.0) Basophils (%) (Auto) % (0.0-2.0) Differential Total Cells Counted 100 Neutrophils % (Manual) 83 % (45-75) H Lymphocytes % (Manual) 11 % (20-45) L Monocytes % (Manual) 6 % (1-10) Eosinophils % (Manual) 0 % (0-3) Basophils % (Manual) 0 % (0-2) Band Neutrophils 0 % (0-8) Platelet Estimate Decreased L Platelet Morphology Normal Hypochromasia 3+ Anisocytosis 1+ Sodium Level 129 mEQ/L (135-145) L Potassium Level 4.4 mEQ/L (3.4-4.9) Chloride Level 98 mEQ/L (98-107) Carbon Dioxide Level 19 mEQ/L (20-30) L Anion Gap 12 (5-15) Blood Urea Nitrogen 32 mg/dL (7-23) H Creatinine 1.6 mg/dL (0.7-1.2) H Estimat Glomerular Filtration Rate 45.1 mL/min (>60) Glucose Level 119 mg/dL (74-106) H Calcium Level 7.5 mg/dL (8.6-10.2) L Total Bilirubin 1.9 mg/dL (0.0-1.2) H Direct Bilirubin 1.0 mg/dL (0.1-0.3) H Aspartate Amino Transf (AST/SGOT) 21 U/L (5-40) Alanine Aminotransferase (ALT/SGPT) 10 U/L (3-41) Alkaline Phosphatase 151 U/L (40-129) H Total Protein 5.7 g/dL (6.6-8.7) L Albumin 1.4 g/dL (3.5-5.2) L Globulin 4.3 g/dL Albumin/Globulin Ratio 0.3 (1.0-2.7) L TB Test (T-Spot) Pending TB Test Nil Control (T-Spot) Pending TB Test Panel A (T-Spot) Pending TB Test Panel B (T-Spot) Pending TB Test Positive Control (T-Spot) Pending Current Medications Medications (Trade) Dose Ordered Sig/Godwin Route PRN Reason Start Time Stop Time Status Last Admin Dose Admin Acetaminophen (Tylenol) 650 mg Q4H PRN ORAL fever 03/24/16 12:00 04/23/16 11:59 Albuterol/ Ipratropium (DuoNeb 0.5-3(2.5)mg/3ml) 3 ml Q4HRT PRN HHN Shortness of Breath 03/24/16 12:00 03/29/16 11:59 Atovaquone (Mepron Susp) 1,500 mg DAILY ORAL 03/25/16 09:00 04/24/16 08:59 Cefepime HCl 2 gm/ Dextrose 110 ml @ 220 mls/hr Q12HR IV 03/24/16 21:00 03/31/16 20:59 Escitalopram Oxalate (Lexapro) 10 mg DAILY ORAL 03/25/16 09:00 04/24/16 08:59 Lorazepam (Ativan) 0.5 mg Q6H PRN ORAL For Anxiety 03/24/16 15:30 03/31/16 15:29 Morphine Sulfate (Morphine Sulfate) 2 mg Q4H PRN IVP Moderate Pain (Pain Scale 4-6) 03/24/16 12:00 03/31/16 11:59 Nitroglycerin (Ntg) 0.4 mg Every 5 Minutes PRN SL Prn Chest Pain 03/24/16 11:45 04/23/16 11:44 Ondansetron HCl (Zofran) 4 mg Q6H PRN IVP Nausea & Vomiting 03/24/16 12:00 04/23/16 11:59 Pantoprazole (Protonix) 40 mg EVERY 12 HOURS ORAL 03/24/16 21:00 04/23/16 20:59 Patient Own Medication (Patient's Own Med) 1 ea DAILY ORAL 03/25/16 09:00 04/24/16 08:59 Patient Own Medication (Patient's Own Med) 1 ea DAILY ORAL 03/25/16 09:00 04/24/16 08:59 Polyethylene Glycol (Miralax) 17 gm DAILYPRN PRN ORAL Constipation 03/24/16 12:00 04/23/16 11:59 Temazepam (Restoril) 15 mg HSPRN PRN ORAL Insomnia 03/24/16 21:00 03/31/16 20:59 Vancomycin HCl (Vanco rx to dose) 1 ea DAILY PRN MISC Per rx protocol 03/25/16 09:00 04/24/16 08:59 Vancomycin HCl/ Dextrose (Vancomycin/D5W) 275 ml @ 183.708 mls/hr Q12H IVPB 03/24/16 12:00 03/29/16 11:59 03/24/16 13:54 MANJEET GARDNER Mar 24, 2016 15:30
[2016-03-24 16:19] VITALS: BP 112/60
--- NOTE | 2016-03-24 18:19 | Progress Note ---
SUBJECTIVE: The patient's mental condition is unchanged since previous encounter. He is in no acute distress, calm and cooperative. He is having hopelessness and helplessness. compliant with the medication. The patient is complaining of fatigue. He has refused the bone-marrow biopsy. MENTAL STATUS EXAMINATION: The patient is alert and oriented x3. Mood is dysphoric. Affect is constricted. Congruent mood. Thought process is concrete. Thought content, there is no suicidal or homicidal ideation. The patient is able to understand process, communicate and appreciate the information is given to him in regards to his medical condition. The patient has capacity to refuse bone marrow biopsy. ASSESSMENT: Mood disorder due to general medical condition. PLAN: 1. The patient will be continued on current medication. 2. We will continue to follow and readjust the medications. Maria T Zhang M.D. DR: KERRY JOB#: [id number] CC:
[2016-03-24 20:30] VITALS: BP 105/48
[2016-03-24] MEDS: Hydrocortisone 100mg Inj IV SCH (21:28)
--- NOTE | 2016-03-24 21:28 | Pulmonology Progress Note ---
Assessment/Plan Problems: (1) Sepsis (2) Pneumonia (3) Anemia (4) JF (acute kidney injury) (5) HIV disease (6) Thrombocytopenia (7) Hypocalcemia (8) Splenomegaly with HIV infection (9) Kaposi sarcoma Assessment/Plan s/p prbc, still anemic, will transfuse again Ct of abdomen reviewed Ct chest showed muliple nodules and intersiti respiratory treatment BM biopsy done continue antiboitics serology pending renal function improving low grade fever improving Subjective ROS Limited/Unobtainable: No Interval Events: feeling better Constitutional: Reports: no symptoms HEENT: Repors: no symptoms Allergies: Coded Allergies: No Known Allergies (Unverified , 03/16/16) Objective Last 24 Hour Vital Signs Date Time Temp Pulse Resp B/P Pulse Ox O2 Delivery O2 Flow Rate FiO2 03/24/16 20:30 98.4 110 20 105/48 100 Nasal Cannula 2.0 03/24/16 16:19 98.1 100 18 112/60 98 Nasal Cannula 2.0 03/24/16 11:47 96.9 98 19 100/68 96 Nasal Cannula 2.0 03/24/16 08:00 97.0 100 17 105/65 98 Room Air 03/24/16 07:37 98 03/24/16 07:28 98 Nasal Cannula 2.0 28 03/24/16 07:28 98 18 Nasal Cannula 2.0 28 03/24/16 07:28 Nasal Cannula 2.0 28 03/24/16 04:38 97.0 90 20 100/54 98 Room Air 03/24/16 04:00 102 03/24/16 00:29 98.1 114 20 101/49 97 Nasal Cannula 2.0 03/24/16 00:00 111 Intake and Output 03/23/16 03/24/16 19:00 07:00 Intake Total 597.416 ml 795.000 ml Output Total 450 ml 500 ml Balance 147.416 ml 295.000 ml Intake Oral 120 ml 300 ml IV Total 477.416 ml 495.000 ml Output Urine Total 450 ml 500 ml # Voids 2 # Bowel Movements 2 1 Objective General Appearance: WD/WN Lines, tubes and drains: peripheral HEENT: normocephalic, atraumatic Neck: non-tender, normal alignment Respiratory/Chest: chest wall non-tender, rhonchi - left, rhonchi - right Cardiovascular/Chest: normal peripheral pulses, normal rate Abdomen: normal bowel sounds, non tender Genitourinary/Rectal: normal genital exam Extremities: normal range of motion, non-tender, normal inspection, no calf tenderness, normal capillary refill Skin Exam: normal pigmentation Neurologic: clerical support II-XII grossly normal Microbiology Date/Time Source Procedure Growth Status 03/23/16 16:00 Bone Marrow Gram Stain - Final Resulted 03/23/16 16:00 Bone Marrow Bone Marrow Culture - Preliminary NO GROWTH AFTER 24 HOURS Resulted Laboratory Tests 03/24/16 04:10: White Blood Count 4.1L, Red Blood Count 2.32L, Hemoglobin 7.3L, Hematocrit 21.5L , Mean Corpuscular Volume 93, Mean Corpuscular Hemoglobin 31.4H, Mean Corpuscular Hemoglobin Concent 33.8, Red Cell Distribution Width 14.2, Platelet Count 22L, Mean Platelet Volume 8.5, Neutrophils (%) (Auto) , Lymphocytes (%) ( Auto) , Monocytes (%) (Auto) , Eosinophils (%) (Auto) , Basophils (%) (Auto) , Differential Total Cells Counted 100, Neutrophils % (Manual) 83H, Lymphocytes % (Manual) 11L, Monocytes % (Manual) 6, Eosinophils % (Manual) 0, Basophils % ( Manual) 0, Band Neutrophils 0, Platelet Estimate DecreasedL, Platelet Morphology Normal, Hypochromasia 3+, Anisocytosis 1+, Sodium Level 129L, Potassium Level 4.4, Chloride Level 98, Carbon Dioxide Level 19L, Anion Gap 12, Blood Urea Nitrogen 32H, Creatinine 1.6H, Estimat Glomerular Filtration Rate 45.1, Glucose Level 119H, Calcium Level 7.5L, Total Bilirubin 1.9H, Direct Bilirubin 1.0H, Aspartate Amino Transf (AST/SGOT) 21, Alanine Aminotransferase ( ALT/SGPT) 10, Alkaline Phosphatase 151H, Total Protein 5.7L, Albumin 1.4L, Globulin 4.3, Albumin/Globulin Ratio 0.3L 03/24/16 12:45: TB Test (T-Spot) [Pending], TB Test Nil Control (T-Spot) [Pending], TB Test Panel A (T-Spot) [Pending], TB Test Panel B (T-Spot) [Pending], TB Test Positive Control (T-Spot) [Pending] Current Medications Medications (Trade) Dose Ordered Sig/Godwin Route PRN Reason Start Time Stop Time Status Last Admin Dose Admin Acetaminophen (Tylenol) 650 mg Q4H PRN ORAL fever 03/24/16 12:00 04/23/16 11:59 Albuterol/ Ipratropium (DuoNeb 0.5-3(2.5)mg/3ml) 3 ml Q4HRT PRN HHN Shortness of Breath 03/24/16 12:00 03/29/16 11:59 Atovaquone (Mepron Susp) 1,500 mg DAILY ORAL 03/25/16 09:00 04/24/16 08:59 Cefepime HCl 2 gm/ Dextrose 110 ml @ 220 mls/hr Q12HR IV 03/24/16 21:00 03/31/16 20:59 Escitalopram Oxalate (Lexapro) 10 mg DAILY ORAL 03/25/16 09:00 04/24/16 08:59 Hydrocortisone (Solu-CORTEF) 100 mg EVERY 8 HOURS IV 03/24/16 22:00 04/23/16 21:59 Lorazepam (Ativan) 0.5 mg Q6H PRN ORAL For Anxiety 03/24/16 15:30 03/31/16 15:29 Morphine Sulfate (Morphine Sulfate) 2 mg Q4H PRN IVP Moderate Pain (Pain Scale 4-6) 03/24/16 12:00 03/31/16 11:59 Nitroglycerin (Ntg) 0.4 mg Every 5 Minutes PRN SL Prn Chest Pain 03/24/16 11:45 04/23/16 11:44 Ondansetron HCl (Zofran) 4 mg Q6H PRN IVP Nausea & Vomiting 03/24/16 12:00 04/23/16 11:59 Pantoprazole (Protonix) 40 mg EVERY 12 HOURS ORAL 03/24/16 21:00 04/23/16 20:59 03/24/16 20:38 Patient Own Medication (Patient's Own Med) 1 ea DAILY ORAL 03/25/16 09:00 04/24/16 08:59 Patient Own Medication (Patient's Own Med) 1 ea DAILY ORAL 03/25/16 09:00 04/24/16 08:59 Polyethylene Glycol (Miralax) 17 gm DAILYPRN PRN ORAL Constipation 03/24/16 12:00 04/23/16 11:59 Temazepam (Restoril) 15 mg HSPRN PRN ORAL Insomnia 03/24/16 21:00 03/31/16 20:59 03/24/16 20:38 Vancomycin HCl (Vanco rx to dose) 1 ea DAILY PRN MISC Per rx protocol 03/25/16 09:00 04/24/16 08:59 Vancomycin HCl/ Dextrose (Vancomycin/D5W) 275 ml @ 183.708 mls/hr Q12H IVPB 03/24/16 12:00 03/29/16 11:59 03/24/16 13:54 MARIA ISABEL SZYMANSKI Mar 24, 2016 21:28
[2016-03-25] VITALS: BP 118/68
[2016-03-25 04:00] VITALS: BP 100/55
[2016-03-25] MEDS: Hydrocortisone 100mg Inj IV SCH ×3 (06:08→22:17)
[2016-03-25 07:14] LABS: MEAN CORPUSCULAR HEMOGLOBIN 30.6 PG (27.0-31.0); MEAN CORPUSCULAR HGB CONC 33.6 G/DL (32.0-36.0); MEAN CORPUSCULAR VOLUME 91 FL (80-99); MEAN PLATELET VOLUME 10.9 FL (6.5-10.1); PLATELET COUNT 24 K/UL (150-450); RED BLOOD COUNT 2.79 M/UL (4.70-6.10); RED CELL DISTRIBUTION WIDTH 14.2 % (11.6-14.8); WHITE BLOOD COUNT 4.3 K/UL (4.8-10.8)
[2016-03-25 07:32] LABS: CALCIUM 7.6 mg/dL (8.6-10.2); CREATININE 1.6 mg/dL (0.7-1.2); GLOMERULAR FILTRATION RATE 45.1 mL/min (>60); POTASSIUM 4.6 mEQ/L (3.4-4.9)
[2016-03-25 07:38] VITALS: BP 96/58
--- NOTE | 2016-03-25 07:44 | Pulmonology Progress Note ---
Assessment/Plan Assessment/Plan ASSESSMENT sepsis, r/o opportunistic infections possible pneumonia, r/o TB, fungal possible lymphocytic interstitial pneumonitis diarrhea, r/o infectious cause diffuse LAD r/o infectious vs myeloproliferative disorder anemia pancytopenia acute renal failure, multifactorial ( sepsis, HIV , Vanco): Pre Renal superimposed on Renal electrolyte imbalance; Hyponatremia HIV disease hyponatremia splenomegaly with HIV infection Kaposi sarcoma PLAN OF CARE MS floor empiric abx, ID follows urine, blood cx, sputum cx, stool cx, stool OP all negative, fungal serology negative: coccidioides, histoplasma, blastomyces, CrAg, ( coccidioides indeterminant ) bone marrow results pending sputum AFB x 3, TB test pending s/p blood transfusion (PRBC and PLT) monitor counts stool OB x 3 negative peripheral blood smear review: no blasts, no platelets aggregation, no change in morphology of PRBC bone marrow biopsy done, results pending CT chest showed multiple nodules and interstitial lung disease , predominantly upper lobe ? lymphocytic interstitial pneumonitis O2 prn respiratory treatment CT abdomen with evidence of extensive lymphadenopathy fup with BM biopsy results nephro follows no change in renal parameters ARF presumably multifactorial due to sepsis, high Vanco level, HIV disease monitor renal parameters, lytes, Vanco resumed, closely monitor levels avoid nephrotoxic stress dose steroids electrolytes management as per nephro CD4 -585, continue HAART therapy as per ID management GI follows EGD and colon when stable PPI pain management antiemetic prn case discussed and evaluated by supervising physician Subjective Allergies: Coded Allergies: No Known Allergies (Unverified , 03/16/16) Subjective renal parameters without change afebrile HH better, PLt still low no chest pain, no SOB cough dry, no hemoptysis, no wheezing Objective Last 24 Hour Vital Signs Date Time Temp Pulse Resp B/P Pulse Ox O2 Delivery O2 Flow Rate FiO2 03/25/16 04:00 96.8 90 20 100/55 99 Room Air 03/25/16 00:00 98.2 107 18 118/68 96 Room Air 03/24/16 20:30 98.4 110 20 105/48 100 Nasal Cannula 2.0 03/24/16 19:50 97 Nasal Cannula 2.0 28 03/24/16 19:50 105 20 Nasal Cannula 2.0 28 03/24/16 19:50 Nasal Cannula 2.0 28 03/24/16 16:19 98.1 100 18 112/60 98 Nasal Cannula 2.0 03/24/16 11:47 96.9 98 19 100/68 96 Nasal Cannula 2.0 03/24/16 08:00 97.0 100 17 105/65 98 Room Air 03/24/16 07:37 98 03/24/16 07:28 98 Nasal Cannula 2.0 28 03/24/16 07:28 98 18 Nasal Cannula 2.0 28 03/24/16 07:28 Nasal Cannula 2.0 28 Intake and Output 03/24/16 03/25/16 19:00 07:00 Intake Total 570 ml 607.416 ml Output Total 360 ml 1000 ml Balance 210 ml -392.584 ml Intake Oral 460 ml 240 ml IV Total 110 ml 367.416 ml Output Urine Total 360 ml 1000 ml # Voids 2 2 General Appearance: no acute distress HEENT: normocephalic, atraumatic, anicteric, PERRL Respiratory/Chest: lungs clear - with moderate air entry , no respiratory distress, no accessory muscle use Cardiovascular: normal rate, regular rhythm, no JVD Abdomen: soft, non tender, non distended Genitourinary: normal external genitalia Skin: rash - diffused purple spots of Kaposi sarcoma 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: no motor/sensory deficits, alert, oriented x 3, responsive Musculoskeletal: normal muscle bulk Microbiology Date/Time Source Procedure Growth Status 03/23/16 16:00 Bone Marrow Gram Stain - Final Resulted 03/23/16 16:00 Bone Marrow Bone Marrow Culture - Preliminary NO GROWTH AFTER 24 HOURS Resulted Laboratory Tests 03/24/16 12:45: TB Test (T-Spot) [Pending], TB Test Nil Control (T-Spot) [Pending], TB Test Panel A (T-Spot) [Pending], TB Test Panel B (T-Spot) [Pending], TB Test Positive Control (T-Spot) [Pending] 03/25/16 01:00: M. tuberculosis Complex DNA (PCR) [Pending] 03/25/16 06:15: White Blood Count 4.3L, Red Blood Count 2.79L, Hemoglobin 8.5L, Hematocrit 25.5L , Mean Corpuscular Volume 91, Mean Corpuscular Hemoglobin 30.6, Mean Corpuscular Hemoglobin Concent 33.6, Red Cell Distribution Width 14.2, Platelet Count 24L, Mean Platelet Volume 10.9H, Neutrophils (%) (Auto) , Lymphocytes (%) (Auto) , Monocytes (%) (Auto) , Eosinophils (%) (Auto) , Basophils (%) (Auto) , Neutrophils % (Manual) [Pending], Lymphocytes % (Manual) [Pending], Platelet Estimate [Pending], Platelet Morphology [Pending], Sodium Level [Pending], Potassium Level [Pending], Chloride Level [Pending], Carbon Dioxide Level [ Pending], Blood Urea Nitrogen [Pending], Creatinine [Pending], Estimat Glomerular Filtration Rate [Pending], Glucose Level [Pending], Calcium Level [ Pending] Current Medications Medications (Trade) Dose Ordered Sig/Godwin Route PRN Reason Start Time Stop Time Status Last Admin Dose Admin Acetaminophen (Tylenol) 650 mg Q4H PRN ORAL fever 03/24/16 12:00 04/23/16 11:59 Albuterol/ Ipratropium (DuoNeb 0.5-3(2.5)mg/3ml) 3 ml Q4HRT PRN HHN Shortness of Breath 03/24/16 12:00 03/29/16 11:59 Atovaquone (Mepron Susp) 1,500 mg DAILY ORAL 03/25/16 09:00 04/24/16 08:59 Cefepime HCl 2 gm/ Dextrose 110 ml @ 220 mls/hr Q12HR IV 03/24/16 21:00 03/31/16 20:59 03/24/16 21:28 Escitalopram Oxalate (Lexapro) 10 mg DAILY ORAL 03/25/16 09:00 04/24/16 08:59 Hydrocortisone (Solu-CORTEF) 100 mg EVERY 8 HOURS IV 03/24/16 22:00 04/23/16 21:59 03/25/16 06:08 Lorazepam (Ativan) 0.5 mg Q6H PRN ORAL For Anxiety 03/24/16 15:30 03/31/16 15:29 Morphine Sulfate (Morphine Sulfate) 2 mg Q4H PRN IVP Moderate Pain (Pain Scale 4-6) 03/24/16 12:00 03/31/16 11:59 Nitroglycerin (Ntg) 0.4 mg Every 5 Minutes PRN SL Prn Chest Pain 03/24/16 11:45 04/23/16 11:44 Ondansetron HCl (Zofran) 4 mg Q6H PRN IVP Nausea & Vomiting 03/24/16 12:00 04/23/16 11:59 Pantoprazole (Protonix) 40 mg EVERY 12 HOURS ORAL 03/24/16 21:00 04/23/16 20:59 03/24/16 20:38 Patient Own Medication (Patient's Own Med) 1 ea DAILY ORAL 03/25/16 09:00 04/24/16 08:59 Patient Own Medication (Patient's Own Med) 1 ea DAILY ORAL 03/25/16 09:00 04/24/16 08:59 Polyethylene Glycol (Miralax) 17 gm DAILYPRN PRN ORAL Constipation 03/24/16 12:00 04/23/16 11:59 Temazepam (Restoril) 15 mg HSPRN PRN ORAL Insomnia 03/24/16 21:00 03/31/16 20:59 03/24/16 20:38 Vancomycin HCl (Vanco rx to dose) 1 ea DAILY PRN MISC Per rx protocol 03/25/16 09:00 04/24/16 08:59 Vancomycin HCl/ Dextrose (Vancomycin/D5W) 275 ml @ 183.708 mls/hr Q12H IVPB 03/24/16 12:00 03/29/16 11:59 03/25/16 00:00 Madhuri Manzanares NP ([facility]) Mar 25, 2016 07:44
[2016-03-25] MEDS: Cefepime HCl 2 GM in D5W 110 ML IV SCH ×2 (10:09→20:18)
[2016-03-25] MEDS: PREZCOBIX ORAL SCH (10:09)
[2016-03-25 10:27] LABS: ANISOCYTOSIS 1+; BAND NEUTROPHILS % (MANUAL) 0 % (0-8); BASOPHILS % (MANUAL) 0 % (0-2); EOSINOPHILS % (MANUAL) 0 % (0-3); HYPOCHROMASIA 1+; LYMPHOCYTES % (MANUAL) 8 % (20-45); NEUTROPHILS % (MANUAL) 84 % (45-75); PLATELET ESTIMATE DECREASED; PLATELET MORPHOLOGY NORMAL; TOTAL CELLS COUNTED 100
--- NOTE | 2016-03-25 10:51 | GI Progress Note ---
Assessment/Plan Problems: (1) Diarrhea ICD Codes: R19.7 - Diarrhea, unspecified SNOMED: 81714147 (2) Splenomegaly with HIV infection ICD Codes: B20 - Human immunodeficiency virus [HIV] disease; R16.1 - Splenomegaly, not elsewhere classified SNOMED: 653873162 (3) Anemia ICD Codes: D64.9 - Anemia, unspecified SNOMED: 698322083 Qualifiers: Qualified Codes: D64.9 - Anemia, unspecified (4) Thrombocytopenia ICD Codes: D69.6 - Thrombocytopenia, unspecified SNOMED: 513357366 (5) HIV disease ICD Codes: B20 - Human immunodeficiency virus [HIV] disease SNOMED: 25778926 (6) Episode of generalized weakness ICD Codes: R53.1 - Weakness SNOMED: 41564113 Status: unchanged Status Narrative Discussed with Dr. Epps. Assessment/Plan Assessment - Anemia - Thrombocytopenia - HIV - Diarrhea - r/o TB - s/p bone biopsy >> GRAM STAIN RESULTS. RARE WHITE BLOOD CELLS. NO ORGANISMS SEEN. - Stool w.u >> negative - O&P negative - OB stool negative x 3 Recommendations - monitor H&H, transfuse prn - airborne isolation - EGD/Colon when stable - APCT reviewed - ppi - fu labs Subjective Subjective No vomiting tolerating PO Objective Last 24 Hour Vital Signs Date Time Temp Pulse Resp B/P Pulse Ox O2 Delivery O2 Flow Rate FiO2 03/25/16 09:30 98 Nasal Cannula 2.0 03/25/16 09:30 101 16 Nasal Cannula 2.0 03/25/16 09:30 Nasal Cannula 2.0 03/25/16 07:38 97.7 100 19 96/58 97 Room Air 03/25/16 04:00 96.8 90 20 100/55 99 Room Air 03/25/16 00:00 98.2 107 18 118/68 96 Room Air 03/24/16 20:30 98.4 110 20 105/48 100 Nasal Cannula 2.0 03/24/16 19:50 97 Nasal Cannula 2.0 28 03/24/16 19:50 105 20 Nasal Cannula 2.0 28 03/24/16 19:50 Nasal Cannula 2.0 28 03/24/16 16:19 98.1 100 18 112/60 98 Nasal Cannula 2.0 03/24/16 11:47 96.9 98 19 100/68 96 Nasal Cannula 2.0 Intake and Output 03/24/16 03/25/16 19:00 07:00 Intake Total 570 ml 607.416 ml Output Total 360 ml 1000 ml Balance 210 ml -392.584 ml Intake Oral 460 ml 240 ml IV Total 110 ml 367.416 ml Output Urine Total 360 ml 1000 ml # Voids 2 2 Laboratory Tests Test 03/24/16 12:45 03/25/16 01:00 03/25/16 06:15 TB Test (T-Spot) Pending TB Test Nil Control (T-Spot) Pending TB Test Panel A (T-Spot) Pending TB Test Panel B (T-Spot) Pending TB Test Positive Control (T-Spot) Pending M. tuberculosis Complex DNA (PCR) Pending White Blood Count 4.3 K/UL (4.8-10.8) L Red Blood Count 2.79 M/UL (4.70-6.10) L Hemoglobin 8.5 G/DL (14.2-18.0) L Hematocrit 25.5 % (42.0-52.0) L Mean Corpuscular Volume 91 FL (80-99) Mean Corpuscular Hemoglobin 30.6 PG (27.0-31.0) Mean Corpuscular Hemoglobin Concent 33.6 G/DL (32.0-36.0) Red Cell Distribution Width 14.2 % (11.6-14.8) Platelet Count 24 K/UL (150-450) L Mean Platelet Volume 10.9 FL (6.5-10.1) H Neutrophils (%) (Auto) % (45.0-75.0) Lymphocytes (%) (Auto) % (20.0-45.0) Monocytes (%) (Auto) % (1.0-10.0) Eosinophils (%) (Auto) % (0.0-3.0) Basophils (%) (Auto) % (0.0-2.0) Differential Total Cells Counted 100 Neutrophils % (Manual) 84 % (45-75) H Lymphocytes % (Manual) 8 % (20-45) L Monocytes % (Manual) 8 % (1-10) Eosinophils % (Manual) 0 % (0-3) Basophils % (Manual) 0 % (0-2) Band Neutrophils 0 % (0-8) Platelet Estimate Decreased L Platelet Morphology Normal Hypochromasia 1+ Anisocytosis 1+ Sodium Level 128 mEQ/L (135-145) L Potassium Level 4.6 mEQ/L (3.4-4.9) Chloride Level 94 mEQ/L (98-107) L Carbon Dioxide Level 19 mEQ/L (20-30) L Anion Gap 15 (5-15) Blood Urea Nitrogen 38 mg/dL (7-23) H Creatinine 1.6 mg/dL (0.7-1.2) H Estimat Glomerular Filtration Rate 45.1 mL/min (>60) Glucose Level 179 mg/dL (74-106) H Calcium Level 7.6 mg/dL (8.6-10.2) L Height (Feet): 5 Height (Inches): 10.00 Weight (Pounds): 165 General Appearance: no apparent distress, alert Cardiovascular: normal rate Respiratory/Chest: normal breath sounds, no respiratory distress Abdominal Exam: normal bowel sounds, non tender, soft Extremities: normal range of motion Objective Procedure: CT CHEST Abdomen Pelvis WO Con Indication: ABN LABS Impression: Splenomegaly Extensive thoracic, abdominal, and pelvic lymphadenopathy, as detailed above. This is nonspecific, likely related to stated clinical history of HIV. May indicate reactive, inflammatory, infectious adenopathy, or a lymphoproliferative disorder. Correlate with clinical history and findings Evidence of predominantly upper lobe pulmonary interstitial disease, as described, predominant findings being interstitial septal thickening and bronchial wall thickening. While the differential for this is quite broad, given the history of HIV positivity the possibility of lymphocytic interstitial pneumonitis should be considered Multiple sub-5 mm parenchymal nodules seen throughout the left lung. Possibly related to the above. If there are significant risk factors for lung carcinoma, however, short interval followup CT at 6-12 months should be considered. Bilateral basilar pulmonary parenchymal atelectatic changes and possibly some consolidation Small bilateral pleural effusions Nonspecific bilateral perinephric fat stranding Genesis Keller N.P. Mar 25, 2016 10:51
[2016-03-25 11:23] VITALS: BP 117/65
[2016-03-25] MEDS: Atovaquone 750mg/5ml Susp ORAL SCH (11:47)
[2016-03-25] MEDS: Vancomycin 1 GM in D5W 275 ML IVPB SCH ×4 (11:48→23:53)
--- NOTE | 2016-03-25 13:42 | Cardiology Report ---
APPROVED REPORT EKG Measurement Heart [id number] Sinus tachycardia Low voltage QRS Junctional ST depression, probably normal Borderline ECG
--- NOTE | 2016-03-25 14:04 | Infectious Diseases Prog Note ---
Assessment/Plan Assessment/Plan ASSESSMENT: 55 y/o male with: // Probable sepsis r/o opportunistic infection - cultures NGTD - negative: coccidioides, histoplasma, blastomyces, CrAg, ( coccidioides indeterminant ) // Diarrhea r/o infectious - improved - negative: giardia, O&P, stool Cx // Possible PNA r/o TB, NTM, fungal, lymphocytic interstitial pneumonitis - sputum AFB smear, Cx, PCR, QFT TB gold pending - CT: predominantly upper lobe pulmonary interstitial disease, possible lymphocytic interstitial pneumonitis. Multiple sub-5 mm parenchymal nodules seen throughout the left lung. Bilateral basilar pulmonary parenchymal atelectatic changes and possibly some consolidation. Small bilateral pleural effusions - negative/WNL: LDH, CrAg, blastomyces, histoplasma, ( coccidioides indeterminant ) // Diffuse LAD r/o infectious vs myeloproliferative disorder - SP BMBx: path pending - CT: Extensive thoracic, abdominal, and pelvic lymphadenopathy // HIV / AIDS, on cART ( recently changed to prezcobix, tivicay d/t genotype ) - CD4 37(5.3%) // Kaposi sarcoma // Leukopenia / pancytopenia r/o bone marrow infiltrative process - SP BMBx: path pending - negative/WNL: LDH, ARMIDA, CrAg, Parvovirus IgM, blastomyces, histoplasma, ( coccidioides indeterminant ) // Fever - intermittent, improved // Symptomatic FOBT(-) anemia SP PRBCs - denies blood loss. GI following, plan EGD/colonoscopy // ARF - improved, stable // Hypocalcemia / electrolyte imbalance // Massive splenomegaly // Thrombocytopenia // Anxiety // Elevated ESR // NKDA // Full Code PLAN: - continue empiric broad spectrum IV vancomycin, cefepime d# 9 / 10 - continue cART ( prezcobix, tivicay - ok for pt to take own meds ), changed bactrim prophy to mepron given cytopenias - f/u AFB BCx, sputum AFB smear, Cx, PCR, QFT TB gold - f/u path - monitor CBC, temperatures - monitor BMP - transfuse prn - EGD/colonoscopy per GI when more stable Subjective Allergies: Coded Allergies: No Known Allergies (Unverified , 03/16/16) Subjective intermittent low grade fevers resolved no new complaint Objective Vital Signs Last 24 Hour Vital Signs Date Time Temp Pulse Resp B/P Pulse Ox O2 Delivery O2 Flow Rate FiO2 03/25/16 11:23 97.9 99 20 117/65 100 Nasal Cannula 2.0 03/25/16 09:30 98 Nasal Cannula 2.0 28 03/25/16 09:30 101 16 Nasal Cannula 2.0 28 03/25/16 09:30 Nasal Cannula 2.0 28 03/25/16 07:38 97.7 100 19 96/58 97 Room Air 03/25/16 04:00 96.8 90 20 100/55 99 Room Air 03/25/16 00:00 98.2 107 18 118/68 96 Room Air 03/24/16 20:30 98.4 110 20 105/48 100 Nasal Cannula 2.0 03/24/16 19:50 97 Nasal Cannula 2.0 28 03/24/16 19:50 105 20 Nasal Cannula 2.0 28 03/24/16 19:50 Nasal Cannula 2.0 28 03/24/16 16:19 98.1 100 18 112/60 98 Nasal Cannula 2.0 Height (Feet): 5 Height (Inches): 10.00 Weight (Pounds): 165 General Appearance: no acute distress Respiratory/Chest: no respiratory distress Cardiovascular: normal rate, regular rhythm Abdomen: normal bowel sounds, soft, non tender, non distended Microbiology Date/Time Source Procedure Growth Status 03/23/16 16:00 Bone Marrow Gram Stain - Final Resulted 03/23/16 16:00 Bone Marrow Bone Marrow Culture - Preliminary Resulted Laboratory Tests Test 03/25/16 01:00 03/25/16 06:15 M. tuberculosis Complex DNA (PCR) Pending White Blood Count 4.3 K/UL (4.8-10.8) L Red Blood Count 2.79 M/UL (4.70-6.10) L Hemoglobin 8.5 G/DL (14.2-18.0) L Hematocrit 25.5 % (42.0-52.0) L Mean Corpuscular Volume 91 FL (80-99) Mean Corpuscular Hemoglobin 30.6 PG (27.0-31.0) Mean Corpuscular Hemoglobin Concent 33.6 G/DL (32.0-36.0) Red Cell Distribution Width 14.2 % (11.6-14.8) Platelet Count 24 K/UL (150-450) L Mean Platelet Volume 10.9 FL (6.5-10.1) H Neutrophils (%) (Auto) % (45.0-75.0) Lymphocytes (%) (Auto) % (20.0-45.0) Monocytes (%) (Auto) % (1.0-10.0) Eosinophils (%) (Auto) % (0.0-3.0) Basophils (%) (Auto) % (0.0-2.0) Differential Total Cells Counted 100 Neutrophils % (Manual) 84 % (45-75) H Lymphocytes % (Manual) 8 % (20-45) L Monocytes % (Manual) 8 % (1-10) Eosinophils % (Manual) 0 % (0-3) Basophils % (Manual) 0 % (0-2) Band Neutrophils 0 % (0-8) Platelet Estimate Decreased L Platelet Morphology Normal Hypochromasia 1+ Anisocytosis 1+ Sodium Level 128 mEQ/L (135-145) L Potassium Level 4.6 mEQ/L (3.4-4.9) Chloride Level 94 mEQ/L (98-107) L Carbon Dioxide Level 19 mEQ/L (20-30) L Anion Gap 15 (5-15) Blood Urea Nitrogen 38 mg/dL (7-23) H Creatinine 1.6 mg/dL (0.7-1.2) H Estimat Glomerular Filtration Rate 45.1 mL/min (>60) Glucose Level 179 mg/dL (74-106) H Calcium Level 7.6 mg/dL (8.6-10.2) L Current Medications Medications (Trade) Dose Ordered Sig/Godwin Route PRN Reason Start Time Stop Time Status Last Admin Dose Admin Acetaminophen (Tylenol) 650 mg Q4H PRN ORAL fever 03/24/16 12:00 04/23/16 11:59 Albuterol/ Ipratropium (DuoNeb 0.5-3(2.5)mg/3ml) 3 ml Q4HRT PRN HHN Shortness of Breath 03/24/16 12:00 03/29/16 11:59 Atovaquone (Mepron Susp) 1,500 mg DAILY ORAL 03/25/16 09:00 04/24/16 08:59 03/25/16 11:47 Cefepime HCl 2 gm/ Dextrose 110 ml @ 220 mls/hr Q12HR IV 03/24/16 21:00 03/31/16 20:59 03/25/16 10:09 Escitalopram Oxalate (Lexapro) 10 mg DAILY ORAL 03/25/16 09:00 04/24/16 08:59 03/25/16 10:09 Hydrocortisone (Solu-CORTEF) 100 mg EVERY 8 HOURS IV 03/24/16 22:00 04/23/16 21:59 03/25/16 13:52 Lorazepam (Ativan) 0.5 mg Q6H PRN ORAL For Anxiety 03/24/16 15:30 03/31/16 15:29 Morphine Sulfate (Morphine Sulfate) 2 mg Q4H PRN IVP Moderate Pain (Pain Scale 4-6) 03/24/16 12:00 03/31/16 11:59 Nitroglycerin (Ntg) 0.4 mg Every 5 Minutes PRN SL Prn Chest Pain 03/24/16 11:45 04/23/16 11:44 Ondansetron HCl (Zofran) 4 mg Q6H PRN IVP Nausea & Vomiting 03/24/16 12:00 04/23/16 11:59 Pantoprazole (Protonix) 40 mg EVERY 12 HOURS ORAL 03/24/16 21:00 04/23/16 20:59 03/25/16 10:10 Patient Own Medication (Patient's Own Med) 1 ea DAILY ORAL 03/25/16 09:00 04/24/16 08:59 03/25/16 10:09 Patient Own Medication (Patient's Own Med) 1 ea DAILY ORAL 03/25/16 09:00 04/24/16 08:59 03/25/16 10:09 Polyethylene Glycol (Miralax) 17 gm DAILYPRN PRN ORAL Constipation 03/24/16 12:00 04/23/16 11:59 Temazepam (Restoril) 15 mg HSPRN PRN ORAL Insomnia 03/24/16 21:00 03/31/16 20:59 03/24/16 20:38 Vancomycin HCl (Vanco rx to dose) 1 ea DAILY PRN MISC Per rx protocol 03/25/16 09:00 04/24/16 08:59 Vancomycin HCl/ Dextrose (Vancomycin/D5W) 275 ml @ 183.708 mls/hr Q12H IVPB 03/24/16 12:00 03/29/16 11:59 03/25/16 11:48 MANJEET GARDNER Mar 25, 2016 14:04
--- NOTE | 2016-03-25 14:53 | General Progress Note ---
Assessment/Plan Status: unchanged Status Narrative Cr 1.6 stable Assessment/Plan Acute renal failure, multifactorial ( sepsis, HIV , Vanco...) PreRenal superimposed on Renal HypoNatremia Cr 2.8 down to 1.5 Sepsis, Diarrhea, HIV , Kaposi's Pneumonia Hypocalcemia, electrolyte imbalance Anemia in chronic illness, symptomatic Hypokalemia on admit now K elevated JF (acute kidney injury) Thrombocytopenia, massive splenomegali CAP (community acquired pneumonia) Plan: Antibiotics per ID Urine studies- noted Cortisol levels- 15 Monitor renal parameters and lytes- Avoid Nephrotoxics Monitor Urine out put Protonix Transfuse decrease stress dose of steroids? Subjective ROS Limited/Unobtainable: No Constitutional: Reports: malaise, weakness Allergies: Coded Allergies: No Known Allergies (Unverified , 03/16/16) Objective Last 24 Hour Vital Signs Date Time Temp Pulse Resp B/P Pulse Ox O2 Delivery O2 Flow Rate FiO2 03/25/16 11:23 97.9 99 20 117/65 100 Nasal Cannula 2.0 03/25/16 09:30 98 Nasal Cannula 2.0 28 03/25/16 09:30 101 16 Nasal Cannula 2.0 28 03/25/16 09:30 Nasal Cannula 2.0 28 03/25/16 07:38 97.7 100 19 96/58 97 Room Air 03/25/16 04:00 96.8 90 20 100/55 99 Room Air 03/25/16 00:00 98.2 107 18 118/68 96 Room Air 03/24/16 20:30 98.4 110 20 105/48 100 Nasal Cannula 2.0 03/24/16 19:50 97 Nasal Cannula 2.0 28 03/24/16 19:50 105 20 Nasal Cannula 2.0 28 03/24/16 19:50 Nasal Cannula 2.0 28 03/24/16 16:19 98.1 100 18 112/60 98 Nasal Cannula 2.0 Intake and Output 03/24/16 03/25/16 19:00 07:00 Intake Total 570 ml 607.416 ml Output Total 360 ml 1000 ml Balance 210 ml -392.584 ml Intake Oral 460 ml 240 ml IV Total 110 ml 367.416 ml Output Urine Total 360 ml 1000 ml # Voids 2 2 Laboratory Tests 03/25/16 01:00: M. tuberculosis Complex DNA (PCR) [Pending] 03/25/16 06:15: White Blood Count 4.3L, Red Blood Count 2.79L, Hemoglobin 8.5L, Hematocrit 25.5L , Mean Corpuscular Volume 91, Mean Corpuscular Hemoglobin 30.6, Mean Corpuscular Hemoglobin Concent 33.6, Red Cell Distribution Width 14.2, Platelet Count 24L, Mean Platelet Volume 10.9H, Neutrophils (%) (Auto) , Lymphocytes (%) (Auto) , Monocytes (%) (Auto) , Eosinophils (%) (Auto) , Basophils (%) (Auto) , Differential Total Cells Counted 100, Neutrophils % (Manual) 84H, Lymphocytes % (Manual) 8L, Monocytes % (Manual) 8, Eosinophils % (Manual) 0, Basophils % ( Manual) 0, Band Neutrophils 0, Platelet Estimate DecreasedL, Platelet Morphology Normal, Hypochromasia 1+, Anisocytosis 1+, Sodium Level 128L, Potassium Level 4.6, Chloride Level 94L, Carbon Dioxide Level 19L, Anion Gap 15 , Blood Urea Nitrogen 38H, Creatinine 1.6H, Estimat Glomerular Filtration Rate 45.1, Glucose Level 179H, Calcium Level 7.6L Height (Feet): 5 Height (Inches): 10.00 Weight (Pounds): 165 General Appearance: no apparent distress Cardiovascular: tachycardia Respiratory/Chest: decreased breath sounds Abdomen: soft Objective other PE not changed DEREK SMITH Mar 25, 2016 14:53
[2016-03-25 15:57] VITALS: BP 108/65
[2016-03-25] MEDS ORDERED: D5W 275ml ONE (16:51)
[2016-03-25] MEDS ORDERED: NS 275ml ONE (16:51)
[2016-03-25 19:00] VITALS: BP 102/56
[2016-03-26] VITALS: BP 111/61
[2016-03-26] MEDS: LORazepam 0.5mg tab ORAL PRN (02:53)
[2016-03-26 04:00] VITALS: BP 99/55
[2016-03-26] MEDS: Hydrocortisone 100mg Inj IV SCH ×2 (05:58→21:59)
[2016-03-26 07:40] LABS: MEAN CORPUSCULAR HEMOGLOBIN 30.5 PG (27.0-31.0); MEAN CORPUSCULAR HGB CONC 33.6 G/DL (32.0-36.0); MEAN CORPUSCULAR VOLUME 91 FL (80-99); MEAN PLATELET VOLUME 11.8 FL (6.5-10.1); PLATELET COUNT 25 K/UL (150-450); RED BLOOD COUNT 2.58 M/UL (4.70-6.10); WHITE BLOOD COUNT 5.3 K/UL (4.8-10.8)
[2016-03-26 07:50] LABS: CALCIUM 8.1 mg/dL (8.6-10.2); CREATININE 1.7 mg/dL (0.7-1.2); GLOMERULAR FILTRATION RATE 42.1 mL/min (>60); POTASSIUM 4.5 mEQ/L (3.4-4.9)
[2016-03-26 08:26] VITALS: BP 96/55
[2016-03-26] MEDS: PREZCOBIX ORAL SCH (09:12)
[2016-03-26] MEDS: Atovaquone 750mg/5ml Susp ORAL SCH (09:12)
[2016-03-26] MEDS: Cefepime HCl 2 GM in D5W 110 ML IV SCH ×2 (09:13→20:31)
[2016-03-26 09:38] LABS: ANISOCYTOSIS 1+; BAND NEUTROPHILS % (MANUAL) 0 % (0-8); BASOPHILS % (MANUAL) 0 % (0-2); EOSINOPHILS % (MANUAL) 0 % (0-3); HYPOCHROMASIA 3+; LYMPHOCYTES % (MANUAL) 14 % (20-45); NEUTROPHILS % (MANUAL) 79 % (45-75); PLATELET ESTIMATE DECREASED; PLATELET MORPHOLOGY NORMAL; TOTAL CELLS COUNTED 100
[2016-03-26 11:38] VITALS: BP 112/62
[2016-03-26] MEDS: Vancomycin 1 GM in D5W 275 ML IVPB SCH (11:55)
--- NOTE | 2016-03-26 12:33 | General Progress Note ---
Assessment/Plan Status: unchanged Status Narrative Cr 1.7 Assessment/Plan Acute renal failure, multifactorial ( sepsis, HIV , Vanco...) PreRenal superimposed on Renal HypoNatremia Cr 2.8 down to 1.5 Sepsis, Diarrhea, HIV , Kaposi's Pneumonia Hypocalcemia, electrolyte imbalance Anemia in chronic illness, symptomatic Hypokalemia on admit now K elevated JF (acute kidney injury) Thrombocytopenia, massive splenomegali CAP (community acquired pneumonia) Plan: Antibiotics per ID Urine studies- noted Cortisol levels- 15 Monitor renal parameters and lytes- Avoid Nephrotoxics Monitor Urine out put Protonix Transfuse decrease stress dose of steroids? Subjective ROS Limited/Unobtainable: No Constitutional: Reports: malaise Allergies: Coded Allergies: No Known Allergies (Unverified , 03/16/16) Objective Last 24 Hour Vital Signs Date Time Temp Pulse Resp B/P Pulse Ox O2 Delivery O2 Flow Rate FiO2 03/26/16 11:38 97.5 88 14 112/62 99 Nasal Cannula 03/26/16 08:26 97.6 104 18 96/55 99 Nasal Cannula 03/26/16 07:20 98 18 Nasal Cannula 2.0 28 03/26/16 07:20 98 Nasal Cannula 2.0 28 03/26/16 07:20 Nasal Cannula 2.0 28 03/26/16 04:00 97.0 92 18 99/55 97 Nasal Cannula 2.0 03/26/16 00:00 97.3 103 20 111/61 100 Nasal Cannula 2.0 03/25/16 19:20 Nasal Cannula 2.0 28 03/25/16 19:20 103 18 Nasal Cannula 2.0 28 03/25/16 19:20 98 Nasal Cannula 2.0 28 03/25/16 19:00 97.5 100 20 102/56 100 Nasal Cannula 2.0 03/25/16 15:57 97.3 88 20 108/65 98 Nasal Cannula 2.0 Intake and Output 03/25/16 03/26/16 19:00 07:00 Intake Total 620 ml 907.416 ml Output Total 600 ml 750 ml Balance 20 ml 157.416 ml Intake Oral 620 ml 540 ml IV Total 367.416 ml Output Urine Total 600 ml 750 ml # Voids 6 Laboratory Tests 03/26/16 07:00: White Blood Count 5.3, Red Blood Count 2.58L, Hemoglobin 7.9L, Hematocrit 23.4L , Mean Corpuscular Volume 91, Mean Corpuscular Hemoglobin 30.5, Mean Corpuscular Hemoglobin Concent 33.6, Red Cell Distribution Width 14.0, Platelet Count 25L, Mean Platelet Volume 11.8H, Neutrophils (%) (Auto) , Lymphocytes (%) (Auto) , Monocytes (%) (Auto) , Eosinophils (%) (Auto) , Basophils (%) (Auto) , Differential Total Cells Counted 100, Neutrophils % (Manual) 79H, Lymphocytes % (Manual) 14L, Monocytes % (Manual) 7, Eosinophils % (Manual) 0, Basophils % ( Manual) 0, Band Neutrophils 0, Platelet Estimate DecreasedL, Platelet Morphology Normal, Hypochromasia 3+, Anisocytosis 1+, Sodium Level 130L, Potassium Level 4.5, Chloride Level 95L, Carbon Dioxide Level 20, Anion Gap 15, Blood Urea Nitrogen 49H, Creatinine 1.7H, Estimat Glomerular Filtration Rate 42.1, Glucose Level 174H, Calcium Level 8.1L Height (Feet): 5 Height (Inches): 10.00 Weight (Pounds): 165 General Appearance: no apparent distress Objective other PE not changed DEREK SMITH Mar 26, 2016 12:32
--- NOTE | 2016-03-26 13:28 | Pulmonology Progress Note ---
Assessment/Plan Assessment/Plan ASSESSMENT sepsis, r/o opportunistic infections possible pneumonia, r/o TB, fungal possible lymphocytic interstitial pneumonitis diarrhea, r/o infectious cause diffuse LAD r/o infectious vs myeloproliferative disorder anemia pancytopenia acute renal failure, multifactorial ( sepsis, HIV , Vanco): Pre Renal superimposed on Renal electrolyte imbalance; Hyponatremia HIV disease hyponatremia splenomegaly with HIV infection Kaposi sarcoma PLAN OF CARE MS floor empiric abx, ID follows urine, blood cx, sputum cx, stool cx, stool OP all negative, fungal serology negative: coccidioides, histoplasma, blastomyces, CrAg, ( coccidioides indeterminant ) bone marrow results pending , sputum AFB x 3, TB test pending s/p blood transfusion (PRBC and PLT) ; transfuse additional 1 u PRBC today monitor counts stool OB x 3 negative peripheral blood smear review: no blasts, no platelets aggregation, no change in morphology of PRBC bone marrow biopsy done, results pending CT chest showed multiple nodules and interstitial lung disease , predominantly upper lobe ? lymphocytic interstitial pneumonitis O2 prn respiratory treatment CT abdomen with evidence of extensive lymphadenopathy fup with BM biopsy results nephro follows no change in renal parameters ARF presumably multifactorial due to sepsis, high Vanco level, HIV disease monitor renal parameters, lytes, Vanco resumed, closely monitor levels avoid nephrotoxic stress dose steroids, decrease to q12 electrolytes management as per nephro CD4 -585, continue HAART therapy as per ID management GI follows EGD and colon when stable PPI pain management antiemetic prn case discussed and evaluated by supervising physician Subjective Allergies: Coded Allergies: No Known Allergies (Unverified , 03/16/16) Subjective afebrile HH down to 7.9/23.4 PLT still low no chest pain, no SOB cough dry, no hemoptysis, no wheezing Objective Last 24 Hour Vital Signs Date Time Temp Pulse Resp B/P Pulse Ox O2 Delivery O2 Flow Rate FiO2 03/26/16 11:38 97.5 88 14 112/62 99 Nasal Cannula 03/26/16 08:26 97.6 104 18 96/55 99 Nasal Cannula 03/26/16 07:20 98 18 Nasal Cannula 2.0 28 03/26/16 07:20 98 Nasal Cannula 2.0 28 03/26/16 07:20 Nasal Cannula 2.0 28 03/26/16 04:00 97.0 92 18 99/55 97 Nasal Cannula 2.0 03/26/16 00:00 97.3 103 20 111/61 100 Nasal Cannula 2.0 03/25/16 19:20 Nasal Cannula 2.0 28 03/25/16 19:20 103 18 Nasal Cannula 2.0 28 03/25/16 19:20 98 Nasal Cannula 2.0 28 03/25/16 19:00 97.5 100 20 102/56 100 Nasal Cannula 2.0 03/25/16 15:57 97.3 88 20 108/65 98 Nasal Cannula 2.0 Intake and Output 03/25/16 03/26/16 19:00 07:00 Intake Total 620 ml 907.416 ml Output Total 600 ml 750 ml Balance 20 ml 157.416 ml Intake Oral 620 ml 540 ml IV Total 367.416 ml Output Urine Total 600 ml 750 ml # Voids 6 Objective General Appearance: no acute distress HEENT: normocephalic, atraumatic, anicteric, PERRL Respiratory/Chest: lungs clear - with moderate air entry , no respiratory distress, no accessory muscle use Cardiovascular: normal rate, regular rhythm, no JVD Abdomen: soft, non tender, non distended Genitourinary: normal external genitalia Skin: rash - diffused purple spots of Kaposi sarcoma 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: no motor/sensory deficits, alert, oriented x 3, responsive Musculoskeletal: normal muscle bulk Microbiology Date/Time Source Procedure Growth Status 03/23/16 16:00 Bone Marrow Gram Stain - Final Resulted 03/23/16 16:00 Bone Marrow Bone Marrow Culture - Preliminary Resulted Laboratory Tests 03/26/16 07:00: White Blood Count 5.3, Red Blood Count 2.58L, Hemoglobin 7.9L, Hematocrit 23.4L , Mean Corpuscular Volume 91, Mean Corpuscular Hemoglobin 30.5, Mean Corpuscular Hemoglobin Concent 33.6, Red Cell Distribution Width 14.0, Platelet Count 25L, Mean Platelet Volume 11.8H, Neutrophils (%) (Auto) , Lymphocytes (%) (Auto) , Monocytes (%) (Auto) , Eosinophils (%) (Auto) , Basophils (%) (Auto) , Differential Total Cells Counted 100, Neutrophils % (Manual) 79H, Lymphocytes % (Manual) 14L, Monocytes % (Manual) 7, Eosinophils % (Manual) 0, Basophils % ( Manual) 0, Band Neutrophils 0, Platelet Estimate DecreasedL, Platelet Morphology Normal, Hypochromasia 3+, Anisocytosis 1+, Sodium Level 130L, Potassium Level 4.5, Chloride Level 95L, Carbon Dioxide Level 20, Anion Gap 15, Blood Urea Nitrogen 49H, Creatinine 1.7H, Estimat Glomerular Filtration Rate 42.1, Glucose Level 174H, Calcium Level 8.1L Current Medications Medications (Trade) Dose Ordered Sig/Godwin Route PRN Reason Start Time Stop Time Status Last Admin Dose Admin Acetaminophen (Tylenol) 650 mg Q4H PRN ORAL fever 03/24/16 12:00 04/23/16 11:59 Albuterol/ Ipratropium (DuoNeb 0.5-3(2.5)mg/3ml) 3 ml Q4HRT PRN HHN Shortness of Breath 03/24/16 12:00 03/29/16 11:59 Atovaquone (Mepron Susp) 1,500 mg DAILY ORAL 03/25/16 09:00 04/24/16 08:59 03/26/16 09:12 Cefepime HCl 2 gm/ Dextrose 110 ml @ 220 mls/hr Q12HR IV 03/24/16 21:00 03/26/16 23:59 03/26/16 09:13 Escitalopram Oxalate (Lexapro) 10 mg DAILY ORAL 03/25/16 09:00 04/24/16 08:59 03/26/16 09:12 Hydrocortisone (Solu-CORTEF) 100 mg EVERY 8 HOURS IV 03/24/16 22:00 04/23/16 21:59 03/26/16 05:58 Lorazepam (Ativan) 0.5 mg Q6H PRN ORAL For Anxiety 03/24/16 15:30 03/31/16 15:29 03/26/16 02:53 Morphine Sulfate (Morphine Sulfate) 2 mg Q4H PRN IVP Moderate Pain (Pain Scale 4-6) 03/24/16 12:00 03/31/16 11:59 Nitroglycerin (Ntg) 0.4 mg Every 5 Minutes PRN SL Prn Chest Pain 03/24/16 11:45 04/23/16 11:44 Ondansetron HCl (Zofran) 4 mg Q6H PRN IVP Nausea & Vomiting 03/24/16 12:00 04/23/16 11:59 Pantoprazole (Protonix) 40 mg EVERY 12 HOURS ORAL 03/24/16 21:00 04/23/16 20:59 03/26/16 09:12 Patient Own Medication (Patient's Own Med) 1 ea DAILY ORAL 03/25/16 09:00 04/24/16 08:59 03/26/16 09:12 Patient Own Medication (Patient's Own Med) 1 ea DAILY ORAL 03/25/16 09:00 04/24/16 08:59 03/26/16 09:12 Polyethylene Glycol (Miralax) 17 gm DAILYPRN PRN ORAL Constipation 03/24/16 12:00 04/23/16 11:59 Temazepam (Restoril) 15 mg HSPRN PRN ORAL Insomnia 03/24/16 21:00 03/31/16 20:59 03/25/16 22:17 Vancomycin HCl (Vanco rx to dose) 1 ea DAILY PRN MISC Per rx protocol 03/25/16 09:00 04/24/16 08:59 Vancomycin HCl/ Dextrose (Vancomycin/D5W) 275 ml @ 183.708 mls/hr Q12H IVPB 03/24/16 12:00 03/26/16 23:59 03/26/16 11:55 Madhuri Manzanares NP ([facility]) Mar 26, 2016 13:28
[2016-03-26] MEDS ORDERED: NS 275ml ONE (13:58)
[2016-03-26 16:53] VITALS: BP 107/64
[2016-03-26 20:00] VITALS: BP 99/44
[2016-03-27] VITALS: BP 115/67
[2016-03-27 04:00] VITALS: BP 97/50
[2016-03-27 08:15] VITALS: BP 104/64
[2016-03-27 08:23] LABS: MEAN CORPUSCULAR HEMOGLOBIN 30.8 PG (27.0-31.0); MEAN CORPUSCULAR HGB CONC 34.1 G/DL (32.0-36.0); MEAN CORPUSCULAR VOLUME 90 FL (80-99); PLATELET COUNT 25 K/UL (150-450); RED BLOOD COUNT 2.93 M/UL (4.70-6.10); RED CELL DISTRIBUTION WIDTH 14.2 % (11.6-14.8); WHITE BLOOD COUNT 5.1 K/UL (4.8-10.8)
[2016-03-27 08:35] LABS: CALCIUM 8.2 mg/dL (8.6-10.2); CREATININE 1.7 mg/dL (0.7-1.2); GLOMERULAR FILTRATION RATE 42.1 mL/min (>60); POTASSIUM 4.4 mEQ/L (3.4-4.9)
[2016-03-27] MEDS: LORazepam 0.5mg tab ORAL PRN (09:39)
[2016-03-27] MEDS: Hydrocortisone 100mg Inj IV SCH (09:39)
[2016-03-27] MEDS: Atovaquone 750mg/5ml Susp ORAL SCH (09:40)
[2016-03-27] MEDS: PREZCOBIX ORAL SCH (09:40)
[2016-03-27] MEDS ORDERED: NS 550ML IV ONE (10:29)
[2016-03-27] MEDS ORDERED: Tubing IV Blood Pump IV ONE (10:29)
[2016-03-27 10:47] LABS: ANISOCYTOSIS 1+; BAND NEUTROPHILS % (MANUAL) 0 % (0-8); BASOPHILS % (MANUAL) 0 % (0-2); EOSINOPHILS % (MANUAL) 0 % (0-3); HYPOCHROMASIA 1+; LYMPHOCYTES % (MANUAL) 8 % (20-45); NEUTROPHILS % (MANUAL) 80 % (45-75); PLATELET ESTIMATE DECREASED; PLATELET MORPHOLOGY NORMAL; TOTAL CELLS COUNTED 100
[2016-03-27 12:15] VITALS: BP 113/53
--- NOTE | 2016-03-27 12:16 | General Progress Note ---
Assessment/Plan Status: stable Status Narrative Cr 1.7 Assessment/Plan Acute renal failure, multifactorial ( sepsis, HIV , Vanco...) PreRenal superimposed on Renal HypoNatremia Cr 2.8 down to 1.5 Sepsis, Diarrhea, HIV , Kaposi's Pneumonia Hypocalcemia, electrolyte imbalance Anemia in chronic illness, symptomatic Hypokalemia on admit now K elevated JF (acute kidney injury) Thrombocytopenia, massive splenomegali CAP (community acquired pneumonia) Plan: Antibiotics per ID Urine studies- noted Cortisol levels- 15 Monitor renal parameters and lytes- Avoid Nephrotoxics Monitor Urine out put Protonix Transfuse decrease stress dose of steroids? Subjective ROS Limited/Unobtainable: No Allergies: Coded Allergies: No Known Allergies (Unverified , 03/16/16) Objective Last 24 Hour Vital Signs Date Time Temp Pulse Resp B/P Pulse Ox O2 Delivery O2 Flow Rate FiO2 03/27/16 08:15 97.6 99 19 104/64 97 Room Air 03/27/16 08:10 97 20 Nasal Cannula 2.0 28 03/27/16 08:10 98 Nasal Cannula 2.0 28 03/27/16 08:10 Nasal Cannula 2.0 28 03/27/16 04:00 97.5 100 18 97/50 100 Nasal Cannula 2.0 03/27/16 00:00 97.7 101 18 115/67 99 Nasal Cannula 2.0 03/26/16 20:00 97.3 88 22 99/44 97 Nasal Cannula 2.0 03/26/16 19:30 Nasal Cannula 2.0 28 03/26/16 19:30 98 Nasal Cannula 2.0 28 03/26/16 19:30 100 20 Nasal Cannula 2.0 28 03/26/16 16:53 97.1 98 16 107/64 99 Nasal Cannula Intake and Output 03/26/16 03/27/16 19:00 07:00 Intake Total 1000 ml 1110 ml Output Total 800 ml 1200 ml Balance 200 ml -90 ml Intake Oral 1000 ml 800 ml Blood Product 310 ml Output Urine Total 800 ml 1200 ml Laboratory Tests 03/27/16 06:55: White Blood Count 5.1, Red Blood Count 2.93L, Hemoglobin 9.0L, Hematocrit 26.5L , Mean Corpuscular Volume 90, Mean Corpuscular Hemoglobin 30.8, Mean Corpuscular Hemoglobin Concent 34.1, Red Cell Distribution Width 14.2, Platelet Count 25L, Mean Platelet Volume 16.0H, Neutrophils (%) (Auto) , Lymphocytes (%) (Auto) , Monocytes (%) (Auto) , Eosinophils (%) (Auto) , Basophils (%) (Auto) , Differential Total Cells Counted 100, Neutrophils % (Manual) 80H, Lymphocytes % (Manual) 8L, Monocytes % (Manual) 12H, Eosinophils % (Manual) 0, Basophils % ( Manual) 0, Band Neutrophils 0, Platelet Estimate DecreasedL, Platelet Morphology Normal, Hypochromasia 1+, Anisocytosis 1+, Sodium Level 131L, Potassium Level 4.4, Chloride Level 95L, Carbon Dioxide Level 20, Anion Gap 16H , Blood Urea Nitrogen 55H, Creatinine 1.7H, Estimat Glomerular Filtration Rate 42.1, Glucose Level 168H, Calcium Level 8.2L Height (Feet): 5 Height (Inches): 10.00 Weight (Pounds): 165 General Appearance: no apparent distress Objective other PE not changed DEREK SMITH Mar 27, 2016 12:16
--- NOTE | 2016-03-27 13:42 | Infectious Diseases Prog Note ---
Assessment/Plan Assessment/Plan ASSESSMENT: 55 y/o male with: // Probable sepsis r/o opportunistic infection - cultures NGTD - negative: coccidioides, histoplasma, blastomyces, CrAg, ( coccidioides indeterminant ) // Diarrhea r/o infectious - improved - negative: giardia, O&P, stool Cx // Possible PNA r/o TB, NTM, fungal, lymphocytic interstitial pneumonitis - sputum AFB smear(-) x1, Cx NGTD, PCR, QFT TB gold pending - CT: predominantly upper lobe pulmonary interstitial disease, possible lymphocytic interstitial pneumonitis. Multiple sub-5 mm parenchymal nodules seen throughout the left lung. Bilateral basilar pulmonary parenchymal atelectatic changes and possibly some consolidation. Small bilateral pleural effusions - negative/WNL: LDH, CrAg, blastomyces, histoplasma, ( coccidioides indeterminant ) // Diffuse LAD r/o infectious vs myeloproliferative disorder - SP BMBx: path pending - CT: Extensive thoracic, abdominal, and pelvic lymphadenopathy // HIV / AIDS, on cART ( recently changed to prezcobix, tivicay d/t genotype ) - CD4 37(5.3%) // Kaposi sarcoma // Leukopenia / pancytopenia r/o bone marrow infiltrative process - SP BMBx: path pending - negative/WNL: LDH, ARMIDA, CrAg, Parvovirus IgM, blastomyces, histoplasma, ( coccidioides indeterminant ) // Fever - resolved // Symptomatic FOBT(-) anemia SP PRBCs - denies blood loss. GI following, plan EGD/colonoscopy // ARF - improved, stable // Hypocalcemia / electrolyte imbalance // Massive splenomegaly // Thrombocytopenia // Anxiety // Elevated ESR // NKDA // Full Code PLAN: - monitor pt off of ABX for now ( 03/26 SP IV vancomycin, cefepime d# ) - continue cART ( prezcobix, tivicay - ok for pt to take own meds ), changed bactrim prophy to mepron given cytopenias - f/u AFB BCx, sputum AFB smear, Cx, PCR, QFT TB gold - f/u path - monitor CBC, temperatures - monitor BMP - transfuse prn - EGD/colonoscopy per GI when more stable Subjective Allergies: Coded Allergies: No Known Allergies (Unverified , 28/17) Subjective intermittent low grade fevers resolved no new complaint started on stress dose steroids Objective Vital Signs Last 24 Hour Vital Signs Date Time Temp Pulse Resp B/P Pulse Ox O2 Delivery O2 Flow Rate FiO2 03/27/16 12:15 98.4 108 21 113/53 97 Nasal Cannula 2.0 03/27/16 08:15 97.6 99 19 104/64 97 Room Air 03/27/16 08:10 97 20 Nasal Cannula 2.0 28 03/27/16 08:10 98 Nasal Cannula 2.0 28 03/27/16 08:10 Nasal Cannula 2.0 28 03/27/16 04:00 97.5 100 18 97/50 100 Nasal Cannula 2.0 03/27/16 00:00 97.7 101 18 115/67 99 Nasal Cannula 2.0 03/26/16 20:00 97.3 88 22 99/44 97 Nasal Cannula 2.0 03/26/16 19:30 Nasal Cannula 2.0 28 03/26/16 19:30 98 Nasal Cannula 2.0 28 03/26/16 19:30 100 20 Nasal Cannula 2.0 28 03/26/16 16:53 97.1 98 16 107/64 99 Nasal Cannula Height (Feet): 5 Height (Inches): 10.00 Weight (Pounds): 165 General Appearance: no acute distress Respiratory/Chest: no respiratory distress Cardiovascular: normal rate, regular rhythm Abdomen: normal bowel sounds, soft, non tender, non distended Microbiology Date/Time Source Procedure Growth Status 03/25/16 01:00 Sputum Expectorated AFB Specimen Processing Tissue - Final Resulted 03/25/16 01:00 Sputum Expectorated Acid Fast Bacilli Smear - Final Resulted 03/25/16 01:00 Sputum Expectorated Acid Fast Bacilli Culture Pending Resulted Laboratory Tests Test 03/27/16 06:55 White Blood Count 5.1 K/UL (4.8-10.8) Red Blood Count 2.93 M/UL (4.70-6.10) L Hemoglobin 9.0 G/DL (14.2-18.0) L Hematocrit 26.5 % (42.0-52.0) L Mean Corpuscular Volume 90 FL (80-99) Mean Corpuscular Hemoglobin 30.8 PG (27.0-31.0) Mean Corpuscular Hemoglobin Concent 34.1 G/DL (32.0-36.0) Red Cell Distribution Width 14.2 % (11.6-14.8) Platelet Count 25 K/UL (150-450) L Mean Platelet Volume 16.0 FL (6.5-10.1) H Neutrophils (%) (Auto) % (45.0-75.0) Lymphocytes (%) (Auto) % (20.0-45.0) Monocytes (%) (Auto) % (1.0-10.0) Eosinophils (%) (Auto) % (0.0-3.0) Basophils (%) (Auto) % (0.0-2.0) Differential Total Cells Counted 100 Neutrophils % (Manual) 80 % (45-75) H Lymphocytes % (Manual) 8 % (20-45) L Monocytes % (Manual) 12 % (1-10) H Eosinophils % (Manual) 0 % (0-3) Basophils % (Manual) 0 % (0-2) Band Neutrophils 0 % (0-8) Platelet Estimate Decreased L Platelet Morphology Normal Hypochromasia 1+ Anisocytosis 1+ Sodium Level 131 mEQ/L (135-145) L Potassium Level 4.4 mEQ/L (3.4-4.9) Chloride Level 95 mEQ/L (98-107) L Carbon Dioxide Level 20 mEQ/L (20-30) Anion Gap 16 (5-15) H Blood Urea Nitrogen 55 mg/dL (7-23) H Creatinine 1.7 mg/dL (0.7-1.2) H Estimat Glomerular Filtration Rate 42.1 mL/min (>60) Glucose Level 168 mg/dL (74-106) H Calcium Level 8.2 mg/dL (8.6-10.2) L Current Medications Medications (Trade) Dose Ordered Sig/Godwin Route PRN Reason Start Time Stop Time Status Last Admin Dose Admin Acetaminophen (Tylenol) 650 mg Q4H PRN ORAL fever 03/24/16 12:00 04/23/16 11:59 Albuterol/ Ipratropium (DuoNeb 0.5-3(2.5)mg/3ml) 3 ml Q4HRT PRN HHN Shortness of Breath 03/24/16 12:00 03/29/16 11:59 Atovaquone (Mepron Susp) 1,500 mg DAILY ORAL 03/25/16 09:00 04/24/16 08:59 03/27/16 09:40 Escitalopram Oxalate (Lexapro) 10 mg DAILY ORAL 03/25/16 09:00 04/24/16 08:59 03/27/16 09:39 Hydrocortisone (Solu-CORTEF) 100 mg Q12HR IV 03/26/16 21:00 04/25/16 20:59 03/27/16 09:39 Lorazepam (Ativan) 0.5 mg Q6H PRN ORAL For Anxiety 03/24/16 15:30 03/31/16 15:29 03/27/16 09:39 Morphine Sulfate (Morphine Sulfate) 2 mg Q4H PRN IVP Moderate Pain (Pain Scale 4-6) 03/24/16 12:00 03/31/16 11:59 Nitroglycerin (Ntg) 0.4 mg Every 5 Minutes PRN SL Prn Chest Pain 03/24/16 11:45 04/23/16 11:44 Ondansetron HCl (Zofran) 4 mg Q6H PRN IVP Nausea & Vomiting 03/24/16 12:00 04/23/16 11:59 Pantoprazole (Protonix) 40 mg EVERY 12 HOURS ORAL 03/24/16 21:00 04/23/16 20:59 03/27/16 09:39 Patient Own Medication (Patient's Own Med) 1 ea DAILY ORAL 03/25/16 09:00 04/24/16 08:59 03/27/16 09:40 Patient Own Medication (Patient's Own Med) 1 ea DAILY ORAL 03/25/16 09:00 04/24/16 08:59 03/27/16 09:40 Polyethylene Glycol (Miralax) 17 gm DAILYPRN PRN ORAL Constipation 03/24/16 12:00 04/23/16 11:59 Temazepam (Restoril) 15 mg HSPRN PRN ORAL Insomnia 03/24/16 21:00 03/31/16 20:59 03/26/16 20:31 MANJEET GARDNER Mar 27, 2016 13:42
--- NOTE | 2016-03-27 14:41 | Pulmonology Progress Note ---
Assessment/Plan Assessment/Plan ASSESSMENT sepsis, r/o opportunistic infections possible pneumonia, r/o TB, fungal possible lymphocytic interstitial pneumonitis diarrhea, r/o infectious cause diffuse LAD r/o infectious vs myeloproliferative disorder anemia pancytopenia acute renal failure, multifactorial ( sepsis, HIV , Vanco): Pre Renal superimposed on Renal electrolyte imbalance; Hyponatremia HIV disease hyponatremia splenomegaly with HIV infection Kaposi sarcoma PLAN OF CARE MS floor empiric abx, ID follows urine, blood cx, sputum cx, stool cx, stool OP all negative, fungal serology negative: coccidioides, histoplasma, blastomyces, CrAg, ( coccidioides indeterminant ) bone marrow pathology pending , bone marrow cx + Staph epidermidis sputum AFB x 3, #1 negative; TB test pending s/p blood transfusion (PRBC and PLT) ; transfuse additional 1 u PRBC today monitor counts stool OB x 3 negative peripheral blood smear review: no blasts, no platelets aggregation, no change in morphology of PRBC bone marrow biopsy done, results pending CT chest showed multiple nodules and interstitial lung disease , predominantly upper lobe ? lymphocytic interstitial pneumonitis O2 prn respiratory treatment CT abdomen with evidence of extensive lymphadenopathy fup with BM biopsy results nephro follows no change in renal parameters ARF presumably multifactorial due to sepsis, high Vanco level, HIV disease monitor renal parameters, lytes, Vanco resumed, closely monitor levels avoid nephrotoxic stress dose steroids, decrease to q12 electrolytes management as per nephro CD4 -585, continue HAART therapy as per ID management GI follows EGD and colon when stable PPI pain management antiemetic prn case discussed and evaluated by supervising physician Subjective Allergies: Coded Allergies: No Known Allergies (Unverified , 03/16/16) Subjective afebrile HH up after blood transfusion PLT still low, 16 no chest pain, no SOB cough dry, no hemoptysis, no wheezing Objective Last 24 Hour Vital Signs Date Time Temp Pulse Resp B/P Pulse Ox O2 Delivery O2 Flow Rate FiO2 03/27/16 12:15 98.4 108 21 113/53 97 Nasal Cannula 2.0 03/27/16 08:15 97.6 99 19 104/64 97 Room Air 03/27/16 08:10 97 20 Nasal Cannula 2.0 28 03/27/16 08:10 98 Nasal Cannula 2.0 28 03/27/16 08:10 Nasal Cannula 2.0 28 03/27/16 04:00 97.5 100 18 97/50 100 Nasal Cannula 2.0 03/27/16 00:00 97.7 101 18 115/67 99 Nasal Cannula 2.0 03/26/16 20:00 97.3 88 22 99/44 97 Nasal Cannula 2.0 03/26/16 19:30 Nasal Cannula 2.0 28 03/26/16 19:30 98 Nasal Cannula 2.0 28 03/26/16 19:30 100 20 Nasal Cannula 2.0 28 03/26/16 16:53 97.1 98 16 107/64 99 Nasal Cannula Intake and Output 03/26/16 03/27/16 19:00 07:00 Intake Total 1000 ml 1110 ml Output Total 800 ml 1200 ml Balance 200 ml -90 ml Intake Oral 1000 ml 800 ml Blood Product 310 ml Output Urine Total 800 ml 1200 ml Objective General Appearance: no acute distress HEENT: normocephalic, atraumatic, anicteric, PERRL Respiratory/Chest: lungs clear - with moderate air entry , no respiratory distress, no accessory muscle use Cardiovascular: normal rate, regular rhythm, no JVD Abdomen: soft, non tender, non distended Genitourinary: normal external genitalia Skin: rash - diffused purple spots of Kaposi sarcoma 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: no motor/sensory deficits, alert, oriented x 3, responsive Musculoskeletal: normal muscle bulk Microbiology Date/Time Source Procedure Growth Status 03/25/16 01:00 Sputum Expectorated AFB Specimen Processing Tissue - Final Resulted 03/25/16 01:00 Sputum Expectorated Acid Fast Bacilli Smear - Final Resulted 03/25/16 01:00 Sputum Expectorated Acid Fast Bacilli Culture Pending Resulted Laboratory Tests 03/27/16 06:55: White Blood Count 5.1, Red Blood Count 2.93L, Hemoglobin 9.0L, Hematocrit 26.5L , Mean Corpuscular Volume 90, Mean Corpuscular Hemoglobin 30.8, Mean Corpuscular Hemoglobin Concent 34.1, Red Cell Distribution Width 14.2, Platelet Count 25L, Mean Platelet Volume 16.0H, Neutrophils (%) (Auto) , Lymphocytes (%) (Auto) , Monocytes (%) (Auto) , Eosinophils (%) (Auto) , Basophils (%) (Auto) , Differential Total Cells Counted 100, Neutrophils % (Manual) 80H, Lymphocytes % (Manual) 8L, Monocytes % (Manual) 12H, Eosinophils % (Manual) 0, Basophils % ( Manual) 0, Band Neutrophils 0, Platelet Estimate DecreasedL, Platelet Morphology Normal, Hypochromasia 1+, Anisocytosis 1+, Sodium Level 131L, Potassium Level 4.4, Chloride Level 95L, Carbon Dioxide Level 20, Anion Gap 16H , Blood Urea Nitrogen 55H, Creatinine 1.7H, Estimat Glomerular Filtration Rate 42.1, Glucose Level 168H, Calcium Level 8.2L Current Medications Medications (Trade) Dose Ordered Sig/Godwin Route PRN Reason Start Time Stop Time Status Last Admin Dose Admin Acetaminophen (Tylenol) 650 mg Q4H PRN ORAL fever 03/24/16 12:00 04/23/16 11:59 Albuterol/ Ipratropium (DuoNeb 0.5-3(2.5)mg/3ml) 3 ml Q4HRT PRN HHN Shortness of Breath 03/24/16 12:00 03/29/16 11:59 Atovaquone (Mepron Susp) 1,500 mg DAILY ORAL 03/25/16 09:00 04/24/16 08:59 03/27/16 09:40 Escitalopram Oxalate (Lexapro) 10 mg DAILY ORAL 03/25/16 09:00 04/24/16 08:59 03/27/16 09:39 Hydrocortisone (Solu-CORTEF) 100 mg Q12HR IV 03/26/16 21:00 04/25/16 20:59 03/27/16 09:39 Lorazepam (Ativan) 0.5 mg Q6H PRN ORAL For Anxiety 03/24/16 15:30 03/31/16 15:29 03/27/16 09:39 Morphine Sulfate (Morphine Sulfate) 2 mg Q4H PRN IVP Moderate Pain (Pain Scale 4-6) 03/24/16 12:00 03/31/16 11:59 Nitroglycerin (Ntg) 0.4 mg Every 5 Minutes PRN SL Prn Chest Pain 03/24/16 11:45 04/23/16 11:44 Ondansetron HCl (Zofran) 4 mg Q6H PRN IVP Nausea & Vomiting 03/24/16 12:00 04/23/16 11:59 Pantoprazole (Protonix) 40 mg EVERY 12 HOURS ORAL 03/24/16 21:00 04/23/16 20:59 03/27/16 09:39 Patient Own Medication (Patient's Own Med) 1 ea DAILY ORAL 03/25/16 09:00 04/24/16 08:59 03/27/16 09:40 Patient Own Medication (Patient's Own Med) 1 ea DAILY ORAL 03/25/16 09:00 04/24/16 08:59 03/27/16 09:40 Polyethylene Glycol (Miralax) 17 gm DAILYPRN PRN ORAL Constipation 03/24/16 12:00 04/23/16 11:59 Temazepam (Restoril) 15 mg HSPRN PRN ORAL Insomnia 03/24/16 21:00 03/31/16 20:59 03/26/16 20:31 [facility] ([facility])Madhuri NP Mar 27, 2016 14:41
[2016-03-27 16:27] VITALS: BP 105/57
[2016-03-27 20:00] VITALS: BP 101/46
[2016-03-28] VITALS: BP 106/50
[2016-03-28 04:00] VITALS: BP 109/54
[2016-03-28] MEDS: LORazepam 0.5mg tab ORAL PRN ×4 (04:03→23:20)
[2016-03-28 07:45] VITALS: BP 124/84
[2016-03-28 09:25] LABS: NIL (NEG) CONTROL SPOT COUNT 1 (0-9); PANEL A SPOT COUNT 1; PANEL B SPOT COUNT 1; POSITIVE CONTROL SPOT COUNT > 20; T SPOT TB NEGATIVE
[2016-03-28] MEDS: Atovaquone 750mg/5ml Susp ORAL SCH (10:12)
[2016-03-28] MEDS: Hydrocortisone 100mg Inj IV SCH (10:12)
[2016-03-28] MEDS: PREZCOBIX ORAL SCH (10:12)
--- NOTE | 2016-03-28 10:59 | GI Progress Note ---
Assessment/Plan Problems: (1) Diarrhea ICD Codes: R19.7 - Diarrhea, unspecified SNOMED: 47229011 (2) Splenomegaly with HIV infection ICD Codes: B20 - Human immunodeficiency virus [HIV] disease; R16.1 - Splenomegaly, not elsewhere classified SNOMED: 650715792 (3) Anemia ICD Codes: D64.9 - Anemia, unspecified SNOMED: 100317910 Qualifiers: Qualified Codes: D64.9 - Anemia, unspecified (4) Thrombocytopenia ICD Codes: D69.6 - Thrombocytopenia, unspecified SNOMED: 750490838 (5) HIV disease ICD Codes: B20 - Human immunodeficiency virus [HIV] disease SNOMED: 27963349 (6) Episode of generalized weakness ICD Codes: R53.1 - Weakness SNOMED: 96656101 Status: unchanged Status Narrative Discussed with Dr. Epps. Assessment/Plan Assessment - Anemia - Thrombocytopenia - HIV - Diarrhea - r/o TB - s/p bone biopsy >> GRAM STAIN RESULTS. RARE WHITE BLOOD CELLS. NO ORGANISMS SEEN. - Stool w.u >> negative - O&P negative - OB stool negative x 3 Recommendations - monitor H&H, transfuse prn - airborne isolation - EGD/Colon when stable - APCT reviewed - ppi - fu labs Subjective Subjective denies any abdominal pain/diarrhea/constipation BM this morning, soft Objective Last 24 Hour Vital Signs Date Time Temp Pulse Resp B/P Pulse Ox O2 Delivery O2 Flow Rate FiO2 03/28/16 07:45 98.2 112 20 124/84 100 Nasal Cannula 2.0 03/28/16 07:17 Room Air 03/28/16 07:17 100 Room Air 03/28/16 07:16 117 20 Room Air 03/28/16 04:00 97.0 76 16 109/54 99 Room Air 03/28/16 02:45 86 20 96 Room Air 2.0 28 03/28/16 02:27 86 20 96 Room Air 03/28/16 00:00 97.6 84 19 106/50 96 Room Air 03/27/16 20:00 97.3 107 19 101/46 99 Room Air 03/27/16 19:30 Nasal Cannula 2.0 28 03/27/16 19:29 97 Nasal Cannula 2.0 28 03/27/16 19:29 102 20 Nasal Cannula 2.0 28 03/27/16 16:27 97.0 98 16 105/57 98 Nasal Cannula 03/27/16 12:15 98.4 108 21 113/53 97 Nasal Cannula 2.0 Intake and Output 03/27/16 03/28/16 19:00 07:00 Intake Total 1120 ml Output Total 900 ml 1100 ml Balance 220 ml -1100 ml Intake Oral 1120 ml Output Urine Total 900 ml 1100 ml # Voids 2 Height (Feet): 5 Height (Inches): 10.00 Weight (Pounds): 165 General Appearance: no apparent distress, alert Cardiovascular: normal rate, regular rhythm Respiratory/Chest: normal breath sounds, no respiratory distress Abdominal Exam: normal bowel sounds, non tender, soft Extremities: normal range of motion Objective Procedure: CT CHEST Abdomen Pelvis WO Con Indication: ABN LABS Impression: Splenomegaly Extensive thoracic, abdominal, and pelvic lymphadenopathy, as detailed above. This is nonspecific, likely related to stated clinical history of HIV. May indicate reactive, inflammatory, infectious adenopathy, or a lymphoproliferative disorder. Correlate with clinical history and findings Evidence of predominantly upper lobe pulmonary interstitial disease, as described, predominant findings being interstitial septal thickening and bronchial wall thickening. While the differential for this is quite broad, given the history of HIV positivity the possibility of lymphocytic interstitial pneumonitis should be considered Multiple sub-5 mm parenchymal nodules seen throughout the left lung. Possibly related to the above. If there are significant risk factors for lung carcinoma, however, short interval followup CT at 6-12 months should be considered. Bilateral basilar pulmonary parenchymal atelectatic changes and possibly some consolidation Small bilateral pleural effusions Nonspecific bilateral perinephric fat stranding Genesis Keller N.P. Mar 28, 2016 10:58
[2016-03-28 12:03] VITALS: BP 109/58
--- NOTE | 2016-03-28 12:48 | General Progress Note ---
Assessment/Plan Status: unchanged Assessment/Plan Acute renal failure, multifactorial ( sepsis, HIV , Vanco...) PreRenal superimposed on Renal HypoNatremia Cr 2.8 down to 1.5 Sepsis, Diarrhea, HIV , Kaposi's Pneumonia Hypocalcemia, electrolyte imbalance Anemia in chronic illness, symptomatic Hypokalemia on admit now K elevated JF (acute kidney injury) Thrombocytopenia, massive splenomegali CAP (community acquired pneumonia) Plan: No labs today- Antibiotics per ID Urine studies- noted Cortisol levels- 15 Monitor renal parameters and lytes- Avoid Nephrotoxics Monitor Urine out put Protonix Transfuse decrease stress dose of steroids? Subjective ROS Limited/Unobtainable: No Allergies: Coded Allergies: No Known Allergies (Unverified , 03/16/16) Objective Last 24 Hour Vital Signs Date Time Temp Pulse Resp B/P Pulse Ox O2 Delivery O2 Flow Rate FiO2 03/28/16 12:03 98.6 109 19 109/58 98 Room Air 03/28/16 07:45 98.2 112 20 124/84 100 Nasal Cannula 2.0 03/28/16 07:17 Room Air 03/28/16 07:17 100 Room Air 21 03/28/16 07:16 117 20 Room Air 21 03/28/16 04:00 97.0 76 16 109/54 99 Room Air 03/28/16 02:45 86 20 96 Room Air 2.0 28 03/28/16 02:27 86 20 96 Room Air 03/28/16 00:00 97.6 84 19 106/50 96 Room Air 03/27/16 20:00 97.3 107 19 101/46 99 Room Air 03/27/16 19:30 Nasal Cannula 2.0 28 03/27/16 19:29 97 Nasal Cannula 2.0 28 03/27/16 19:29 102 20 Nasal Cannula 2.0 28 03/27/16 16:27 97.0 98 16 105/57 98 Nasal Cannula Intake and Output 03/27/16 03/28/16 19:00 07:00 Intake Total 1120 ml Output Total 900 ml 1100 ml Balance 220 ml -1100 ml Intake Oral 1120 ml Output Urine Total 900 ml 1100 ml # Voids 2 Height (Feet): 5 Height (Inches): 10.00 Weight (Pounds): 165 General Appearance: no apparent distress Objective other PE not changed DEREK SMITH Mar 28, 2016 12:48
[2016-03-28 15:09] LABS: MTB PROCESSING Concentration (.)
--- NOTE | 2016-03-28 15:41 | Infectious Diseases Prog Note ---
Assessment/Plan Assessment/Plan ASSESSMENT: 55 y/o male with: // Bone marrow Cx <1+ S.epidermidis = contaminant // Probable sepsis r/o opportunistic infection - cultures NGTD - negative: coccidioides, histoplasma, blastomyces, CrAg, T-SPOT, ( coccidioides indeterminant ) // Diarrhea r/o infectious - improved - negative: giardia, O&P, stool Cx // Possible PNA r/o TB, NTM, fungal, lymphocytic interstitial pneumonitis - sputum AFB smear(-) x3, Cx NGTD, T-SPOT(-), TB PCR pending - CT: predominantly upper lobe pulmonary interstitial disease, possible lymphocytic interstitial pneumonitis. Multiple sub-5 mm parenchymal nodules seen throughout the left lung. Bilateral basilar pulmonary parenchymal atelectatic changes and possibly some consolidation. Small bilateral pleural effusions - negative/WNL: LDH, CrAg, blastomyces, histoplasma, ( coccidioides indeterminant ) // Diffuse LAD - SP BMBx: mild-mod fibrosis, granulomatous inflammation. AFB, fungal stains (-) - CT: Extensive thoracic, abdominal, and pelvic lymphadenopathy // HIV / AIDS, on cART ( recently changed to prezcobix, tivicay d/t genotype ) - CD4 37(5.3%) // Kaposi sarcoma // Leukopenia / pancytopenia r/o bone marrow infiltrative process - SP BMBx: mild-mod fibrosis, granulomatous inflammation. AFB, fungal stains (-) - negative/WNL: LDH, ARMIDA, CrAg, Parvovirus IgM, blastomyces, histoplasma, T- SPOT ( coccidioides indeterminant ) // Fever - resolved // Symptomatic FOBT(-) anemia SP PRBCs - denies blood loss. GI following, plan EGD/colonoscopy // ARF - improved, stable // Hypocalcemia / electrolyte imbalance // Massive splenomegaly // Thrombocytopenia // Anxiety // Elevated ESR // NKDA // Full Code PLAN: - monitor pt off of ABX for now ( 03/26 SP IV vancomycin, cefepime d# ) - continue cART ( prezcobix, tivicay - ok for pt to take own meds ), changed bactrim prophy to mepron given cytopenias - f/u AFB BCx, sputum AFB Cx, PCR - monitor CBC, temperatures - monitor BMP - transfuse prn - EGD/colonoscopy per GI when more stable Subjective Allergies: Coded Allergies: No Known Allergies (Unverified , 03/16/16) Subjective intermittent low grade fevers resolved no new complaint path noted Objective Vital Signs Last 24 Hour Vital Signs Date Time Temp Pulse Resp B/P Pulse Ox O2 Delivery O2 Flow Rate FiO2 03/28/16 12:03 98.6 109 19 109/58 98 Room Air 03/28/16 07:45 98.2 112 20 124/84 100 Nasal Cannula 2.0 03/28/16 07:17 Room Air 03/28/16 07:17 100 Room Air 21 03/28/16 07:16 117 20 Room Air 21 03/28/16 04:00 97.0 76 16 109/54 99 Room Air 03/28/16 02:45 86 20 96 Room Air 2.0 28 03/28/16 02:27 86 20 96 Room Air 03/28/16 00:00 97.6 84 19 106/50 96 Room Air 03/27/16 20:00 97.3 107 19 101/46 99 Room Air 03/27/16 19:30 Nasal Cannula 2.0 28 03/27/16 19:29 97 Nasal Cannula 2.0 28 03/27/16 19:29 102 20 Nasal Cannula 2.0 28 03/27/16 16:27 97.0 98 16 105/57 98 Nasal Cannula Height (Feet): 5 Height (Inches): 10.00 Weight (Pounds): 165 General Appearance: no acute distress Respiratory/Chest: no respiratory distress Cardiovascular: normal rate, regular rhythm Abdomen: normal bowel sounds, soft, non tender, non distended Microbiology Date/Time Source Procedure Growth Status 03/27/16 05:40 Sputum AFB Specimen Processing Tissue - Final Resulted 03/27/16 05:40 Sputum Acid Fast Bacilli Smear - Final Resulted 03/27/16 05:40 Sputum Acid Fast Bacilli Culture Pending Resulted 03/26/16 03:00 Sputum AFB Specimen Processing Tissue - Final Resulted 03/26/16 03:00 Sputum Acid Fast Bacilli Smear - Final Resulted 03/26/16 03:00 Sputum Acid Fast Bacilli Culture Pending Resulted Current Medications Medications (Trade) Dose Ordered Sig/Godwin Route PRN Reason Start Time Stop Time Status Last Admin Dose Admin Acetaminophen (Tylenol) 650 mg Q4H PRN ORAL fever 2/16/17 12:00 04/23/16 11:59 Albuterol/ Ipratropium (DuoNeb 0.5-3(2.5)mg/3ml) 3 ml Q4HRT PRN HHN Shortness of Breath 03/24/16 12:00 03/29/16 11:59 03/28/16 02:27 Atovaquone (Mepron Susp) 1,500 mg DAILY ORAL 03/25/16 09:00 04/24/16 08:59 03/28/16 10:12 Escitalopram Oxalate (Lexapro) 10 mg DAILY ORAL 03/25/16 09:00 04/24/16 08:59 03/28/16 10:12 Hydrocortisone (Solu-CORTEF) 100 mg DAILY IV 03/28/16 09:00 04/27/16 08:59 03/28/16 10:12 Lorazepam (Ativan) 0.5 mg Q6H PRN ORAL For Anxiety 03/24/16 15:30 03/31/16 15:29 03/28/16 14:59 Morphine Sulfate (Morphine Sulfate) 2 mg Q4H PRN IVP Moderate Pain (Pain Scale 4-6) 03/24/16 12:00 03/31/16 11:59 Nitroglycerin (Ntg) 0.4 mg Every 5 Minutes PRN SL Prn Chest Pain 03/24/16 11:45 04/23/16 11:44 Ondansetron HCl (Zofran) 4 mg Q6H PRN IVP Nausea & Vomiting 03/24/16 12:00 04/23/16 11:59 Pantoprazole (Protonix) 40 mg EVERY 12 HOURS ORAL 03/24/16 21:00 04/23/16 20:59 03/28/16 10:12 Patient Own Medication (Patient's Own Med) 1 ea DAILY ORAL 03/25/16 09:00 04/24/16 08:59 03/28/16 10:12 Patient Own Medication (Patient's Own Med) 1 ea DAILY ORAL 03/25/16 09:00 04/24/16 08:59 03/28/16 10:12 Polyethylene Glycol (Miralax) 17 gm DAILYPRN PRN ORAL Constipation 03/24/16 12:00 04/23/16 11:59 Temazepam (Restoril) 15 mg HSPRN PRN ORAL Insomnia 03/24/16 21:00 03/31/16 20:59 03/27/16 21:00 MANJEET GARDNER Mar 28, 2016 15:41
[2016-03-28 16:00] VITALS: BP 109/73
--- NOTE | 2016-03-28 17:40 | Pulmonology Progress Note ---
Assessment/Plan Problems: (1) Sepsis (2) Pneumonia (3) Anemia (4) JF (acute kidney injury) (5) HIV disease (6) Thrombocytopenia (7) Hypocalcemia (8) Splenomegaly with HIV infection (9) Kaposi sarcoma Assessment/Plan off antibiotics bone marrow biopsy reviewe, granulomatous disease?? respiratory treatment serology pending ( some) renal function improving fever resolved pt/ot Subjective ROS Limited/Unobtainable: No Constitutional: Reports: no symptoms HEENT: Repors: no symptoms Respiratory: Reports: no symptoms Allergies: Coded Allergies: No Known Allergies (Unverified , 03/16/16) Objective Last 24 Hour Vital Signs Date Time Temp Pulse Resp B/P Pulse Ox O2 Delivery O2 Flow Rate FiO2 03/28/16 16:00 97.9 112 20 109/73 96 Room Air 03/28/16 12:03 98.6 109 19 109/58 98 Room Air 03/28/16 07:45 98.2 112 20 124/84 100 Nasal Cannula 2.0 03/28/16 07:17 Room Air 03/28/16 07:17 100 Room Air 21 03/28/16 07:16 117 20 Room Air 21 03/28/16 04:00 97.0 76 16 109/54 99 Room Air 03/28/16 02:45 86 20 96 Room Air 2.0 28 03/28/16 02:27 86 20 96 Room Air 03/28/16 00:00 97.6 84 19 106/50 96 Room Air 03/27/16 20:00 97.3 107 19 101/46 99 Room Air 03/27/16 19:30 Nasal Cannula 2.0 28 03/27/16 19:29 97 Nasal Cannula 2.0 28 03/27/16 19:29 102 20 Nasal Cannula 2.0 28 Intake and Output 03/27/16 03/28/16 19:00 07:00 Intake Total 1120 ml Output Total 900 ml 1100 ml Balance 220 ml -1100 ml Intake Oral 1120 ml Output Urine Total 900 ml 1100 ml # Voids 2 Objective General Appearance: WD/WN Lines, tubes and drains: peripheral HEENT: normocephalic, atraumatic Neck: non-tender, normal alignment Respiratory/Chest: chest wall non-tender, rhonchi - left, rhonchi - right Cardiovascular/Chest: normal peripheral pulses, normal rate Abdomen: normal bowel sounds, non tender Genitourinary/Rectal: normal genital exam Extremities: normal range of motion, non-tender, normal inspection, no calf tenderness, normal capillary refill Skin Exam: normal pigmentation Neurologic: starch and prosize mixer II-XII grossly normal Microbiology Date/Time Source Procedure Growth Status 03/27/16 05:40 Sputum AFB Specimen Processing Tissue - Final Resulted 03/27/16 05:40 Sputum Acid Fast Bacilli Smear - Final Resulted 03/27/16 05:40 Sputum Acid Fast Bacilli Culture Pending Resulted 03/26/16 03:00 Sputum AFB Specimen Processing Tissue - Final Resulted 03/26/16 03:00 Sputum Acid Fast Bacilli Smear - Final Resulted 03/26/16 03:00 Sputum Acid Fast Bacilli Culture Pending Resulted Current Medications Medications (Trade) Dose Ordered Sig/Godwin Route PRN Reason Start Time Stop Time Status Last Admin Dose Admin Acetaminophen (Tylenol) 650 mg Q4H PRN ORAL fever 03/24/16 12:00 04/23/16 11:59 Albuterol/ Ipratropium (DuoNeb 0.5-3(2.5)mg/3ml) 3 ml Q4HRT PRN HHN Shortness of Breath 03/24/16 12:00 03/29/16 11:59 03/28/16 02:27 Atovaquone (Mepron Susp) 1,500 mg DAILY ORAL 03/25/16 09:00 04/24/16 08:59 03/28/16 10:12 Escitalopram Oxalate (Lexapro) 10 mg DAILY ORAL 03/25/16 09:00 04/24/16 08:59 03/28/16 10:12 Hydrocortisone (Solu-CORTEF) 100 mg DAILY IV 03/28/16 09:00 04/27/16 08:59 03/28/16 10:12 Lorazepam (Ativan) 0.5 mg Q6H PRN ORAL For Anxiety 03/24/16 15:30 03/31/16 15:29 03/28/16 14:59 Morphine Sulfate (Morphine Sulfate) 2 mg Q4H PRN IVP Moderate Pain (Pain Scale 4-6) 03/24/16 12:00 03/31/16 11:59 Nitroglycerin (Ntg) 0.4 mg Every 5 Minutes PRN SL Prn Chest Pain 03/24/16 11:45 04/23/16 11:44 Ondansetron HCl (Zofran) 4 mg Q6H PRN IVP Nausea & Vomiting 03/24/16 12:00 04/23/16 11:59 Pantoprazole (Protonix) 40 mg EVERY 12 HOURS ORAL 03/24/16 21:00 04/23/16 20:59 03/28/16 10:12 Patient Own Medication (Patient's Own Med) 1 ea DAILY ORAL 03/25/16 09:00 04/24/16 08:59 03/28/16 10:12 Patient Own Medication (Patient's Own Med) 1 ea DAILY ORAL 03/25/16 09:00 04/24/16 08:59 03/28/16 10:12 Polyethylene Glycol (Miralax) 17 gm DAILYPRN PRN ORAL Constipation 03/24/16 12:00 04/23/16 11:59 Temazepam (Restoril) 15 mg HSPRN PRN ORAL Insomnia 03/24/16 21:00 03/31/16 20:59 03/27/16 21:00 MARIA ISABEL SZYMANSKI Mar 28, 2016 17:40
[2016-03-28 20:00] VITALS: BP 109/64
[2016-03-29] VITALS (7 sets, daily range): BP systolic 98–126; BP diastolic 49–71
[2016-03-29 06:59] LABS: MEAN CORPUSCULAR HEMOGLOBIN 30.6 PG (27.0-31.0); MEAN CORPUSCULAR HGB CONC 33.2 G/DL (32.0-36.0); MEAN CORPUSCULAR VOLUME 92 FL (80-99); MEAN PLATELET VOLUME 13.7 FL (6.5-10.1); PLATELET COUNT 21 K/UL (150-450); RED BLOOD COUNT 2.01 M/UL (4.70-6.10); WHITE BLOOD COUNT 3.3 K/UL (4.8-10.8)
[2016-03-29 07:08] LABS: MTB DETECTION NAA Negative (Negative)
[2016-03-29 07:24] LABS: ALBUMIN/GLOBULIN RATIO 0.4 (1.0-2.7); CALCIUM 7.7 mg/dL (8.6-10.2); CREATININE 1.7 mg/dL (0.7-1.2); CRP QUANT 6.4 mg/dL (< 0.5); GLOMERULAR FILTRATION RATE 42.1 mL/min (>60); MAGNESIUM 1.7 mg/dL (1.7-2.5); PHOSPHORUS 2.5 mg/dL (2.5-4.8); POTASSIUM 4.2 mEQ/L (3.4-4.9); TOTAL PROTEIN 5.7 g/dL (6.6-8.7)
[2016-03-29] MEDS: PREZCOBIX ORAL SCH (08:30)
[2016-03-29] MEDS: Hydrocortisone 100mg Inj IV SCH (08:30)
[2016-03-29] MEDS: LORazepam 0.5mg tab ORAL PRN ×2 (08:30→18:16)
[2016-03-29] MEDS: Atovaquone 750mg/5ml Susp ORAL SCH (08:31)
--- NOTE | 2016-03-29 11:15 | Diagnostic Imaging Report ---
Indication: COUGH Technique: One view of the chest Comparison: 03/21/2016 Findings: Previously demonstrated right basilar infiltrate is no longer evident. There is mild central bronchial wall thickening still present. The left costophrenic angle is blunted. Again demonstrated is lower cervical spine surgical hardware Impression: Since 03/21/26, interim resolution of previously demonstrated right lower lobe infiltrate Possible small left pleural effusion Other findings as noted
[2016-03-29 11:54] LABS: BAND NEUTROPHILS % (MANUAL) 0 % (0-8); BASOPHILS % (MANUAL) 0 % (0-2); EOSINOPHILS % (MANUAL) 1 % (0-3); LYMPHOCYTES % (MANUAL) 25 % (20-45); NEUTROPHILS % (MANUAL) 67 % (45-75); PLATELET ESTIMATE DECREASED; PLATELET MORPHOLOGY NORMAL; TOTAL CELLS COUNTED 100
[2016-03-29 11:56] LABS: HYPOCHROMASIA 1+
--- NOTE | 2016-03-29 12:27 | General Progress Note ---
Assessment/Plan Status: unchanged Assessment/Plan Acute renal failure, multifactorial ( sepsis, HIV , Vanco...) PreRenal superimposed on Renal HypoNatremia Cr 2.8 down to 1.7 PanCytopenia Sepsis, Diarrhea, HIV , Kaposi's Pneumonia Hypocalcemia, electrolyte imbalance Anemia in chronic illness, symptomatic Hypokalemia on admit now K elevated JF (acute kidney injury) Thrombocytopenia, massive splenomegali CAP (community acquired pneumonia) Plan: Transfuse for low Hgb Antibiotics per ID Urine studies- noted Cortisol levels- 15 Monitor renal parameters and lytes- Avoid Nephrotoxics Monitor Urine out put Protonix Transfuse decrease stress dose of steroids? Subjective ROS Limited/Unobtainable: No Constitutional: Reports: malaise Allergies: Coded Allergies: No Known Allergies (Unverified , 03/16/16) Objective Last 24 Hour Vital Signs Date Time Temp Pulse Resp B/P Pulse Ox O2 Delivery O2 Flow Rate FiO2 03/29/16 11:40 100.0 105 20 107/49 94 Room Air 03/29/16 08:39 98.1 114 15 98/57 99 Room Air 03/29/16 06:59 Room Air 03/29/16 06:59 114 23 Room Air 03/29/16 06:59 99 Room Air 03/29/16 05:00 110 20 114/51 99 Nasal Cannula 2.0 03/29/16 04:00 97.5 124 17 104/57 97 Room Air 03/28/16 20:00 97.4 67 17 109/64 94 Room Air 03/28/16 19:00 94 Room Air 21 03/28/16 19:00 Room Air 03/28/16 19:00 94 20 Room Air 03/28/16 16:00 97.9 112 20 109/73 96 Room Air Intake and Output 03/28/16 03/29/16 19:00 07:00 Intake Total 450 ml Output Total 420 ml Balance 30 ml Intake Oral 450 ml Output Urine Total 420 ml # Voids 4 # Bowel Movements 2 Laboratory Tests 03/29/16 05:20: White Blood Count 3.3L, Red Blood Count 2.01L, Hemoglobin 6.1*L, Hematocrit 18.5L, Mean Corpuscular Volume 92, Mean Corpuscular Hemoglobin 30.6, Mean Corpuscular Hemoglobin Concent 33.2, Red Cell Distribution Width 14.0, Platelet Count 21L, Mean Platelet Volume 13.7H, Neutrophils (%) (Auto) , Lymphocytes (%) (Auto) , Monocytes (%) (Auto) , Eosinophils (%) (Auto) , Basophils (%) (Auto) , Differential Total Cells Counted 100, Neutrophils % (Manual) 67, Lymphocytes % ( Manual) 25, Monocytes % (Manual) 7, Eosinophils % (Manual) 1, Basophils % ( Manual) 0, Band Neutrophils 0, Platelet Estimate DecreasedL, Platelet Morphology Normal, Hypochromasia 1+, Sodium Level 136, Potassium Level 4.2, Chloride Level 99, Carbon Dioxide Level 24, Anion Gap 13, Blood Urea Nitrogen 52H, Creatinine 1.7H, Estimat Glomerular Filtration Rate 42.1, Glucose Level 132H, Calcium Level 7.7L, Phosphorus Level 2.5, Magnesium Level 1.7, Total Bilirubin 2.0H, Direct Bilirubin 1.0H, Aspartate Amino Transf (AST/SGOT) 18, Alanine Aminotransferase (ALT/SGPT) 13, Alkaline Phosphatase 88, C-Reactive Protein, Quantitative 6.4H, Pro-B-Type Natriuretic Peptide 1617H, Total Protein 5.7L, Albumin 1.8L, Globulin 3.9, Albumin/Globulin Ratio 0.4L Height (Feet): 5 Height (Inches): 10.00 Weight (Pounds): 165 General Appearance: no apparent distress Objective other PE not changed DEREK SMITH Mar 29, 2016 12:27
--- NOTE | 2016-03-29 12:43 | GI Progress Note ---
Assessment/Plan Problems: (1) Diarrhea ICD Codes: R19.7 - Diarrhea, unspecified SNOMED: 46041091 (2) Splenomegaly with HIV infection ICD Codes: B20 - Human immunodeficiency virus [HIV] disease; R16.1 - Splenomegaly, not elsewhere classified SNOMED: 487009945 (3) Anemia ICD Codes: D64.9 - Anemia, unspecified SNOMED: 070529971 Qualifiers: Qualified Codes: D64.9 - Anemia, unspecified (4) Thrombocytopenia ICD Codes: D69.6 - Thrombocytopenia, unspecified SNOMED: 099080498 (5) HIV disease ICD Codes: B20 - Human immunodeficiency virus [HIV] disease SNOMED: 44247965 (6) Episode of generalized weakness ICD Codes: R53.1 - Weakness SNOMED: 40317242 Status: unchanged Status Narrative Discussed with Dr. Epps. Assessment/Plan Assessment - Anemia - Thrombocytopenia - HIV - Diarrhea >> cdiff negative - r/o TB - s/p bone biopsy >> GRAM STAIN RESULTS. RARE WHITE BLOOD CELLS. NO ORGANISMS SEEN. - Stool w.u >> negative - O&P negative - OB stool negative x 3 Recommendations - monitor H&H, transfuse prn >> 1 unit today - airborne isolation - EGD/Colon when stable - APCT reviewed - ppi - fu labs Subjective Subjective denies any abdominal pain/diarrhea/constipation BM yesterda Objective Last 24 Hour Vital Signs Date Time Temp Pulse Resp B/P Pulse Ox O2 Delivery O2 Flow Rate FiO2 03/29/16 11:40 100.0 105 20 107/49 94 Room Air 03/29/16 08:39 98.1 114 15 98/57 99 Room Air 03/29/16 06:59 Room Air 03/29/16 06:59 114 23 Room Air 03/29/16 06:59 99 Room Air 03/29/16 05:00 110 20 114/51 99 Nasal Cannula 2.0 03/29/16 04:00 97.5 124 17 104/57 97 Room Air 03/28/16 20:00 97.4 67 17 109/64 94 Room Air 03/28/16 19:00 94 Room Air 21 03/28/16 19:00 Room Air 03/28/16 19:00 94 20 Room Air 03/28/16 16:00 97.9 112 20 109/73 96 Room Air Intake and Output 03/28/16 03/29/16 19:00 07:00 Intake Total 450 ml Output Total 420 ml Balance 30 ml Intake Oral 450 ml Output Urine Total 420 ml # Voids 4 # Bowel Movements 2 Laboratory Tests Test 03/29/16 05:20 White Blood Count 3.3 K/UL (4.8-10.8) L Red Blood Count 2.01 M/UL (4.70-6.10) L Hemoglobin 6.1 G/DL (14.2-18.0) *L Hematocrit 18.5 % (42.0-52.0) L Mean Corpuscular Volume 92 FL (80-99) Mean Corpuscular Hemoglobin 30.6 PG (27.0-31.0) Mean Corpuscular Hemoglobin Concent 33.2 G/DL (32.0-36.0) Red Cell Distribution Width 14.0 % (11.6-14.8) Platelet Count 21 K/UL (150-450) L Mean Platelet Volume 13.7 FL (6.5-10.1) H Neutrophils (%) (Auto) % (45.0-75.0) Lymphocytes (%) (Auto) % (20.0-45.0) Monocytes (%) (Auto) % (1.0-10.0) Eosinophils (%) (Auto) % (0.0-3.0) Basophils (%) (Auto) % (0.0-2.0) Differential Total Cells Counted 100 Neutrophils % (Manual) 67 % (45-75) Lymphocytes % (Manual) 25 % (20-45) Monocytes % (Manual) 7 % (1-10) Eosinophils % (Manual) 1 % (0-3) Basophils % (Manual) 0 % (0-2) Band Neutrophils 0 % (0-8) Platelet Estimate Decreased L Platelet Morphology Normal Hypochromasia 1+ Sodium Level 136 mEQ/L (135-145) Potassium Level 4.2 mEQ/L (3.4-4.9) Chloride Level 99 mEQ/L (98-107) Carbon Dioxide Level 24 mEQ/L (20-30) Anion Gap 13 (5-15) Blood Urea Nitrogen 52 mg/dL (7-23) H Creatinine 1.7 mg/dL (0.7-1.2) H Estimat Glomerular Filtration Rate 42.1 mL/min (>60) Glucose Level 132 mg/dL (74-106) H Calcium Level 7.7 mg/dL (8.6-10.2) L Phosphorus Level 2.5 mg/dL (2.5-4.8) Magnesium Level 1.7 mg/dL (1.7-2.5) Total Bilirubin 2.0 mg/dL (0.0-1.2) H Direct Bilirubin 1.0 mg/dL (0.1-0.3) H Aspartate Amino Transf (AST/SGOT) 18 U/L (5-40) Alanine Aminotransferase (ALT/SGPT) 13 U/L (3-41) Alkaline Phosphatase 88 U/L (40-129) C-Reactive Protein, Quantitative 6.4 mg/dL (< 0.5) H Pro-B-Type Natriuretic Peptide 1617 pg/mL (0-125) H Total Protein 5.7 g/dL (6.6-8.7) L Albumin 1.8 g/dL (3.5-5.2) L Globulin 3.9 g/dL Albumin/Globulin Ratio 0.4 (1.0-2.7) L Height (Feet): 5 Height (Inches): 10.00 Weight (Pounds): 165 General Appearance: no apparent distress, alert Cardiovascular: normal rate Respiratory/Chest: normal breath sounds, no respiratory distress Abdominal Exam: normal bowel sounds, non tender, soft Extremities: normal range of motion Objective Procedure: CT CHEST Abdomen Pelvis WO Con Indication: ABN LABS Impression: Splenomegaly Extensive thoracic, abdominal, and pelvic lymphadenopathy, as detailed above. This is nonspecific, likely related to stated clinical history of HIV. May indicate reactive, inflammatory, infectious adenopathy, or a lymphoproliferative disorder. Correlate with clinical history and findings Evidence of predominantly upper lobe pulmonary interstitial disease, as described, predominant findings being interstitial septal thickening and bronchial wall thickening. While the differential for this is quite broad, given the history of HIV positivity the possibility of lymphocytic interstitial pneumonitis should be considered Multiple sub-5 mm parenchymal nodules seen throughout the left lung. Possibly related to the above. If there are significant risk factors for lung carcinoma, however, short interval followup CT at 6-12 months should be considered. Bilateral basilar pulmonary parenchymal atelectatic changes and possibly some consolidation Small bilateral pleural effusions Nonspecific bilateral perinephric fat stranding Genesis Keller N.P. Mar 29, 2016 12:43
--- NOTE | 2016-03-29 14:09 | Diagnostic Imaging Report ---
Indication: DYSPNEA Technique: One view of the chest Comparison: 03/16/2016 Findings: There is mild elevation right hemidiaphragm and right basilar atelectasis. Lungs and pleural spaces are otherwise clear. The heart size is upper limits of normal. There is cervical spine fusion hardware again demonstrated. Impression: Right basilar atelectasis. No acute process otherwise
--- NOTE | 2016-03-29 14:59 | Infectious Diseases Prog Note ---
Assessment/Plan Assessment/Plan ASSESSMENT: 55 y/o male with: // Bone marrow Cx <1+ S.epidermidis = contaminant // Probable sepsis r/o opportunistic infection - cultures NGTD - negative: coccidioides, histoplasma, blastomyces, CrAg, T-SPOT, ( coccidioides indeterminant ) // Diarrhea r/o infectious - improved - negative: giardia, O&P, stool Cx // Possible PNA r/o TB, NTM, fungal, lymphocytic interstitial pneumonitis - sputum AFB smear(-) x3, Cx NGTD, T-SPOT(-), TB PCR(-) - CXR 03/29: interim resolution of previously demonstrated right lower lobe infiltrate. Possible small left pleural effusion - CT: predominantly upper lobe pulmonary interstitial disease, possible lymphocytic interstitial pneumonitis. Multiple sub-5 mm parenchymal nodules seen throughout the left lung. Bilateral basilar pulmonary parenchymal atelectatic changes and possibly some consolidation. Small bilateral pleural effusions - negative/WNL: LDH, CrAg, blastomyces, histoplasma, ( coccidioides indeterminant ) // Diffuse LAD - SP BMBx: mild-mod fibrosis, granulomatous inflammation. AFB, fungal stains (-) - CT: Extensive thoracic, abdominal, and pelvic lymphadenopathy // HIV / AIDS, on cART ( recently changed to prezcobix, tivicay d/t genotype ) - CD4 37(5.3%) // Kaposi sarcoma // Leukopenia / pancytopenia r/o bone marrow infiltrative process - SP BMBx: mild-mod fibrosis, granulomatous inflammation. AFB, fungal stains (-) - negative/WNL: LDH, ARMIDA, CrAg, Parvovirus IgM, blastomyces, histoplasma, T- SPOT ( coccidioides indeterminant ) // Fever - resolved // Symptomatic FOBT(-) anemia SP PRBCs - denies blood loss. GI following, plan EGD/colonoscopy // ARF - improved, stable // Hypocalcemia / electrolyte imbalance // Massive splenomegaly // Thrombocytopenia // Anxiety // Elevated ESR // NKDA // Full Code PLAN: - monitor pt off of ABX for now ( 03/26 SP IV vancomycin, cefepime d# ) - continue cART ( prezcobix, tivicay - ok for pt to take own meds ), changed bactrim prophy to mepron given cytopenias - f/u AFB BCx, sputum AFB Cx - monitor CBC, temperatures - monitor BMP - transfuse prn - EGD/colonoscopy per GI Subjective Allergies: Coded Allergies: No Known Allergies (Unverified , 03/16/16) Subjective intermittent low grade fevers recurrent x1 no new complaint Objective Vital Signs Last 24 Hour Vital Signs Date Time Temp Pulse Resp B/P Pulse Ox O2 Delivery O2 Flow Rate FiO2 03/29/16 12:10 97.2 03/29/16 11:40 100.0 105 20 107/49 94 Room Air 03/29/16 08:39 98.1 114 15 98/57 99 Room Air 03/29/16 06:59 Room Air 03/29/16 06:59 114 23 Room Air 03/29/16 06:59 99 Room Air 03/29/16 05:00 110 20 114/51 99 Nasal Cannula 2.0 03/29/16 04:00 97.5 124 17 104/57 97 Room Air 03/28/16 20:00 97.4 67 17 109/64 94 Room Air 03/28/16 19:00 94 Room Air 21 03/28/16 19:00 Room Air 03/28/16 19:00 94 20 Room Air 21 03/28/16 16:00 97.9 112 20 109/73 96 Room Air Height (Feet): 5 Height (Inches): 10.00 Weight (Pounds): 165 General Appearance: no acute distress Respiratory/Chest: no respiratory distress Cardiovascular: normal rate, regular rhythm Abdomen: normal bowel sounds, soft, non tender, non distended Microbiology Date/Time Source Procedure Growth Status 03/27/16 05:40 Sputum AFB Specimen Processing Tissue - Final Resulted 03/27/16 05:40 Sputum Acid Fast Bacilli Smear - Final Resulted 03/27/16 05:40 Sputum Acid Fast Bacilli Culture Pending Resulted Laboratory Tests Test 03/29/16 05:20 White Blood Count 3.3 K/UL (4.8-10.8) L Red Blood Count 2.01 M/UL (4.70-6.10) L Hemoglobin 6.1 G/DL (14.2-18.0) *L Hematocrit 18.5 % (42.0-52.0) L Mean Corpuscular Volume 92 FL (80-99) Mean Corpuscular Hemoglobin 30.6 PG (27.0-31.0) Mean Corpuscular Hemoglobin Concent 33.2 G/DL (32.0-36.0) Red Cell Distribution Width 14.0 % (11.6-14.8) Platelet Count 21 K/UL (150-450) L Mean Platelet Volume 13.7 FL (6.5-10.1) H Neutrophils (%) (Auto) % (45.0-75.0) Lymphocytes (%) (Auto) % (20.0-45.0) Monocytes (%) (Auto) % (1.0-10.0) Eosinophils (%) (Auto) % (0.0-3.0) Basophils (%) (Auto) % (0.0-2.0) Differential Total Cells Counted 100 Neutrophils % (Manual) 67 % (45-75) Lymphocytes % (Manual) 25 % (20-45) Monocytes % (Manual) 7 % (1-10) Eosinophils % (Manual) 1 % (0-3) Basophils % (Manual) 0 % (0-2) Band Neutrophils 0 % (0-8) Platelet Estimate Decreased L Platelet Morphology Normal Hypochromasia 1+ Sodium Level 136 mEQ/L (135-145) Potassium Level 4.2 mEQ/L (3.4-4.9) Chloride Level 99 mEQ/L (98-107) Carbon Dioxide Level 24 mEQ/L (20-30) Anion Gap 13 (5-15) Blood Urea Nitrogen 52 mg/dL (7-23) H Creatinine 1.7 mg/dL (0.7-1.2) H Estimat Glomerular Filtration Rate 42.1 mL/min (>60) Glucose Level 132 mg/dL (74-106) H Calcium Level 7.7 mg/dL (8.6-10.2) L Phosphorus Level 2.5 mg/dL (2.5-4.8) Magnesium Level 1.7 mg/dL (1.7-2.5) Total Bilirubin 2.0 mg/dL (0.0-1.2) H Direct Bilirubin 1.0 mg/dL (0.1-0.3) H Aspartate Amino Transf (AST/SGOT) 18 U/L (5-40) Alanine Aminotransferase (ALT/SGPT) 13 U/L (3-41) Alkaline Phosphatase 88 U/L (40-129) C-Reactive Protein, Quantitative 6.4 mg/dL (< 0.5) H Pro-B-Type Natriuretic Peptide 1617 pg/mL (0-125) H Total Protein 5.7 g/dL (6.6-8.7) L Albumin 1.8 g/dL (3.5-5.2) L Globulin 3.9 g/dL Albumin/Globulin Ratio 0.4 (1.0-2.7) L Current Medications Medications (Trade) Dose Ordered Sig/Godwin Route PRN Reason Start Time Stop Time Status Last Admin Dose Admin Acetaminophen (Tylenol) 650 mg Q4H PRN ORAL fever 03/24/16 12:00 04/23/16 11:59 03/29/16 11:07 Atovaquone (Mepron Susp) 1,500 mg DAILY ORAL 03/25/16 09:00 04/24/16 08:59 03/29/16 08:31 Escitalopram Oxalate (Lexapro) 10 mg DAILY ORAL 03/25/16 09:00 04/24/16 08:59 03/29/16 08:30 Hydrocortisone (Solu-CORTEF) 100 mg DAILY IV 03/28/16 09:00 04/27/16 08:59 03/29/16 08:30 Lorazepam (Ativan) 0.5 mg Q6H PRN ORAL For Anxiety 03/24/16 15:30 03/31/16 15:29 03/29/16 08:30 Morphine Sulfate (Morphine Sulfate) 2 mg Q4H PRN IVP Moderate Pain (Pain Scale 4-6) 03/24/16 12:00 03/31/16 11:59 Nitroglycerin (Ntg) 0.4 mg Every 5 Minutes PRN SL Prn Chest Pain 03/24/16 11:45 04/23/16 11:44 Ondansetron HCl (Zofran) 4 mg Q6H PRN IVP Nausea & Vomiting 03/24/16 12:00 04/23/16 11:59 Pantoprazole (Protonix) 40 mg EVERY 12 HOURS ORAL 03/24/16 21:00 04/23/16 20:59 03/29/16 08:30 Patient Own Medication (Patient's Own Med) 1 ea DAILY ORAL 03/25/16 09:00 04/24/16 08:59 03/29/16 08:29 Patient Own Medication (Patient's Own Med) 1 ea DAILY ORAL 03/25/16 09:00 04/24/16 08:59 03/29/16 08:30 Polyethylene Glycol (Miralax) 17 gm DAILYPRN PRN ORAL Constipation 03/24/16 12:00 04/23/16 11:59 Temazepam (Restoril) 15 mg HSPRN PRN ORAL Insomnia 03/24/16 21:00 03/31/16 20:59 03/28/16 20:16 MANJEET GARDNER Mar 29, 2016 14:59
[2016-03-29] MEDS: DuoNeb 0.5-3(2.5)mg/3ml neb HHN PRN (20:05)
--- NOTE | 2016-03-29 22:36 | Pulmonology Progress Note ---
Assessment/Plan Problems: (1) Sepsis (2) Pneumonia (3) Anemia (4) JF (acute kidney injury) (5) HIV disease (6) Thrombocytopenia (7) Hypocalcemia (8) Splenomegaly with HIV infection (9) Kaposi sarcoma Assessment/Plan off antibiotics bone marrow biopsy reviewe, granulomatous disease?? respiratory treatment serology pending ( some) renal function improving fever resolved pt/ot Subjective ROS Limited/Unobtainable: No Interval Events: feeling better Allergies: Coded Allergies: No Known Allergies (Unverified , 03/16/16) Objective Last 24 Hour Vital Signs Date Time Temp Pulse Resp B/P Pulse Ox O2 Delivery O2 Flow Rate FiO2 03/29/16 20:13 68 20 97 Nasal Cannula 2.0 28 03/29/16 20:12 65 20 95 Nasal Cannula 2.0 28 03/29/16 19:30 95 Nasal Cannula 2.0 28 03/29/16 19:30 Nasal Cannula 2.0 28 03/29/16 19:00 99.3 100 20 118/59 100 Room Air 03/29/16 19:00 65 20 Nasal Cannula 2.0 28 03/29/16 16:00 97.3 91 20 115/71 98 Room Air 03/29/16 12:10 97.2 03/29/16 11:40 100.0 105 20 107/49 94 Room Air 03/29/16 08:39 98.1 114 15 98/57 99 Room Air 03/29/16 06:59 Room Air 03/29/16 06:59 114 23 Room Air 03/29/16 06:59 99 Room Air 03/29/16 05:00 110 20 114/51 99 Nasal Cannula 2.0 03/29/16 04:00 97.5 124 17 104/57 97 Room Air Intake and Output 03/28/16 03/29/16 19:00 07:00 Intake Total 450 ml Output Total 420 ml Balance 30 ml Intake Oral 450 ml Output Urine Total 420 ml # Voids 4 # Bowel Movements 2 Objective General Appearance: WD/WN Lines, tubes and drains: peripheral HEENT: normocephalic, atraumatic Neck: non-tender, normal alignment Respiratory/Chest: chest wall non-tender, rhonchi - left, rhonchi - right Cardiovascular/Chest: normal peripheral pulses, normal rate Abdomen: normal bowel sounds, non tender Genitourinary/Rectal: normal genital exam Extremities: normal range of motion, non-tender, normal inspection, no calf tenderness, normal capillary refill Skin Exam: normal pigmentation Neurologic: forecast analyst II-XII grossly normal Microbiology Date/Time Source Procedure Growth Status 03/27/16 05:40 Sputum AFB Specimen Processing Tissue - Final Resulted 03/27/16 05:40 Sputum Acid Fast Bacilli Smear - Final Resulted 03/27/16 05:40 Sputum Acid Fast Bacilli Culture Pending Resulted Laboratory Tests 03/29/16 05:20: White Blood Count 3.3L, Red Blood Count 2.01L, Hemoglobin 6.1*L, Hematocrit 18.5L, Mean Corpuscular Volume 92, Mean Corpuscular Hemoglobin 30.6, Mean Corpuscular Hemoglobin Concent 33.2, Red Cell Distribution Width 14.0, Platelet Count 21L, Mean Platelet Volume 13.7H, Neutrophils (%) (Auto) , Lymphocytes (%) (Auto) , Monocytes (%) (Auto) , Eosinophils (%) (Auto) , Basophils (%) (Auto) , Differential Total Cells Counted 100, Neutrophils % (Manual) 67, Lymphocytes % ( Manual) 25, Monocytes % (Manual) 7, Eosinophils % (Manual) 1, Basophils % ( Manual) 0, Band Neutrophils 0, Platelet Estimate DecreasedL, Platelet Morphology Normal, Hypochromasia 1+, Sodium Level 136, Potassium Level 4.2, Chloride Level 99, Carbon Dioxide Level 24, Anion Gap 13, Blood Urea Nitrogen 52H, Creatinine 1.7H, Estimat Glomerular Filtration Rate 42.1, Glucose Level 132H, Calcium Level 7.7L, Phosphorus Level 2.5, Magnesium Level 1.7, Total Bilirubin 2.0H, Direct Bilirubin 1.0H, Aspartate Amino Transf (AST/SGOT) 18, Alanine Aminotransferase (ALT/SGPT) 13, Alkaline Phosphatase 88, C-Reactive Protein, Quantitative 6.4H, Pro-B-Type Natriuretic Peptide 1617H, Total Protein 5.7L, Albumin 1.8L, Globulin 3.9, Albumin/Globulin Ratio 0.4L Current Medications Medications (Trade) Dose Ordered Sig/Godwin Route PRN Reason Start Time Stop Time Status Last Admin Dose Admin Acetaminophen (Tylenol) 650 mg Q4H PRN ORAL fever 03/24/16 12:00 04/23/16 11:59 03/29/16 20:47 Albuterol/ Ipratropium (DuoNeb 0.5-3(2.5)mg/3ml) 3 ml Q4HRT PRN HHN Shortness of Breath 03/29/16 19:15 04/03/16 19:14 03/29/16 20:05 Atovaquone (Mepron Susp) 1,500 mg DAILY ORAL 03/25/16 09:00 04/24/16 08:59 03/29/16 08:31 Escitalopram Oxalate (Lexapro) 10 mg DAILY ORAL 03/25/16 09:00 04/24/16 08:59 03/29/16 08:30 Hydrocortisone (Solu-CORTEF) 100 mg DAILY IV 03/28/16 09:00 04/27/16 08:59 03/29/16 08:30 Lorazepam (Ativan) 0.5 mg Q6H PRN ORAL For Anxiety 03/24/16 15:30 03/31/16 15:29 03/29/16 18:16 Morphine Sulfate (Morphine Sulfate) 2 mg Q4H PRN IVP Moderate Pain (Pain Scale 4-6) 03/24/16 12:00 03/31/16 11:59 Nitroglycerin (Ntg) 0.4 mg Every 5 Minutes PRN SL Prn Chest Pain 03/24/16 11:45 04/23/16 11:44 Ondansetron HCl (Zofran) 4 mg Q6H PRN IVP Nausea & Vomiting 03/24/16 12:00 04/23/16 11:59 Pantoprazole (Protonix) 40 mg EVERY 12 HOURS ORAL 03/24/16 21:00 04/23/16 20:59 03/29/16 20:47 Patient Own Medication (Patient's Own Med) 1 ea DAILY ORAL 03/25/16 09:00 04/24/16 08:59 03/29/16 08:29 Patient Own Medication (Patient's Own Med) 1 ea DAILY ORAL 03/25/16 09:00 04/24/16 08:59 03/29/16 08:30 Polyethylene Glycol (Miralax) 17 gm DAILYPRN PRN ORAL Constipation 03/24/16 12:00 04/23/16 11:59 Temazepam (Restoril) 15 mg HSPRN PRN ORAL Insomnia 03/24/16 21:00 03/31/16 20:59 03/28/16 20:16 MARIA ISABEL SZYMANSKI Mar 29, 2016 22:36
[2016-03-30 04:00] VITALS: BP 117/85
[2016-03-30 07:03] LABS: MEAN CORPUSCULAR HGB CONC 33.9 G/DL (32.0-36.0); MEAN CORPUSCULAR VOLUME 91 FL (80-99); MEAN PLATELET VOLUME 15.2 FL (6.5-10.1); PLATELET COUNT 14 K/UL (150-450); RED BLOOD COUNT 2.54 M/UL (4.70-6.10); RED CELL DISTRIBUTION WIDTH 14.5 % (11.6-14.8); WHITE BLOOD COUNT 3.8 K/UL (4.8-10.8)
[2016-03-30 07:44] LABS: CALCIUM 7.9 mg/dL (8.6-10.2); CREATININE 1.5 mg/dL (0.7-1.2); GLOMERULAR FILTRATION RATE 48.6 mL/min (>60); POTASSIUM 4.3 mEQ/L (3.4-4.9)
[2016-03-30 08:35] VITALS: BP 104/54
[2016-03-30] MEDS: PREZCOBIX ORAL SCH (09:03)
[2016-03-30] MEDS: Atovaquone 750mg/5ml Susp ORAL SCH (09:03)
[2016-03-30] MEDS: Hydrocortisone 100mg Inj IV SCH (09:08)
--- NOTE | 2016-03-30 09:53 | General Progress Note ---
Assessment/Plan Status: stable Status Narrative Cr 1.5 Assessment/Plan Acute renal failure, multifactorial ( sepsis, HIV , Vanco...) PreRenal superimposed on Renal HypoNatremia Cr 2.8 down to 1.7 PanCytopenia Sepsis, Diarrhea, HIV , Kaposi's Pneumonia Hypocalcemia, electrolyte imbalance Anemia in chronic illness, symptomatic Hypokalemia on admit now K elevated JF (acute kidney injury) Thrombocytopenia, massive splenomegali CAP (community acquired pneumonia) Plan: Transfused yesterday Antibiotics per ID Urine studies- noted Cortisol levels- 15 Monitor renal parameters and lytes- Avoid Nephrotoxics Monitor Urine out put Protonix Transfuse decrease stress dose of steroids? Subjective ROS Limited/Unobtainable: No Constitutional: Reports: malaise Allergies: Coded Allergies: No Known Allergies (Unverified , 03/16/16) Objective Last 24 Hour Vital Signs Date Time Temp Pulse Resp B/P Pulse Ox O2 Delivery O2 Flow Rate FiO2 03/30/16 08:35 98.6 108 20 104/54 100 Nasal Cannula 2.0 03/30/16 04:00 97.9 67 20 117/85 97 Room Air 03/29/16 23:53 98.8 72 20 126/67 97 Room Air 03/29/16 21:46 98.6 03/29/16 20:13 68 20 97 Nasal Cannula 2.0 28 03/29/16 20:12 65 20 95 Nasal Cannula 2.0 28 03/29/16 19:30 95 Nasal Cannula 2.0 28 03/29/16 19:30 Nasal Cannula 2.0 28 03/29/16 19:00 99.3 100 20 118/59 100 Room Air 03/29/16 19:00 65 20 Nasal Cannula 2.0 28 03/29/16 16:00 97.3 91 20 115/71 98 Room Air 03/29/16 11:40 100.0 105 20 107/49 94 Room Air Intake and Output 03/29/16 03/30/16 19:00 07:00 Intake Total 1000 ml 240 ml Output Total 300 ml 500 ml Balance 700 ml -260 ml Intake Oral 1000 ml 240 ml Output Urine Total 300 ml 500 ml # Voids 4 Laboratory Tests 03/30/16 05:50: White Blood Count 3.8L, Red Blood Count 2.54L, Hemoglobin 7.9L, Hematocrit 23.2L , Mean Corpuscular Volume 91, Mean Corpuscular Hemoglobin 31.0, Mean Corpuscular Hemoglobin Concent 33.9, Red Cell Distribution Width 14.5, Platelet Count 14L, Mean Platelet Volume 15.2H, Neutrophils (%) (Auto) , Lymphocytes (%) (Auto) , Monocytes (%) (Auto) , Eosinophils (%) (Auto) , Basophils (%) (Auto) , Neutrophils % (Manual) [Pending], Lymphocytes % (Manual) [Pending], Platelet Estimate [Pending], Platelet Morphology [Pending], Sodium Level 136, Potassium Level 4.3, Chloride Level 99, Carbon Dioxide Level 25, Anion Gap 12, Blood Urea Nitrogen 45H, Creatinine 1.5H, Estimat Glomerular Filtration Rate 48.6, Glucose Level 124H, Calcium Level 7.9L, Angiotensin Converting Enzyme [Pending] Height (Feet): 5 Height (Inches): 10.00 Weight (Pounds): 165 General Appearance: no apparent distress Objective other PE not changed DEREK SMITH Mar 30, 2016 09:53
--- NOTE | 2016-03-30 10:40 | GI Progress Note ---
Assessment/Plan Problems: (1) Diarrhea ICD Codes: R19.7 - Diarrhea, unspecified SNOMED: 90921707 (2) Splenomegaly with HIV infection ICD Codes: B20 - Human immunodeficiency virus [HIV] disease; R16.1 - Splenomegaly, not elsewhere classified SNOMED: 549693149 (3) Anemia ICD Codes: D64.9 - Anemia, unspecified SNOMED: 269343812 Qualifiers: Qualified Codes: D64.9 - Anemia, unspecified (4) Thrombocytopenia ICD Codes: D69.6 - Thrombocytopenia, unspecified SNOMED: 768838808 (5) HIV disease ICD Codes: B20 - Human immunodeficiency virus [HIV] disease SNOMED: 18644037 (6) Episode of generalized weakness ICD Codes: R53.1 - Weakness SNOMED: 21640521 Status: unchanged Status Narrative Discussed with Dr. Epps. Assessment/Plan Assessment - Anemia - Thrombocytopenia - HIV - Diarrhea >> cdiff negative - r/o TB - s/p bone biopsy >> GRAM STAIN RESULTS. RARE WHITE BLOOD CELLS. NO ORGANISMS SEEN. - Stool w.u >> negative - O&P negative - OB stool negative x 3 Recommendations - monitor H&H, transfuse prn >> 2 units - airborne isolation - EGD/Colon when stable - APCT reviewed - ppi - fu labs Subjective Subjective denies any abdominal pain/diarrhea/constipation BM this morning, (no reports of blood or dark stools per RN) Objective Last 24 Hour Vital Signs Date Time Temp Pulse Resp B/P Pulse Ox O2 Delivery O2 Flow Rate FiO2 03/30/16 09:25 Nasal Cannula 2.0 28 03/30/16 09:25 96 Nasal Cannula 2.0 28 03/30/16 09:25 72 20 Nasal Cannula 2.0 28 03/30/16 08:35 98.6 108 20 104/54 100 Nasal Cannula 2.0 03/30/16 04:00 97.9 67 20 117/85 97 Room Air 03/29/16 23:53 98.8 72 20 126/67 97 Room Air 03/29/16 21:46 98.6 03/29/16 20:13 68 20 97 Nasal Cannula 2.0 28 03/29/16 20:12 65 20 95 Nasal Cannula 2.0 28 03/29/16 19:30 95 Nasal Cannula 2.0 28 03/29/16 19:30 Nasal Cannula 2.0 28 03/29/16 19:00 99.3 100 20 118/59 100 Room Air 03/29/16 19:00 65 20 Nasal Cannula 2.0 28 03/29/16 16:00 97.3 91 20 115/71 98 Room Air 03/29/16 11:40 100.0 105 20 107/49 94 Room Air Intake and Output 03/29/16 03/30/16 19:00 07:00 Intake Total 1000 ml 240 ml Output Total 300 ml 500 ml Balance 700 ml -260 ml Intake Oral 1000 ml 240 ml Output Urine Total 300 ml 500 ml # Voids 4 Laboratory Tests Test 03/30/16 05:50 White Blood Count 3.8 K/UL (4.8-10.8) L Red Blood Count 2.54 M/UL (4.70-6.10) L Hemoglobin 7.9 G/DL (14.2-18.0) L Hematocrit 23.2 % (42.0-52.0) L Mean Corpuscular Volume 91 FL (80-99) Mean Corpuscular Hemoglobin 31.0 PG (27.0-31.0) Mean Corpuscular Hemoglobin Concent 33.9 G/DL (32.0-36.0) Red Cell Distribution Width 14.5 % (11.6-14.8) Platelet Count 14 K/UL (150-450) L Mean Platelet Volume 15.2 FL (6.5-10.1) H Neutrophils (%) (Auto) % (45.0-75.0) Lymphocytes (%) (Auto) % (20.0-45.0) Monocytes (%) (Auto) % (1.0-10.0) Eosinophils (%) (Auto) % (0.0-3.0) Basophils (%) (Auto) % (0.0-2.0) Neutrophils % (Manual) Pending Lymphocytes % (Manual) Pending Platelet Estimate Pending Platelet Morphology Pending Sodium Level 136 mEQ/L (135-145) Potassium Level 4.3 mEQ/L (3.4-4.9) Chloride Level 99 mEQ/L (98-107) Carbon Dioxide Level 25 mEQ/L (20-30) Anion Gap 12 (5-15) Blood Urea Nitrogen 45 mg/dL (7-23) H Creatinine 1.5 mg/dL (0.7-1.2) H Estimat Glomerular Filtration Rate 48.6 mL/min (>60) Glucose Level 124 mg/dL (74-106) H Calcium Level 7.9 mg/dL (8.6-10.2) L Angiotensin Converting Enzyme Pending Height (Feet): 5 Height (Inches): 10.00 Weight (Pounds): 165 General Appearance: no apparent distress, alert Cardiovascular: normal rate Respiratory/Chest: normal breath sounds, no respiratory distress Abdominal Exam: normal bowel sounds, non tender, soft Extremities: normal range of motion Objective Procedure: CT CHEST Abdomen Pelvis WO Con Indication: ABN LABS Impression: Splenomegaly Extensive thoracic, abdominal, and pelvic lymphadenopathy, as detailed above. This is nonspecific, likely related to stated clinical history of HIV. May indicate reactive, inflammatory, infectious adenopathy, or a lymphoproliferative disorder. Correlate with clinical history and findings Evidence of predominantly upper lobe pulmonary interstitial disease, as described, predominant findings being interstitial septal thickening and bronchial wall thickening. While the differential for this is quite broad, given the history of HIV positivity the possibility of lymphocytic interstitial pneumonitis should be considered Multiple sub-5 mm parenchymal nodules seen throughout the left lung. Possibly related to the above. If there are significant risk factors for lung carcinoma, however, short interval followup CT at 6-12 months should be considered. Bilateral basilar pulmonary parenchymal atelectatic changes and possibly some consolidation Small bilateral pleural effusions Nonspecific bilateral perinephric fat stranding Genesis Keller N.P. Mar 30, 2016 10:40
[2016-03-30] MEDS ORDERED: CHLORPROMAZINE IM PRN (10:45)
[2016-03-30 11:34] LABS: BAND NEUTROPHILS % (MANUAL) 1 % (0-8); BASOPHILS % (MANUAL) 0 % (0-2); EOSINOPHILS % (MANUAL) 0 % (0-3); LYMPHOCYTES % (MANUAL) 21 % (20-45); NEUTROPHILS % (MANUAL) 74 % (45-75); PLATELET ESTIMATE DECREASED; PLATELET MORPHOLOGY NORMAL; TOTAL CELLS COUNTED 100
[2016-03-30 11:55] VITALS: BP 113/62
--- NOTE | 2016-03-30 14:21 | Infectious Diseases Prog Note ---
Assessment/Plan Assessment/Plan ASSESSMENT: 55 y/o male with: // Bone marrow Cx <1+ S.epidermidis = contaminant // Probable sepsis r/o opportunistic infection - cultures NGTD - negative: coccidioides, histoplasma, blastomyces, CrAg, T-SPOT, ( coccidioides indeterminant ) // Diarrhea r/o infectious - improved - negative: giardia, O&P, stool Cx // Possible PNA r/o TB, NTM, fungal, lymphocytic interstitial pneumonitis - sputum AFB smear(-) x3, Cx NGTD, T-SPOT(-), TB PCR(-) - CXR 03/29: interim resolution of previously demonstrated right lower lobe infiltrate. Possible small left pleural effusion - CT: predominantly upper lobe pulmonary interstitial disease, possible lymphocytic interstitial pneumonitis. Multiple sub-5 mm parenchymal nodules seen throughout the left lung. Bilateral basilar pulmonary parenchymal atelectatic changes and possibly some consolidation. Small bilateral pleural effusions - negative/WNL: LDH, CrAg, blastomyces, histoplasma, ( coccidioides indeterminant ) // Diffuse LAD - SP BMBx: mild-mod fibrosis, granulomatous inflammation. AFB, fungal stains (-) - CT: Extensive thoracic, abdominal, and pelvic lymphadenopathy // HIV / AIDS, on cART ( recently changed to prezcobix, tivicay d/t genotype ) - CD4 37(5.3%) // Kaposi sarcoma // Leukopenia / pancytopenia r/o bone marrow infiltrative process - SP BMBx: mild-mod fibrosis, granulomatous inflammation. AFB, fungal stains (-) - negative/WNL: LDH, ARMIDA, CrAg, Parvovirus IgM, blastomyces, histoplasma, T- SPOT ( coccidioides indeterminant ) // Fever - resolved // Symptomatic FOBT(-) anemia SP PRBCs - denies blood loss. GI following, plan EGD/colonoscopy // ARF - improved, stable // Hypocalcemia / electrolyte imbalance // Massive splenomegaly // Thrombocytopenia // Anxiety // Elevated ESR // NKDA // Full Code PLAN: - monitor pt off of ABX for now ( 03/26 SP IV vancomycin, cefepime d# ) - continue cART ( prezcobix, tivicay - ok for pt to take own meds ), changed bactrim prophy to mepron given cytopenias - f/u AFB BCx, sputum AFB Cx - monitor CBC, temperatures - monitor BMP - transfuse prn - EGD/colonoscopy per GI Subjective Allergies: Coded Allergies: No Known Allergies (Unverified , 03/16/16) Subjective intermittent low grade fevers recurrent x1 no new complaint Objective Vital Signs Last 24 Hour Vital Signs Date Time Temp Pulse Resp B/P Pulse Ox O2 Delivery O2 Flow Rate FiO2 03/30/16 11:55 98.2 100 21 113/62 99 Nasal Cannula 2.0 03/30/16 09:25 Nasal Cannula 2.0 28 03/30/16 09:25 96 Nasal Cannula 2.0 28 03/30/16 09:25 72 20 Nasal Cannula 2.0 28 03/30/16 08:35 98.6 108 20 104/54 100 Nasal Cannula 2.0 03/30/16 04:00 97.9 67 20 117/85 97 Room Air 03/29/16 23:53 98.8 72 20 126/67 97 Room Air 03/29/16 21:46 98.6 03/29/16 20:13 68 20 97 Nasal Cannula 2.0 28 03/29/16 20:12 65 20 95 Nasal Cannula 2.0 28 03/29/16 19:30 95 Nasal Cannula 2.0 28 03/29/16 19:30 Nasal Cannula 2.0 28 03/29/16 19:00 99.3 100 20 118/59 100 Room Air 03/29/16 19:00 65 20 Nasal Cannula 2.0 28 03/29/16 16:00 97.3 91 20 115/71 98 Room Air Height (Feet): 5 Height (Inches): 10.00 Weight (Pounds): 165 General Appearance: no acute distress Respiratory/Chest: no respiratory distress Cardiovascular: normal rate, regular rhythm Abdomen: normal bowel sounds, soft, non tender, non distended Laboratory Tests Test 03/30/16 05:50 White Blood Count 3.8 K/UL (4.8-10.8) L Red Blood Count 2.54 M/UL (4.70-6.10) L Hemoglobin 7.9 G/DL (14.2-18.0) L Hematocrit 23.2 % (42.0-52.0) L Mean Corpuscular Volume 91 FL (80-99) Mean Corpuscular Hemoglobin 31.0 PG (27.0-31.0) Mean Corpuscular Hemoglobin Concent 33.9 G/DL (32.0-36.0) Red Cell Distribution Width 14.5 % (11.6-14.8) Platelet Count 14 K/UL (150-450) L Mean Platelet Volume 15.2 FL (6.5-10.1) H Neutrophils (%) (Auto) % (45.0-75.0) Lymphocytes (%) (Auto) % (20.0-45.0) Monocytes (%) (Auto) % (1.0-10.0) Eosinophils (%) (Auto) % (0.0-3.0) Basophils (%) (Auto) % (0.0-2.0) Differential Total Cells Counted 100 Neutrophils % (Manual) 74 % (45-75) Lymphocytes % (Manual) 21 % (20-45) Monocytes % (Manual) 4 % (1-10) Eosinophils % (Manual) 0 % (0-3) Basophils % (Manual) 0 % (0-2) Band Neutrophils 1 % (0-8) Platelet Estimate Decreased L Platelet Morphology Normal Red Blood Cell Morphology Normal Basophilic Stippling Occasional Sodium Level 136 mEQ/L (135-145) Potassium Level 4.3 mEQ/L (3.4-4.9) Chloride Level 99 mEQ/L (98-107) Carbon Dioxide Level 25 mEQ/L (20-30) Anion Gap 12 (5-15) Blood Urea Nitrogen 45 mg/dL (7-23) H Creatinine 1.5 mg/dL (0.7-1.2) H Estimat Glomerular Filtration Rate 48.6 mL/min (>60) Glucose Level 124 mg/dL (74-106) H Calcium Level 7.9 mg/dL (8.6-10.2) L Angiotensin Converting Enzyme Pending Current Medications Medications (Trade) Dose Ordered Sig/Godwin Route PRN Reason Start Time Stop Time Status Last Admin Dose Admin Acetaminophen (Tylenol) 650 mg Q4H PRN ORAL fever 03/24/16 12:00 04/23/16 11:59 03/29/16 20:47 Albuterol/ Ipratropium (DuoNeb 0.5-3(2.5)mg/3ml) 3 ml Q4HRT PRN HHN Shortness of Breath 03/29/16 19:15 04/03/16 19:14 03/29/16 20:05 Atovaquone (Mepron Susp) 1,500 mg DAILY ORAL 03/25/16 09:00 04/24/16 08:59 03/30/16 09:03 Chlorpromazine (Thorazine) 25 mg Q6H PRN IM HICCUPS 03/30/16 10:45 04/29/16 10:44 Escitalopram Oxalate (Lexapro) 10 mg DAILY ORAL 03/25/16 09:00 04/24/16 08:59 03/30/16 09:03 Hydrocortisone (Solu-CORTEF) 100 mg DAILY IV 03/28/16 09:00 04/27/16 08:59 03/30/16 09:08 Lorazepam (Ativan) 0.5 mg Q6H PRN ORAL For Anxiety 03/24/16 15:30 03/31/16 15:29 03/29/16 18:16 Morphine Sulfate (Morphine Sulfate) 2 mg Q4H PRN IVP Moderate Pain (Pain Scale 4-6) 03/24/16 12:00 03/31/16 11:59 Nitroglycerin (Ntg) 0.4 mg Every 5 Minutes PRN SL Prn Chest Pain 03/24/16 11:45 04/23/16 11:44 Ondansetron HCl (Zofran) 4 mg Q6H PRN IVP Nausea & Vomiting 03/24/16 12:00 04/23/16 11:59 Pantoprazole (Protonix) 40 mg EVERY 12 HOURS ORAL 03/24/16 21:00 04/23/16 20:59 03/30/16 09:03 Patient Own Medication (Patient's Own Med) 1 ea DAILY ORAL 03/25/16 09:00 04/24/16 08:59 03/30/16 09:03 Patient Own Medication (Patient's Own Med) 1 ea DAILY ORAL 03/25/16 09:00 04/24/16 08:59 03/30/16 09:03 Polyethylene Glycol (Miralax) 17 gm DAILYPRN PRN ORAL Constipation 03/24/16 12:00 04/23/16 11:59 Temazepam (Restoril) 15 mg HSPRN PRN ORAL Insomnia 03/24/16 21:00 03/31/16 20:59 03/29/16 23:27 MANJEET GARDNER Mar 30, 2016 14:21
--- NOTE | 2016-03-30 15:51 | Pulmonology Progress Note ---
Assessment/Plan Problems: (1) Sepsis (2) Pneumonia (3) Anemia (4) JF (acute kidney injury) (5) HIV disease (6) Thrombocytopenia (7) Hypocalcemia (8) Splenomegaly with HIV infection (9) Kaposi sarcoma Assessment/Plan off antibiotics bone marrow biopsy reviewe, granulomatous disease?? respiratory treatment serology pending ( some) renal function improving fever resolved pt/ot CT abdomen/ pelvis ordered for am Subjective ROS Limited/Unobtainable: No Interval Events: doing better, wants to be discharged Allergies: Coded Allergies: No Known Allergies (Unverified , 03/16/16) Objective Last 24 Hour Vital Signs Date Time Temp Pulse Resp B/P Pulse Ox O2 Delivery O2 Flow Rate FiO2 03/30/16 11:55 98.2 100 21 113/62 99 Nasal Cannula 2.0 03/30/16 09:25 Nasal Cannula 2.0 28 03/30/16 09:25 96 Nasal Cannula 2.0 28 03/30/16 09:25 72 20 Nasal Cannula 2.0 28 03/30/16 08:35 98.6 108 20 104/54 100 Nasal Cannula 2.0 03/30/16 04:00 97.9 67 20 117/85 97 Room Air 03/29/16 23:53 98.8 72 20 126/67 97 Room Air 03/29/16 21:46 98.6 03/29/16 20:13 68 20 97 Nasal Cannula 2.0 03/29/16 20:12 65 20 95 Nasal Cannula 2.0 28 03/29/16 19:30 95 Nasal Cannula 2.0 28 03/29/16 19:30 Nasal Cannula 2.0 28 03/29/16 19:00 99.3 100 20 118/59 100 Room Air 03/29/16 19:00 65 20 Nasal Cannula 2.0 28 03/29/16 16:00 97.3 91 20 115/71 98 Room Air Intake and Output 03/29/16 03/30/16 19:00 07:00 Intake Total 1000 ml 240 ml Output Total 300 ml 500 ml Balance 700 ml -260 ml Intake Oral 1000 ml 240 ml Output Urine Total 300 ml 500 ml # Voids 4 Objective General Appearance: WD/WN Lines, tubes and drains: peripheral HEENT: normocephalic, atraumatic Neck: non-tender, normal alignment Respiratory/Chest: chest wall non-tender, rhonchi - left, rhonchi - right Cardiovascular/Chest: normal peripheral pulses, normal rate Abdomen: normal bowel sounds, non tender Genitourinary/Rectal: normal genital exam Extremities: normal range of motion, non-tender, normal inspection, no calf tenderness, normal capillary refill Skin Exam: normal pigmentation Neurologic: director of programming II-XII grossly normal General Appearance: WD/WN HEENT: normocephalic Respiratory/Chest: chest wall non-tender, lungs clear Cardiovascular: normal peripheral pulses, normal rate Abdomen: normal bowel sounds, soft, non tender Genitourinary: normal external genitalia Extremities: no cyanosis, no clubbing Skin: no lesions, no ulcers 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: director of programming II-XII grossly normal Lymphatic: no neck adenopathy Laboratory Tests 03/30/16 05:50: White Blood Count 3.8L, Red Blood Count 2.54L, Hemoglobin 7.9L, Hematocrit 23.2L , Mean Corpuscular Volume 91, Mean Corpuscular Hemoglobin 31.0, Mean Corpuscular Hemoglobin Concent 33.9, Red Cell Distribution Width 14.5, Platelet Count 14L, Mean Platelet Volume 15.2H, Neutrophils (%) (Auto) , Lymphocytes (%) (Auto) , Monocytes (%) (Auto) , Eosinophils (%) (Auto) , Basophils (%) (Auto) , Differential Total Cells Counted 100, Neutrophils % (Manual) 74, Lymphocytes % ( Manual) 21, Monocytes % (Manual) 4, Eosinophils % (Manual) 0, Basophils % ( Manual) 0, Band Neutrophils 1, Platelet Estimate DecreasedL, Platelet Morphology Normal, Red Blood Cell Morphology Normal, Basophilic Stippling Occasional, Sodium Level 136, Potassium Level 4.3, Chloride Level 99, Carbon Dioxide Level 25, Anion Gap 12, Blood Urea Nitrogen 45H, Creatinine 1.5H, Estimat Glomerular Filtration Rate 48.6, Glucose Level 124H, Calcium Level 7.9L , Angiotensin Converting Enzyme [Pending] Current Medications Medications (Trade) Dose Ordered Sig/Godwin Route PRN Reason Start Time Stop Time Status Last Admin Dose Admin Acetaminophen (Tylenol) 650 mg Q4H PRN ORAL fever 03/24/16 12:00 04/23/16 11:59 03/29/16 20:47 Albuterol/ Ipratropium (DuoNeb 0.5-3(2.5)mg/3ml) 3 ml Q4HRT PRN HHN Shortness of Breath 03/29/16 19:15 04/03/16 19:14 03/29/16 20:05 Atovaquone (Mepron Susp) 1,500 mg DAILY ORAL 03/25/16 09:00 04/24/16 08:59 03/30/16 09:03 Chlorpromazine (Thorazine) 25 mg Q6H PRN IM HICCUPS 03/30/16 15:15 04/29/16 10:44 Escitalopram Oxalate (Lexapro) 10 mg DAILY ORAL 03/25/16 09:00 04/24/16 08:59 03/30/16 09:03 Hydrocortisone (Solu-CORTEF) 100 mg DAILY IV 03/28/16 09:00 04/27/16 08:59 03/30/16 09:08 Lorazepam (Ativan) 0.5 mg Q6H PRN ORAL For Anxiety 03/24/16 15:30 03/31/16 15:29 03/29/16 18:16 Morphine Sulfate (Morphine Sulfate) 2 mg Q4H PRN IVP Moderate Pain (Pain Scale 4-6) 03/24/16 12:00 03/31/16 11:59 Nitroglycerin (Ntg) 0.4 mg Every 5 Minutes PRN SL Prn Chest Pain 03/24/16 11:45 04/23/16 11:44 Ondansetron HCl (Zofran) 4 mg Q6H PRN IVP Nausea & Vomiting 03/24/16 12:00 04/23/16 11:59 Pantoprazole (Protonix) 40 mg EVERY 12 HOURS ORAL 03/24/16 21:00 04/23/16 20:59 03/30/16 09:03 Patient Own Medication (Patient's Own Med) 1 ea DAILY ORAL 03/25/16 09:00 04/24/16 08:59 03/30/16 09:03 Patient Own Medication (Patient's Own Med) 1 ea DAILY ORAL 03/25/16 09:00 04/24/16 08:59 03/30/16 09:03 Polyethylene Glycol (Miralax) 17 gm DAILYPRN PRN ORAL Constipation 03/24/16 12:00 04/23/16 11:59 Temazepam (Restoril) 15 mg HSPRN PRN ORAL Insomnia 03/24/16 21:00 03/31/16 20:59 03/29/16 23:27 MARIA ISABEL SZYMANSKI Mar 30, 2016 15:51
[2016-03-30 16:00] VITALS: BP 113/62
[2016-03-30 19:00] VITALS: BP 110/52
[2016-03-31] VITALS: BP 102/51
[2016-03-31 04:00] VITALS: BP 116/60
[2016-03-31 05:55] LABS: MEAN CORPUSCULAR HEMOGLOBIN 30.9 PG (27.0-31.0); MEAN CORPUSCULAR HGB CONC 33.4 G/DL (32.0-36.0); MEAN CORPUSCULAR VOLUME 93 FL (80-99); MEAN PLATELET VOLUME 10.8 FL (6.5-10.1); PLATELET COUNT 13 K/UL (150-450); RED BLOOD COUNT 2.19 M/UL (4.70-6.10); RED CELL DISTRIBUTION WIDTH 15.1 % (11.6-14.8); WHITE BLOOD COUNT 2.5 K/UL (4.8-10.8)
[2016-03-31 06:17] LABS: CREATININE 1.5 mg/dL (0.7-1.2); GLOMERULAR FILTRATION RATE 48.6 mL/min (>60)
[2016-03-31 07:25] LABS: ANISOCYTOSIS 1+; BAND NEUTROPHILS % (MANUAL) 0 % (0-8); BASOPHILS % (MANUAL) 0 % (0-2); EOSINOPHILS % (MANUAL) 0 % (0-3); HYPOCHROMASIA 3+; LYMPHOCYTES % (MANUAL) 28 % (20-45); NEUTROPHILS % (MANUAL) 64 % (45-75); PLATELET ESTIMATE DECREASED; PLATELET MORPHOLOGY NORMAL; TOTAL CELLS COUNTED 100
[2016-03-31 08:16] VITALS: BP 108/56
[2016-03-31] MEDS: PREZCOBIX ORAL SCH (09:53)
[2016-03-31] MEDS: Hydrocortisone 100mg Inj IV SCH (09:54)
[2016-03-31] MEDS: Atovaquone 750mg/5ml Susp ORAL SCH (09:54)
--- NOTE | 2016-03-31 09:55 | General Progress Note ---
Assessment/Plan Status: stable - from renal stand Status Narrative Cr stable , Hgb again dropped Assessment/Plan Acute renal failure, multifactorial ( sepsis, HIV , Vanco...) PreRenal superimposed on Renal HypoNatremia Cr 2.8 down to 1.7 PanCytopenia Sepsis, Diarrhea, HIV , Kaposi's Pneumonia Hypocalcemia, electrolyte imbalance Anemia in chronic illness, symptomatic Hypokalemia on admit now K elevated JF (acute kidney injury) Thrombocytopenia, massive splenomegali CAP (community acquired pneumonia) Plan: Transfused yesterday Antibiotics per ID Urine studies- noted Cortisol levels- 15 Monitor renal parameters and lytes- Avoid Nephrotoxics Monitor Urine out put Protonix Transfuse decrease stress dose of steroids? Subjective ROS Limited/Unobtainable: No Constitutional: Reports: malaise, weakness Allergies: Coded Allergies: No Known Allergies (Unverified , 03/16/16) Objective Last 24 Hour Vital Signs Date Time Temp Pulse Resp B/P Pulse Ox O2 Delivery O2 Flow Rate FiO2 03/31/16 08:16 98.1 110 20 108/56 97 Nasal Cannula 2.0 03/31/16 07:39 98 Nasal Cannula 2.0 28 03/31/16 07:39 Nasal Cannula 2.0 28 03/31/16 07:38 117 20 Room Air 21 03/31/16 04:00 98.4 108 20 116/60 100 03/31/16 00:00 100.0 123 18 102/51 99 Nasal Cannula 03/30/16 19:00 Room Air 03/30/16 19:00 98.2 100 20 110/52 95 Room Air 03/30/16 19:00 100 Room Air 21 03/30/16 19:00 95 20 Room Air 21 03/30/16 16:00 97.7 100 20 113/62 100 Room Air 03/30/16 11:55 98.2 100 21 113/62 99 Nasal Cannula 2.0 Intake and Output 03/30/16 03/31/16 19:00 07:00 Intake Total 520 ml 320 ml Output Total 500 ml 600 ml Balance 20 ml -280 ml Intake Oral 520 ml 320 ml Output Urine Total 500 ml 600 ml # Voids 5 # Bowel Movements 1 Laboratory Tests 03/31/16 04:20: White Blood Count 2.5L, Red Blood Count 2.19L, Hemoglobin 6.8*L, Hematocrit 20.3L, Mean Corpuscular Volume 93, Mean Corpuscular Hemoglobin 30.9, Mean Corpuscular Hemoglobin Concent 33.4, Red Cell Distribution Width 15.1H, Platelet Count 13L, Mean Platelet Volume 10.8H, Neutrophils (%) (Auto) , Lymphocytes (%) (Auto) , Monocytes (%) (Auto) , Eosinophils (%) (Auto) , Basophils (%) (Auto) , Differential Total Cells Counted 100, Neutrophils % ( Manual) 64, Lymphocytes % (Manual) 28, Monocytes % (Manual) 8, Eosinophils % ( Manual) 0, Basophils % (Manual) 0, Band Neutrophils 0, Platelet Estimate DecreasedL, Platelet Morphology Normal, Hypochromasia 3+, Anisocytosis 1+, Sodium Level 135, Potassium Level 4.0, Chloride Level 100, Carbon Dioxide Level 26, Anion Gap 9, Blood Urea Nitrogen 41H, Creatinine 1.5H, Estimat Glomerular Filtration Rate 48.6, Glucose Level 122H, Calcium Level 8.0L Height (Feet): 5 Height (Inches): 10.00 Weight (Pounds): 165 General Appearance: no apparent distress Cardiovascular: tachycardia Respiratory/Chest: decreased breath sounds Objective other PE not changed DEREK SMITH Mar 31, 2016 09:55
[2016-03-31] MEDS: LORazepam 0.5mg tab ORAL PRN (10:22)
--- NOTE | 2016-03-31 10:42 | GI Progress Note ---
Assessment/Plan Problems: (1) Diarrhea ICD Codes: R19.7 - Diarrhea, unspecified SNOMED: 80597135 (2) Splenomegaly with HIV infection ICD Codes: B20 - Human immunodeficiency virus [HIV] disease; R16.1 - Splenomegaly, not elsewhere classified SNOMED: 133430307 (3) Anemia ICD Codes: D64.9 - Anemia, unspecified SNOMED: 859240392 Qualifiers: Qualified Codes: D64.9 - Anemia, unspecified (4) Thrombocytopenia ICD Codes: D69.6 - Thrombocytopenia, unspecified SNOMED: 762771597 (5) HIV disease ICD Codes: B20 - Human immunodeficiency virus [HIV] disease SNOMED: 00385832 (6) Episode of generalized weakness ICD Codes: R53.1 - Weakness SNOMED: 41011199 Status: unchanged Status Narrative Discussed with Dr. Epps. Assessment/Plan Assessment - Anemia - Thrombocytopenia - HIV - Diarrhea >> cdiff negative - r/o TB - s/p bone biopsy >> GRAM STAIN RESULTS. RARE WHITE BLOOD CELLS. NO ORGANISMS SEEN. - Stool w.u >> negative - O&P negative - OB stool negative x 3 - airborne isolation off Recommendations - monitor H&H, transfuse prn - fu APCT r/o retroperitoneal bleed - EGD/Colon when stable - ppi - fu labs - repeat iron levels Subjective Subjective denies any abdominal pain/diarrhea/constipation BM last night abdominal bloating fatigue Objective Last 24 Hour Vital Signs Date Time Temp Pulse Resp B/P Pulse Ox O2 Delivery O2 Flow Rate FiO2 03/31/16 08:16 98.1 110 20 108/56 97 Nasal Cannula 2.0 03/31/16 07:39 98 Nasal Cannula 2.0 28 03/31/16 07:39 Nasal Cannula 2.0 28 03/31/16 07:38 117 20 Room Air 21 03/31/16 04:00 98.4 108 20 116/60 100 03/31/16 00:00 100.0 123 18 102/51 99 Nasal Cannula 03/30/16 19:00 Room Air 03/30/16 19:00 98.2 100 20 110/52 95 Room Air 03/30/16 19:00 100 Room Air 21 03/30/16 19:00 95 20 Room Air 21 03/30/16 16:00 97.7 100 20 113/62 100 Room Air 03/30/16 11:55 98.2 100 21 113/62 99 Nasal Cannula 2.0 Intake and Output 03/30/16 03/31/16 19:00 07:00 Intake Total 520 ml 320 ml Output Total 500 ml 600 ml Balance 20 ml -280 ml Intake Oral 520 ml 320 ml Output Urine Total 500 ml 600 ml # Voids 5 # Bowel Movements 1 Laboratory Tests Test 03/31/16 04:20 White Blood Count 2.5 K/UL (4.8-10.8) L Red Blood Count 2.19 M/UL (4.70-6.10) L Hemoglobin 6.8 G/DL (14.2-18.0) *L Hematocrit 20.3 % (42.0-52.0) L Mean Corpuscular Volume 93 FL (80-99) Mean Corpuscular Hemoglobin 30.9 PG (27.0-31.0) Mean Corpuscular Hemoglobin Concent 33.4 G/DL (32.0-36.0) Red Cell Distribution Width 15.1 % (11.6-14.8) H Platelet Count 13 K/UL (150-450) L Mean Platelet Volume 10.8 FL (6.5-10.1) H Neutrophils (%) (Auto) % (45.0-75.0) Lymphocytes (%) (Auto) % (20.0-45.0) Monocytes (%) (Auto) % (1.0-10.0) Eosinophils (%) (Auto) % (0.0-3.0) Basophils (%) (Auto) % (0.0-2.0) Differential Total Cells Counted 100 Neutrophils % (Manual) 64 % (45-75) Lymphocytes % (Manual) 28 % (20-45) Monocytes % (Manual) 8 % (1-10) Eosinophils % (Manual) 0 % (0-3) Basophils % (Manual) 0 % (0-2) Band Neutrophils 0 % (0-8) Platelet Estimate Decreased L Platelet Morphology Normal Hypochromasia 3+ Anisocytosis 1+ Sodium Level 135 mEQ/L (135-145) Potassium Level 4.0 mEQ/L (3.4-4.9) Chloride Level 100 mEQ/L (98-107) Carbon Dioxide Level 26 mEQ/L (20-30) Anion Gap 9 (5-15) Blood Urea Nitrogen 41 mg/dL (7-23) H Creatinine 1.5 mg/dL (0.7-1.2) H Estimat Glomerular Filtration Rate 48.6 mL/min (>60) Glucose Level 122 mg/dL (74-106) H Calcium Level 8.0 mg/dL (8.6-10.2) L Height (Feet): 5 Height (Inches): 10.00 Weight (Pounds): 165 General Appearance: no apparent distress, alert, thin Cardiovascular: normal rate Respiratory/Chest: normal breath sounds, no respiratory distress Abdominal Exam: normal bowel sounds, non tender, soft, distended Extremities: normal range of motion Objective Procedure: CT CHEST Abdomen Pelvis WO Con Indication: ABN LABS Impression: Splenomegaly Extensive thoracic, abdominal, and pelvic lymphadenopathy, as detailed above. This is nonspecific, likely related to stated clinical history of HIV. May indicate reactive, inflammatory, infectious adenopathy, or a lymphoproliferative disorder. Correlate with clinical history and findings Evidence of predominantly upper lobe pulmonary interstitial disease, as described, predominant findings being interstitial septal thickening and bronchial wall thickening. While the differential for this is quite broad, given the history of HIV positivity the possibility of lymphocytic interstitial pneumonitis should be considered Multiple sub-5 mm parenchymal nodules seen throughout the left lung. Possibly related to the above. If there are significant risk factors for lung carcinoma, however, short interval followup CT at 6-12 months should be considered. Bilateral basilar pulmonary parenchymal atelectatic changes and possibly some consolidation Small bilateral pleural effusions Nonspecific bilateral perinephric fat stranding Genesis Keller N.P. Mar 31, 2016 10:42
[2016-03-31 12:15] VITALS: BP 119/74
--- NOTE | 2016-03-31 12:28 | Diagnostic Imaging Report ---
Indication: Abdominal pain Technique: Spiral acquisitions obtained through the abdomen and pelvis. , Referring physician request . No IV contrast utilized, per referring physician request.. Multiplanar reconstructions were generated. Total dose length product 61 mGycm. CTDIvol(s) 12 mGy Comparison: 03/18/2016 Findings: There is no evidence of diverticulosis or diverticulitis. The appendix is normal. No small bowel distention. There is a small amount of ascites fluid, which was not evident previously. There is also some congestion of the mesenteric fat which was not evident previously. No findings to suggest retroperitoneal hematoma are evident. The distal esophagus, stomach, duodenum are unremarkable. No free intraperitoneal air Likely contrast limits assessment of the solid organs. The liver is somewhat enlarged. No focal abnormality. The gallbladder, bile ducts are unremarkable. The pancreas is unremarkable. The spleen is enlarged. It has a long axis dimension of 19 cm, and appears larger than on the previous study. The kidneys are unremarkable. Again demonstrated is extensive peripancreatic, para-aortic and pericaval, and bilateral iliac chain lymphadenopathy. Again demonstrated is anterior wall pericardial effusion. There is a right-sided pleural effusion which is smaller than on the prior exam. Previously demonstrated left pleural effusion has resolved. There is generalized bronchial wall thickening at the lung bases. Overall probable disease at the lung bases as decreased since the prior study. The bones demonstrate evidence of prior lumbosacral spinal fusion surgery. Impression: Small amount of ascites fluid, developing since prior study 03/18/2016 No evidence of retroperitoneal hematoma Splenomegaly, which appears somewhat increased from the previous study Mild hepatomegaly Extensive generalized lymphadenopathy, also previously described. Appearance nonspecific as regards etiology Small right-sided pleural effusion, decreased from previous exam. Decreased bilateral basilar pulmonary parenchymal disease and resultant left-sided pleural effusion Evidence of prior lumbosacral spine fusion surgery The CT scanner at [facility] is accredited by the [employer] and the scans are performed using protocols designed to limit radiation exposure to as low as reasonably achievable to attain images of sufficient resolution adequate for diagnostic evaluation.
[2016-03-31 12:54] LABS: OTHERS PATHOLOGIST COMMENT
--- NOTE | 2016-03-31 15:08 | Infectious Diseases Prog Note ---
Assessment/Plan Assessment/Plan ASSESSMENT: 55 y/o male with: // Bone marrow Cx <1+ S.epidermidis = contaminant // Probable sepsis r/o opportunistic infection - cultures NGTD - negative: coccidioides, histoplasma, blastomyces, CrAg, T-SPOT, ( coccidioides indeterminant ) // Diarrhea r/o infectious - improved - negative: giardia, O&P, stool Cx // Possible PNA r/o TB, NTM, fungal, lymphocytic interstitial pneumonitis - sputum AFB smear(-) x3, Cx NGTD, T-SPOT(-), TB PCR(-) - CXR 03/29: interim resolution of previously demonstrated right lower lobe infiltrate. Possible small left pleural effusion - CT: predominantly upper lobe pulmonary interstitial disease, possible lymphocytic interstitial pneumonitis. Multiple sub-5 mm parenchymal nodules seen throughout the left lung. Bilateral basilar pulmonary parenchymal atelectatic changes and possibly some consolidation. Small bilateral pleural effusions - negative/WNL: LDH, CrAg, blastomyces, histoplasma, ( coccidioides indeterminant ) // Diffuse LAD - SP BMBx: mild-mod fibrosis, granulomatous inflammation. AFB, fungal stains (-) - CT: Extensive thoracic, abdominal, and pelvic lymphadenopathy // HIV / AIDS, on cART ( recently changed to prezcobix, tivicay d/t genotype ) - CD4 37(5.3%) // Kaposi sarcoma // Leukopenia / pancytopenia r/o bone marrow infiltrative process - SP BMBx: mild-mod fibrosis, granulomatous inflammation. AFB, fungal stains (-) - negative/WNL: LDH, ARMIDA, CrAg, Parvovirus IgM, blastomyces, histoplasma, T- SPOT ( coccidioides indeterminant ) // Fever - resolved // Symptomatic FOBT(-) anemia SP PRBCs - denies blood loss. GI following, plan EGD/colonoscopy - CT A/P(-) RP hematoma // ARF - improved, stable // Hypocalcemia / electrolyte imbalance // Massive splenomegaly // Thrombocytopenia // Anxiety // Elevated ESR // NKDA // Full Code PLAN: - monitor pt off of ABX ( 03/26 SP IV vancomycin, cefepime d# / ) - continue cART ( prezcobix, tivicay - ok for pt to take own meds ), changed bactrim prophy to mepron given cytopenias - f/u AFB BCx, sputum AFB Cx - monitor CBC, temperatures - monitor BMP - transfuse prn - EGD/colonoscopy per GI Subjective Allergies: Coded Allergies: No Known Allergies (Unverified , 03/16/16) Subjective intermittent low grade fevers no new complaint repeat CT noted Objective Vital Signs Last 24 Hour Vital Signs Date Time Temp Pulse Resp B/P Pulse Ox O2 Delivery O2 Flow Rate FiO2 03/31/16 12:15 98.1 109 21 119/74 97 Nasal Cannula 2.0 03/31/16 08:16 98.1 110 20 108/56 97 Nasal Cannula 2.0 03/31/16 07:39 98 Nasal Cannula 2.0 28 03/31/16 07:39 Nasal Cannula 2.0 28 03/31/16 07:38 117 20 Room Air 21 03/31/16 04:00 98.4 108 20 116/60 100 03/31/16 00:00 100.0 123 18 102/51 99 Nasal Cannula 03/30/16 19:00 Room Air 03/30/16 19:00 98.2 100 20 110/52 95 Room Air 03/30/16 19:00 100 Room Air 21 03/30/16 19:00 95 20 Room Air 21 03/30/16 16:00 97.7 100 20 113/62 100 Room Air Height (Feet): 5 Height (Inches): 10.00 Weight (Pounds): 165 General Appearance: no acute distress Respiratory/Chest: no respiratory distress Cardiovascular: normal rate, regular rhythm Abdomen: normal bowel sounds, soft, non tender, non distended Laboratory Tests Test 03/31/16 04:20 White Blood Count 2.5 K/UL (4.8-10.8) L Red Blood Count 2.19 M/UL (4.70-6.10) L Hemoglobin 6.8 G/DL (14.2-18.0) *L Hematocrit 20.3 % (42.0-52.0) L Mean Corpuscular Volume 93 FL (80-99) Mean Corpuscular Hemoglobin 30.9 PG (27.0-31.0) Mean Corpuscular Hemoglobin Concent 33.4 G/DL (32.0-36.0) Red Cell Distribution Width 15.1 % (11.6-14.8) H Platelet Count 13 K/UL (150-450) L Mean Platelet Volume 10.8 FL (6.5-10.1) H Neutrophils (%) (Auto) % (45.0-75.0) Lymphocytes (%) (Auto) % (20.0-45.0) Monocytes (%) (Auto) % (1.0-10.0) Eosinophils (%) (Auto) % (0.0-3.0) Basophils (%) (Auto) % (0.0-2.0) Differential Total Cells Counted 100 Neutrophils % (Manual) 64 % (45-75) Lymphocytes % (Manual) 28 % (20-45) Monocytes % (Manual) 8 % (1-10) Eosinophils % (Manual) 0 % (0-3) Basophils % (Manual) 0 % (0-2) Band Neutrophils 0 % (0-8) Platelet Estimate Decreased L Platelet Morphology Normal Hypochromasia 3+ Anisocytosis 1+ Sodium Level 135 mEQ/L (135-145) Potassium Level 4.0 mEQ/L (3.4-4.9) Chloride Level 100 mEQ/L (98-107) Carbon Dioxide Level 26 mEQ/L (20-30) Anion Gap 9 (5-15) Blood Urea Nitrogen 41 mg/dL (7-23) H Creatinine 1.5 mg/dL (0.7-1.2) H Estimat Glomerular Filtration Rate 48.6 mL/min (>60) Glucose Level 122 mg/dL (74-106) H Calcium Level 8.0 mg/dL (8.6-10.2) L Current Medications Medications (Trade) Dose Ordered Sig/Godwni Route PRN Reason Start Time Stop Time Status Last Admin Dose Admin Acetaminophen (Tylenol) 650 mg Q4H PRN ORAL fever 03/24/16 12:00 04/23/16 11:59 03/29/16 20:47 Albuterol/ Ipratropium (DuoNeb 0.5-3(2.5)mg/3ml) 3 ml Q4HRT PRN HHN Shortness of Breath 03/29/16 19:15 04/03/16 19:14 03/29/16 20:05 Atovaquone (Mepron Susp) 1,500 mg DAILY ORAL 03/25/16 09:00 04/24/16 08:59 03/31/16 09:54 Chlorpromazine (Thorazine) 25 mg Q6H PRN IM HICCUPS 03/30/16 15:15 04/29/16 10:44 03/30/16 16:03 Escitalopram Oxalate (Lexapro) 10 mg DAILY ORAL 03/25/16 09:00 04/24/16 08:59 03/31/16 09:54 Hydrocortisone (Solu-CORTEF) 100 mg DAILY IV 03/28/16 09:00 04/27/16 08:59 03/31/16 09:54 Lorazepam (Ativan) 0.5 mg Q6H PRN ORAL For Anxiety 03/24/16 15:30 03/31/16 15:29 03/31/16 10:22 Nitroglycerin (Ntg) 0.4 mg Every 5 Minutes PRN SL Prn Chest Pain 03/24/16 11:45 04/23/16 11:44 Ondansetron HCl (Zofran) 4 mg Q6H PRN IVP Nausea & Vomiting 03/24/16 12:00 04/23/16 11:59 Pantoprazole (Protonix) 40 mg EVERY 12 HOURS ORAL 03/24/16 21:00 04/23/16 20:59 03/31/16 09:54 Patient Own Medication (Patient's Own Med) 1 ea DAILY ORAL 03/25/16 09:00 04/24/16 08:59 03/31/16 09:53 Patient Own Medication (Patient's Own Med) 1 ea DAILY ORAL 03/25/16 09:00 04/24/16 08:59 03/31/16 09:54 Polyethylene Glycol (Miralax) 17 gm DAILYPRN PRN ORAL Constipation 03/24/16 12:00 04/23/16 11:59 Temazepam (Restoril) 15 mg HSPRN PRN ORAL Insomnia 03/24/16 21:00 03/31/16 20:59 03/31/16 00:00 MANJEET GARDNER Mar 31, 2016 15:08
[2016-03-31 16:00] VITALS: BP 111/74
[2016-03-31] MEDS ORDERED: Promethazine/Codeine 5ml UD ORAL PRN ×2 (16:00→18:15)
[2016-03-31] MEDS ORDERED: Promethazine/Codeine 5ml UD ORAL ONE (18:15)
[2016-03-31 19:00] VITALS: BP 109/70
[2016-03-31 22:07] LABS: PATH BLOOD SMEAR/OMC SENT TO PATHOLOGIST
[2016-04-01] VITALS: BP 123/66
--- NOTE | 2016-04-01 01:08 | Consultation ---
DATE OF CONSULTATION: 03/31/2016 HEMATOLOGY/ONCOLOGY CONSULTATION CONSULTING PHYSICIAN: Kareem Trimble M.D. REASON FOR CONSULTATION: Evaluation of thrombocytopenia and apjy-mi-cheozhis fibrosis of the bone marrow. IDENTIFICATION DATA: Dear Dr. Rose Marie Helton, The patient is a pleasant 55-year-old male, with an extensive past medical history and hospitalization. His past medical history is significant for HIV/AIDS, on antiretroviral therapy, has been changed due to resistance. He had a hemoglobin, which is severely depressed. He received several units of blood at this time. He has received up to 10 units of blood. His LDL and LFTs are within normal limits. He was begun on antibiotics as well as antiretroviral therapy. ID service as well as Nephrology service was consulted. He is not aware of the CD4 count prior to the admission. Denies any bleeding otherwise. Admitted for weakness. He has been noted to have a pancytopenia, but the platelet count has continued to get worse throughout the course of his stay. I have reviewed the patient's labs and did not have any other prior history of admission. However, up on presentation, his platelet count was 57,000 and currently is 13,000. Hematology service is consulted for further evaluation and treatment. PAST MEDICAL HISTORY: Includes, 1. HIV/AIDS. 2. Pneumonia. 3. Sepsis. PAST SURGICAL HISTORY: None known. MEDICATIONS: Medications have been reviewed. Currently, he is on Tylenol, Thorazine, Lexapro, hydrocortisone 100 mg IV, which was started by Madhuri Manzanares for anti-inflammatory adrenal stimulation three days ago as well as Zofran . ALLERGIES: No known drug allergies. SOCIAL HISTORY: Unremarkable. FAMILY HISTORY: Noncontributory. REVIEW OF SYSTEMS: Constitutional: No fever, chills, or night sweats. Skin: No rashes, lumps, or itching. HEENT: No headache, hearing, or vision changes. Breasts: No lumps, pain, or discharge. Pulmonary: No cough, sputum, or shortness of breath. Cardiovascular: No chest pain, tightness, or palpitations. Gastrointestinal: No nausea, vomiting, or diarrhea. Genitourinary: No dysuria, frequency, or urgency. Musculoskeletal: No joint swelling, muscle pain, or trauma. PHYSICAL EXAMINATION: GENERAL: The patient is in no acute distress. VITAL SIGNS: Temperature 97.5 degrees Fahrenheit, pulse is 74, respiratory rate 12, blood pressure /74, and pulse oximetry is 100% on nasal cannula. PULMONARY: Decreased breath sounds. CARDIOVASCULAR: Regular rhythm. No S3 or S4. ABDOMEN: Soft, nontender, and nondistended. EXTREMITIES: There is 1+ edema. LABORATORY DATA: WBC 2.5, hemoglobin 6.8, hematocrit 20, and platelet count 13,000. BUN of 32 and creatinine 2.5. INR 1.4. Serology reviewed. Immunology reviewed as well. CD4 count is 37 decreased to 11. Bone marrow biopsy with flow cytometry has been reported and reviewed. concerning for [id number] fibrosis and serious degeneration, focal loss, information about . The patient without any other fungal organisms . ASSESSMENT: 1. Pancytopenia. The patient is status post bone marrow biopsy, which shows no . It does show a hypercellular marrow concerning for patchy mahi-ax-iaxlwiaf fibrosis with degeneration, which is common in patients with atrophy and/or decreased p.o. intake and malnutrition. The patient has human immunodeficiency virus 4, which is uncontrolled. Iron stores are decreased as well as ferritin. AFB and Gram GMS stain show no acid-fast bacilli and no fungal organisms. I have reviewed the patient's other counts. The patient also has splenomegaly and evidence of extensive lymphadenopathy. Potentially, we may consider to biopsy one of the lymph nodes. Also, the patient has been on steroids, therefore, it will empiric coverage for ITP. The patient does not have any evidence that displays primary myofibrosis. , likely this is a secondary process. 2. Anemia secondary to chronic disease. His erythrocyte sedimentation rate is severely elevated. Reticulocyte count is low. We will also send for ferritin to see if the patient has iron deficiency. 3. Coagulopathy secondary to underlying liver disease and malnutrition and decreased p.o. intake. 4. Leukopenia secondary to likely splenomegaly versus sepsis. 5. Thrombocytopenia, concerning for underlying infection versus splenomegaly, currently is worsened. The patient remains on antibiotics. We will send for DIC panel screen. 6. Splenomegaly, noted on ultrasound. 7. Bone marrow fibrosis. RECOMMENDATIONS: 1. Imaging has been reviewed. At this time, we will discuss with primary physician in regards to the potential biopsy regarding the lymph nodes, which may be more diagnostic if further sample may potentially show a process that has not been found on bone marrow biopsy such as lymphoma probably likely secondary as well. 2. In regards to thrombocytopenia, the patient is status post multiple transfusions of blood and may require platelet transfusion if platelet count drops to less than 10,000 potentially secondary to sepsis. We will need to continue to closely monitor and DIC panel has been sent. 3. We will obtain a ferritin to see if the patient's iron deficiency has decreased iron stores as noted on bone marrow biopsy. 4. A followup on Nephrology recommendations and consider use of Epogen, which will be started today in the . 5. Patient with HIV/AIDS and anemia. 6. ID recommendations in regards to antibiotics and antiretroviral medications. 7. The patient will be ____ Kaposi sarcoma. 8. Followup on GI, ID, and Pulmonary recommendations. 9. Discussed with staff. Thank you Dr. Rose Marie Helton for this kind referral. Please do not hesitate to contact me for any further questions. Kareem Trimble M.D. DR: MAXWELL JOB#: [id number] CC:
[2016-04-01 04:00] VITALS: BP 118/69
[2016-04-01 05:34] LABS: MEAN CORPUSCULAR HEMOGLOBIN 31.4 PG (27.0-31.0); MEAN CORPUSCULAR HGB CONC 33.9 G/DL (32.0-36.0); MEAN CORPUSCULAR VOLUME 93 FL (80-99); PLATELET COUNT 20 K/UL (150-450); RED BLOOD COUNT 2.41 M/UL (4.70-6.10); RED CELL DISTRIBUTION WIDTH 15.1 % (11.6-14.8); WHITE BLOOD COUNT 3.3 K/UL (4.8-10.8)
[2016-04-01 05:51] LABS: CALCIUM 8.1 mg/dL (8.6-10.2); CREATININE 1.3 mg/dL (0.7-1.2); GLOMERULAR FILTRATION RATE 57.3 mL/min (>60); POTASSIUM 4.3 mEQ/L (3.4-4.9)
[2016-04-01 07:55] VITALS: BP 122/92
[2016-04-01] MEDS: PREZCOBIX ORAL SCH (09:01)
[2016-04-01] MEDS: Hydrocortisone 100mg Inj IV SCH (09:01)
--- NOTE | 2016-04-01 09:01 | General Progress Note ---
Assessment/Plan Assessment/Plan 1. Pancytopenia. The patient is status post bone marrow biopsy, which shows no evidence of blasts. It does show a hypercellular marrow concerning for patchy npvw-qd-ggpmyidy fibrosis with degeneration, he is with a history of HIV as well , has no evidence of lymphoma on the biopsy. Iron stores are decreased on biopsy but ferritin overall is elevated. AFB and Gram GMS stain show no acid- fast bacilli and no fungal organisms. Patient has marked splenomegaly. Has extensive lymphadenopathy on CAT scan as well, will consider to biopsy one of the lymph nodes. Very unlikely has ITP given acute onset in thrombocytopenia. Also, the patient has been on steroids (hydrocortisone), therefore, it will empiric coverage for ITP. The patient does not have any evidence that displays primary myofibrosis. Thus overall, likely this is a secondary process. 2. Anemia secondary to chronic disease. His erythrocyte sedimentation rate is severely elevated. Reticulocyte count is low. Ferritin is elevated and TIBC lower. Has issue with iron sequestration/utilization 3. 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 Leukopenia secondary to likely splenomegaly versus sepsis. 5. Thrombocytopenia, concerning for underlying infection versus splenomegaly, also can be 2/2 to above process, will obtain biopsy of LN 6. Splenomegaly, noted on ultrasound. 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 Imaging has been reviewed. Obtain a biopsy of the LN on imaging, will place order 2. Rule out DIC process. Labs have been ordered 3. Hgb goal is >7 and plt goal >10k or >20k if febrile 4. Continue patient on epogen at this time 5. Will order for HLA-matched plts in the future, the order has been placed and d/w blood bank 6. ID recommendations in regards to antibiotics and antiretroviral medications. 7. The patient has hx of Kaposis sarcoma, rule out disseminated disease 8. Followup on GI, ID, and Pulmonary recs 9. Discussed with staff as well as primary MD Thank you, Kareem Trimble MD Subjective Constitutional: Reports: no symptoms HEENT: Reports: no symptoms Cardiovascular: Reports: no symptoms Respiratory: Reports: no symptoms Gastrointestinal/Abdominal: Reports: no symptoms Genitourinary: Reports: no symptoms 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: Reports: weakness Endocrine: Reports: no symptoms Hematologic/Lymphatic: Reports: anemia Allergies: Coded Allergies: No Known Allergies (Unverified , 03/16/16) Subjective stable, no complaints today, plt count is 20k, he is without fevers or chills Objective Last 24 Hour Vital Signs Date Time Temp Pulse Resp B/P Pulse Ox O2 Delivery O2 Flow Rate FiO2 04/01/16 07:55 98.2 117 21 122/92 97 Nasal Cannula 2.0 04/01/16 04:00 97.9 111 20 118/69 98 Room Air 04/01/16 00:00 98.4 108 20 123/66 94 Nasal Cannula 2.0 03/31/16 19:55 Nasal Cannula 2.0 28 03/31/16 19:55 98 Nasal Cannula 2.0 28 03/31/16 19:55 102 20 Room Air 21 03/31/16 19:00 98.1 100 18 109/70 99 Nasal Cannula 2.0 03/31/16 16:00 97.5 74 20 111/74 100 Nasal Cannula 2.0 03/31/16 12:15 98.1 109 21 119/74 97 Nasal Cannula 2.0 Intake and Output 03/31/16 04/01/16 19:00 07:00 Intake Total 480 ml 720 ml Output Total 700 ml 650 ml Balance -220 ml 70 ml Intake Oral 480 ml 720 ml Output Urine Total 700 ml 650 ml # Voids 2 4 Laboratory Tests 04/01/16 04:40: White Blood Count 3.3L, Red Blood Count 2.41L, Hemoglobin 7.6L, Hematocrit 22.3L , Mean Corpuscular Volume 93, Mean Corpuscular Hemoglobin 31.4H, Mean Corpuscular Hemoglobin Concent 33.9, Red Cell Distribution Width 15.1H, Platelet Count 20#L, Mean Platelet Volume 14.0H, Neutrophils (%) (Auto) , Lymphocytes (%) (Auto) , Monocytes (%) (Auto) , Eosinophils (%) (Auto) , Basophils (%) (Auto) , Neutrophils % (Manual) [Pending], Lymphocytes % (Manual) [Pending], Platelet Estimate [Pending], Platelet Morphology [Pending], Haptoglobin [Pending], D-Dimer [Pending], Sodium Level 134L, Potassium Level 4.3 , Chloride Level 96L, Carbon Dioxide Level 27, Anion Gap 11, Blood Urea Nitrogen 37H, Creatinine 1.3H, Estimat Glomerular Filtration Rate 57.3, Glucose Level 105, Calcium Level 8.1L, Iron Level 42L, Total Iron Binding Capacity 190L , Percent Iron Saturation 22, Unsaturated Iron Binding 148, Cytomegalovirus DNA PCR copies/ml [Pending], Cytomegalovirus DNA PCR log10 [Pending] Height (Feet): 5 Height (Inches): 10.00 Weight (Pounds): 165 General Appearance: no apparent distress EENT: TMs normal Neck: supple Cardiovascular: normal rate Respiratory/Chest: chest wall non-tender Extremities: non-tender Edema: 1+ Leg (L), 1+ Leg (R) Edema: mild edema Neurologic: responsive Skin: warm/dry Kareem Trimble Apr 01, 2016 09:01
[2016-04-01] MEDS: Atovaquone 750mg/5ml Susp ORAL SCH (09:02)
[2016-04-01 10:12] LABS: INR 1.3 (0.9-1.1); PROTHROMBIN TIME 13.8 SEC (9.30-11.50)
[2016-04-01 11:05] LABS: ANISOCYTOSIS 1+; BAND NEUTROPHILS % (MANUAL) 4 % (0-8); BASOPHILS % (MANUAL) 0 % (0-2); EOSINOPHILS % (MANUAL) 0 % (0-3); LYMPHOCYTES % (MANUAL) 28 % (20-45); NEUTROPHILS % (MANUAL) 55 % (45-75); PLATELET ESTIMATE DECREASED; PLATELET MORPHOLOGY NORMAL; TOTAL CELLS COUNTED 100
[2016-04-01 11:06] LABS: POLYCHROMASIA OCCASIONAL
--- NOTE | 2016-04-01 11:33 | GI Progress Note ---
Assessment/Plan Problems: (1) Diarrhea ICD Codes: R19.7 - Diarrhea, unspecified SNOMED: 62520836 (2) Splenomegaly with HIV infection ICD Codes: B20 - Human immunodeficiency virus [HIV] disease; R16.1 - Splenomegaly, not elsewhere classified SNOMED: 076755210 (3) Anemia ICD Codes: D64.9 - Anemia, unspecified SNOMED: 727702951 Qualifiers: Qualified Codes: D64.9 - Anemia, unspecified (4) Thrombocytopenia ICD Codes: D69.6 - Thrombocytopenia, unspecified SNOMED: 570458938 (5) HIV disease ICD Codes: B20 - Human immunodeficiency virus [HIV] disease SNOMED: 31438570 (6) Episode of generalized weakness ICD Codes: R53.1 - Weakness SNOMED: 98762906 Status: unchanged Status Narrative Discussed with Dr. Epps. Assessment/Plan Assessment - Anemia - Thrombocytopenia - HIV - Diarrhea >> cdiff negative - r/o TB - s/p bone biopsy >> GRAM STAIN RESULTS. RARE WHITE BLOOD CELLS. NO ORGANISMS SEEN. - Stool w.u >> negative - O&P negative - OB stool negative x 3 - airborne isolation off - APCT r/o retroperitoneal bleed >> negative for hematoma - repeat iron levels >> WNL Recommendations - rec Hematology consult - monitor H&H, transfuse prn - EGD/Colon when stable - ppi - fu labs Subjective Subjective denies any abdominal pain/diarrhea/constipation BM last night abdominal bloating fatigue Objective Last 24 Hour Vital Signs Date Time Temp Pulse Resp B/P Pulse Ox O2 Delivery O2 Flow Rate FiO2 04/01/16 08:03 106 18 Room Air 04/01/16 08:03 98 Nasal Cannula 2.0 04/01/16 08:02 Nasal Cannula 2.0 04/01/16 07:55 98.2 117 21 122/92 97 Nasal Cannula 2.0 04/01/16 04:00 97.9 111 20 118/69 98 Room Air 04/01/16 00:00 98.4 108 20 123/66 94 Nasal Cannula 2.0 03/31/16 19:55 Nasal Cannula 2.0 28 03/31/16 19:55 98 Nasal Cannula 2.0 28 03/31/16 19:55 102 20 Room Air 21 03/31/16 19:00 98.1 100 18 109/70 99 Nasal Cannula 2.0 03/31/16 16:00 97.5 74 20 111/74 100 Nasal Cannula 2.0 03/31/16 12:15 98.1 109 21 119/74 97 Nasal Cannula 2.0 Intake and Output 03/31/16 04/01/16 19:00 07:00 Intake Total 480 ml 720 ml Output Total 700 ml 650 ml Balance -220 ml 70 ml Intake Oral 480 ml 720 ml Output Urine Total 700 ml 650 ml # Voids 2 4 Laboratory Tests Test 04/01/16 04:40 04/01/16 09:55 White Blood Count 3.3 K/UL (4.8-10.8) L Red Blood Count 2.41 M/UL (4.70-6.10) L Hemoglobin 7.6 G/DL (14.2-18.0) L Hematocrit 22.3 % (42.0-52.0) L Mean Corpuscular Volume 93 FL (80-99) Mean Corpuscular Hemoglobin 31.4 PG (27.0-31.0) H Mean Corpuscular Hemoglobin Concent 33.9 G/DL (32.0-36.0) Red Cell Distribution Width 15.1 % (11.6-14.8) H Platelet Count 20 K/UL (150-450) #L Mean Platelet Volume 14.0 FL (6.5-10.1) H Neutrophils (%) (Auto) % (45.0-75.0) Lymphocytes (%) (Auto) % (20.0-45.0) Monocytes (%) (Auto) % (1.0-10.0) Eosinophils (%) (Auto) % (0.0-3.0) Basophils (%) (Auto) % (0.0-2.0) Differential Total Cells Counted 100 Neutrophils % (Manual) 55 % (45-75) Lymphocytes % (Manual) 28 % (20-45) Monocytes % (Manual) 13 % (1-10) H Eosinophils % (Manual) 0 % (0-3) Basophils % (Manual) 0 % (0-2) Band Neutrophils 4 % (0-8) Platelet Estimate Decreased L Platelet Morphology Normal Polychromasia Occasional Hypochromasia Anisocytosis 1+ Haptoglobin 151 mg/dL (30-200) D-Dimer 5062 ng/mL (<500) H Sodium Level 134 mEQ/L (135-145) L Potassium Level 4.3 mEQ/L (3.4-4.9) Chloride Level 96 mEQ/L (98-107) L Carbon Dioxide Level 27 mEQ/L (20-30) Anion Gap 11 (5-15) Blood Urea Nitrogen 37 mg/dL (7-23) H Creatinine 1.3 mg/dL (0.7-1.2) H Estimat Glomerular Filtration Rate 57.3 mL/min (>60) Glucose Level 105 mg/dL (74-106) Calcium Level 8.1 mg/dL (8.6-10.2) L Iron Level 42 ug/dL (59-158) L Total Iron Binding Capacity 190 ug/dL (250-400) L Percent Iron Saturation 22 % (15-50) Unsaturated Iron Binding 148 ug/dL (112-346) Cytomegalovirus DNA PCR copies/ml Pending Cytomegalovirus DNA PCR log10 Pending Prothrombin Time 13.8 SEC (9.30-11.50) H Prothromb Time International Ratio 1.3 (0.9-1.1) H Fibrinogen 332 mg/dL (200-400) Fibrin Degradation Products, Quant Pending Lactic Acid Level 1.40 mmol/L (0.66-2.22) Height (Feet): 5 Height (Inches): 10.00 Weight (Pounds): 165 General Appearance: no apparent distress, alert, thin Cardiovascular: normal rate Respiratory/Chest: normal breath sounds, no respiratory distress Abdominal Exam: normal bowel sounds, non tender, soft Extremities: normal range of motion, other - right arm hematoma Objective Procedure: CT CHEST Abdomen Pelvis WO Con Indication: ABN LABS Impression: Splenomegaly Extensive thoracic, abdominal, and pelvic lymphadenopathy, as detailed above. This is nonspecific, likely related to stated clinical history of HIV. May indicate reactive, inflammatory, infectious adenopathy, or a lymphoproliferative disorder. Correlate with clinical history and findings Evidence of predominantly upper lobe pulmonary interstitial disease, as described, predominant findings being interstitial septal thickening and bronchial wall thickening. While the differential for this is quite broad, given the history of HIV positivity the possibility of lymphocytic interstitial pneumonitis should be considered Multiple sub-5 mm parenchymal nodules seen throughout the left lung. Possibly related to the above. If there are significant risk factors for lung carcinoma, however, short interval followup CT at 6-12 months should be considered. Bilateral basilar pulmonary parenchymal atelectatic changes and possibly some consolidation Small bilateral pleural effusions Nonspecific bilateral perinephric fat stranding Genesis Keller N.P. Apr 01, 2016 11:33
[2016-04-01 11:50] VITALS: BP 100/64
--- NOTE | 2016-04-01 11:58 | General Progress Note ---
Assessment/Plan Status: stable - from renal stand Status Narrative Hgb Higher- Cr lower Assessment/Plan Acute renal failure, multifactorial ( sepsis, HIV , Vanco...) PreRenal superimposed on Renal HypoNatremia Cr 2.8 down to 1.7 PanCytopenia Sepsis, Diarrhea, HIV , Kaposi's Pneumonia Hypocalcemia, electrolyte imbalance Anemia in chronic illness, symptomatic Hypokalemia on admit now K elevated JF (acute kidney injury) Thrombocytopenia, massive splenomegali CAP (community acquired pneumonia) Plan: Antibiotics per ID Urine studies- noted Cortisol levels- 15 Monitor renal parameters and lytes- Avoid Nephrotoxics Monitor Urine out put Protonix Transfuse decrease stress dose of steroids? Subjective ROS Limited/Unobtainable: No Constitutional: Reports: malaise Allergies: Coded Allergies: No Known Allergies (Unverified , 03/16/16) Objective Last 24 Hour Vital Signs Date Time Temp Pulse Resp B/P Pulse Ox O2 Delivery O2 Flow Rate FiO2 04/01/16 08:03 106 18 Room Air 04/01/16 08:03 98 Nasal Cannula 2.0 04/01/16 08:02 Nasal Cannula 2.0 04/01/16 07:55 98.2 117 21 122/92 97 Nasal Cannula 2.0 04/01/16 04:00 97.9 111 20 118/69 98 Room Air 04/01/16 00:00 98.4 108 20 123/66 94 Nasal Cannula 2.0 03/31/16 19:55 Nasal Cannula 2.0 28 03/31/16 19:55 98 Nasal Cannula 2.0 28 03/31/16 19:55 102 20 Room Air 21 03/31/16 19:00 98.1 100 18 109/70 99 Nasal Cannula 2.0 03/31/16 16:00 97.5 74 20 111/74 100 Nasal Cannula 2.0 03/31/16 12:15 98.1 109 21 119/74 97 Nasal Cannula 2.0 Intake and Output 03/31/16 04/01/16 19:00 07:00 Intake Total 480 ml 720 ml Output Total 700 ml 650 ml Balance -220 ml 70 ml Intake Oral 480 ml 720 ml Output Urine Total 700 ml 650 ml # Voids 2 4 Laboratory Tests 04/01/16 04:40: White Blood Count 3.3L, Red Blood Count 2.41L, Hemoglobin 7.6L, Hematocrit 22.3L , Mean Corpuscular Volume 93, Mean Corpuscular Hemoglobin 31.4H, Mean Corpuscular Hemoglobin Concent 33.9, Red Cell Distribution Width 15.1H, Platelet Count 20#L, Mean Platelet Volume 14.0H, Neutrophils (%) (Auto) , Lymphocytes (%) (Auto) , Monocytes (%) (Auto) , Eosinophils (%) (Auto) , Basophils (%) (Auto) , Differential Total Cells Counted 100, Neutrophils % ( Manual) 55, Lymphocytes % (Manual) 28, Monocytes % (Manual) 13H, Eosinophils % ( Manual) 0, Basophils % (Manual) 0, Band Neutrophils 4, Platelet Estimate DecreasedL, Platelet Morphology Normal, Polychromasia Occasional, Hypochromasia , Anisocytosis 1+, Haptoglobin 151, D-Dimer 5062H, Sodium Level 134L, Potassium Level 4.3, Chloride Level 96L, Carbon Dioxide Level 27, Anion Gap 11, Blood Urea Nitrogen 37H, Creatinine 1.3H, Estimat Glomerular Filtration Rate 57.3, Glucose Level 105, Calcium Level 8.1L, Iron Level 42L, Total Iron Binding Capacity 190L, Percent Iron Saturation 22, Unsaturated Iron Binding 148, Cytomegalovirus DNA PCR copies/ml [Pending], Cytomegalovirus DNA PCR log10 [ Pending] 04/01/16 09:55: Prothrombin Time 13.8H, Prothromb Time International Ratio 1.3H, Fibrinogen 332 , Fibrin Degradation Products, Quant [Pending], Lactic Acid Level 1.40 Height (Feet): 5 Height (Inches): 10.00 Weight (Pounds): 165 General Appearance: no apparent distress Objective other PE not changed DEREK SMITH Apr 01, 2016 11:58
--- NOTE | 2016-04-01 14:06 | Infectious Diseases Prog Note ---
Assessment/Plan Assessment/Plan ASSESSMENT: 55 y/o male with: // Bone marrow Cx <1+ S.epidermidis = contaminant // Probable sepsis r/o opportunistic infection - cultures NGTD - negative: coccidioides, histoplasma, blastomyces, CrAg, T-SPOT, ( coccidioides indeterminant ) // Diarrhea r/o infectious - improved - negative: giardia, O&P, stool Cx // Possible PNA r/o TB, NTM, fungal, lymphocytic interstitial pneumonitis - sputum AFB smear(-) x3, Cx NGTD, T-SPOT(-), TB PCR(-) - CXR 03/29: interim resolution of previously demonstrated right lower lobe infiltrate. Possible small left pleural effusion - CT: predominantly upper lobe pulmonary interstitial disease, possible lymphocytic interstitial pneumonitis. Multiple sub-5 mm parenchymal nodules seen throughout the left lung. Bilateral basilar pulmonary parenchymal atelectatic changes and possibly some consolidation. Small bilateral pleural effusions - negative/WNL: LDH, CrAg, blastomyces, histoplasma, ( coccidioides indeterminant ) // Diffuse LAD - SP BMBx: mild-mod fibrosis, granulomatous inflammation. AFB, fungal stains (-) - CT: Extensive thoracic, abdominal, and pelvic lymphadenopathy // HIV / AIDS, on cART ( recently changed to prezcobix, tivicay d/t genotype ) - CD4 37(5.3%) // Kaposi sarcoma // Leukopenia / pancytopenia r/o bone marrow infiltrative process - SP BMBx: mild-mod fibrosis, granulomatous inflammation. AFB, fungal stains (-) - negative/WNL: LDH, ARMIDA, CrAg, Parvovirus IgM, blastomyces, histoplasma, T- SPOT ( coccidioides indeterminant ) // Fever - resolved // Symptomatic FOBT(-) anemia SP PRBCs - denies blood loss. GI following, plan EGD/colonoscopy - CT A/P(-) RP hematoma // ARF - improved, stable // Hypocalcemia / electrolyte imbalance // Massive splenomegaly // Thrombocytopenia // Anxiety // Elevated ESR // NKDA // Full Code PLAN: - monitor pt off of ABX ( 03/26 SP IV vancomycin, cefepime d# / ) - continue cART ( prezcobix, tivicay - ok for pt to take own meds ), changed bactrim prophy to mepron given cytopenias - f/u AFB BCx, sputum AFB Cx, CMV PCR, VEL - monitor CBC, temperatures - monitor BMP - transfuse prn - EGD/colonoscopy per GI Subjective Allergies: Coded Allergies: No Known Allergies (Unverified , 03/16/16) Subjective intermittent low grade fevers no new complaint seen by heme Objective Vital Signs Last 24 Hour Vital Signs Date Time Temp Pulse Resp B/P Pulse Ox O2 Delivery O2 Flow Rate FiO2 04/01/16 11:50 98.2 100 20 100/64 99 Nasal Cannula 2.0 04/01/16 08:03 106 18 Room Air 04/01/16 08:03 98 Nasal Cannula 2.0 04/01/16 08:02 Nasal Cannula 2.0 04/01/16 07:55 98.2 117 21 122/92 97 Nasal Cannula 2.0 04/01/16 04:00 97.9 111 20 118/69 98 Room Air 04/01/16 00:00 98.4 108 20 123/66 94 Nasal Cannula 2.0 03/31/16 19:55 Nasal Cannula 2.0 28 03/31/16 19:55 98 Nasal Cannula 2.0 28 03/31/16 19:55 102 20 Room Air 21 03/31/16 19:00 98.1 100 18 109/70 99 Nasal Cannula 2.0 03/31/16 16:00 97.5 74 20 111/74 100 Nasal Cannula 2.0 Height (Feet): 5 Height (Inches): 10.00 Weight (Pounds): 165 General Appearance: no acute distress Respiratory/Chest: no respiratory distress Cardiovascular: normal rate, regular rhythm Abdomen: normal bowel sounds, soft, non tender, non distended Laboratory Tests Test 04/01/16 04:40 04/01/16 09:55 White Blood Count 3.3 K/UL (4.8-10.8) L Red Blood Count 2.41 M/UL (4.70-6.10) L Hemoglobin 7.6 G/DL (14.2-18.0) L Hematocrit 22.3 % (42.0-52.0) L Mean Corpuscular Volume 93 FL (80-99) Mean Corpuscular Hemoglobin 31.4 PG (27.0-31.0) H Mean Corpuscular Hemoglobin Concent 33.9 G/DL (32.0-36.0) Red Cell Distribution Width 15.1 % (11.6-14.8) H Platelet Count 20 K/UL (150-450) #L Mean Platelet Volume 14.0 FL (6.5-10.1) H Neutrophils (%) (Auto) % (45.0-75.0) Lymphocytes (%) (Auto) % (20.0-45.0) Monocytes (%) (Auto) % (1.0-10.0) Eosinophils (%) (Auto) % (0.0-3.0) Basophils (%) (Auto) % (0.0-2.0) Differential Total Cells Counted 100 Neutrophils % (Manual) 55 % (45-75) Lymphocytes % (Manual) 28 % (20-45) Monocytes % (Manual) 13 % (1-10) H Eosinophils % (Manual) 0 % (0-3) Basophils % (Manual) 0 % (0-2) Band Neutrophils 4 % (0-8) Platelet Estimate Decreased L Platelet Morphology Normal Polychromasia Occasional Hypochromasia Anisocytosis 1+ Haptoglobin 151 mg/dL (30-200) D-Dimer 5062 ng/mL (<500) H Sodium Level 134 mEQ/L (135-145) L Potassium Level 4.3 mEQ/L (3.4-4.9) Chloride Level 96 mEQ/L (98-107) L Carbon Dioxide Level 27 mEQ/L (20-30) Anion Gap 11 (5-15) Blood Urea Nitrogen 37 mg/dL (7-23) H Creatinine 1.3 mg/dL (0.7-1.2) H Estimat Glomerular Filtration Rate 57.3 mL/min (>60) Glucose Level 105 mg/dL (74-106) Calcium Level 8.1 mg/dL (8.6-10.2) L Iron Level 42 ug/dL (59-158) L Total Iron Binding Capacity 190 ug/dL (250-400) L Percent Iron Saturation 22 % (15-50) Unsaturated Iron Binding 148 ug/dL (112-346) Cytomegalovirus DNA PCR copies/ml Pending Cytomegalovirus DNA PCR log10 Pending Prothrombin Time 13.8 SEC (9.30-11.50) H Prothromb Time International Ratio 1.3 (0.9-1.1) H Fibrinogen 332 mg/dL (200-400) Fibrin Degradation Products, Quant Pending Lactic Acid Level 1.40 mmol/L (0.66-2.22) Current Medications Medications (Trade) Dose Ordered Sig/Godwin Route PRN Reason Start Time Stop Time Status Last Admin Dose Admin Acetaminophen (Tylenol) 650 mg Q4H PRN ORAL fever 03/24/16 12:00 04/23/16 11:59 03/29/16 20:47 Albuterol/ Ipratropium (DuoNeb 0.5-3(2.5)mg/3ml) 3 ml Q4HRT PRN HHN Shortness of Breath 03/29/16 19:15 04/03/16 19:14 03/29/16 20:05 Atovaquone (Mepron Susp) 1,500 mg DAILY ORAL 03/25/16 09:00 04/24/16 08:59 04/01/16 09:02 Chlorpromazine (Thorazine) 25 mg Q6H PRN IM HICCUPS 03/30/16 15:15 04/29/16 10:44 03/30/16 16:03 Epoetin Suresh (Procrit (for non ESRD use)) 3,000 units MON-MON-MON SUBQ 04/01/16 21:00 05/01/16 20:59 Escitalopram Oxalate (Lexapro) 10 mg DAILY ORAL 03/25/16 09:00 04/24/16 08:59 04/01/16 09:00 Hydrocortisone (Solu-CORTEF) 100 mg DAILY IV 03/28/16 09:00 04/27/16 08:59 04/01/16 09:01 Nitroglycerin (Ntg) 0.4 mg Every 5 Minutes PRN SL Prn Chest Pain 03/24/16 11:45 04/23/16 11:44 Ondansetron HCl (Zofran) 4 mg Q6H PRN IVP Nausea & Vomiting 03/24/16 12:00 04/23/16 11:59 Pantoprazole (Protonix) 40 mg EVERY 12 HOURS ORAL 03/24/16 21:00 04/23/16 20:59 04/01/16 09:08 Patient Own Medication (Patient's Own Med) 1 ea DAILY ORAL 03/25/16 09:00 04/24/16 08:59 04/01/16 09:01 Patient Own Medication (Patient's Own Med) 1 ea DAILY ORAL 03/25/16 09:00 04/24/16 08:59 04/01/16 09:01 Polyethylene Glycol (Miralax) 17 gm DAILYPRN PRN ORAL Constipation 03/24/16 12:00 04/23/16 11:59 Promethazine HCl/ Codeine (Phenergan with Codeine) 10 ml Q6H PRN ORAL For Cough 03/31/16 18:15 04/30/16 18:14 04/01/16 00:12 MANJEET GARDNER Apr 01, 2016 14:06
[2016-04-01 14:07] LABS: OTHERS PATHOLOGIST COMMENT
[2016-04-01] MEDS ORDERED: NS 275ml ONE (15:51)
[2016-04-01] MEDS ORDERED: Tubing IV Blood Pump IV ONE (15:51)
[2016-04-01 15:59] VITALS: BP 105/61
[2016-04-01 19:00] VITALS: BP 115/64
[2016-04-01] MEDS ORDERED: Epogen (for non ESRD use) SUBQ SCH (21:00)
--- NOTE | 2016-04-01 22:17 | Pulmonology Progress Note ---
Assessment/Plan Problems: (1) Sepsis (2) Pneumonia (3) Anemia (4) JF (acute kidney injury) (5) HIV disease (6) Thrombocytopenia (7) Hypocalcemia (8) Splenomegaly with HIV infection (9) Kaposi sarcoma Assessment/Plan off antibiotics bone marrow biopsy reviewe, granulomatous disease?? respiratory treatment serology pending ( some) renal function improving fever resolved pt/ot CT abdomen/ pelvis ordered for am Subjective Allergies: Coded Allergies: No Known Allergies (Unverified , 03/16/16) Objective Last 24 Hour Vital Signs Date Time Temp Pulse Resp B/P Pulse Ox O2 Delivery O2 Flow Rate FiO2 04/01/16 20:29 Nasal Cannula 2.0 28 04/01/16 20:29 100 Nasal Cannula 2.0 28 04/01/16 20:29 76 16 Nasal Cannula 2.0 28 04/01/16 19:00 97.5 98 20 115/64 100 Nasal Cannula 2.0 04/01/16 15:59 97.9 93 20 105/61 100 Nasal Cannula 2.0 04/01/16 11:50 98.2 100 20 100/64 99 Nasal Cannula 2.0 04/01/16 08:03 106 18 Room Air 04/01/16 08:03 98 Nasal Cannula 2.0 04/01/16 08:02 Nasal Cannula 2.0 04/01/16 07:55 98.2 117 21 122/92 97 Nasal Cannula 2.0 04/01/16 04:00 97.9 111 20 118/69 98 Room Air 04/01/16 00:00 98.4 108 20 123/66 94 Nasal Cannula 2.0 Intake and Output 03/31/16 04/01/16 19:00 07:00 Intake Total 480 ml 720 ml Output Total 700 ml 650 ml Balance -220 ml 70 ml Intake Oral 480 ml 720 ml Output Urine Total 700 ml 650 ml # Voids 2 4 Objective General Appearance: WD/WN Lines, tubes and drains: peripheral HEENT: normocephalic, atraumatic Neck: non-tender, normal alignment Respiratory/Chest: chest wall non-tender, rhonchi - left, rhonchi - right Cardiovascular/Chest: normal peripheral pulses, normal rate Abdomen: normal bowel sounds, non tender Genitourinary/Rectal: normal genital exam Extremities: normal range of motion, non-tender, normal inspection, no calf tenderness, normal capillary refill Skin Exam: normal pigmentation 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 Laboratory Tests 04/01/16 04:40: White Blood Count 3.3L, Red Blood Count 2.41L, Hemoglobin 7.6L, Hematocrit 22.3L , Mean Corpuscular Volume 93, Mean Corpuscular Hemoglobin 31.4H, Mean Corpuscular Hemoglobin Concent 33.9, Red Cell Distribution Width 15.1H, Platelet Count 20#L, Mean Platelet Volume 14.0H, Neutrophils (%) (Auto) , Lymphocytes (%) (Auto) , Monocytes (%) (Auto) , Eosinophils (%) (Auto) , Basophils (%) (Auto) , Differential Total Cells Counted 100, Neutrophils % ( Manual) 55, Lymphocytes % (Manual) 28, Monocytes % (Manual) 13H, Eosinophils % ( Manual) 0, Basophils % (Manual) 0, Band Neutrophils 4, Platelet Estimate DecreasedL, Platelet Morphology Normal, Polychromasia Occasional, Hypochromasia , Anisocytosis 1+, Haptoglobin 151, D-Dimer 5062H, Sodium Level 134L, Potassium Level 4.3, Chloride Level 96L, Carbon Dioxide Level 27, Anion Gap 11, Blood Urea Nitrogen 37H, Creatinine 1.3H, Estimat Glomerular Filtration Rate 57.3, Glucose Level 105, Calcium Level 8.1L, Iron Level 42L, Total Iron Binding Capacity 190L, Percent Iron Saturation 22, Unsaturated Iron Binding 148, Cytomegalovirus DNA PCR copies/ml [Pending], Cytomegalovirus DNA PCR log10 [ Pending] 04/01/16 09:55: Prothrombin Time 13.8H, Prothromb Time International Ratio 1.3H, Fibrinogen 332 , Fibrin Degradation Products, Quant [Pending], Lactic Acid Level 1.40 Current Medications Medications (Trade) Dose Ordered Sig/Godwin Route PRN Reason Start Time Stop Time Status Last Admin Dose Admin Acetaminophen (Tylenol) 650 mg Q4H PRN ORAL fever 03/24/16 12:00 04/23/16 11:59 03/29/16 20:47 Albuterol/ Ipratropium (DuoNeb 0.5-3(2.5)mg/3ml) 3 ml Q4HRT PRN HHN Shortness of Breath 03/29/16 19:15 04/03/16 19:14 03/29/16 20:05 Atovaquone (Mepron Susp) 1,500 mg DAILY ORAL 03/25/16 09:00 04/24/16 08:59 04/01/16 09:02 Chlorpromazine (Thorazine) 25 mg Q6H PRN IM HICCUPS 03/30/16 15:15 04/29/16 10:44 03/30/16 16:03 Epoetin Suresh (Procrit (for non ESRD use)) 3,000 units MON-MON-MON SUBQ 04/01/16 21:00 05/01/16 20:59 04/01/16 21:44 Escitalopram Oxalate (Lexapro) 10 mg DAILY ORAL 03/25/16 09:00 04/24/16 08:59 04/01/16 09:00 Hydrocortisone (Solu-CORTEF) 100 mg DAILY IV 03/28/16 09:00 04/27/16 08:59 04/01/16 09:01 Nitroglycerin (Ntg) 0.4 mg Every 5 Minutes PRN SL Prn Chest Pain 03/24/16 11:45 04/23/16 11:44 Ondansetron HCl (Zofran) 4 mg Q6H PRN IVP Nausea & Vomiting 03/24/16 12:00 04/23/16 11:59 Pantoprazole (Protonix) 40 mg EVERY 12 HOURS ORAL 03/24/16 21:00 04/23/16 20:59 04/01/16 21:43 Patient Own Medication (Patient's Own Med) 1 ea DAILY ORAL 03/25/16 09:00 04/24/16 08:59 04/01/16 09:01 Patient Own Medication (Patient's Own Med) 1 ea DAILY ORAL 03/25/16 09:00 04/24/16 08:59 04/01/16 09:01 Polyethylene Glycol (Miralax) 17 gm DAILYPRN PRN ORAL Constipation 03/24/16 12:00 04/23/16 11:59 Promethazine HCl/ Codeine (Phenergan with Codeine) 10 ml Q6H PRN ORAL For Cough 03/31/16 18:15 04/30/16 18:14 04/01/16 00:12 MARIA ISABEL SZYMANSKI Apr 01, 2016 22:17
[2016-04-02] VITALS: BP 126/68
[2016-04-02] MEDS: DuoNeb 0.5-3(2.5)mg/3ml neb HHN PRN (00:49)
[2016-04-02 04:00] VITALS: BP 119/79
[2016-04-02 07:07] LABS: MEAN CORPUSCULAR HGB CONC 33.8 G/DL (32.0-36.0); MEAN CORPUSCULAR VOLUME 92 FL (80-99); MEAN PLATELET VOLUME 12.5 FL (6.5-10.1); PLATELET COUNT 23 K/UL (150-450); RED BLOOD COUNT 2.46 M/UL (4.70-6.10); RED CELL DISTRIBUTION WIDTH 15.6 % (11.6-14.8); WHITE BLOOD COUNT 4.3 K/UL (4.8-10.8)
[2016-04-02 07:51] LABS: ANION GAP 11 (5-15); CALCIUM 7.9 mg/dL (8.6-10.2); CARBON DIOXIDE 28 mEQ/L (20-30); CHLORIDE 97 mEQ/L (98-107); CREATININE 1.2 mg/dL (0.7-1.2); GLOMERULAR FILTRATION RATE > 60 mL/min (>60); HEMOLYSIS 2; POTASSIUM 4.4 mEQ/L (3.4-4.9); SODIUM 136 mEQ/L (135-145)
[2016-04-02 08:08] VITALS: BP 115/68
[2016-04-02] MEDS: PREZCOBIX ORAL SCH (09:06)
[2016-04-02] MEDS: Atovaquone 750mg/5ml Susp ORAL SCH (09:07)
[2016-04-02] MEDS: Hydrocortisone 100mg Inj IV SCH (09:07)
[2016-04-02] MEDS ORDERED: NS 275ml ONE (09:36)
[2016-04-02] MEDS ORDERED: Tubing Blood Filter IV ONE (09:36)
[2016-04-02 09:44] LABS: ANISOCYTOSIS 1+; BAND NEUTROPHILS % (MANUAL) 0 % (0-8); BASOPHILS % (MANUAL) 0 % (0-2); EOSINOPHILS % (MANUAL) 1 % (0-3); LYMPHOCYTES % (MANUAL) 22 % (20-45); NEUTROPHILS % (MANUAL) 75 % (45-75); PLATELET ESTIMATE DECREASED; POLYCHROMASIA 1+; TOTAL CELLS COUNTED 100
[2016-04-02 11:52] VITALS: BP 104/53
--- NOTE | 2016-04-02 12:14 | General Progress Note ---
Assessment/Plan Status: stable Status Narrative Cr now 1.2 WNL Assessment/Plan Acute renal failure, multifactorial ( sepsis, HIV , Vanco...) PreRenal superimposed on Renal HypoNatremia Cr 2.8 down to 1.7 PanCytopenia Sepsis, Diarrhea, HIV , Kaposi's Pneumonia Hypocalcemia, electrolyte imbalance Anemia in chronic illness, symptomatic Hypokalemia on admit now K elevated JF (acute kidney injury) Thrombocytopenia, massive splenomegali CAP (community acquired pneumonia) Plan: Antibiotics per ID Urine studies- noted Cortisol levels- 15 Monitor renal parameters and lytes- Avoid Nephrotoxics Monitor Urine out put Protonix Transfuse decrease stress dose of steroids? Subjective ROS Limited/Unobtainable: No Allergies: Coded Allergies: No Known Allergies (Unverified , 03/16/16) Objective Last 24 Hour Vital Signs Date Time Temp Pulse Resp B/P Pulse Ox O2 Delivery O2 Flow Rate FiO2 04/02/16 11:52 97.7 104 20 104/53 99 Nasal Cannula 04/02/16 08:08 98.4 111 20 115/68 99 Nasal Cannula 04/02/16 07:25 110 16 Nasal Cannula 2.0 28 04/02/16 07:25 Nasal Cannula 2.0 28 04/02/16 07:25 99 Nasal Cannula 2.0 28 04/02/16 04:00 99.1 112 20 119/79 99 Nasal Cannula 2.0 04/02/16 00:57 91 20 100 Nasal Cannula 2.0 28 04/02/16 00:49 88 20 99 Nasal Cannula 2.0 28 04/02/16 00:00 99.3 110 22 126/68 99 Nasal Cannula 2.0 04/01/16 20:29 Nasal Cannula 2.0 28 04/01/16 20:29 100 Nasal Cannula 2.0 28 04/01/16 20:29 76 16 Nasal Cannula 2.0 28 04/01/16 19:00 97.5 98 20 115/64 100 Nasal Cannula 2.0 04/01/16 15:59 97.9 93 20 105/61 100 Nasal Cannula 2.0 Intake and Output 04/01/16 04/02/16 19:00 07:00 Intake Total 720 ml 500 ml Output Total 500 ml 1000 ml Balance 220 ml -500 ml Intake Oral 720 ml 500 ml Output Urine Total 500 ml 1000 ml # Voids 2 4 Laboratory Tests 04/02/16 05:15: White Blood Count 4.3L, Red Blood Count 2.46L, Hemoglobin 7.6L, Hematocrit 22.6L , Mean Corpuscular Volume 92, Mean Corpuscular Hemoglobin 31.0, Mean Corpuscular Hemoglobin Concent 33.8, Red Cell Distribution Width 15.6H, Platelet Count 23L, Mean Platelet Volume 12.5H, Neutrophils (%) (Auto) , Lymphocytes (%) (Auto) , Monocytes (%) (Auto) , Eosinophils (%) (Auto) , Basophils (%) (Auto) , Differential Total Cells Counted 100, Neutrophils % ( Manual) 75, Lymphocytes % (Manual) 22, Monocytes % (Manual) 2, Eosinophils % ( Manual) 1, Basophils % (Manual) 0, Band Neutrophils 0, Platelet Estimate DecreasedL, Platelet Morphology , Giant Platelets Rare, Polychromasia 1+, Anisocytosis 1+, Sodium Level 136, Potassium Level 4.4, Chloride Level 97L, Carbon Dioxide Level 28, Anion Gap 11, Blood Urea Nitrogen 36H, Creatinine 1.2, Estimat Glomerular Filtration Rate > 60, Glucose Level 128H, Calcium Level 7.9L Height (Feet): 5 Height (Inches): 10.00 Weight (Pounds): 165 General Appearance: no apparent distress Objective other PE not changed DEREK SMITH Apr 02, 2016 12:14
--- NOTE | 2016-04-02 12:40 | Pulmonology Progress Note ---
Assessment/Plan Problems: (1) Sepsis (2) Pneumonia (3) Anemia (4) JF (acute kidney injury) (5) HIV disease (6) Thrombocytopenia (7) Hypocalcemia (8) Splenomegaly with HIV infection (9) Kaposi sarcoma Assessment/Plan off antibiotics bone marrow biopsy reviewe, granulomatous disease?? respiratory treatment serology pending ( some) renal function improving fever resolved pt/ot CT abdomen/ pelvis ordered for am Subjective Allergies: Coded Allergies: No Known Allergies (Unverified , 03/16/16) Objective Last 24 Hour Vital Signs Date Time Temp Pulse Resp B/P Pulse Ox O2 Delivery O2 Flow Rate FiO2 04/02/16 11:52 97.7 104 20 104/53 99 Nasal Cannula 04/02/16 08:08 98.4 111 20 115/68 99 Nasal Cannula 04/02/16 07:25 110 16 Nasal Cannula 2.0 28 04/02/16 07:25 Nasal Cannula 2.0 28 04/02/16 07:25 99 Nasal Cannula 2.0 28 04/02/16 04:00 99.1 112 20 119/79 99 Nasal Cannula 2.0 04/02/16 00:57 91 20 100 Nasal Cannula 2.0 28 04/02/16 00:49 88 20 99 Nasal Cannula 2.0 28 04/02/16 00:00 99.3 110 22 126/68 99 Nasal Cannula 2.0 04/01/16 20:29 Nasal Cannula 2.0 28 04/01/16 20:29 100 Nasal Cannula 2.0 28 04/01/16 20:29 76 16 Nasal Cannula 2.0 28 04/01/16 19:00 97.5 98 20 115/64 100 Nasal Cannula 2.0 04/01/16 15:59 97.9 93 20 105/61 100 Nasal Cannula 2.0 Intake and Output 04/01/16 04/02/16 19:00 07:00 Intake Total 720 ml 500 ml Output Total 500 ml 1000 ml Balance 220 ml -500 ml Intake Oral 720 ml 500 ml Output Urine Total 500 ml 1000 ml # Voids 2 4 Objective General Appearance: WD/WN Lines, tubes and drains: peripheral HEENT: normocephalic, atraumatic Neck: non-tender, normal alignment Respiratory/Chest: chest wall non-tender, rhonchi - left, rhonchi - right Cardiovascular/Chest: normal peripheral pulses, normal rate Abdomen: normal bowel sounds, non tender Genitourinary/Rectal: normal genital exam Extremities: normal range of motion, non-tender, normal inspection, no calf tenderness, normal capillary refill Skin Exam: normal pigmentation 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 Laboratory Tests 04/02/16 05:15: White Blood Count 4.3L, Red Blood Count 2.46L, Hemoglobin 7.6L, Hematocrit 22.6L , Mean Corpuscular Volume 92, Mean Corpuscular Hemoglobin 31.0, Mean Corpuscular Hemoglobin Concent 33.8, Red Cell Distribution Width 15.6H, Platelet Count 23L, Mean Platelet Volume 12.5H, Neutrophils (%) (Auto) , Lymphocytes (%) (Auto) , Monocytes (%) (Auto) , Eosinophils (%) (Auto) , Basophils (%) (Auto) , Differential Total Cells Counted 100, Neutrophils % ( Manual) 75, Lymphocytes % (Manual) 22, Monocytes % (Manual) 2, Eosinophils % ( Manual) 1, Basophils % (Manual) 0, Band Neutrophils 0, Platelet Estimate DecreasedL, Platelet Morphology , Giant Platelets Rare, Polychromasia 1+, Anisocytosis 1+, Sodium Level 136, Potassium Level 4.4, Chloride Level 97L, Carbon Dioxide Level 28, Anion Gap 11, Blood Urea Nitrogen 36H, Creatinine 1.2, Estimat Glomerular Filtration Rate > 60, Glucose Level 128H, Calcium Level 7.9L Current Medications Medications (Trade) Dose Ordered Sig/Godwin Route PRN Reason Start Time Stop Time Status Last Admin Dose Admin Acetaminophen (Tylenol) 650 mg Q4H PRN ORAL fever 03/24/16 12:00 04/23/16 11:59 03/29/16 20:47 Albuterol/ Ipratropium (DuoNeb 0.5-3(2.5)mg/3ml) 3 ml Q4HRT PRN HHN Shortness of Breath 03/29/16 19:15 04/03/16 19:14 04/02/16 00:49 Atovaquone (Mepron Susp) 1,500 mg DAILY ORAL 03/25/16 09:00 04/24/16 08:59 04/02/16 09:07 Chlorpromazine (Thorazine) 25 mg Q6H PRN IM HICCUPS 2/22/17 15:15 04/29/16 10:44 03/30/16 16:03 Epoetin Suresh (Procrit (for non ESRD use)) 3,000 units MON-MON-MON SUBQ 04/01/16 21:00 05/01/16 20:59 04/01/16 21:44 Escitalopram Oxalate (Lexapro) 10 mg DAILY ORAL 03/25/16 09:00 04/24/16 08:59 04/02/16 09:06 Hydrocortisone (Solu-CORTEF) 100 mg DAILY IV 03/28/16 09:00 04/27/16 08:59 04/02/16 09:07 Nitroglycerin (Ntg) 0.4 mg Every 5 Minutes PRN SL Prn Chest Pain 03/24/16 11:45 04/23/16 11:44 Ondansetron HCl (Zofran) 4 mg Q6H PRN IVP Nausea & Vomiting 03/24/16 12:00 04/23/16 11:59 Pantoprazole (Protonix) 40 mg EVERY 12 HOURS ORAL 03/24/16 21:00 04/23/16 20:59 04/02/16 09:06 Patient Own Medication (Patient's Own Med) 1 ea DAILY ORAL 03/25/16 09:00 04/24/16 08:59 04/02/16 09:06 Patient Own Medication (Patient's Own Med) 1 ea DAILY ORAL 03/25/16 09:00 04/24/16 08:59 04/02/16 09:06 Polyethylene Glycol (Miralax) 17 gm DAILYPRN PRN ORAL Constipation 03/24/16 12:00 04/23/16 11:59 Promethazine HCl/ Codeine (Phenergan with Codeine) 10 ml Q6H PRN ORAL For Cough 03/31/16 18:15 04/30/16 18:14 04/01/16 00:12 Temazepam (Restoril) 15 mg HSPRN PRN ORAL Insomnia 04/01/16 23:00 04/08/16 22:59 04/02/16 01:27 MARIA ISABEL SZYMANSKI Apr 02, 2016 12:40
[2016-04-02 16:27] VITALS: BP 104/59
--- NOTE | 2016-04-02 19:12 | General Progress Note ---
Assessment/Plan Assessment/Plan Assessment/Plan 1. Pancytopenia. The patient is status post bone marrow biopsy, which shows no evidence of blasts. It does show a hypercellular marrow concerning for patchy [id number]-mljtayax fibrosis with degeneration, he is with a history of HIV as well , has no evidence of lymphoma on the biopsy. Iron stores are decreased on biopsy but ferritin overall is elevated. AFB and Gram GMS stain show no acid- fast bacilli and no fungal organisms. Patient has marked splenomegaly. Has extensive lymphadenopathy on CAT scan as well, will consider to biopsy one of the lymph nodes. Very unlikely has ITP given acute onset in thrombocytopenia. Also, the patient has been on steroids (hydrocortisone), therefore, it will empiric coverage for ITP. The patient does not have any evidence that displays primary myofibrosis. Thus overall, likely this is a secondary process. 2. Anemia secondary to chronic disease. His erythrocyte sedimentation rate is severely elevated. Reticulocyte count is low. Ferritin is elevated and TIBC lower. Has issue with iron sequestration/utilization 3. 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 Leukopenia secondary to likely splenomegaly versus sepsis. 5. Thrombocytopenia, concerning for underlying infection versus splenomegaly, also can be 2/2 to above process, will obtain biopsy of LN 6. Splenomegaly, noted on ultrasound. 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 9. HIV. 10. Malnutrition. 11. Failure to thrive. RECOMMENDATIONS: 1. Imaging has been reviewed. Obtain a biopsy of the LN on imaging, will place order 2. Rule out DIC process. Labs have been ordered 3. Hgb goal is >7 and plt goal >10k or >20k if febrile 4. Continue patient on epogen at this time 5. Will order for HLA-matched plts in the future, the order has been placed and d/w blood bank 6. ID recommendations in regards to antibiotics and antiretroviral medications. 7. The patient has hx of Kaposis sarcoma, rule out disseminated disease 8. Followup on GI, ID, and Pulmonary recs 9. Discussed with staff as well as primary MD Celia Trimble MD Subjective Constitutional: Reports: no symptoms HEENT: Reports: no symptoms Cardiovascular: Reports: no symptoms Respiratory: Reports: no symptoms Gastrointestinal/Abdominal: Reports: no symptoms Genitourinary: Reports: no symptoms 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: Reports: no symptoms Endocrine: Reports: no symptoms Hematologic/Lymphatic: Reports: no symptoms Allergies: Coded Allergies: No Known Allergies (Unverified , 03/16/16) Objective Last 24 Hour Vital Signs Date Time Temp Pulse Resp B/P Pulse Ox O2 Delivery O2 Flow Rate FiO2 04/02/16 16:27 97.5 114 20 104/59 99 Room Air 04/02/16 11:52 97.7 104 20 104/53 99 Nasal Cannula 04/02/16 08:08 98.4 111 20 115/68 99 Nasal Cannula 04/02/16 07:25 110 16 Nasal Cannula 2.0 28 04/02/16 07:25 Nasal Cannula 2.0 28 04/02/16 07:25 99 Nasal Cannula 2.0 28 04/02/16 04:00 99.1 112 20 119/79 99 Nasal Cannula 2.0 04/02/16 00:57 91 20 100 Nasal Cannula 2.0 28 04/02/16 00:49 88 20 99 Nasal Cannula 2.0 28 04/02/16 00:00 99.3 110 22 126/68 99 Nasal Cannula 2.0 04/01/16 20:29 Nasal Cannula 2.0 28 04/01/16 20:29 100 Nasal Cannula 2.0 28 04/01/16 20:29 76 16 Nasal Cannula 2.0 28 Intake and Output 04/01/16 04/02/16 19:00 07:00 Intake Total 720 ml 500 ml Output Total 500 ml 1000 ml Balance 220 ml -500 ml Intake Oral 720 ml 500 ml Output Urine Total 500 ml 1000 ml # Voids 2 4 Laboratory Tests 04/02/16 05:15: White Blood Count 4.3L, Red Blood Count 2.46L, Hemoglobin 7.6L, Hematocrit 22.6L , Mean Corpuscular Volume 92, Mean Corpuscular Hemoglobin 31.0, Mean Corpuscular Hemoglobin Concent 33.8, Red Cell Distribution Width 15.6H, Platelet Count 23L, Mean Platelet Volume 12.5H, Neutrophils (%) (Auto) , Lymphocytes (%) (Auto) , Monocytes (%) (Auto) , Eosinophils (%) (Auto) , Basophils (%) (Auto) , Differential Total Cells Counted 100, Neutrophils % ( Manual) 75, Lymphocytes % (Manual) 22, Monocytes % (Manual) 2, Eosinophils % ( Manual) 1, Basophils % (Manual) 0, Band Neutrophils 0, Platelet Estimate DecreasedL, Platelet Morphology , Giant Platelets Rare, Polychromasia 1+, Anisocytosis 1+, Sodium Level 136, Potassium Level 4.4, Chloride Level 97L, Carbon Dioxide Level 28, Anion Gap 11, Blood Urea Nitrogen 36H, Creatinine 1.2, Estimat Glomerular Filtration Rate > 60, Glucose Level 128H, Calcium Level 7.9L Height (Feet): 5 Height (Inches): 10.00 Weight (Pounds): 165 General Appearance: alert EENT: normal ENT inspection Neck: supple Cardiovascular: regular rhythm Respiratory/Chest: lungs clear Abdomen: soft, no mass Extremities: non-tender Edema: no edema noted Arm (L), no edema noted Arm (R), no edema noted Leg (L), no edema noted Leg (R), no edema noted Pedal (L), no edema noted Pedal (R), no edema noted Generalized Skin: warm/dry Lymphatic: normal anterior cervical (L), normal anterior cervical (R), normal axillary (L), normal axillary (R), normal inguinal (L), normal inguinal (R), normal other, normal posterior cervical (L), normal posterior cervical (R), normal submandibular (L), normal submandibular (R), normal supraclavicular (L), normal supraclavicular (R) CELIA TRIMBLE Apr 02, 2016 19:12
[2016-04-02 20:00] VITALS: BP 119/61
[2016-04-03] VITALS: BP 122/65
[2016-04-03 04:00] VITALS: BP 118/62
--- NOTE | 2016-04-03 07:57 | General Progress Note ---
Assessment/Plan Assessment/Plan 1. Pancytopenia. The patient is status post bone marrow biopsy, which shows no evidence of blasts. It does show a hypercellular marrow concerning for patchy [id number] fibrosis with degeneration, he is with a history of HIV as well , has no evidence of lymphoma on the biopsy. Iron stores are decreased on biopsy but ferritin overall is elevated. AFB and Gram GMS stain show no acid- fast bacilli and no fungal organisms. Patient has marked splenomegaly. Has extensive lymphadenopathy on CAT scan as well, will consider to biopsy one of the lymph nodes. Very unlikely has ITP given acute onset in thrombocytopenia. Also, the patient has been on steroids (hydrocortisone), therefore, it will empiric coverage for ITP. The patient does not have any evidence that displays primary myofibrosis. Thus overall, likely this is a secondary process. 2. Anemia secondary to chronic disease. His erythrocyte sedimentation rate is severely elevated. Reticulocyte count is low. Ferritin is elevated and TIBC lower. Has issue with iron sequestration/utilization 3. 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 Leukopenia secondary to likely splenomegaly versus sepsis. 5. Thrombocytopenia, concerning for underlying infection versus splenomegaly, also can be 2/2 to above process, will obtain biopsy of LN. Does not have DIC 6. Splenomegaly, noted on ultrasound. 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 Obtain a biopsy of the LN on imaging, order has been placed 2. Does not have DIC, have reviewed labs 3. Hgb goal is >7 and plt goal >10k or >20k if febrile 4. Continue patient on epogen at this time 5. Will order for HLA-matched plts in the future, the order has been placed and d/w blood bank 6. ID recommendations in regards to antibiotics and antiretroviral medications. 7. The patient has hx of Kaposis sarcoma, rule out disseminated disease with biopsy 8. Followup on GI, ID, and Pulmonary recs 9. staff as well as with Dr. Helton Thank you, Kareem Trimble MD Subjective Constitutional: Reports: no symptoms HEENT: Reports: no symptoms Cardiovascular: Reports: no symptoms Respiratory: Reports: cough Gastrointestinal/Abdominal: Reports: no symptoms Genitourinary: Reports: burning 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: Reports: no symptoms Endocrine: Reports: no symptoms Hematologic/Lymphatic: Reports: anemia Allergies: Coded Allergies: No Known Allergies (Unverified , 03/16/16) Subjective stable, no complaints today, cbc from today is pending Objective Last 24 Hour Vital Signs Date Time Temp Pulse Resp B/P Pulse Ox O2 Delivery O2 Flow Rate FiO2 04/03/16 07:19 119 18 Nasal Cannula 2.0 28 04/03/16 07:18 99 Nasal Cannula 2.0 28 04/03/16 07:18 Nasal Cannula 2.0 28 04/03/16 04:00 98.6 120 18 118/62 96 Nasal Cannula 2.0 04/03/16 00:00 99.1 125 18 122/65 100 Nasal Cannula 2.0 04/02/16 21:17 Nasal Cannula 2.0 28 04/02/16 21:17 115 18 Nasal Cannula 2.0 28 04/02/16 21:17 99 Nasal Cannula 2.0 28 04/02/16 20:00 99.0 117 16 119/61 99 Nasal Cannula 2.0 04/02/16 16:27 97.5 114 20 104/59 99 Room Air 04/02/16 11:52 97.7 104 20 104/53 99 Nasal Cannula 04/02/16 08:08 98.4 111 20 115/68 99 Nasal Cannula Intake and Output 04/02/16 04/03/16 19:00 07:00 Intake Total 1600 ml 200 ml Output Total 400 ml 700 ml Balance 1200 ml -500 ml Intake Oral 1600 ml 200 ml Output Urine Total 400 ml 700 ml # Voids 3 3 # Bowel Movements 3 1 Height (Feet): 5 Height (Inches): 10.00 Weight (Pounds): 165 General Appearance: no apparent distress Neck: non-tender Cardiovascular: normal rate Respiratory/Chest: lungs clear Abdomen: non tender Extremities: non-tender Edema: 1+ Leg (L), 1+ Leg (R) Neurologic: alert Skin: warm/dry Kareem Trimble Apr 03, 2016 07:57
[2016-04-03 08:29] VITALS: BP 120/63
--- NOTE | 2016-04-03 08:31 | Infectious Diseases Prog Note ---
Assessment/Plan Assessment/Plan ASSESSMENT: 55 y/o male with: // Bone marrow Cx <1+ S.epidermidis = contaminant // Probable sepsis r/o opportunistic infection - cultures NGTD - negative: coccidioides, histoplasma, blastomyces, CrAg, T-SPOT, ( coccidioides indeterminant ) // Diarrhea r/o infectious - improved - negative: giardia, O&P, stool Cx // Possible PNA r/o TB, NTM, fungal, lymphocytic interstitial pneumonitis - sputum AFB smear(-) x3, Cx NGTD, T-SPOT(-), TB PCR(-) - CXR 03/29: interim resolution of previously demonstrated right lower lobe infiltrate. Possible small left pleural effusion - CT: predominantly upper lobe pulmonary interstitial disease, possible lymphocytic interstitial pneumonitis. Multiple sub-5 mm parenchymal nodules seen throughout the left lung. Bilateral basilar pulmonary parenchymal atelectatic changes and possibly some consolidation. Small bilateral pleural effusions - negative/WNL: LDH, CrAg, blastomyces, histoplasma, ( coccidioides indeterminant ) // Diffuse LAD ?HIV ?KS ?CMV - CMV PCR, VEL, Bx pending - SP BMBx: mild-mod fibrosis, granulomatous inflammation. AFB, fungal stains (-) - CT: Extensive thoracic, abdominal, and pelvic lymphadenopathy // HIV / AIDS, on cART ( recently changed to prezcobix, tivicay d/t genotype ) - CD4 37(5.3%) // Kaposi sarcoma // Leukopenia / pancytopenia r/o bone marrow infiltrative process - SP BMBx: mild-mod fibrosis, granulomatous inflammation. AFB, fungal stains (-) - negative/WNL: LDH, ARMIDA, CrAg, Parvovirus IgM, blastomyces, histoplasma, T- SPOT ( coccidioides indeterminant ) // Fever - resolved // Symptomatic FOBT(-) anemia SP PRBCs - denies blood loss. GI following, plan EGD/colonoscopy - CT A/P(-) RP hematoma // ARF - improved, stable // Hypocalcemia / electrolyte imbalance // Massive splenomegaly // Thrombocytopenia // Anxiety // Elevated ESR // NKDA // Full Code PLAN: - monitor pt off of ABX ( 03/26 SP IV vancomycin, cefepime d# ) - continue cART ( prezcobix, tivicay - ok for pt to take own meds ), changed bactrim prophy to mepron given cytopenias - f/u AFB BCx, sputum AFB Cx, CMV PCR, VEL - monitor CBC, temperatures - monitor BMP - transfuse prn - EGD/colonoscopy per GI Subjective Allergies: Coded Allergies: No Known Allergies (Unverified , 03/16/16) Subjective intermittent low grade fevers resolved no new complaint seen by heme, ordered LN bx Objective Vital Signs Last 24 Hour Vital Signs Date Time Temp Pulse Resp B/P Pulse Ox O2 Delivery O2 Flow Rate FiO2 04/03/16 07:19 119 18 Nasal Cannula 2.0 28 04/03/16 07:18 99 Nasal Cannula 2.0 28 04/03/16 07:18 Nasal Cannula 2.0 28 04/03/16 04:00 98.6 120 18 118/62 96 Nasal Cannula 2.0 04/03/16 00:00 99.1 125 18 122/65 100 Nasal Cannula 2.0 04/02/16 21:17 Nasal Cannula 2.0 28 04/02/16 21:17 115 18 Nasal Cannula 2.0 28 04/02/16 21:17 99 Nasal Cannula 2.0 28 04/02/16 20:00 99.0 117 16 119/61 99 Nasal Cannula 2.0 04/02/16 16:27 97.5 114 20 104/59 99 Room Air 04/02/16 11:52 97.7 104 20 104/53 99 Nasal Cannula Height (Feet): 5 Height (Inches): 10.00 Weight (Pounds): 165 General Appearance: no acute distress Respiratory/Chest: no respiratory distress Cardiovascular: normal rate, regular rhythm Abdomen: normal bowel sounds, soft, non tender, non distended Current Medications Medications (Trade) Dose Ordered Sig/Godwin Route PRN Reason Start Time Stop Time Status Last Admin Dose Admin Acetaminophen (Tylenol) 650 mg Q4H PRN ORAL fever 03/24/16 12:00 04/23/16 11:59 03/29/16 20:47 Albuterol/ Ipratropium (DuoNeb 0.5-3(2.5)mg/3ml) 3 ml Q4HRT PRN HHN Shortness of Breath 03/29/16 19:15 04/03/16 19:14 04/02/16 00:49 Atovaquone (Mepron Susp) 1,500 mg DAILY ORAL 03/25/16 09:00 04/24/16 08:59 04/02/16 09:07 Chlorpromazine (Thorazine) 25 mg Q6H PRN IM HICCUPS 03/30/16 15:15 04/29/16 10:44 04/03/16 02:01 Epoetin Suresh (Procrit (for non ESRD use)) 3,000 units MON-MON-MON SUBQ 04/01/16 21:00 05/01/16 20:59 04/01/16 21:44 Escitalopram Oxalate (Lexapro) 10 mg DAILY ORAL 03/25/16 09:00 04/24/16 08:59 04/02/16 09:06 Hydrocortisone (Solu-CORTEF) 100 mg DAILY IV 03/28/16 09:00 04/27/16 08:59 04/02/16 09:07 Nitroglycerin (Ntg) 0.4 mg Every 5 Minutes PRN SL Prn Chest Pain 03/24/16 11:45 04/23/16 11:44 Ondansetron HCl (Zofran) 4 mg Q6H PRN IVP Nausea & Vomiting 03/24/16 12:00 04/23/16 11:59 Pantoprazole (Protonix) 40 mg EVERY 12 HOURS ORAL 03/24/16 21:00 04/23/16 20:59 04/02/16 20:31 Patient Own Medication (Patient's Own Med) 1 ea DAILY ORAL 03/25/16 09:00 04/24/16 08:59 04/02/16 09:06 Patient Own Medication (Patient's Own Med) 1 ea DAILY ORAL 03/25/16 09:00 04/24/16 08:59 04/02/16 09:06 Polyethylene Glycol (Miralax) 17 gm DAILYPRN PRN ORAL Constipation 03/24/16 12:00 04/23/16 11:59 Promethazine HCl/ Codeine (Phenergan with Codeine) 10 ml Q6H PRN ORAL For Cough 03/31/16 18:15 04/30/16 18:14 04/01/16 00:12 Temazepam (Restoril) 15 mg HSPRN PRN ORAL Insomnia 04/01/16 23:00 04/08/16 22:59 04/02/16 20:34 MANJEET GARDNER Apr 03, 2016 08:30
[2016-04-03] MEDS: Hydrocortisone 100mg Inj IV SCH (08:40)
[2016-04-03] MEDS: Atovaquone 750mg/5ml Susp ORAL SCH (08:40)
[2016-04-03] MEDS: PREZCOBIX ORAL SCH (08:45)
[2016-04-03 11:48] VITALS: BP 108/62
--- NOTE | 2016-04-03 11:55 | Diagnostic Imaging Report ---
Indication: Dyspnea Comparison: 03/29/16 A single view chest radiograph was obtained. Findings: Cardiomediastinal appearance is within normal limits for age. Pulmonary vascularity is appropriate. The diaphragmatic contour is smooth and costophrenic angles are sharp. No pleural effusions are identified. The bones are osteopenic. Cervical fusion plate noted. Impression: No acute findings
--- NOTE | 2016-04-03 14:10 | General Progress Note ---
Assessment/Plan Status: unchanged Status Narrative Tachycardic ! Assessment/Plan Acute renal failure, multifactorial ( sepsis, HIV , Vanco...) PreRenal superimposed on Renal HypoNatremia Cr 2.8 down to 1.7 PanCytopenia Sepsis, Diarrhea, HIV , Kaposi's Pneumonia Hypocalcemia, electrolyte imbalance Anemia in chronic illness, symptomatic Hypokalemia on admit now K elevated JF (acute kidney injury) Thrombocytopenia, massive splenomegali CAP (community acquired pneumonia) Plan: No labs today- Antibiotics per ID Urine studies- noted Cortisol levels- 15 Monitor renal parameters and lytes- Avoid Nephrotoxics Monitor Urine out put Protonix Transfuse Subjective ROS Limited/Unobtainable: No Constitutional: Reports: malaise Allergies: Coded Allergies: No Known Allergies (Unverified , 03/16/16) Objective Last 24 Hour Vital Signs Date Time Temp Pulse Resp B/P Pulse Ox O2 Delivery O2 Flow Rate FiO2 04/03/16 11:48 98.2 128 20 108/62 98 Nasal Cannula 2.0 04/03/16 08:29 98.1 120 20 120/63 99 Nasal Cannula 2.0 04/03/16 07:19 119 18 Nasal Cannula 2.0 28 04/03/16 07:18 99 Nasal Cannula 2.0 28 04/03/16 07:18 Nasal Cannula 2.0 28 04/03/16 04:00 98.6 120 18 118/62 96 Nasal Cannula 2.0 04/03/16 00:00 99.1 125 18 122/65 100 Nasal Cannula 2.0 04/02/16 21:17 Nasal Cannula 2.0 28 04/02/16 21:17 115 18 Nasal Cannula 2.0 28 04/02/16 21:17 99 Nasal Cannula 2.0 28 04/02/16 20:00 99.0 117 16 119/61 99 Nasal Cannula 2.0 04/02/16 16:27 97.5 114 20 104/59 99 Room Air Intake and Output 04/02/16 04/03/16 19:00 07:00 Intake Total 1600 ml 200 ml Output Total 400 ml 700 ml Balance 1200 ml -500 ml Intake Oral 1600 ml 200 ml Output Urine Total 400 ml 700 ml # Voids 3 3 # Bowel Movements 3 1 Height (Feet): 5 Height (Inches): 10.00 Weight (Pounds): 165 Cardiovascular: tachycardia Respiratory/Chest: decreased breath sounds Abdomen: soft Objective other PE not changed DEREK SMITH Apr 03, 2016 14:10
[2016-04-03 16:00] VITALS: BP 119/53
[2016-04-03] MEDS ORDERED: Nitroglycerin Subl 0.4mg tab (Bottle Of 25) SL PRN (16:00)
[2016-04-03] MEDS: Morphine Sulfate 4mg/ml Inj IVP PRN ×2 (18:56→23:10)
[2016-04-03] MEDS ORDERED: DuoNeb 0.5-3(2.5)mg/3ml neb HHN PRN (19:00)
[2016-04-03 20:00] VITALS: BP 102/51
[2016-04-03] MEDS ORDERED: Promethazine/Codeine 5ml UD ORAL PRN (20:00)
--- NOTE | 2016-04-03 22:49 | Pulmonology Progress Note ---
Assessment/Plan Problems: (1) Sepsis (2) Pneumonia (3) Anemia (4) JF (acute kidney injury) (5) HIV disease (6) Thrombocytopenia (7) Hypocalcemia (8) Splenomegaly with HIV infection (9) Kaposi sarcoma Assessment/Plan off antibiotics bone marrow biopsy reviewe, granulomatous disease?? respiratory treatment serology pending ( some) renal function improving fever resolved pt/ot CT abdomen/ pelvis ordered for am Subjective Allergies: Coded Allergies: No Known Allergies (Unverified , 03/16/16) Objective Last 24 Hour Vital Signs Date Time Temp Pulse Resp B/P Pulse Ox O2 Delivery O2 Flow Rate FiO2 04/03/16 21:00 99.4 04/03/16 20:00 101.7 140 18 102/51 98 Nasal Cannula 04/03/16 20:00 138 04/03/16 19:26 101.7 04/03/16 16:00 134 04/03/16 16:00 99.5 128 18 119/53 98 Nasal Cannula 04/03/16 11:48 98.2 128 20 108/62 98 Nasal Cannula 2.0 04/03/16 08:29 98.1 120 20 120/63 99 Nasal Cannula 2.0 04/03/16 07:19 119 18 Nasal Cannula 2.0 28 04/03/16 07:18 99 Nasal Cannula 2.0 28 04/03/16 07:18 Nasal Cannula 2.0 28 04/03/16 04:00 98.6 120 18 118/62 96 Nasal Cannula 2.0 04/03/16 00:00 99.1 125 18 122/65 100 Nasal Cannula 2.0 Intake and Output 04/02/16 04/03/16 19:00 07:00 Intake Total 1600 ml 200 ml Output Total 400 ml 700 ml Balance 1200 ml -500 ml Intake Oral 1600 ml 200 ml Output Urine Total 400 ml 700 ml # Voids 3 3 # Bowel Movements 3 1 Objective General Appearance: WD/WN Lines, tubes and drains: peripheral HEENT: normocephalic, atraumatic Neck: non-tender, normal alignment Respiratory/Chest: chest wall non-tender, rhonchi - left, rhonchi - right Cardiovascular/Chest: normal peripheral pulses, normal rate Abdomen: normal bowel sounds, non tender Genitourinary/Rectal: normal genital exam Extremities: normal range of motion, non-tender, normal inspection, no calf tenderness, normal capillary refill Skin Exam: normal pigmentation 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 Current Medications Medications (Trade) Dose Ordered Sig/Godwin Route PRN Reason Start Time Stop Time Status Last Admin Dose Admin Acetaminophen (Tylenol) 650 mg Q4H PRN ORAL fever 04/03/16 16:00 05/03/16 15:59 04/03/16 20:01 Albuterol/ Ipratropium (DuoNeb 0.5-3(2.5)mg/3ml) 3 ml Q4HRT PRN HHN Shortness of Breath 04/03/16 19:00 04/08/16 18:59 Atovaquone (Mepron Susp) 1,500 mg DAILY ORAL 04/04/16 09:00 05/04/16 08:59 Chlorpromazine (Thorazine) 25 mg Q6H PRN IM HICCUPS 04/03/16 16:00 05/03/16 15:59 04/03/16 16:01 Epoetin Suresh (Procrit (for non ESRD use)) 3,000 units MON-MON-MON SUBQ 04/04/16 21:00 05/04/16 20:59 Escitalopram Oxalate (Lexapro) 10 mg DAILY ORAL 04/04/16 09:00 05/04/16 08:59 Hydrocortisone (Solu-CORTEF) 100 mg DAILY IV 04/04/16 09:00 05/04/16 08:59 Morphine Sulfate (Morphine Sulfate) 4 mg Q4H PRN IVP For Severe Pain 04/03/16 18:30 04/10/16 18:29 04/03/16 18:56 Nitroglycerin (Ntg) 0.4 mg Every 5 Minutes PRN SL Prn Chest Pain 04/03/16 16:00 05/03/16 15:59 Ondansetron HCl (Zofran) 4 mg Q6H PRN IVP Nausea & Vomiting 04/03/16 18:00 05/03/16 17:59 Patient Own Medication (Patient's Own Med) 1 ea DAILY ORAL 04/04/16 09:00 05/04/16 08:59 Patient Own Medication (Patient's Own Med) 1 ea DAILY ORAL 04/04/16 09:00 05/04/16 08:59 Polyethylene Glycol (Miralax) 17 gm DAILYPRN PRN ORAL Constipation 2/27/17 16:00 05/04/16 15:59 Promethazine HCl/ Codeine (Phenergan with Codeine) 10 ml Q6H PRN ORAL For Cough 04/03/16 20:00 05/03/16 19:59 Temazepam (Restoril) 15 mg HSPRN PRN ORAL Insomnia 04/03/16 21:00 04/10/16 20:59 MARIA ISABEL SZYMANSKI Apr 03, 2016 22:49
[2016-04-04] VITALS: BP 102/52
[2016-04-04 04:00] VITALS: BP 95/44
[2016-04-04] MEDS: Morphine Sulfate 4mg/ml Inj IVP PRN ×3 (04:48→18:49)
--- NOTE | 2016-04-04 07:44 | Infectious Diseases Prog Note ---
Assessment/Plan Assessment/Plan Assessment/Plan ASSESSMENT: 55 y/o male with: // Bone marrow Cx <1+ S.epidermidis = contaminant // Probable sepsis r/o opportunistic infection - cultures NGTD - negative: coccidioides, histoplasma, blastomyces, CrAg, T-SPOT, ( coccidioides indeterminant ) // Diarrhea r/o infectious - improved - negative: giardia, O&P, stool Cx // Possible PNA r/o TB, NTM, fungal, lymphocytic interstitial pneumonitis - sputum AFB smear(-) x3, Cx NGTD, T-SPOT(-), TB PCR(-) - CXR 03/29: interim resolution of previously demonstrated right lower lobe infiltrate. Possible small left pleural effusion - CT: predominantly upper lobe pulmonary interstitial disease, possible lymphocytic interstitial pneumonitis. Multiple sub-5 mm parenchymal nodules seen throughout the left lung. Bilateral basilar pulmonary parenchymal atelectatic changes and possibly some consolidation. Small bilateral pleural effusions - negative/WNL: LDH, CrAg, blastomyces, histoplasma, ( coccidioides indeterminant ) // Diffuse LAD ?HIV ?KS ?CMV - CMV PCR, VEL, Bx pending - SP BMBx: mild-mod fibrosis, granulomatous inflammation. AFB, fungal stains (-) - CT: Extensive thoracic, abdominal, and pelvic lymphadenopathy // HIV / AIDS, on cART ( recently changed to prezcobix, tivicay d/t genotype ) - CD4 37(5.3%) // Kaposi sarcoma // Leukopenia / pancytopenia r/o bone marrow infiltrative process - SP BMBx: mild-mod fibrosis, granulomatous inflammation. AFB, fungal stains (-) - negative/WNL: LDH, ARMIDA, CrAg, Parvovirus IgM, blastomyces, histoplasma, T- SPOT ( coccidioides indeterminant ) // Fever - resolved // Symptomatic FOBT(-) anemia SP PRBCs - denies blood loss. GI following, plan EGD/colonoscopy - CT A/P(-) RP hematoma // ARF - improved, stable // Hypocalcemia / electrolyte imbalance // Massive splenomegaly // Thrombocytopenia // Anxiety // Elevated ESR // NKDA // Full Code PLAN: - monitor pt off of ABX ( 03/26 SP IV vancomycin, cefepime d# ) - continue cART ( prezcobix, tivicay - ok for pt to take own meds ), changed bactrim prophy to mepron given cytopenias - f/u AFB BCx, sputum AFB Cx, CMV PCR, VEL - monitor CBC, temperatures - monitor BMP - transfuse prn - EGD/colonoscopy per GI Subjective Constitutional: Denies: anorexia, chills, drenching sweats, fatigue, fever, no symptoms, other Allergies: Coded Allergies: No Known Allergies (Unverified , 03/16/16) Objective Vital Signs Last 24 Hour Vital Signs Date Time Temp Pulse Resp B/P Pulse Ox O2 Delivery O2 Flow Rate FiO2 04/04/16 07:22 125 18 Nasal Cannula 2.0 28 04/04/16 07:22 97 Nasal Cannula 2.0 28 04/04/16 07:22 Nasal Cannula 2.0 28 04/04/16 05:18 97.3 04/04/16 04:00 99.1 136 20 95/44 96 Nasal Cannula 04/04/16 04:00 126 04/04/16 00:00 97.3 112 20 102/52 96 Nasal Cannula 04/04/16 00:00 113 04/03/16 21:00 99.4 04/03/16 20:00 101.7 140 18 102/51 98 Nasal Cannula 04/03/16 20:00 138 04/03/16 16:00 134 04/03/16 16:00 99.5 128 18 119/53 98 Nasal Cannula 04/03/16 11:48 98.2 128 20 108/62 98 Nasal Cannula 2.0 04/03/16 08:29 98.1 120 20 120/63 99 Nasal Cannula 2.0 Height (Feet): 5 Height (Inches): 10.00 Weight (Pounds): 165 HEENT: atraumatic Respiratory/Chest: lungs clear Cardiovascular: normal rate, regular rhythm Abdomen: soft, non tender, no organomegaly Current Medications Medications (Trade) Dose Ordered Sig/Godwin Route PRN Reason Start Time Stop Time Status Last Admin Dose Admin Acetaminophen (Tylenol) 650 mg Q4H PRN ORAL fever 04/03/16 16:00 05/03/16 15:59 04/03/16 20:01 Albuterol/ Ipratropium (DuoNeb 0.5-3(2.5)mg/3ml) 3 ml Q4HRT PRN HHN Shortness of Breath 04/03/16 19:00 04/08/16 18:59 Atovaquone (Mepron Susp) 1,500 mg DAILY ORAL 04/04/16 09:00 05/04/16 08:59 Chlorpromazine (Thorazine) 25 mg Q6H PRN IM HICCUPS 04/03/16 16:00 05/03/16 15:59 04/03/16 16:01 Epoetin Suresh (Procrit (for non ESRD use)) 3,000 units MON-MON-MON SUBQ 04/04/16 21:00 05/04/16 20:59 Escitalopram Oxalate (Lexapro) 10 mg DAILY ORAL 04/04/16 09:00 05/04/16 08:59 Hydrocortisone (Solu-CORTEF) 100 mg DAILY IV 04/04/16 09:00 05/04/16 08:59 Morphine Sulfate (Morphine Sulfate) 4 mg Q4H PRN IVP For Severe Pain 04/03/16 18:30 04/10/16 18:29 04/04/16 04:48 Nitroglycerin (Ntg) 0.4 mg Every 5 Minutes PRN SL Prn Chest Pain 04/03/16 16:00 05/03/16 15:59 Ondansetron HCl (Zofran) 4 mg Q6H PRN IVP Nausea & Vomiting 04/03/16 18:00 05/03/16 17:59 Patient Own Medication (Patient's Own Med) 1 ea DAILY ORAL 04/04/16 09:00 05/04/16 08:59 Patient Own Medication (Patient's Own Med) 1 ea DAILY ORAL 04/04/16 09:00 05/04/16 08:59 Polyethylene Glycol (Miralax) 17 gm DAILYPRN PRN ORAL Constipation 04/04/16 16:00 05/04/16 15:59 Promethazine HCl/ Codeine (Phenergan with Codeine) 10 ml Q6H PRN ORAL For Cough 04/03/16 20:00 05/03/16 19:59 Temazepam (Restoril) 15 mg HSPRN PRN ORAL Insomnia 04/03/16 21:00 04/10/16 20:59 DANIEL GODINEZ M.D. Apr 04, 2016 07:44
[2016-04-04 08:00] VITALS: BP 97/57
[2016-04-04 08:45] LABS: HIV-1 ANTIBODY Positive (Negative); HIV-2 ANTIBODY Negative (Negative)
--- NOTE | 2016-04-04 08:56 | General Progress Note ---
Assessment/Plan Assessment/Plan 1. Pancytopenia. The patient is status post bone marrow biopsy, which shows no evidence of blasts. It does show a hypercellular marrow concerning for patchy [id number] fibrosis with degeneration, he is with a history of HIV as well , has no evidence of lymphoma on the biopsy. Iron stores are decreased on biopsy but ferritin overall is elevated. AFB and Gram GMS stain show no acid- fast bacilli and no fungal organisms. Patient has marked splenomegaly. Has extensive lymphadenopathy on CAT scan as well, will consider to biopsy one of the lymph nodes. Very unlikely has ITP given acute onset in thrombocytopenia. Also, the patient has been on steroids (hydrocortisone), therefore, it will empiric coverage for ITP. The patient does not have any evidence that displays primary myofibrosis. Thus overall, likely this is a secondary process. 2. Anemia secondary to chronic disease. His erythrocyte sedimentation rate is severely elevated. Reticulocyte count is low. Ferritin is elevated and TIBC lower. Has issue with iron sequestration/utilization 3. 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 Leukopenia secondary to likely splenomegaly versus sepsis. 5. Thrombocytopenia, concerning for underlying infection versus splenomegaly, also can be 2/2 to above process, will obtain biopsy of LN. Does not have DIC 6. Splenomegaly, noted on ultrasound. 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 Obtain a biopsy of the LN on imaging, order has been placed 2. Does not have DIC, have reviewed labs 3. Hgb goal is >7 and plt goal >10k or >20k if febrile 4. Continue patient on epogen at this time 5. Will order for HLA-matched plts in the future, the order has been placed and d/w blood bank 6. ID recommendations in regards to antibiotics and antiretroviral medications. 7. The patient has hx of Kaposis sarcoma, rule out disseminated disease with biopsy 8. Followup on GI, ID, and Pulmonary recs 9. Discussed with staff Thank you, Kareem Trimble MD Subjective Constitutional: Reports: no symptoms HEENT: Reports: no symptoms Cardiovascular: Reports: no symptoms Respiratory: Reports: no symptoms Gastrointestinal/Abdominal: Reports: no symptoms Genitourinary: Reports: no symptoms 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: Reports: no symptoms Endocrine: Reports: no symptoms Hematologic/Lymphatic: Reports: anemia Allergies: Coded Allergies: No Known Allergies (Unverified , 03/16/16) Subjective stable, no complaints today, cbc stable yesterday, is sleepy Objective Last 24 Hour Vital Signs Date Time Temp Pulse Resp B/P Pulse Ox O2 Delivery O2 Flow Rate FiO2 04/04/16 07:22 125 18 Nasal Cannula 2.0 04/04/16 07:22 97 Nasal Cannula 2.0 28 04/04/16 07:22 Nasal Cannula 2.0 28 04/04/16 05:18 97.3 04/04/16 04:00 99.1 136 20 95/44 96 Nasal Cannula 04/04/16 04:00 126 04/04/16 00:00 97.3 112 20 102/52 96 Nasal Cannula 04/04/16 00:00 113 04/03/16 21:00 99.4 04/03/16 20:00 101.7 140 18 102/51 98 Nasal Cannula 04/03/16 20:00 138 04/03/16 16:00 134 04/03/16 16:00 99.5 128 18 119/53 98 Nasal Cannula 04/03/16 11:48 98.2 128 20 108/62 98 Nasal Cannula 2.0 Intake and Output 04/03/16 04/04/16 19:00 07:00 Intake Total 400 ml 300 ml Output Total 300 ml 500 ml Balance 100 ml -200 ml Intake Oral 400 ml 300 ml Output Urine Total 300 ml 500 ml # Voids 2 2 Height (Feet): 5 Height (Inches): 10.00 Weight (Pounds): 165 General Appearance: no apparent distress EENT: TMs normal Neck: non-tender Cardiovascular: normal peripheral pulses Respiratory/Chest: lungs clear Abdomen: no mass Extremities: normal inspection Edema: mild edema Neurologic: alert Skin: normal pigmentation Kareem Trimble Apr 04, 2016 08:56
[2016-04-04] MEDS: PREZCOBIX ORAL SCH (09:05)
[2016-04-04] MEDS: Hydrocortisone 100mg Inj IV SCH (09:06)
[2016-04-04] MEDS: Atovaquone 750mg/5ml Susp ORAL SCH (09:06)
[2016-04-04 09:41] LABS: MEAN CORPUSCULAR HEMOGLOBIN 30.5 PG (27.0-31.0); MEAN CORPUSCULAR VOLUME 93 FL (80-99); MEAN PLATELET VOLUME 10.3 FL (6.5-10.1); PLATELET COUNT 19 K/UL (150-450); RED BLOOD COUNT 1.82 M/UL (4.70-6.10); RED CELL DISTRIBUTION WIDTH 15.7 % (11.6-14.8); WHITE BLOOD COUNT 4.4 K/UL (4.8-10.8)
[2016-04-04 10:10] LABS: ALBUMIN/GLOBULIN RATIO 0.4 (1.0-2.7); CALCIUM 7.8 mg/dL (8.6-10.2); CREATININE 1.6 mg/dL (0.7-1.2); GLOMERULAR FILTRATION RATE 45.1 mL/min (>60); TOTAL PROTEIN 5.8 g/dL (6.6-8.7)
[2016-04-04 10:57] LABS: BAND NEUTROPHILS % (MANUAL) 0 % (0-8); BASOPHILS % (MANUAL) 0 % (0-2); EOSINOPHILS % (MANUAL) 0 % (0-3); LYMPHOCYTES % (MANUAL) 17 % (20-45); NEUTROPHILS % (MANUAL) 76 % (45-75); PLATELET ESTIMATE DECREASED; TOTAL CELLS COUNTED 100
[2016-04-04 10:58] LABS: ANISOCYTOSIS 1+; HYPOCHROMASIA 1+
[2016-04-04 10:59] LABS: PLATELET MORPHOLOGY NORMAL; POLYCHROMASIA OCCASIONAL
--- NOTE | 2016-04-04 11:13 | GI Progress Note ---
Assessment/Plan Problems: (1) Diarrhea ICD Codes: R19.7 - Diarrhea, unspecified SNOMED: 82335270 (2) Splenomegaly with HIV infection ICD Codes: B20 - Human immunodeficiency virus [HIV] disease; R16.1 - Splenomegaly, not elsewhere classified SNOMED: 509180158 (3) Anemia ICD Codes: D64.9 - Anemia, unspecified SNOMED: 010057758 Qualifiers: Qualified Codes: D64.9 - Anemia, unspecified (4) Thrombocytopenia ICD Codes: D69.6 - Thrombocytopenia, unspecified SNOMED: 729463107 (5) HIV disease ICD Codes: B20 - Human immunodeficiency virus [HIV] disease SNOMED: 50620480 (6) Episode of generalized weakness ICD Codes: R53.1 - Weakness SNOMED: 27077599 Status: unchanged Status Narrative Discussed with Dr. Epps. Assessment/Plan Assessment - Anemia - Thrombocytopenia - HIV - Diarrhea >> cdiff negative - r/o TB - s/p bone biopsy >> GRAM STAIN RESULTS. RARE WHITE BLOOD CELLS. NO ORGANISMS SEEN. - Stool w.u >> negative - O&P negative - OB stool negative x 3 - airborne isolation off - APCT r/o retroperitoneal bleed >> negative for hematoma - repeat iron levels >> WNL Recommendations - add OB stool - fu Hematology consult - monitor H&H, transfuse prn - EGD/Colon when stable - ppi - fu labs Subjective Subjective denies any abdominal pain/diarrhea/constipation fatigue eating well Objective Last 24 Hour Vital Signs Date Time Temp Pulse Resp B/P Pulse Ox O2 Delivery O2 Flow Rate FiO2 04/04/16 08:00 98.6 131 19 97/57 97 Nasal Cannula 04/04/16 07:22 125 18 Nasal Cannula 2.0 28 04/04/16 07:22 97 Nasal Cannula 2.0 28 04/04/16 07:22 Nasal Cannula 2.0 28 04/04/16 05:18 97.3 04/04/16 04:00 99.1 136 20 95/44 96 Nasal Cannula 04/04/16 04:00 126 04/04/16 00:00 97.3 112 20 102/52 96 Nasal Cannula 04/04/16 00:00 113 04/03/16 21:00 99.4 04/03/16 20:00 101.7 140 18 102/51 98 Nasal Cannula 04/03/16 20:00 138 04/03/16 16:00 134 04/03/16 16:00 99.5 128 18 119/53 98 Nasal Cannula 04/03/16 11:48 98.2 128 20 108/62 98 Nasal Cannula 2.0 Intake and Output 04/03/16 04/04/16 19:00 07:00 Intake Total 400 ml 300 ml Output Total 300 ml 500 ml Balance 100 ml -200 ml Intake Oral 400 ml 300 ml Output Urine Total 300 ml 500 ml # Voids 2 2 Laboratory Tests Test 04/04/16 08:45 White Blood Count 4.4 K/UL (4.8-10.8) L Red Blood Count 1.82 M/UL (4.70-6.10) L Hemoglobin 5.6 G/DL (14.2-18.0) *L Hematocrit 16.9 % (42.0-52.0) L Mean Corpuscular Volume 93 FL (80-99) Mean Corpuscular Hemoglobin 30.5 PG (27.0-31.0) Mean Corpuscular Hemoglobin Concent 33.0 G/DL (32.0-36.0) Red Cell Distribution Width 15.7 % (11.6-14.8) H Platelet Count 19 K/UL (150-450) L Mean Platelet Volume 10.3 FL (6.5-10.1) H Neutrophils (%) (Auto) % (45.0-75.0) Lymphocytes (%) (Auto) % (20.0-45.0) Monocytes (%) (Auto) % (1.0-10.0) Eosinophils (%) (Auto) % (0.0-3.0) Basophils (%) (Auto) % (0.0-2.0) Differential Total Cells Counted 100 Neutrophils % (Manual) 76 % (45-75) H Lymphocytes % (Manual) 17 % (20-45) L Monocytes % (Manual) 7 % (1-10) Eosinophils % (Manual) 0 % (0-3) Basophils % (Manual) 0 % (0-2) Band Neutrophils 0 % (0-8) Platelet Estimate Decreased L Platelet Morphology Normal Polychromasia Occasional Hypochromasia 1+ Anisocytosis 1+ Sodium Level 133 mEQ/L (135-145) L Potassium Level 5.0 mEQ/L (3.4-4.9) H Chloride Level 94 mEQ/L (98-107) L Carbon Dioxide Level 28 mEQ/L (20-30) Anion Gap 11 (5-15) Blood Urea Nitrogen 42 mg/dL (7-23) H Creatinine 1.6 mg/dL (0.7-1.2) H Estimat Glomerular Filtration Rate 45.1 mL/min (>60) Glucose Level 154 mg/dL (74-106) H Calcium Level 7.8 mg/dL (8.6-10.2) L Total Bilirubin 1.4 mg/dL (0.0-1.2) H Direct Bilirubin Pending Aspartate Amino Transf (AST/SGOT) 19 U/L (5-40) Alanine Aminotransferase (ALT/SGPT) 13 U/L (3-41) Alkaline Phosphatase 67 U/L (40-129) Total Protein 5.8 g/dL (6.6-8.7) L Albumin 1.8 g/dL (3.5-5.2) L Globulin 4.0 g/dL Albumin/Globulin Ratio 0.4 (1.0-2.7) L Height (Feet): 5 Height (Inches): 10.00 Weight (Pounds): 165 General Appearance: no apparent distress, alert, thin Cardiovascular: normal rate Respiratory/Chest: normal breath sounds, other - 2LNC Abdominal Exam: normal bowel sounds, non tender, soft Extremities: normal range of motion Objective Procedure: CT CHEST Abdomen Pelvis WO Con Indication: ABN LABS Impression: Splenomegaly Extensive thoracic, abdominal, and pelvic lymphadenopathy, as detailed above. This is nonspecific, likely related to stated clinical history of HIV. May indicate reactive, inflammatory, infectious adenopathy, or a lymphoproliferative disorder. Correlate with clinical history and findings Evidence of predominantly upper lobe pulmonary interstitial disease, as described, predominant findings being interstitial septal thickening and bronchial wall thickening. While the differential for this is quite broad, given the history of HIV positivity the possibility of lymphocytic interstitial pneumonitis should be considered Multiple sub-5 mm parenchymal nodules seen throughout the left lung. Possibly related to the above. If there are significant risk factors for lung carcinoma, however, short interval followup CT at 6-12 months should be considered. Bilateral basilar pulmonary parenchymal atelectatic changes and possibly some consolidation Small bilateral pleural effusions Nonspecific bilateral perinephric fat stranding Genesis Keller N.P. Apr 04, 2016 11:13
[2016-04-04 11:32] LABS: BILIRUBIN,DIRECT 0.5 mg/dL (0.1-0.3)
[2016-04-04 12:00] VITALS: BP 98/64
--- NOTE | 2016-04-04 12:19 | Pulmonology Progress Note ---
Assessment/Plan Problems: (1) Sepsis (2) Pneumonia (3) Anemia (4) JF (acute kidney injury) (5) HIV disease (6) Thrombocytopenia (7) Hypocalcemia (8) Splenomegaly with HIV infection (9) Kaposi sarcoma Assessment/Plan off antibiotics bone marrow biopsy reviewe, granulomatous disease LN biopsy peindgin respiratory treatment serology pending ( some) renal function improving fever resolved pt/ot telemetry. Subjective ROS Limited/Unobtainable: No Interval Events: still tachy cardic, multifactorial Allergies: Coded Allergies: No Known Allergies (Unverified , 03/16/16) Objective Last 24 Hour Vital Signs Date Time Temp Pulse Resp B/P Pulse Ox O2 Delivery O2 Flow Rate FiO2 04/04/16 08:00 98.6 131 19 97/57 97 Nasal Cannula 04/04/16 07:22 125 18 Nasal Cannula 2.0 28 04/04/16 07:22 97 Nasal Cannula 2.0 28 04/04/16 07:22 Nasal Cannula 2.0 28 04/04/16 05:18 97.3 04/04/16 04:00 99.1 136 20 95/44 96 Nasal Cannula 04/04/16 04:00 126 04/04/16 00:00 97.3 112 20 102/52 96 Nasal Cannula 04/04/16 00:00 113 04/03/16 21:00 99.4 04/03/16 20:00 101.7 140 18 102/51 98 Nasal Cannula 04/03/16 20:00 138 04/03/16 16:00 134 04/03/16 16:00 99.5 128 18 119/53 98 Nasal Cannula Intake and Output 04/03/16 04/04/16 19:00 07:00 Intake Total 400 ml 300 ml Output Total 300 ml 500 ml Balance 100 ml -200 ml Intake Oral 400 ml 300 ml Output Urine Total 300 ml 500 ml # Voids 2 2 Objective General Appearance: WD/WN Lines, tubes and drains: peripheral HEENT: normocephalic, atraumatic Neck: non-tender, normal alignment Respiratory/Chest: chest wall non-tender, rhonchi - left, rhonchi - right Cardiovascular/Chest: normal peripheral pulses, normal rate Abdomen: normal bowel sounds, non tender Genitourinary/Rectal: normal genital exam Extremities: normal range of motion, non-tender, normal inspection, no calf tenderness, normal capillary refill Skin Exam: normal pigmentation 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 Laboratory Tests 04/04/16 08:45: White Blood Count 4.4L, Red Blood Count 1.82L, Hemoglobin 5.6*L, Hematocrit 16.9L, Mean Corpuscular Volume 93, Mean Corpuscular Hemoglobin 30.5, Mean Corpuscular Hemoglobin Concent 33.0, Red Cell Distribution Width 15.7H, Platelet Count 19L, Mean Platelet Volume 10.3H, Neutrophils (%) (Auto) , Lymphocytes (%) (Auto) , Monocytes (%) (Auto) , Eosinophils (%) (Auto) , Basophils (%) (Auto) , Differential Total Cells Counted 100, Neutrophils % ( Manual) 76H, Lymphocytes % (Manual) 17L, Monocytes % (Manual) 7, Eosinophils % ( Manual) 0, Basophils % (Manual) 0, Band Neutrophils 0, Platelet Estimate DecreasedL, Platelet Morphology Normal, Polychromasia Occasional, Hypochromasia 1+, Anisocytosis 1+, Sodium Level 133L, Potassium Level 5.0H, Chloride Level 94L , Carbon Dioxide Level 28, Anion Gap 11, Blood Urea Nitrogen 42H, Creatinine 1.6H, Estimat Glomerular Filtration Rate 45.1, Glucose Level 154H, Calcium Level 7.8L, Total Bilirubin 1.4H, Direct Bilirubin 0.5H, Aspartate Amino Transf (AST/SGOT) 19, Alanine Aminotransferase (ALT/SGPT) 13, Alkaline Phosphatase 67, Total Protein 5.8L, Albumin 1.8L, Globulin 4.0, Albumin/Globulin Ratio 0.4L Current Medications Medications (Trade) Dose Ordered Sig/Godwin Route PRN Reason Start Time Stop Time Status Last Admin Dose Admin Acetaminophen (Tylenol) 650 mg Q4H PRN ORAL fever 04/03/16 16:00 05/03/16 15:59 04/03/16 20:01 Albuterol/ Ipratropium (DuoNeb 0.5-3(2.5)mg/3ml) 3 ml Q4HRT PRN HHN Shortness of Breath 04/03/16 19:00 04/08/16 18:59 Atovaquone (Mepron Susp) 1,500 mg DAILY ORAL 04/04/16 09:00 05/04/16 08:59 04/04/16 09:06 Chlorpromazine (Thorazine) 25 mg Q6H PRN IM HICCUPS 04/03/16 16:00 05/03/16 15:59 04/03/16 16:01 Epoetin Suresh (Procrit (for non ESRD use)) 3,000 units MON-WED-MON SUBQ 04/04/16 21:00 05/04/16 20:59 Escitalopram Oxalate (Lexapro) 10 mg DAILY ORAL 04/04/16 09:00 05/04/16 08:59 04/04/16 09:06 Hydrocortisone (Solu-CORTEF) 100 mg DAILY IV 04/04/16 09:00 05/04/16 08:59 04/04/16 09:06 Morphine Sulfate (Morphine Sulfate) 4 mg Q4H PRN IVP For Severe Pain 04/03/16 18:30 04/10/16 18:29 04/04/16 09:07 Nitroglycerin (Ntg) 0.4 mg Every 5 Minutes PRN SL Prn Chest Pain 04/03/16 16:00 05/03/16 15:59 Ondansetron HCl (Zofran) 4 mg Q6H PRN IVP Nausea & Vomiting 04/03/16 18:00 05/03/16 17:59 Patient Own Medication (Patient's Own Med) 1 ea DAILY ORAL 04/04/16 09:00 05/04/16 08:59 04/04/16 09:05 Patient Own Medication (Patient's Own Med) 1 ea DAILY ORAL 04/04/16 09:00 05/04/16 08:59 04/04/16 09:05 Polyethylene Glycol (Miralax) 17 gm DAILYPRN PRN ORAL Constipation 04/04/16 16:00 05/04/16 15:59 Promethazine HCl/ Codeine (Phenergan with Codeine) 10 ml Q6H PRN ORAL For Cough 04/03/16 20:00 05/03/16 19:59 Temazepam (Restoril) 15 mg HSPRN PRN ORAL Insomnia 04/03/16 21:00 04/10/16 20:59 MARIA ISABEL SZYMANSKI Apr 04, 2016 12:19
--- NOTE | 2016-04-04 15:28 | General Progress Note ---
Assessment/Plan Status Narrative Cr up to 1.6 ...Hgb down to 5.6 Assessment/Plan Acute renal failure, multifactorial ( sepsis, HIV , Vanco...) PreRenal superimposed on Renal HypoNatremia Cr 2.8 down to 1.7 PanCytopenia Sepsis, Diarrhea, HIV , Kaposi's Pneumonia Hypocalcemia, electrolyte imbalance Anemia in chronic illness, symptomatic Hypokalemia on admit now K elevated JF (acute kidney injury) Thrombocytopenia, massive splenomegali CAP (community acquired pneumonia) Plan: Antibiotics per ID Urine studies- noted Cortisol levels- 15 Monitor renal parameters and lytes- Avoid Nephrotoxics Monitor Urine out put Protonix Transfuse per consultants Subjective ROS Limited/Unobtainable: No Constitutional: Reports: malaise, weakness Allergies: Coded Allergies: No Known Allergies (Unverified , 03/16/16) Objective Last 24 Hour Vital Signs Date Time Temp Pulse Resp B/P Pulse Ox O2 Delivery O2 Flow Rate FiO2 04/04/16 12:00 97.7 109 21 98/64 98 Room Air 04/04/16 08:00 98.6 131 19 97/57 97 Nasal Cannula 04/04/16 07:22 125 18 Nasal Cannula 2.0 28 04/04/16 07:22 97 Nasal Cannula 2.0 28 04/04/16 07:22 Nasal Cannula 2.0 28 04/04/16 05:18 97.3 04/04/16 04:00 99.1 136 20 95/44 96 Nasal Cannula 04/04/16 04:00 126 04/04/16 00:00 97.3 112 20 102/52 96 Nasal Cannula 04/04/16 00:00 113 04/03/16 21:00 99.4 04/03/16 20:00 101.7 140 18 102/51 98 Nasal Cannula 04/03/16 20:00 138 04/03/16 16:00 134 04/03/16 16:00 99.5 128 18 119/53 98 Nasal Cannula Intake and Output 04/03/16 04/04/16 19:00 07:00 Intake Total 400 ml 300 ml Output Total 300 ml 500 ml Balance 100 ml -200 ml Intake Oral 400 ml 300 ml Output Urine Total 300 ml 500 ml # Voids 2 2 Laboratory Tests 04/04/16 08:45: White Blood Count 4.4L, Red Blood Count 1.82L, Hemoglobin 5.6*L, Hematocrit 16.9L, Mean Corpuscular Volume 93, Mean Corpuscular Hemoglobin 30.5, Mean Corpuscular Hemoglobin Concent 33.0, Red Cell Distribution Width 15.7H, Platelet Count 19L, Mean Platelet Volume 10.3H, Neutrophils (%) (Auto) , Lymphocytes (%) (Auto) , Monocytes (%) (Auto) , Eosinophils (%) (Auto) , Basophils (%) (Auto) , Differential Total Cells Counted 100, Neutrophils % ( Manual) 76H, Lymphocytes % (Manual) 17L, Monocytes % (Manual) 7, Eosinophils % ( Manual) 0, Basophils % (Manual) 0, Band Neutrophils 0, Platelet Estimate DecreasedL, Platelet Morphology Normal, Polychromasia Occasional, Hypochromasia 1+, Anisocytosis 1+, Sodium Level 133L, Potassium Level 5.0H, Chloride Level 94L , Carbon Dioxide Level 28, Anion Gap 11, Blood Urea Nitrogen 42H, Creatinine 1.6H, Estimat Glomerular Filtration Rate 45.1, Glucose Level 154H, Calcium Level 7.8L, Total Bilirubin 1.4H, Direct Bilirubin 0.5H, Aspartate Amino Transf (AST/SGOT) 19, Alanine Aminotransferase (ALT/SGPT) 13, Alkaline Phosphatase 67, Total Protein 5.8L, Albumin 1.8L, Globulin 4.0, Albumin/Globulin Ratio 0.4L Height (Feet): 5 Height (Inches): 10.00 Weight (Pounds): 165 General Appearance: no apparent distress Cardiovascular: tachycardia Respiratory/Chest: decreased breath sounds Abdomen: distended Objective other PE not changed DEREK SMITH Apr 04, 2016 15:28
[2016-04-04 16:00] VITALS: BP 95/52
[2016-04-04] MEDS ORDERED: Miralax 17gm pkt ORAL PRN (16:00)
[2016-04-04 20:00] VITALS: BP 93/41
[2016-04-04] MEDS: Epogen (for non ESRD use) SUBQ SCH (21:23)
[2016-04-05] VITALS: BP 103/59
[2016-04-05] MEDS: Morphine Sulfate 4mg/ml Inj IVP PRN ×3 (00:33→17:23)
[2016-04-05 04:00] VITALS: BP 94/54
[2016-04-05 08:00] VITALS: BP 115/58
[2016-04-05 08:06] LABS: MEAN CORPUSCULAR HEMOGLOBIN 30.2 PG (27.0-31.0); MEAN CORPUSCULAR VOLUME 92 FL (80-99); MEAN PLATELET VOLUME 11.5 FL (6.5-10.1); PLATELET COUNT 21 K/UL (150-450); RED BLOOD COUNT 2.12 M/UL (4.70-6.10); RED CELL DISTRIBUTION WIDTH 14.9 % (11.6-14.8)
[2016-04-05 08:22] LABS: CALCIUM 7.7 mg/dL (8.6-10.2); CREATININE 1.5 mg/dL (0.7-1.2); GLOMERULAR FILTRATION RATE 48.6 mL/min (>60); POTASSIUM 4.9 mEQ/L (3.4-4.9)
--- NOTE | 2016-04-05 08:29 | Infectious Diseases Prog Note ---
Assessment/Plan Assessment/Plan Assessment/Plan ASSESSMENT: 55 y/o male with: // Bone marrow Cx <1+ S.epidermidis = contaminant // Negative: coccidioides, histoplasma, blastomyces, CrAg, T-SPOT, ( coccidioides indeterminant ) // Possible PNA , SP Rx - sputum AFB smear(-) x3, Cx NGTD, T-SPOT(-), TB PCR(-) - CXR 03/29: interim resolution of previously demonstrated right lower lobe infiltrate. Possible small left pleural effusion - CT: predominantly upper lobe pulmonary interstitial disease, possible lymphocytic interstitial pneumonitis. Multiple sub-5 mm parenchymal nodules seen throughout the left lung. Bilateral basilar pulmonary parenchymal atelectatic changes and possibly some consolidation. Small bilateral pleural effusions - negative/WNL: LDH, CrAg, blastomyces, histoplasma, ( coccidioides indeterminant ) // Diffuse LAD ? Etio , due to HIV CMV PCR, VEL, Bx pending - SP BMBx: mild-mod fibrosis, granulomatous inflammation. AFB, fungal stains (-) - CT: Extensive thoracic, abdominal, and pelvic lymphadenopathy // HIV / AIDS, on cART ( recently changed to prezcobix, tivicay d/t genotype ) - CD4 37(5.3%) // Kaposi sarcoma // Pancytopenia - SP BMBx: mild-mod fibrosis, granulomatous inflammation. AFB, fungal stains (-) - negative/WNL: LDH, ARMIDA, CrAg, Parvovirus IgM, blastomyces, histoplasma, T- SPOT ( coccidioides indeterminant ) // Fever - resolved // Symptomatic FOBT(-) anemia SP PRBCs - denies blood loss. GI following, plan EGD/colonoscopy - CT A/P(-) RP hematoma // ARF - overall improved, stable // Massive splenomegaly // Thrombocytopenia // Anxiety // Elevated ESR // NKDA // Full Code PLAN: - monitor pt off of ABX ( 03/26 SP IV vancomycin, cefepime d# ) - continue cART ( prezcobix, tivicay - ok for pt to take own meds ), changed bactrim prophy to mepron given cytopenias ,will start Zithromax after blood ( AFB ) is back - f/u AFB BCx, sputum AFB Cx, CMV PCR, VEL - monitor CBC, temperatures - monitor BMP - transfuse prn - EGD/colonoscopy per GI - CD4 and HIV VL Subjective Constitutional: Denies: anorexia, chills, drenching sweats, fatigue, fever, no symptoms, other Allergies: Coded Allergies: No Known Allergies (Unverified , 03/16/16) Objective Vital Signs Last 24 Hour Vital Signs Date Time Temp Pulse Resp B/P Pulse Ox O2 Delivery O2 Flow Rate FiO2 04/05/16 04:00 122 04/05/16 04:00 98.1 110 18 94/54 100 Room Air 04/05/16 00:00 122 04/05/16 00:00 99.0 120 18 103/59 96 Room Air 04/04/16 20:00 120 04/04/16 20:00 99.1 121 20 93/41 95 Room Air 04/04/16 19:30 Nasal Cannula 2.0 28 04/04/16 19:30 120 20 Nasal Cannula 2.0 28 04/04/16 19:30 96 Nasal Cannula 2.0 28 04/04/16 16:00 112 04/04/16 16:00 96.2 113 20 95/52 100 Nasal Cannula 2.0 04/04/16 12:00 97.7 109 21 98/64 98 Room Air Height (Feet): 5 Height (Inches): 10.00 Weight (Pounds): 165 HEENT: atraumatic Respiratory/Chest: lungs clear Cardiovascular: regular rhythm Abdomen: soft, non tender Laboratory Tests Test 04/04/16 08:45 04/05/16 07:05 White Blood Count 4.4 K/UL (4.8-10.8) L 4.0 K/UL (4.8-10.8) L Red Blood Count 1.82 M/UL (4.70-6.10) L 2.12 M/UL (4.70-6.10) L Hemoglobin 5.6 G/DL (14.2-18.0) *L 6.4 G/DL (14.2-18.0) *L Hematocrit 16.9 % (42.0-52.0) L 19.4 % (42.0-52.0) L Mean Corpuscular Volume 93 FL (80-99) 92 FL (80-99) Mean Corpuscular Hemoglobin 30.5 PG (27.0-31.0) 30.2 PG (27.0-31.0) Mean Corpuscular Hemoglobin Concent 33.0 G/DL (32.0-36.0) 33.0 G/DL (32.0-36.0) Red Cell Distribution Width 15.7 % (11.6-14.8) H 14.9 % (11.6-14.8) H Platelet Count 19 K/UL (150-450) L 21 K/UL (150-450) L Mean Platelet Volume 10.3 FL (6.5-10.1) H 11.5 FL (6.5-10.1) H Neutrophils (%) (Auto) % (45.0-75.0) % (45.0-75.0) Lymphocytes (%) (Auto) % (20.0-45.0) % (20.0-45.0) Monocytes (%) (Auto) % (1.0-10.0) % (1.0-10.0) Eosinophils (%) (Auto) % (0.0-3.0) % (0.0-3.0) Basophils (%) (Auto) % (0.0-2.0) % (0.0-2.0) Differential Total Cells Counted 100 Neutrophils % (Manual) 76 % (45-75) H Pending Lymphocytes % (Manual) 17 % (20-45) L Pending Monocytes % (Manual) 7 % (1-10) Eosinophils % (Manual) 0 % (0-3) Basophils % (Manual) 0 % (0-2) Band Neutrophils 0 % (0-8) Platelet Estimate Decreased L Pending Platelet Morphology Normal Pending Polychromasia Occasional Hypochromasia 1+ Anisocytosis 1+ Sodium Level 133 mEQ/L (135-145) L 129 mEQ/L (135-145) L Potassium Level 5.0 mEQ/L (3.4-4.9) H 4.9 mEQ/L (3.4-4.9) Chloride Level 94 mEQ/L (98-107) L 92 mEQ/L (98-107) L Carbon Dioxide Level 28 mEQ/L (20-30) 30 mEQ/L (20-30) Anion Gap 11 (5-15) 7 (5-15) Blood Urea Nitrogen 42 mg/dL (7-23) H 47 mg/dL (7-23) H Creatinine 1.6 mg/dL (0.7-1.2) H 1.5 mg/dL (0.7-1.2) H Estimat Glomerular Filtration Rate 45.1 mL/min (>60) 48.6 mL/min (>60) Glucose Level 154 mg/dL (74-106) H 145 mg/dL (74-106) H Calcium Level 7.8 mg/dL (8.6-10.2) L 7.7 mg/dL (8.6-10.2) L Total Bilirubin 1.4 mg/dL (0.0-1.2) H Direct Bilirubin 0.5 mg/dL (0.1-0.3) H Aspartate Amino Transf (AST/SGOT) 19 U/L (5-40) Alanine Aminotransferase (ALT/SGPT) 13 U/L (3-41) Alkaline Phosphatase 67 U/L (40-129) Total Protein 5.8 g/dL (6.6-8.7) L Albumin 1.8 g/dL (3.5-5.2) L Globulin 4.0 g/dL Albumin/Globulin Ratio 0.4 (1.0-2.7) L Current Medications Medications (Trade) Dose Ordered Sig/Godwin Route PRN Reason Start Time Stop Time Status Last Admin Dose Admin Acetaminophen (Tylenol) 650 mg Q4H PRN ORAL fever 04/03/16 16:00 05/03/16 15:59 04/03/16 20:01 Albuterol/ Ipratropium (DuoNeb 0.5-3(2.5)mg/3ml) 3 ml Q4HRT PRN HHN Shortness of Breath 04/03/16 19:00 04/08/16 18:59 Atovaquone (Mepron Susp) 1,500 mg DAILY ORAL 04/04/16 09:00 05/04/16 08:59 04/04/16 09:06 Chlorpromazine (Thorazine) 25 mg Q6H PRN IM HICCUPS 04/03/16 16:00 05/03/16 15:59 04/04/16 17:40 Epoetin Suresh (Procrit (for non ESRD use)) 3,000 units MON-MON-MON SUBQ 04/04/16 21:00 05/04/16 20:59 04/04/16 21:23 Escitalopram Oxalate (Lexapro) 10 mg DAILY ORAL 04/04/16 09:00 05/04/16 08:59 04/04/16 09:06 Hydrocortisone (Solu-CORTEF) 100 mg DAILY IV 04/04/16 09:00 05/04/16 08:59 04/04/16 09:06 Morphine Sulfate (Morphine Sulfate) 4 mg Q4H PRN IVP For Severe Pain 04/03/16 18:30 04/10/16 18:29 04/05/16 00:33 Nitroglycerin (Ntg) 0.4 mg Every 5 Minutes PRN SL Prn Chest Pain 04/03/16 16:00 05/03/16 15:59 Ondansetron HCl (Zofran) 4 mg Q6H PRN IVP Nausea & Vomiting 04/03/16 18:00 05/03/16 17:59 Patient Own Medication (Patient's Own Med) 1 ea DAILY ORAL 04/04/16 09:00 05/04/16 08:59 04/04/16 09:05 Patient Own Medication (Patient's Own Med) 1 ea DAILY ORAL 04/04/16 09:00 05/04/16 08:59 04/04/16 09:05 Polyethylene Glycol (Miralax) 17 gm DAILYPRN PRN ORAL Constipation 04/04/16 16:00 05/04/16 15:59 Promethazine HCl/ Codeine (Phenergan with Codeine) 10 ml Q6H PRN ORAL For Cough 04/03/16 20:00 05/03/16 19:59 Temazepam (Restoril) 15 mg HSPRN PRN ORAL Insomnia 04/03/16 21:00 04/10/16 20:59 04/04/16 21:23 DANIEL GODINEZ M.D. Apr 05, 2016 08:29
[2016-04-05] MEDS: PREZCOBIX ORAL SCH (08:46)
[2016-04-05] MEDS: Hydrocortisone 100mg Inj IV SCH (08:49)
[2016-04-05] MEDS: Atovaquone 750mg/5ml Susp ORAL SCH (08:49)
--- NOTE | 2016-04-05 08:56 | General Progress Note ---
Assessment/Plan Assessment/Plan 1. Pancytopenia. The patient is status post bone marrow biopsy, which shows no evidence of blasts or myelodysplasia (FISH Panel is negative). It does show a hypercellular marrow concerning for patchy [id number] fibrosis with degeneration, he is with a history of HIV as well, has no evidence of lymphoma on the biopsy. Iron stores are decreased on biopsy but ferritin overall is elevated. AFB and Gram GMS stain show no acid-fast bacilli and no fungal organisms. Patient has marked splenomegaly. Has extensive lymphadenopathy on CAT scan as well, will consider to biopsy one of the lymph nodes. Very unlikely has ITP given acute onset in thrombocytopenia. Also, the patient has been on steroids (hydrocortisone), therefore, it will empiric coverage for ITP. The patient does not have any evidence that displays primary myofibrosis. Thus overall, likely this is a secondary process. 2. Anemia secondary to chronic disease. His erythrocyte sedimentation rate is severely elevated. Reticulocyte count is low. Ferritin is elevated and TIBC lower. Has issue with iron sequestration/utilization 3. 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 Leukopenia secondary to likely splenomegaly versus sepsis. 5. Thrombocytopenia, concerning for underlying infection versus splenomegaly, also can be 2/2 to above process, will obtain biopsy of LN. Does not have DIC 6. Splenomegaly, noted on ultrasound. 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 Obtain a biopsy of the LN on imaging (will f/u on pathology results) 2. Does not have DIC, have reviewed labs 3. Hgb goal is >7 and plt goal >10k or >20k if febrile 4. Continue patient on epogen at this time 5. Will order for HLA-matched plts in the future, the order has been placed and d/w blood bank 6. ID recommendations in regards to antibiotics and antiretroviral medications. 7. The patient has hx of Kaposis sarcoma, rule out disseminated disease with biopsy 8. Have discussed with pathologist on 04/04 and will rediscuss again after biopsy back of LN 9. Discussed with staff Thank you, Kareem Trimble MD Subjective Constitutional: Reports: no symptoms HEENT: Reports: no symptoms Cardiovascular: Reports: no symptoms Respiratory: Reports: no symptoms Gastrointestinal/Abdominal: Reports: no symptoms Genitourinary: Reports: no symptoms 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: Reports: no symptoms Endocrine: Reports: no symptoms Hematologic/Lymphatic: Reports: anemia Allergies: Coded Allergies: No Known Allergies (Unverified , 03/16/16) Subjective stable, no complaints today Objective Last 24 Hour Vital Signs Date Time Temp Pulse Resp B/P Pulse Ox O2 Delivery O2 Flow Rate FiO2 04/05/16 04:00 122 04/05/16 04:00 98.1 110 18 94/54 100 Room Air 04/05/16 00:00 122 04/05/16 00:00 99.0 120 18 103/59 96 Room Air 04/04/16 20:00 120 04/04/16 20:00 99.1 121 20 93/41 95 Room Air 04/04/16 19:30 Nasal Cannula 2.0 28 04/04/16 19:30 120 20 Nasal Cannula 2.0 28 04/04/16 19:30 96 Nasal Cannula 2.0 28 04/04/16 16:00 112 04/04/16 16:00 96.2 113 20 95/52 100 Nasal Cannula 2.0 04/04/16 12:00 97.7 109 21 98/64 98 Room Air Intake and Output 04/04/16 04/05/16 19:00 07:00 Intake Total 260 ml 240 ml Output Total 300 ml 400 ml Balance -40 ml -160 ml Intake Oral 260 ml 240 ml Output Urine Total 300 ml 400 ml # Voids 1 Laboratory Tests 04/05/16 07:05: White Blood Count 4.0L, Red Blood Count 2.12L, Hemoglobin 6.4*L, Hematocrit 19.4L, Mean Corpuscular Volume 92, Mean Corpuscular Hemoglobin 30.2, Mean Corpuscular Hemoglobin Concent 33.0, Red Cell Distribution Width 14.9H, Platelet Count 21L, Mean Platelet Volume 11.5H, Neutrophils (%) (Auto) , Lymphocytes (%) (Auto) , Monocytes (%) (Auto) , Eosinophils (%) (Auto) , Basophils (%) (Auto) , Neutrophils % (Manual) [Pending], Lymphocytes % (Manual) [Pending], Platelet Estimate [Pending], Platelet Morphology [Pending], Sodium Level 129L, Potassium Level 4.9, Chloride Level 92L, Carbon Dioxide Level 30, Anion Gap 7, Blood Urea Nitrogen 47H, Creatinine 1.5H, Estimat Glomerular Filtration Rate 48.6, Glucose Level 145H, Calcium Level 7.7L Height (Feet): 5 Height (Inches): 10.00 Weight (Pounds): 165 General Appearance: no apparent distress EENT: TMs normal Neck: supple Cardiovascular: regular rhythm Respiratory/Chest: lungs clear Abdomen: soft Extremities: non-tender Edema: 1+ Leg (L), 1+ Leg (R) Neurologic: alert Skin: normal pigmentation Kareem Trimble Apr 05, 2016 08:56
[2016-04-05 08:58] LABS: BAND NEUTROPHILS % (MANUAL) 0 % (0-8); BASOPHILS % (MANUAL) 0 % (0-2); EOSINOPHILS % (MANUAL) 0 % (0-3); LYMPHOCYTES % (MANUAL) 13 % (20-45); NEUTROPHILS % (MANUAL) 80 % (45-75); PLATELET ESTIMATE DECREASED; PLATELET MORPHOLOGY NORMAL; TOTAL CELLS COUNTED 100
--- NOTE | 2016-04-05 09:50 | GI Progress Note ---
Assessment/Plan Problems: (1) Diarrhea ICD Codes: R19.7 - Diarrhea, unspecified SNOMED: 15040360 (2) Splenomegaly with HIV infection ICD Codes: B20 - Human immunodeficiency virus [HIV] disease; R16.1 - Splenomegaly, not elsewhere classified SNOMED: 113341684 (3) Anemia ICD Codes: D64.9 - Anemia, unspecified SNOMED: 632498292 Qualifiers: Qualified Codes: D64.9 - Anemia, unspecified (4) Thrombocytopenia ICD Codes: D69.6 - Thrombocytopenia, unspecified SNOMED: 864859672 (5) HIV disease ICD Codes: B20 - Human immunodeficiency virus [HIV] disease SNOMED: 21400210 (6) Episode of generalized weakness ICD Codes: R53.1 - Weakness SNOMED: 96438078 Status: unchanged Status Narrative Discussed with Dr. Epps. Assessment/Plan Assessment - Anemia - Thrombocytopenia - HIV - Diarrhea >> cdiff negative - s/p bone biopsy >> GRAM STAIN RESULTS. RARE WHITE BLOOD CELLS. NO ORGANISMS SEEN. - Stool w.u >> negative - O&P negative - OB stool negative x 3 - airborne isolation off - APCT r/o retroperitoneal bleed >> negative for hematoma - repeat iron levels >> WNL Recommendations - fu OB stool - fu Hematology consult - monitor H&H, transfuse prn - EGD/Colon when stable - ppi - fu labs Subjective Subjective denies any abdominal pain/diarrhea/constipation fatigue eating well Objective Last 24 Hour Vital Signs Date Time Temp Pulse Resp B/P Pulse Ox O2 Delivery O2 Flow Rate FiO2 04/05/16 08:00 96.6 121 17 115/58 97 Room Air 04/05/16 04:00 122 04/05/16 04:00 98.1 110 18 94/54 100 Room Air 04/05/16 00:00 122 04/05/16 00:00 99.0 120 18 103/59 96 Room Air 04/04/16 20:00 120 04/04/16 20:00 99.1 121 20 93/41 95 Room Air 04/04/16 19:30 Nasal Cannula 2.0 04/04/16 19:30 120 20 Nasal Cannula 2.0 28 04/04/16 19:30 96 Nasal Cannula 2.0 04/04/16 16:00 112 04/04/16 16:00 96.2 113 20 95/52 100 Nasal Cannula 2.0 04/04/16 12:00 97.7 109 21 98/64 98 Room Air Intake and Output 04/04/16 04/05/16 18:59 06:59 Intake Total 260 ml 240 ml Output Total 300 ml 400 ml Balance -40 ml -160 ml Intake Oral 260 ml 240 ml Output Urine Total 300 ml 400 ml # Voids 1 Laboratory Tests Test 04/05/16 07:05 White Blood Count 4.0 K/UL (4.8-10.8) L Red Blood Count 2.12 M/UL (4.70-6.10) L Hemoglobin 6.4 G/DL (14.2-18.0) *L Hematocrit 19.4 % (42.0-52.0) L Mean Corpuscular Volume 92 FL (80-99) Mean Corpuscular Hemoglobin 30.2 PG (27.0-31.0) Mean Corpuscular Hemoglobin Concent 33.0 G/DL (32.0-36.0) Red Cell Distribution Width 14.9 % (11.6-14.8) H Platelet Count 21 K/UL (150-450) L Mean Platelet Volume 11.5 FL (6.5-10.1) H Neutrophils (%) (Auto) % (45.0-75.0) Lymphocytes (%) (Auto) % (20.0-45.0) Monocytes (%) (Auto) % (1.0-10.0) Eosinophils (%) (Auto) % (0.0-3.0) Basophils (%) (Auto) % (0.0-2.0) Differential Total Cells Counted 100 Neutrophils % (Manual) 80 % (45-75) H Lymphocytes % (Manual) 13 % (20-45) L Monocytes % (Manual) 7 % (1-10) Eosinophils % (Manual) 0 % (0-3) Basophils % (Manual) 0 % (0-2) Band Neutrophils 0 % (0-8) Platelet Estimate Decreased L Platelet Morphology Normal Red Blood Cell Morphology Normal Sodium Level 129 mEQ/L (135-145) L Potassium Level 4.9 mEQ/L (3.4-4.9) Chloride Level 92 mEQ/L (98-107) L Carbon Dioxide Level 30 mEQ/L (20-30) Anion Gap 7 (5-15) Blood Urea Nitrogen 47 mg/dL (7-23) H Creatinine 1.5 mg/dL (0.7-1.2) H Estimat Glomerular Filtration Rate 48.6 mL/min (>60) Glucose Level 145 mg/dL (74-106) H Calcium Level 7.7 mg/dL (8.6-10.2) L Height (Feet): 5 Height (Inches): 10.00 Weight (Pounds): 165 General Appearance: no apparent distress, alert, thin Cardiovascular: normal rate Respiratory/Chest: no respiratory distress Abdominal Exam: normal bowel sounds, non tender, soft Extremities: normal range of motion Objective Procedure: CT CHEST Abdomen Pelvis WO Con Indication: ABN LABS Impression: Splenomegaly Extensive thoracic, abdominal, and pelvic lymphadenopathy, as detailed above. This is nonspecific, likely related to stated clinical history of HIV. May indicate reactive, inflammatory, infectious adenopathy, or a lymphoproliferative disorder. Correlate with clinical history and findings Evidence of predominantly upper lobe pulmonary interstitial disease, as described, predominant findings being interstitial septal thickening and bronchial wall thickening. While the differential for this is quite broad, given the history of HIV positivity the possibility of lymphocytic interstitial pneumonitis should be considered Multiple sub-5 mm parenchymal nodules seen throughout the left lung. Possibly related to the above. If there are significant risk factors for lung carcinoma, however, short interval followup CT at 6-12 months should be considered. Bilateral basilar pulmonary parenchymal atelectatic changes and possibly some consolidation Small bilateral pleural effusions Nonspecific bilateral perinephric fat stranding Genesis Keller N.P. Apr 05, 2016 09:50
--- NOTE | 2016-04-05 10:32 | General Progress Note ---
Assessment/Plan Status: unchanged Status Narrative Cr 1.5 Tachycardic- Hgb low Assessment/Plan Acute renal failure, multifactorial ( sepsis, HIV , Vanco...) PreRenal superimposed on Renal HypoNatremia Cr 2.8 down to 1.7 PanCytopenia Sepsis, Diarrhea, HIV , Kaposi's Pneumonia Hypocalcemia, electrolyte imbalance Anemia in chronic illness, symptomatic Hypokalemia on admit now K elevated JF (acute kidney injury) Thrombocytopenia, massive splenomegali CAP (community acquired pneumonia) Plan: protonix po Antibiotics per ID Urine studies- noted Monitor renal parameters and lytes- Avoid Nephrotoxics Monitor Urine out put Transfuse per consultants Subjective ROS Limited/Unobtainable: No Constitutional: Reports: malaise Allergies: Coded Allergies: No Known Allergies (Unverified , 03/16/16) Objective Last 24 Hour Vital Signs Date Time Temp Pulse Resp B/P Pulse Ox O2 Delivery O2 Flow Rate FiO2 04/05/16 08:00 96.6 121 17 115/58 97 Room Air 04/05/16 07:47 Nasal Cannula 2.0 04/05/16 07:46 99 Nasal Cannula 2.0 04/05/16 07:45 123 20 Nasal Cannula 2.0 04/05/16 04:00 122 04/05/16 04:00 98.1 110 18 94/54 100 Room Air 04/05/16 00:00 122 04/05/16 00:00 99.0 120 18 103/59 96 Room Air 04/04/16 20:00 120 04/04/16 20:00 99.1 121 20 93/41 95 Room Air 04/04/16 19:30 Nasal Cannula 2.0 04/04/16 19:30 120 20 Nasal Cannula 2.0 28 04/04/16 19:30 96 Nasal Cannula 2.0 28 04/04/16 16:00 112 04/04/16 16:00 96.2 113 20 95/52 100 Nasal Cannula 2.0 04/04/16 12:00 97.7 109 21 98/64 98 Room Air Intake and Output 04/04/16 04/05/16 19:00 07:00 Intake Total 260 ml 240 ml Output Total 300 ml 400 ml Balance -40 ml -160 ml Intake Oral 260 ml 240 ml Output Urine Total 300 ml 400 ml # Voids 1 Laboratory Tests 04/05/16 07:05: White Blood Count 4.0L, Red Blood Count 2.12L, Hemoglobin 6.4*L, Hematocrit 19.4L, Mean Corpuscular Volume 92, Mean Corpuscular Hemoglobin 30.2, Mean Corpuscular Hemoglobin Concent 33.0, Red Cell Distribution Width 14.9H, Platelet Count 21L, Mean Platelet Volume 11.5H, Neutrophils (%) (Auto) , Lymphocytes (%) (Auto) , Monocytes (%) (Auto) , Eosinophils (%) (Auto) , Basophils (%) (Auto) , Differential Total Cells Counted 100, Neutrophils % ( Manual) 80H, Lymphocytes % (Manual) 13L, Monocytes % (Manual) 7, Eosinophils % ( Manual) 0, Basophils % (Manual) 0, Band Neutrophils 0, Platelet Estimate DecreasedL, Platelet Morphology Normal, Red Blood Cell Morphology Normal, Sodium Level 129L, Potassium Level 4.9, Chloride Level 92L, Carbon Dioxide Level 30, Anion Gap 7, Blood Urea Nitrogen 47H, Creatinine 1.5H, Estimat Glomerular Filtration Rate 48.6, Glucose Level 145H, Calcium Level 7.7L Height (Feet): 5 Height (Inches): 10.00 Weight (Pounds): 165 General Appearance: no apparent distress, lethargic Cardiovascular: tachycardia Respiratory/Chest: decreased breath sounds Objective other PE not changed DEREK SMITH Apr 05, 2016 10:32
[2016-04-05 12:00] VITALS: BP 124/60
--- NOTE | 2016-04-05 15:52 | Pulmonology Progress Note ---
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 . Subjective ROS Limited/Unobtainable: No Interval Events: no new complains, mother is at bed site Allergies: Coded Allergies: No Known Allergies (Unverified , 03/16/16) Objective Last 24 Hour Vital Signs Date Time Temp Pulse Resp B/P Pulse Ox O2 Delivery O2 Flow Rate FiO2 04/05/16 12:00 112 04/05/16 12:00 97.5 109 18 124/60 98 Room Air 04/05/16 08:00 96.6 121 17 115/58 97 Room Air 04/05/16 08:00 119 04/05/16 07:47 Nasal Cannula 2.0 04/05/16 07:46 99 Nasal Cannula 2.0 04/05/16 07:45 123 20 Nasal Cannula 2.0 04/05/16 04:00 122 04/05/16 04:00 98.1 110 18 94/54 100 Room Air 04/05/16 00:00 122 04/05/16 00:00 99.0 120 18 103/59 96 Room Air 04/04/16 20:00 120 04/04/16 20:00 99.1 121 20 93/41 95 Room Air 04/04/16 19:30 Nasal Cannula 2.0 04/04/16 19:30 120 20 Nasal Cannula 2.0 04/04/16 19:30 96 Nasal Cannula 2.0 04/04/16 16:00 112 04/04/16 16:00 96.2 113 20 95/52 100 Nasal Cannula 2.0 Intake and Output 04/04/16 04/05/16 19:00 07:00 Intake Total 260 ml 240 ml Output Total 300 ml 400 ml Balance -40 ml -160 ml Intake Oral 260 ml 240 ml Output Urine Total 300 ml 400 ml # Voids 1 Objective General Appearance: WD/WN Lines, tubes and drains: peripheral HEENT: normocephalic, atraumatic Neck: non-tender, normal alignment Respiratory/Chest: chest wall non-tender, rhonchi - left, rhonchi - right Cardiovascular/Chest: normal peripheral pulses, normal rate Abdomen: normal bowel sounds, non tender Genitourinary/Rectal: normal genital exam Extremities: normal range of motion, non-tender, normal inspection, no calf tenderness, normal capillary refill Skin Exam: normal pigmentation Neurologic: worm sorter II-XII grossly normal General Appearance: WD/WN HEENT: normocephalic, atraumatic Respiratory/Chest: chest wall non-tender, lungs clear Cardiovascular: normal peripheral pulses, normal rate Abdomen: normal bowel sounds, soft, non tender Extremities: no cyanosis Skin: no lesions 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: worm sorter II-XII grossly normal Laboratory Tests 04/05/16 07:05: White Blood Count 4.0L, Red Blood Count 2.12L, Hemoglobin 6.4*L, Hematocrit 19.4L, Mean Corpuscular Volume 92, Mean Corpuscular Hemoglobin 30.2, Mean Corpuscular Hemoglobin Concent 33.0, Red Cell Distribution Width 14.9H, Platelet Count 21L, Mean Platelet Volume 11.5H, Neutrophils (%) (Auto) , Lymphocytes (%) (Auto) , Monocytes (%) (Auto) , Eosinophils (%) (Auto) , Basophils (%) (Auto) , Differential Total Cells Counted 100, Neutrophils % ( Manual) 80H, Lymphocytes % (Manual) 13L, Monocytes % (Manual) 7, Eosinophils % ( Manual) 0, Basophils % (Manual) 0, Band Neutrophils 0, Platelet Estimate DecreasedL, Platelet Morphology Normal, Red Blood Cell Morphology Normal, Sodium Level 129L, Potassium Level 4.9, Chloride Level 92L, Carbon Dioxide Level 30, Anion Gap 7, Blood Urea Nitrogen 47H, Creatinine 1.5H, Estimat Glomerular Filtration Rate 48.6, Glucose Level 145H, Calcium Level 7.7L Current Medications Medications (Trade) Dose Ordered Sig/Godwin Route PRN Reason Start Time Stop Time Status Last Admin Dose Admin Acetaminophen (Tylenol) 650 mg Q4H PRN ORAL fever 04/03/16 16:00 05/03/16 15:59 04/03/16 20:01 Albuterol/ Ipratropium (DuoNeb 0.5-3(2.5)mg/3ml) 3 ml Q4HRT PRN HHN Shortness of Breath 04/03/16 19:00 04/08/16 18:59 Atovaquone (Mepron Susp) 1,500 mg DAILY ORAL 04/04/16 09:00 05/04/16 08:59 04/05/16 08:49 Bisacodyl (Dulcolax) 10 mg ONCE ONCE RECTAL 04/05/16 16:00 04/05/16 16:01 Chlorpromazine (Thorazine) 25 mg Q6H PRN IM HICCUPS 04/03/16 16:00 05/03/16 15:59 04/04/16 17:40 Epoetin Suresh (Procrit (for non ESRD use)) 3,000 units MON-MON-MON SUBQ 04/04/16 21:00 05/04/16 20:59 04/04/16 21:23 Escitalopram Oxalate (Lexapro) 10 mg DAILY ORAL 04/04/16 09:00 05/04/16 08:59 04/05/16 08:49 Hydrocortisone (Solu-CORTEF) 100 mg DAILY IV 04/04/16 09:00 05/04/16 08:59 04/05/16 08:49 Morphine Sulfate (Morphine Sulfate) 4 mg Q4H PRN IVP For Severe Pain 04/03/16 18:30 04/10/16 18:29 04/05/16 08:49 Nitroglycerin (Ntg) 0.4 mg Every 5 Minutes PRN SL Prn Chest Pain 04/03/16 16:00 05/03/16 15:59 Ondansetron HCl (Zofran) 4 mg Q6H PRN IVP Nausea & Vomiting 04/03/16 18:00 05/03/16 17:59 Pantoprazole (Protonix) 40 mg EVERY 12 HOURS ORAL 04/05/16 12:00 05/05/16 11:59 04/05/16 11:43 Patient Own Medication (Patient's Own Med) 1 ea DAILY ORAL 04/04/16 09:00 05/04/16 08:59 04/05/16 08:46 Patient Own Medication (Patient's Own Med) 1 ea DAILY ORAL 04/04/16 09:00 05/04/16 08:59 04/05/16 08:46 Polyethylene Glycol (Miralax) 17 gm DAILYPRN PRN ORAL Constipation 04/04/16 16:00 05/04/16 15:59 Promethazine HCl/ Codeine (Phenergan with Codeine) 10 ml Q6H PRN ORAL For Cough 04/03/16 20:00 05/03/16 19:59 Temazepam (Restoril) 15 mg HSPRN PRN ORAL Insomnia 04/03/16 21:00 04/10/16 20:59 04/04/16 21:23 MARIA ISABEL SZYMANSKI Apr 05, 2016 15:52
[2016-04-05 16:00] VITALS: BP 98/60
[2016-04-05] MEDS ORDERED: ALPRAZolam 0.5mg tab ORAL PRN (16:00)
[2016-04-05 20:00] VITALS: BP 95/43
[2016-04-06] VITALS: BP 99/58
[2016-04-06] MEDS: Morphine Sulfate 4mg/ml Inj IVP PRN ×4 (01:08→22:20)
[2016-04-06 04:00] VITALS: BP 99/59
[2016-04-06 08:00] VITALS: BP 99/50
--- NOTE | 2016-04-06 08:10 | General Progress Note ---
Assessment/Plan Assessment/Plan 1. Pancytopenia. The patient is status post bone marrow biopsy, which shows no evidence of blasts or myelodysplasia (FISH Panel is negative). It does show a hypercellular marrow concerning for patchy [id number]-vatpvipt fibrosis with degeneration, he is with a history of HIV as well, has no evidence of lymphoma on the biopsy. Iron stores are decreased on biopsy but ferritin overall is elevated. AFB and Gram GMS stain show no acid-fast bacilli and no fungal organisms. Patient has marked splenomegaly. Has extensive lymphadenopathy on CAT scan as well, will consider to biopsy one of the lymph nodes. Unlikely has ITP and does not have MDS. The patient does not have any evidence that displays primary myofibrosis. Thus overall, likely this is a secondary process to a underlying process. 2. Anemia secondary to chronic disease. His erythrocyte sedimentation rate is severely elevated. Reticulocyte count is low. Ferritin is elevated and TIBC lower. Has issue with iron sequestration/utilization 3. 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 Leukopenia secondary to likely splenomegaly versus sepsis. 5. Thrombocytopenia, concerning for underlying infection versus splenomegaly, also can be 2/2 to above process, will obtain biopsy of LN. Does not have DIC 6. Splenomegaly, noted on ultrasound. 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 Obtain a biopsy of the LN on imaging (will f/u on pathology results) will be done if plt count >25k, thus will transfuse this am 2. Does not have DIC, have reviewed labs 3. Hgb goal is >7 and plt goal >10k or >20k if febrile 4. Continue epogen. Does not need iron (have reviewed marrow results as well) 5. Will order for HLA-matched plts in the future, the order has been placed and d/w blood bank 6. ID recommendations in regards to antibiotics and antiretroviral medications. 7. The patient has hx of Kaposis sarcoma, rule out disseminated disease with biopsy 8. Have discussed with pathologist on 04/04 and will rediscuss again after biopsy back of LN 9. Discussed with staff Thank you, Kareem Trimble MD Subjective Constitutional: Reports: no symptoms HEENT: Reports: no symptoms Cardiovascular: Reports: no symptoms Respiratory: Reports: no symptoms Gastrointestinal/Abdominal: Reports: no symptoms Genitourinary: Reports: no symptoms 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: Reports: no symptoms Endocrine: Reports: no symptoms Hematologic/Lymphatic: Reports: anemia Allergies: Coded Allergies: No Known Allergies (Unverified , 03/16/16) Subjective stable, no complaints today, will transfuse with prbc and platelets this am Objective Last 24 Hour Vital Signs Date Time Temp Pulse Resp B/P Pulse Ox O2 Delivery O2 Flow Rate FiO2 04/06/16 04:00 97.9 117 18 99/59 95 Nasal Cannula 2.0 04/06/16 04:00 118 04/06/16 00:00 97.7 122 20 99/58 95 Room Air 04/06/16 00:00 118 04/05/16 20:00 132 04/05/16 20:00 98.4 134 20 95/43 98 Room Air 04/05/16 19:47 Nasal Cannula 2.0 28 04/05/16 19:47 93 Nasal Cannula 2.0 28 04/05/16 19:46 131 20 Nasal Cannula 2.0 28 04/05/16 16:00 98.2 116 20 98/60 Nasal Cannula 2.0 99 04/05/16 16:00 111 04/05/16 12:00 112 04/05/16 12:00 97.5 109 18 124/60 98 Room Air Intake and Output 04/05/16 04/06/16 19:00 07:00 Intake Total 640 ml Output Total 800 ml 400 ml Balance -160 ml -400 ml Intake Oral 640 ml Output Urine Total 800 ml 400 ml # Voids 3 Laboratory Tests 04/05/16 20:30: Stool Occult Blood [Pending] Height (Feet): 5 Height (Inches): 10.00 Weight (Pounds): 165 General Appearance: no apparent distress EENT: pharynx normal Neck: supple Cardiovascular: regular rhythm Respiratory/Chest: normal breath sounds Abdomen: non tender Extremities: non-tender Neurologic: abnormal gait Skin: warm/dry Kareem Trimble Apr 06, 2016 08:10
[2016-04-06 08:22] LABS: MEAN CORPUSCULAR HEMOGLOBIN 29.8 PG (27.0-31.0); MEAN CORPUSCULAR VOLUME 90 FL (80-99); MEAN PLATELET VOLUME 11.7 FL (6.5-10.1); PLATELET COUNT 19 K/UL (150-450); RED BLOOD COUNT 2.32 M/UL (4.70-6.10); RED CELL DISTRIBUTION WIDTH 15.3 % (11.6-14.8); WHITE BLOOD COUNT 3.9 K/UL (4.8-10.8)
[2016-04-06] MEDS: Atovaquone 750mg/5ml Susp ORAL SCH (08:29)
[2016-04-06] MEDS: Hydrocortisone 100mg Inj IV SCH (08:29)
[2016-04-06] MEDS: PREZCOBIX ORAL SCH (08:29)
[2016-04-06 08:42] LABS: CMV DNA PCR QUANT BLOOD/CSF Positive < 200 IU/mL (Negative)
[2016-04-06 08:44] LABS: ALANINE AMINOTRANSFERASE 14 U/L (3-41); ALBUMIN/GLOBULIN RATIO 0.5 (1.0-2.7); ANION GAP 10 (5-15); ASPARTATE AMINO TRANSFERASE 24 U/L (5-40); CARBON DIOXIDE 30 mEQ/L (20-30); CHLORIDE 91 mEQ/L (98-107); CREATININE 1.6 mg/dL (0.7-1.2); GLOMERULAR FILTRATION RATE 45.1 mL/min (>60); HEMOLYSIS 5; MAGNESIUM 1.9 mg/dL (1.7-2.5); SODIUM 131 mEQ/L (135-145); URIC ACID 5.3 mg/dL (3.0-7.5)
[2016-04-06 08:58] LABS: BILIRUBIN,DIRECT 1.3 mg/dL (0.1-0.3)
--- NOTE | 2016-04-06 10:14 | Infectious Diseases Prog Note ---
Assessment/Plan Assessment/Plan Assessment/Plan ASSESSMENT: 55 y/o male with: // Bone marrow Cx <1+ S.epidermidis = contaminant // Negative: coccidioides, histoplasma, blastomyces, CrAg, T-SPOT, ( coccidioides indeterminant ) // Possible PNA , SP Rx - sputum AFB smear(-) x3, Cx NGTD, T-SPOT(-), TB PCR(-) - CXR 03/29: interim resolution of previously demonstrated right lower lobe infiltrate. Possible small left pleural effusion - CT: predominantly upper lobe pulmonary interstitial disease, possible lymphocytic interstitial pneumonitis. Multiple sub-5 mm parenchymal nodules seen throughout the left lung. Bilateral basilar pulmonary parenchymal atelectatic changes and possibly some consolidation. Small bilateral pleural effusions - negative/WNL: LDH, CrAg, blastomyces, histoplasma, ( coccidioides indeterminant ) // Diffuse LAD ? Etio , due to HIV CMV PCR, VEL, Bx pending - SP BMBx: mild-mod fibrosis, granulomatous inflammation. AFB, fungal stains (-) - CT: Extensive thoracic, abdominal, and pelvic lymphadenopathy // HIV / AIDS, on cART ( recently changed to prezcobix, tivicay d/t genotype ) - CD4 37(5.3%) // Kaposi sarcoma // Pancytopenia - SP BMBx: mild-mod fibrosis, granulomatous inflammation. AFB, fungal stains (-) - negative/WNL: LDH, ARMIDA, CrAg, Parvovirus IgM, blastomyces, histoplasma, T- SPOT ( coccidioides indeterminant ) // Fever - resolved // Symptomatic FOBT(-) anemia SP PRBCs - denies blood loss. GI following, plan EGD/colonoscopy - CT A/P(-) RP hematoma // ARF - overall improved, stable // Massive splenomegaly // Thrombocytopenia // Anxiety // Elevated ESR // NKDA // Full Code PLAN: - monitor pt off of ABX ( 03/26 SP IV vancomycin, cefepime d# ) - continue cART ( prezcobix, tivicay - ok for pt to take own meds ), changed bactrim prophy to mepron given cytopenias ,will start Zithromax after blood ( AFB ) is back - f/u AFB BCx, sputum AFB Cx, CMV PCR, VEL - monitor CBC, temperatures - monitor BMP - transfuse prn - EGD/colonoscopy per GI - CD4 and HIV VL Subjective Constitutional: Denies: anorexia, chills, drenching sweats, fatigue, fever, no symptoms, other Allergies: Coded Allergies: No Known Allergies (Unverified , 03/16/16) Objective Vital Signs Last 24 Hour Vital Signs Date Time Temp Pulse Resp B/P Pulse Ox O2 Delivery O2 Flow Rate FiO2 04/06/16 08:00 122 04/06/16 08:00 98.2 119 19 99/50 98 Nasal Cannula 2.0 04/06/16 07:32 Nasal Cannula 2.0 28 04/06/16 07:31 97 Nasal Cannula 2.0 28 04/06/16 07:30 125 20 Nasal Cannula 2.0 28 04/06/16 04:00 97.9 117 18 99/59 95 Nasal Cannula 2.0 04/06/16 04:00 118 04/06/16 00:00 97.7 122 20 99/58 95 Room Air 04/06/16 00:00 118 04/05/16 20:00 132 04/05/16 20:00 98.4 134 20 95/43 98 Room Air 04/05/16 19:47 Nasal Cannula 2.0 28 04/05/16 19:47 93 Nasal Cannula 2.0 28 04/05/16 19:46 131 20 Nasal Cannula 2.0 28 04/05/16 16:00 98.2 116 20 98/60 Nasal Cannula 2.0 99 04/05/16 16:00 111 04/05/16 12:00 112 04/05/16 12:00 97.5 109 18 124/60 98 Room Air Height (Feet): 5 Height (Inches): 10.00 Weight (Pounds): 165 HEENT: atraumatic Respiratory/Chest: lungs clear Cardiovascular: normal rate Abdomen: soft, non tender, no organomegaly Laboratory Tests Test 04/05/16 20:30 04/06/16 07:25 Stool Occult Blood Pending White Blood Count 3.9 K/UL (4.8-10.8) L Red Blood Count 2.32 M/UL (4.70-6.10) L Hemoglobin 6.9 G/DL (14.2-18.0) *L Hematocrit 21.0 % (42.0-52.0) L Mean Corpuscular Volume 90 FL (80-99) Mean Corpuscular Hemoglobin 29.8 PG (27.0-31.0) Mean Corpuscular Hemoglobin Concent 33.0 G/DL (32.0-36.0) Red Cell Distribution Width 15.3 % (11.6-14.8) H Platelet Count 19 K/UL (150-450) L Mean Platelet Volume 11.7 FL (6.5-10.1) H Neutrophils (%) (Auto) % (45.0-75.0) Lymphocytes (%) (Auto) % (20.0-45.0) Monocytes (%) (Auto) % (1.0-10.0) Eosinophils (%) (Auto) % (0.0-3.0) Basophils (%) (Auto) % (0.0-2.0) Neutrophils % (Manual) Pending Lymphocytes % (Manual) Pending Lymphocytes Pending Platelet Estimate Pending Platelet Morphology Pending Reticulocyte Count Pending Sodium Level 131 mEQ/L (135-145) L Potassium Level 5.0 mEQ/L (3.4-4.9) H Chloride Level 91 mEQ/L (98-107) L Carbon Dioxide Level 30 mEQ/L (20-30) Anion Gap 10 (5-15) Blood Urea Nitrogen 47 mg/dL (7-23) H Creatinine 1.6 mg/dL (0.7-1.2) H Estimat Glomerular Filtration Rate 45.1 mL/min (>60) Glucose Level 123 mg/dL (74-106) H Plasma/Serum Osmolality Pending Uric Acid 5.3 mg/dL (3.0-7.5) Calcium Level 8.0 mg/dL (8.6-10.2) L Phosphorus Level 4.0 mg/dL (2.5-4.8) Magnesium Level 1.9 mg/dL (1.7-2.5) Total Bilirubin 2.3 mg/dL (0.0-1.2) H Direct Bilirubin 1.3 mg/dL (0.1-0.3) H Gamma Glutamyl Transpeptidase 20 U/L (8-61) Aspartate Amino Transf (AST/SGOT) 24 U/L (5-40) Alanine Aminotransferase (ALT/SGPT) 14 U/L (3-41) Alkaline Phosphatase 75 U/L (40-129) Lactate Dehydrogenase 136 U/L (135-230) Total Creatine Kinase 40 U/L (38-174) Total Protein 6.0 g/dL (6.6-8.7) L Albumin 2.0 g/dL (3.5-5.2) L Globulin 4.0 g/dL Albumin/Globulin Ratio 0.5 (1.0-2.7) L Percent CD3 Cells Pending Absolute CD3 Count Pending Percent CD4 Cells Pending Absolute CD4 Count Pending T-Lymphocyte CD4/CD8 Ratio Pending Percent CD8 Cells Pending Absolute CD8 Count Pending HIV-1 RNA (PCR) log10 Value Pending HIV-1 RNA Ultraquantitative (PCR) Pending Current Medications Medications (Trade) Dose Ordered Sig/Godwin Route PRN Reason Start Time Stop Time Status Last Admin Dose Admin Acetaminophen (Tylenol) 650 mg Q4H PRN ORAL fever 04/03/16 16:00 05/03/16 15:59 04/03/16 20:01 Albuterol/ Ipratropium (DuoNeb 0.5-3(2.5)mg/3ml) 3 ml Q4HRT PRN HHN Shortness of Breath 04/03/16 19:00 04/08/16 18:59 Alprazolam (Xanax) 1 mg Q4H PRN ORAL For Anxiety 04/05/16 16:00 04/12/16 15:59 04/05/16 18:22 Atovaquone (Mepron Susp) 1,500 mg DAILY ORAL 04/04/16 09:00 05/04/16 08:59 04/06/16 08:29 Chlorpromazine (Thorazine) 25 mg Q6H PRN IM HICCUPS 04/03/16 16:00 05/03/16 15:59 04/05/16 18:22 Epoetin Suresh (Procrit (for non ESRD use)) 3,000 units MON-MON-MON SUBQ 04/04/16 21:00 05/04/16 20:59 04/04/16 21:23 Escitalopram Oxalate (Lexapro) 10 mg DAILY ORAL 04/04/16 09:00 05/04/16 08:59 04/06/16 08:29 Hydrocortisone (Solu-CORTEF) 100 mg DAILY IV 04/04/16 09:00 05/04/16 08:59 04/06/16 08:29 Morphine Sulfate (Morphine Sulfate) 4 mg Q4H PRN IVP For Severe Pain 04/03/16 18:30 04/10/16 18:29 04/06/16 06:52 Nitroglycerin (Ntg) 0.4 mg Every 5 Minutes PRN SL Prn Chest Pain 04/03/16 16:00 05/03/16 15:59 Ondansetron HCl (Zofran) 4 mg Q6H PRN IVP Nausea & Vomiting 04/03/16 18:00 05/03/16 17:59 Pantoprazole (Protonix) 40 mg EVERY 12 HOURS ORAL 04/05/16 12:00 05/05/16 11:59 04/06/16 08:29 Patient Own Medication (Patient's Own Med) 1 ea DAILY ORAL 04/04/16 09:00 05/04/16 08:59 04/06/16 08:29 Patient Own Medication (Patient's Own Med) 1 ea DAILY ORAL 04/04/16 09:00 05/04/16 08:59 04/06/16 08:29 Polyethylene Glycol (Miralax) 17 gm DAILYPRN PRN ORAL Constipation 04/04/16 16:00 05/04/16 15:59 Promethazine HCl/ Codeine (Phenergan with Codeine) 10 ml Q6H PRN ORAL For Cough 04/03/16 20:00 05/03/16 19:59 Temazepam (Restoril) 15 mg HSPRN PRN ORAL Insomnia 04/03/16 21:00 04/10/16 20:59 04/04/16 21:23 DANIEL GODINEZ M.D. Apr 06, 2016 10:14
[2016-04-06 10:46] LABS: BAND NEUTROPHILS % (MANUAL) 0 % (0-8); BASOPHILS % (MANUAL) 0 % (0-2); EOSINOPHILS % (MANUAL) 2 % (0-3); HYPOCHROMASIA 4+; LYMPHOCYTES % (MANUAL) 10 % (20-45); NEUTROPHILS % (MANUAL) 83 % (45-75); PLATELET ESTIMATE DECREASED; PLATELET MORPHOLOGY NORMAL; TOTAL CELLS COUNTED 100
[2016-04-06 10:47] LABS: ANISOCYTOSIS 1+; SPHEROCYTES 2+
[2016-04-06 10:49] LABS: PATH BLOOD SMEAR/OMC SENT TO PATHOLOGIST
[2016-04-06 11:01] LABS: INR 1.5 (0.9-1.1); PROTHROMBIN TIME 15.1 SEC (9.30-11.50)
[2016-04-06 12:00] VITALS: BP 89/56
--- NOTE | 2016-04-06 12:53 | GI Progress Note ---
Assessment/Plan Problems: (1) Diarrhea ICD Codes: R19.7 - Diarrhea, unspecified SNOMED: 44313380 (2) Splenomegaly with HIV infection ICD Codes: B20 - Human immunodeficiency virus [HIV] disease; R16.1 - Splenomegaly, not elsewhere classified SNOMED: 664532610 (3) Anemia ICD Codes: D64.9 - Anemia, unspecified SNOMED: 631288354 Qualifiers: Qualified Codes: D64.9 - Anemia, unspecified (4) Thrombocytopenia ICD Codes: D69.6 - Thrombocytopenia, unspecified SNOMED: 881705361 (5) HIV disease ICD Codes: B20 - Human immunodeficiency virus [HIV] disease SNOMED: 55859500 (6) Episode of generalized weakness ICD Codes: R53.1 - Weakness SNOMED: 70513886 Status: unchanged Status Narrative Discussed with Dr. Epps. Assessment/Plan Assessment - Anemia - Thrombocytopenia - HIV - Diarrhea >> cdiff negative - s/p bone biopsy >> GRAM STAIN RESULTS. RARE WHITE BLOOD CELLS. NO ORGANISMS SEEN. - Stool w.u >> negative - O&P negative - OB stool negative x 3 - airborne isolation off - APCT r/o retroperitoneal bleed >> negative for hematoma - repeat iron levels >> WNL Recommendations - fu repeat OB stool - fu Hematology consult - monitor H&H, transfuse prn - EGD/Colon when stable - ppi - fu labs Subjective Subjective denies any abdominal pain/diarrhea/constipation fatigue eating well Objective Last 24 Hour Vital Signs Date Time Temp Pulse Resp B/P Pulse Ox O2 Delivery O2 Flow Rate FiO2 04/06/16 08:00 122 04/06/16 08:00 98.2 119 19 99/50 98 Nasal Cannula 2.0 04/06/16 07:32 Nasal Cannula 2.0 28 04/06/16 07:31 97 Nasal Cannula 2.0 28 04/06/16 07:30 125 20 Nasal Cannula 2.0 28 04/06/16 04:00 97.9 117 18 99/59 95 Nasal Cannula 2.0 04/06/16 04:00 118 04/06/16 00:00 97.7 122 20 99/58 95 Room Air 04/06/16 00:00 118 04/05/16 20:00 132 04/05/16 20:00 98.4 134 20 95/43 98 Room Air 04/05/16 19:47 Nasal Cannula 2.0 28 04/05/16 19:47 93 Nasal Cannula 2.0 28 04/05/16 19:46 131 20 Nasal Cannula 2.0 28 04/05/16 16:00 98.2 116 20 98/60 Nasal Cannula 2.0 99 04/05/16 16:00 111 Intake and Output 04/05/16 04/06/16 19:00 07:00 Intake Total 640 ml Output Total 800 ml 400 ml Balance -160 ml -400 ml Intake Oral 640 ml Output Urine Total 800 ml 400 ml # Voids 3 Laboratory Tests Test 04/05/16 20:30 04/06/16 07:25 04/06/16 10:00 Stool Occult Blood Pending White Blood Count 3.9 K/UL (4.8-10.8) L Red Blood Count 2.32 M/UL (4.70-6.10) L Hemoglobin 6.9 G/DL (14.2-18.0) *L Hematocrit 21.0 % (42.0-52.0) L Mean Corpuscular Volume 90 FL (80-99) Mean Corpuscular Hemoglobin 29.8 PG (27.0-31.0) Mean Corpuscular Hemoglobin Concent 33.0 G/DL (32.0-36.0) Red Cell Distribution Width 15.3 % (11.6-14.8) H Platelet Count 19 K/UL (150-450) L Mean Platelet Volume 11.7 FL (6.5-10.1) H Neutrophils (%) (Auto) % (45.0-75.0) Lymphocytes (%) (Auto) % (20.0-45.0) Monocytes (%) (Auto) % (1.0-10.0) Eosinophils (%) (Auto) % (0.0-3.0) Basophils (%) (Auto) % (0.0-2.0) Differential Total Cells Counted 100 Neutrophils % (Manual) 83 % (45-75) H Lymphocytes % (Manual) 10 % (20-45) L Monocytes % (Manual) 5 % (1-10) Eosinophils % (Manual) 2 % (0-3) Basophils % (Manual) 0 % (0-2) Band Neutrophils 0 % (0-8) Lymphocytes Pending Platelet Estimate Decreased L Platelet Morphology Normal Hypochromasia 4+ Anisocytosis 1+ Spherocytes 2+ Reticulocyte Count 0.5 % (0.0-2.0) Sodium Level 131 mEQ/L (135-145) L Potassium Level 5.0 mEQ/L (3.4-4.9) H Chloride Level 91 mEQ/L (98-107) L Carbon Dioxide Level 30 mEQ/L (20-30) Anion Gap 10 (5-15) Blood Urea Nitrogen 47 mg/dL (7-23) H Creatinine 1.6 mg/dL (0.7-1.2) H Estimat Glomerular Filtration Rate 45.1 mL/min (>60) Glucose Level 123 mg/dL (74-106) H Plasma/Serum Osmolality Pending Uric Acid 5.3 mg/dL (3.0-7.5) Calcium Level 8.0 mg/dL (8.6-10.2) L Phosphorus Level 4.0 mg/dL (2.5-4.8) Magnesium Level 1.9 mg/dL (1.7-2.5) Total Bilirubin 2.3 mg/dL (0.0-1.2) H Direct Bilirubin 1.3 mg/dL (0.1-0.3) H Gamma Glutamyl Transpeptidase 20 U/L (8-61) Aspartate Amino Transf (AST/SGOT) 24 U/L (5-40) Alanine Aminotransferase (ALT/SGPT) 14 U/L (3-41) Alkaline Phosphatase 75 U/L (40-129) Lactate Dehydrogenase 136 U/L (135-230) Total Creatine Kinase 40 U/L (38-174) Total Protein 6.0 g/dL (6.6-8.7) L Albumin 2.0 g/dL (3.5-5.2) L Globulin 4.0 g/dL Albumin/Globulin Ratio 0.5 (1.0-2.7) L Percent CD3 Cells Pending Absolute CD3 Count Pending Percent CD4 Cells Pending Absolute CD4 Count Pending T-Lymphocyte CD4/CD8 Ratio Pending Percent CD8 Cells Pending Absolute CD8 Count Pending HIV-1 RNA (PCR) log10 Value Pending HIV-1 RNA Ultraquantitative (PCR) Pending Prothrombin Time 15.1 SEC (9.30-11.50) H Prothromb Time International Ratio 1.5 (0.9-1.1) H Activated Partial Thromboplast Time 35 SEC (23-33) H Rheumatoid Factor Screen Pending Anti-Nuclear Antibody Screen Pending Height (Feet): 5 Height (Inches): 10.00 Weight (Pounds): 165 General Appearance: no apparent distress, alert, thin Cardiovascular: normal rate Respiratory/Chest: no respiratory distress Abdominal Exam: normal bowel sounds, non tender, soft Objective Procedure: CT CHEST Abdomen Pelvis WO Con Indication: ABN LABS Impression: Splenomegaly Extensive thoracic, abdominal, and pelvic lymphadenopathy, as detailed above. This is nonspecific, likely related to stated clinical history of HIV. May indicate reactive, inflammatory, infectious adenopathy, or a lymphoproliferative disorder. Correlate with clinical history and findings Evidence of predominantly upper lobe pulmonary interstitial disease, as described, predominant findings being interstitial septal thickening and bronchial wall thickening. While the differential for this is quite broad, given the history of HIV positivity the possibility of lymphocytic interstitial pneumonitis should be considered Multiple sub-5 mm parenchymal nodules seen throughout the left lung. Possibly related to the above. If there are significant risk factors for lung carcinoma, however, short interval followup CT at 6-12 months should be considered. Bilateral basilar pulmonary parenchymal atelectatic changes and possibly some consolidation Small bilateral pleural effusions Nonspecific bilateral perinephric fat stranding Genesis Keller N.P. Apr 06, 2016 12:53
--- NOTE | 2016-04-06 14:18 | General Progress Note ---
Assessment/Plan Status: unchanged Status Narrative Cr 1.6- Being transfused Assessment/Plan Acute renal failure, multifactorial ( sepsis, HIV , Vanco...) PreRenal superimposed on Renal HypoNatremia Cr 2.8 down to 1.7 PanCytopenia Sepsis, Diarrhea, HIV , Kaposi's Pneumonia Hypocalcemia, electrolyte imbalance Anemia in chronic illness, symptomatic Hypokalemia on admit now K elevated JF (acute kidney injury) Thrombocytopenia, massive splenomegali CAP (community acquired pneumonia) Plan: being transfused protonix po Antibiotics per ID Urine studies- noted Monitor renal parameters and lytes- Avoid Nephrotoxics Monitor Urine out put per consultants Subjective ROS Limited/Unobtainable: No Constitutional: Reports: malaise, weakness Allergies: Coded Allergies: No Known Allergies (Unverified , 03/16/16) Objective Last 24 Hour Vital Signs Date Time Temp Pulse Resp B/P Pulse Ox O2 Delivery O2 Flow Rate FiO2 04/06/16 12:00 108 04/06/16 12:00 97.8 105 19 89/56 97 Nasal Cannula 2.0 04/06/16 08:00 122 04/06/16 08:00 98.2 119 19 99/50 98 Nasal Cannula 2.0 04/06/16 07:32 Nasal Cannula 2.0 28 04/06/16 07:31 97 Nasal Cannula 2.0 28 04/06/16 07:30 125 20 Nasal Cannula 2.0 28 04/06/16 04:00 97.9 117 18 99/59 95 Nasal Cannula 2.0 04/06/16 04:00 118 04/06/16 00:00 97.7 122 20 99/58 95 Room Air 04/06/16 00:00 118 04/05/16 20:00 132 04/05/16 20:00 98.4 134 20 95/43 98 Room Air 04/05/16 19:47 Nasal Cannula 2.0 28 04/05/16 19:47 93 Nasal Cannula 2.0 28 04/05/16 19:46 131 20 Nasal Cannula 2.0 28 04/05/16 16:00 98.2 116 20 98/60 Nasal Cannula 2.0 99 04/05/16 16:00 111 Intake and Output 04/05/16 04/06/16 19:00 07:00 Intake Total 640 ml Output Total 800 ml 400 ml Balance -160 ml -400 ml Intake Oral 640 ml Output Urine Total 800 ml 400 ml # Voids 3 Laboratory Tests 04/05/16 20:30: Stool Occult Blood Negative 04/06/16 07:25: White Blood Count 3.9L, Red Blood Count 2.32L, Hemoglobin 6.9*L, Hematocrit 21.0L, Mean Corpuscular Volume 90, Mean Corpuscular Hemoglobin 29.8, Mean Corpuscular Hemoglobin Concent 33.0, Red Cell Distribution Width 15.3H, Platelet Count 19L, Mean Platelet Volume 11.7H, Neutrophils (%) (Auto) , Lymphocytes (%) (Auto) , Monocytes (%) (Auto) , Eosinophils (%) (Auto) , Basophils (%) (Auto) , Differential Total Cells Counted 100, Neutrophils % ( Manual) 83H, Lymphocytes % (Manual) 10L, Monocytes % (Manual) 5, Eosinophils % ( Manual) 2, Basophils % (Manual) 0, Band Neutrophils 0, Lymphocytes [Pending], Platelet Estimate DecreasedL, Platelet Morphology Normal, Hypochromasia 4+, Anisocytosis 1+, Spherocytes 2+, Reticulocyte Count 0.5, Sodium Level 131L, Potassium Level 5.0H, Chloride Level 91L, Carbon Dioxide Level 30, Anion Gap 10 , Blood Urea Nitrogen 47H, Creatinine 1.6H, Estimat Glomerular Filtration Rate 45.1, Glucose Level 123H, Plasma/Serum Osmolality [Pending], Uric Acid 5.3, Calcium Level 8.0L, Phosphorus Level 4.0, Magnesium Level 1.9, Total Bilirubin 2.3H, Direct Bilirubin 1.3H, Gamma Glutamyl Transpeptidase 20, Aspartate Amino Transf (AST/SGOT) 24, Alanine Aminotransferase (ALT/SGPT) 14, Alkaline Phosphatase 75, Lactate Dehydrogenase 136, Total Creatine Kinase 40, Total Protein 6.0L, Albumin 2.0L, Globulin 4.0, Albumin/Globulin Ratio 0.5L, Percent CD3 Cells [Pending], Absolute CD3 Count [Pending], Percent CD4 Cells [Pending], Absolute CD4 Count [Pending], T-Lymphocyte CD4/CD8 Ratio [Pending], Percent CD8 Cells [Pending], Absolute CD8 Count [Pending], HIV-1 RNA (PCR) log10 Value [ Pending], HIV-1 RNA Ultraquantitative (PCR) [Pending] 04/06/16 10:00: Prothrombin Time 15.1H, Prothromb Time International Ratio 1.5H, Activated Partial Thromboplast Time 35H, Rheumatoid Factor Screen [Pending], Anti-Nuclear Antibody Screen [Pending] Height (Feet): 5 Height (Inches): 10.00 Weight (Pounds): 165 General Appearance: no apparent distress Cardiovascular: tachycardia Respiratory/Chest: decreased breath sounds Abdomen: soft Objective other PE not changed DEREK SMITH Apr 06, 2016 14:18
--- NOTE | 2016-04-06 15:12 | Pulmonology Progress Note ---
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 All medications and treatment were reviewed . Subjective ROS Limited/Unobtainable: No Interval Events: met with family members about plan of care, they understand the terminal na Allergies: Coded Allergies: No Known Allergies (Unverified , 03/16/16) Objective Last 24 Hour Vital Signs Date Time Temp Pulse Resp B/P Pulse Ox O2 Delivery O2 Flow Rate FiO2 04/06/16 12:00 108 04/06/16 12:00 97.8 105 19 89/56 97 Nasal Cannula 2.0 04/06/16 08:00 122 04/06/16 08:00 98.2 119 19 99/50 98 Nasal Cannula 2.0 04/06/16 07:32 Nasal Cannula 2.0 28 04/06/16 07:31 97 Nasal Cannula 2.0 28 04/06/16 07:30 125 20 Nasal Cannula 2.0 28 04/06/16 04:00 97.9 117 18 99/59 95 Nasal Cannula 2.0 04/06/16 04:00 118 04/06/16 00:00 97.7 122 20 99/58 95 Room Air 04/06/16 00:00 118 04/05/16 20:00 132 04/05/16 20:00 98.4 134 20 95/43 98 Room Air 04/05/16 19:47 Nasal Cannula 2.0 28 04/05/16 19:47 93 Nasal Cannula 2.0 28 04/05/16 19:46 131 20 Nasal Cannula 2.0 28 04/05/16 16:00 98.2 116 20 98/60 Nasal Cannula 2.0 99 04/05/16 16:00 111 Intake and Output 04/05/16 04/06/16 19:00 07:00 Intake Total 640 ml Output Total 800 ml 400 ml Balance -160 ml -400 ml Intake Oral 640 ml Output Urine Total 800 ml 400 ml # Voids 3 Objective General Appearance: WD/WN Lines, tubes and drains: peripheral HEENT: normocephalic, atraumatic Neck: non-tender, normal alignment Respiratory/Chest: chest wall non-tender, rhonchi - left, rhonchi - right Cardiovascular/Chest: normal peripheral pulses, normal rate Abdomen: normal bowel sounds, non tender Genitourinary/Rectal: normal genital exam Extremities: normal range of motion, non-tender, normal inspection, no calf tenderness, normal capillary refill Skin Exam: normal pigmentation Neurologic: medical claims assistant II-XII grossly normal Laboratory Tests 04/05/16 20:30: Stool Occult Blood Negative 04/06/16 07:25: White Blood Count 3.9L, Red Blood Count 2.32L, Hemoglobin 6.9*L, Hematocrit 21.0L, Mean Corpuscular Volume 90, Mean Corpuscular Hemoglobin 29.8, Mean Corpuscular Hemoglobin Concent 33.0, Red Cell Distribution Width 15.3H, Platelet Count 19L, Mean Platelet Volume 11.7H, Neutrophils (%) (Auto) , Lymphocytes (%) (Auto) , Monocytes (%) (Auto) , Eosinophils (%) (Auto) , Basophils (%) (Auto) , Differential Total Cells Counted 100, Neutrophils % ( Manual) 83H, Lymphocytes % (Manual) 10L, Monocytes % (Manual) 5, Eosinophils % ( Manual) 2, Basophils % (Manual) 0, Band Neutrophils 0, Lymphocytes [Pending], Platelet Estimate DecreasedL, Platelet Morphology Normal, Hypochromasia 4+, Anisocytosis 1+, Spherocytes 2+, Reticulocyte Count 0.5, Sodium Level 131L, Potassium Level 5.0H, Chloride Level 91L, Carbon Dioxide Level 30, Anion Gap 10 , Blood Urea Nitrogen 47H, Creatinine 1.6H, Estimat Glomerular Filtration Rate 45.1, Glucose Level 123H, Plasma/Serum Osmolality [Pending], Uric Acid 5.3, Calcium Level 8.0L, Phosphorus Level 4.0, Magnesium Level 1.9, Total Bilirubin 2.3H, Direct Bilirubin 1.3H, Gamma Glutamyl Transpeptidase 20, Aspartate Amino Transf (AST/SGOT) 24, Alanine Aminotransferase (ALT/SGPT) 14, Alkaline Phosphatase 75, Lactate Dehydrogenase 136, Total Creatine Kinase 40, Total Protein 6.0L, Albumin 2.0L, Globulin 4.0, Albumin/Globulin Ratio 0.5L, Percent CD3 Cells [Pending], Absolute CD3 Count [Pending], Percent CD4 Cells [Pending], Absolute CD4 Count [Pending], T-Lymphocyte CD4/CD8 Ratio [Pending], Percent CD8 Cells [Pending], Absolute CD8 Count [Pending], HIV-1 RNA (PCR) log10 Value [ Pending], HIV-1 RNA Ultraquantitative (PCR) [Pending] 04/06/16 10:00: Prothrombin Time 15.1H, Prothromb Time International Ratio 1.5H, Activated Partial Thromboplast Time 35H, Rheumatoid Factor Screen [Pending], Anti-Nuclear Antibody Screen [Pending] Current Medications Medications (Trade) Dose Ordered Sig/Godwin Route PRN Reason Start Time Stop Time Status Last Admin Dose Admin Acetaminophen (Tylenol) 650 mg Q4H PRN ORAL fever 04/03/16 16:00 05/03/16 15:59 04/03/16 20:01 Albuterol/ Ipratropium (DuoNeb 0.5-3(2.5)mg/3ml) 3 ml Q4HRT PRN HHN Shortness of Breath 04/03/16 19:00 04/08/16 18:59 Alprazolam (Xanax) 1 mg Q4H PRN ORAL For Anxiety 04/05/16 16:00 04/12/16 15:59 04/05/16 18:22 Atovaquone (Mepron Susp) 1,500 mg DAILY ORAL 04/04/16 09:00 05/04/16 08:59 04/06/16 08:29 Chlorpromazine (Thorazine) 25 mg Q6H PRN IM HICCUPS 04/03/16 16:00 05/03/16 15:59 04/05/16 18:22 Epoetin Suresh (Procrit (for non ESRD use)) 3,000 units MON-MON-MON SUBQ 04/04/16 21:00 05/04/16 20:59 04/04/16 21:23 Escitalopram Oxalate (Lexapro) 10 mg DAILY ORAL 04/04/16 09:00 05/04/16 08:59 04/06/16 08:29 Hydrocortisone (Solu-CORTEF) 100 mg DAILY IV 04/04/16 09:00 05/04/16 08:59 04/06/16 08:29 Morphine Sulfate (Morphine Sulfate) 4 mg Q4H PRN IVP For Severe Pain 04/03/16 18:30 04/10/16 18:29 04/06/16 06:52 Nitroglycerin (Ntg) 0.4 mg Every 5 Minutes PRN SL Prn Chest Pain 04/03/16 16:00 05/03/16 15:59 Ondansetron HCl (Zofran) 4 mg Q6H PRN IVP Nausea & Vomiting 04/03/16 18:00 05/03/16 17:59 Pantoprazole (Protonix) 40 mg EVERY 12 HOURS ORAL 04/05/16 12:00 05/05/16 11:59 04/06/16 08:29 Patient Own Medication (Patient's Own Med) 1 ea DAILY ORAL 04/04/16 09:00 05/04/16 08:59 04/06/16 08:29 Patient Own Medication (Patient's Own Med) 1 ea DAILY ORAL 04/04/16 09:00 05/04/16 08:59 04/06/16 08:29 Polyethylene Glycol (Miralax) 17 gm DAILYPRN PRN ORAL Constipation 04/04/16 16:00 05/04/16 15:59 Promethazine HCl/ Codeine (Phenergan with Codeine) 10 ml Q6H PRN ORAL For Cough 04/03/16 20:00 05/03/16 19:59 Temazepam (Restoril) 15 mg HSPRN PRN ORAL Insomnia 04/03/16 21:00 04/10/16 20:59 04/04/16 21:23 MARIA ISABEL SZYMANSKI Apr 06, 2016 15:12
[2016-04-06 16:00] VITALS: BP 126/67
[2016-04-06 20:00] VITALS: BP 105/47
[2016-04-06] MEDS: Epogen (for non ESRD use) SUBQ SCH (21:14)
[2016-04-06 22:40] LABS: APPEARANCE,URINE SLIGHTLY CLOUDY; KETONES,URINE NEGATIVE (NEGATIVE); LEUKOCYTE ESTERASE ,URINE 1+ (NEGATIVE); NITRITE,URINE NEGATIVE (NEGATIVE); PH,URINE 5 (4.5-8.0); PROTEIN,URINE 2+ (NEGATIVE); UROBILINOGEN,URINE 1 MG/DL (0.0-1.0)
[2016-04-06 22:44] LABS: ICTOTEST POSITIVE
[2016-04-06 22:54] LABS: AMORPHOUS SEDIMENT,UR MODERATE /LPF; BACTERIA,URINE MODERATE /HPF; RBC,URINE 0-2 /HPF (0 - 0); WBC,URINE 0-2 /HPF (0 - 0)
[2016-04-07] VITALS (7 sets, daily range): BP systolic 86–118; BP diastolic 53–68
[2016-04-07] MEDS ORDERED: Nitroglycerin Subl 0.4mg tab (Bottle Of 25) SL PRN (03:45)
[2016-04-07] MEDS: Morphine Sulfate 4mg/ml Inj IVP PRN ×3 (04:16→20:39)
[2016-04-07] MEDS ORDERED: DuoNeb 0.5-3(2.5)mg/3ml neb HHN PRN (07:00)
[2016-04-07] MEDS ORDERED: Promethazine/Codeine 5ml UD ORAL PRN (08:00)
[2016-04-07] MEDS: PREZCOBIX ORAL SCH (09:15)
[2016-04-07] MEDS: Hydrocortisone 100mg Inj IV SCH (09:16)
--- NOTE | 2016-04-07 10:08 | General Progress Note ---
Assessment/Plan Status: unchanged Assessment/Plan Acute renal failure, multifactorial ( sepsis, HIV , Vanco...) PreRenal superimposed on Renal HypoNatremia Cr 2.8 down to 1.7 PanCytopenia Sepsis, Diarrhea, HIV , Kaposi's Pneumonia Hypocalcemia, electrolyte imbalance Anemia in chronic illness, symptomatic Hypokalemia on admit now K elevated JF (acute kidney injury) Thrombocytopenia, massive splenomegali CAP (community acquired pneumonia) Plan: today's lab is pending protonix po Antibiotics per ID Urine studies- noted Monitor renal parameters and lytes- Avoid Nephrotoxics Monitor Urine out put per consultants Subjective ROS Limited/Unobtainable: No Constitutional: Reports: malaise Allergies: Coded Allergies: No Known Allergies (Unverified , 03/16/16) Objective Last 24 Hour Vital Signs Date Time Temp Pulse Resp B/P Pulse Ox O2 Delivery O2 Flow Rate FiO2 04/07/16 08:43 115 20 Nasal Cannula 2.0 28 04/07/16 08:43 95 Nasal Cannula 2.0 28 04/07/16 08:43 Nasal Cannula 2.0 28 04/07/16 08:00 97.0 122 23 113/61 95 Nasal Cannula 2.0 04/07/16 04:57 98.2 116 18 108/63 96 04/07/16 04:47 97.0 04/07/16 00:20 97.0 97 20 114/56 97 Room Air 04/07/16 00:14 125 04/06/16 20:00 100.0 128 20 105/47 Nasal Cannula 2.0 94 04/06/16 20:00 123 04/06/16 19:50 Nasal Cannula 2.0 28 04/06/16 19:50 128 20 Nasal Cannula 2.0 28 04/06/16 19:50 96 Nasal Cannula 2.0 28 04/06/16 16:00 110 04/06/16 16:00 98.1 112 20 126/67 Nasal Cannula 2.0 97 04/06/16 12:00 108 04/06/16 12:00 97.8 105 19 89/56 97 Nasal Cannula 2.0 Intake and Output 04/06/16 04/07/16 19:00 07:00 Intake Total 860 ml Output Total 530 ml 250 ml Balance 330 ml -250 ml Intake Oral 860 ml Output Urine Total 530 ml 250 ml # Voids 3 Laboratory Tests 04/06/16 21:00: Urine Color Karli, Urine Appearance Slightly cloudy, Urine pH 5, Urine Specific [place] 1.010, Urine Protein 2+H, Urine Glucose (UA) Negative, Urine Ketones Negative, Urine Occult Blood 1+H, Urine Nitrite Negative, Urine Bilirubin Negative, Urine Ictotest Positive, Urine Urobilinogen 1H, Urine Leukocyte Esterase 1+H, Urine RBC 0-2H, Urine WBC 0-2, Urine Squamous Epithelial Cells None, Urine Amorphous Sediment ModerateH, Urine Bacteria ModerateH Height (Feet): 5 Height (Inches): 10.00 Weight (Pounds): 165 General Appearance: no apparent distress Objective other PE not changed DEREK SMITH Apr 07, 2016 10:08
[2016-04-07] MEDS: Atovaquone 750mg/5ml Susp ORAL SCH (10:16)
[2016-04-07 10:38] LABS: MEAN CORPUSCULAR HEMOGLOBIN 29.7 PG (27.0-31.0); MEAN CORPUSCULAR HGB CONC 32.9 G/DL (32.0-36.0); MEAN CORPUSCULAR VOLUME 90 FL (80-99); MEAN PLATELET VOLUME 10.3 FL (6.5-10.1); PLATELET COUNT 15 K/UL (150-450); RED BLOOD COUNT 2.71 M/UL (4.70-6.10); RED CELL DISTRIBUTION WIDTH 15.1 % (11.6-14.8); WHITE BLOOD COUNT 4.2 K/UL (4.8-10.8)
--- NOTE | 2016-04-07 10:45 | GI Progress Note ---
Assessment/Plan Problems: (1) Diarrhea ICD Codes: R19.7 - Diarrhea, unspecified SNOMED: 72195233 (2) Splenomegaly with HIV infection ICD Codes: B20 - Human immunodeficiency virus [HIV] disease; R16.1 - Splenomegaly, not elsewhere classified SNOMED: 222509212 (3) Anemia ICD Codes: D64.9 - Anemia, unspecified SNOMED: 353056436 Qualifiers: Qualified Codes: D64.9 - Anemia, unspecified (4) Thrombocytopenia ICD Codes: D69.6 - Thrombocytopenia, unspecified SNOMED: 721178223 (5) HIV disease ICD Codes: B20 - Human immunodeficiency virus [HIV] disease SNOMED: 55513386 (6) Episode of generalized weakness ICD Codes: R53.1 - Weakness SNOMED: 29086469 Status: unchanged Status Narrative Discussed with Dr. Epps. Assessment/Plan Assessment - Anemia - Thrombocytopenia - HIV - Diarrhea >> cdiff negative - s/p bone biopsy >> GRAM STAIN RESULTS. RARE WHITE BLOOD CELLS. NO ORGANISMS SEEN. - Stool w.u >> negative - O&P negative - OB stool negative x 3 - airborne isolation off - APCT r/o retroperitoneal bleed >> negative for hematoma - repeat iron levels >> WNL Recommendations - fu Hematology consult - fu abd U/S r/o saqib - fu repeat OB stool >> negative - monitor H&H, transfuse prn - EGD/Colon when stable - ppi - fu labs - poor prognosis Subjective Subjective denies any abdominal pain/diarrhea/constipation fatigue eating well Objective Last 24 Hour Vital Signs Date Time Temp Pulse Resp B/P Pulse Ox O2 Delivery O2 Flow Rate FiO2 04/07/16 08:43 115 20 Nasal Cannula 2.0 28 04/07/16 08:43 95 Nasal Cannula 2.0 28 04/07/16 08:43 Nasal Cannula 2.0 28 04/07/16 08:00 97.0 122 23 113/61 95 Nasal Cannula 2.0 04/07/16 04:57 98.2 116 18 108/63 96 04/07/16 04:47 97.0 04/07/16 00:20 97.0 97 20 114/56 97 Room Air 04/07/16 00:14 125 04/06/16 20:00 100.0 128 20 105/47 Nasal Cannula 2.0 94 04/06/16 20:00 123 3/1/17 19:50 Nasal Cannula 2.0 28 04/06/16 19:50 128 20 Nasal Cannula 2.0 28 04/06/16 19:50 96 Nasal Cannula 2.0 28 04/06/16 16:00 110 04/06/16 16:00 98.1 112 20 126/67 Nasal Cannula 2.0 97 04/06/16 12:00 108 04/06/16 12:00 97.8 105 19 89/56 97 Nasal Cannula 2.0 Intake and Output 04/06/16 04/07/16 19:00 07:00 Intake Total 860 ml Output Total 530 ml 250 ml Balance 330 ml -250 ml Intake Oral 860 ml Output Urine Total 530 ml 250 ml # Voids 3 Laboratory Tests Test 04/06/16 21:00 04/07/16 09:38 Urine Color Karli Urine Appearance Slightly cloudy Urine pH 5 (4.5-8.0) Urine Specific [place] 1.010 (1.005-1.035) Urine Protein 2+ (NEGATIVE) H Urine Glucose (UA) Negative (NEGATIVE) Urine Ketones Negative (NEGATIVE) Urine Occult Blood 1+ (NEGATIVE) H Urine Nitrite Negative (NEGATIVE) Urine Bilirubin Negative (NEGATIVE) Urine Ictotest Positive Urine Urobilinogen 1 MG/DL (0.0-1.0) H Urine Leukocyte Esterase 1+ (NEGATIVE) H Urine RBC 0-2 /HPF (0 - 0) H Urine WBC 0-2 /HPF (0 - 0) Urine Squamous Epithelial Cells None /LPF (NONE/OCC) Urine Amorphous Sediment Moderate /LPF (NONE) H Urine Bacteria Moderate /HPF (NONE) H White Blood Count 4.2 K/UL (4.8-10.8) L Red Blood Count 2.71 M/UL (4.70-6.10) L Hemoglobin 8.0 G/DL (14.2-18.0) L Hematocrit 24.4 % (42.0-52.0) L Mean Corpuscular Volume 90 FL (80-99) Mean Corpuscular Hemoglobin 29.7 PG (27.0-31.0) Mean Corpuscular Hemoglobin Concent 32.9 G/DL (32.0-36.0) Red Cell Distribution Width 15.1 % (11.6-14.8) H Platelet Count 15 K/UL (150-450) L Mean Platelet Volume 10.3 FL (6.5-10.1) H Neutrophils (%) (Auto) % (45.0-75.0) Lymphocytes (%) (Auto) % (20.0-45.0) Monocytes (%) (Auto) % (1.0-10.0) Eosinophils (%) (Auto) % (0.0-3.0) Basophils (%) (Auto) % (0.0-2.0) Neutrophils % (Manual) Pending Lymphocytes % (Manual) Pending Platelet Estimate Pending Platelet Morphology Pending Reticulocyte Count Pending Haptoglobin Pending Prothrombin Time Pending Prothromb Time International Ratio Pending Fibrinogen Pending Sodium Level Pending Potassium Level Pending Chloride Level Pending Carbon Dioxide Level Pending Blood Urea Nitrogen Pending Creatinine Pending Estimat Glomerular Filtration Rate Pending Glucose Level Pending Calcium Level Pending Total Bilirubin Pending Direct Bilirubin Pending Aspartate Amino Transf (AST/SGOT) Pending Alanine Aminotransferase (ALT/SGPT) Pending Alkaline Phosphatase Pending Lactate Dehydrogenase Pending Total Protein Pending Albumin Pending Globulin Pending Height (Feet): 5 Height (Inches): 10.00 Weight (Pounds): 165 General Appearance: no apparent distress, alert, thin Cardiovascular: normal rate Respiratory/Chest: normal breath sounds, no respiratory distress Abdominal Exam: normal bowel sounds, non tender, soft Objective Procedure: CT CHEST Abdomen Pelvis WO Con Indication: ABN LABS Impression: Splenomegaly Extensive thoracic, abdominal, and pelvic lymphadenopathy, as detailed above. This is nonspecific, likely related to stated clinical history of HIV. May indicate reactive, inflammatory, infectious adenopathy, or a lymphoproliferative disorder. Correlate with clinical history and findings Evidence of predominantly upper lobe pulmonary interstitial disease, as described, predominant findings being interstitial septal thickening and bronchial wall thickening. While the differential for this is quite broad, given the history of HIV positivity the possibility of lymphocytic interstitial pneumonitis should be considered Multiple sub-5 mm parenchymal nodules seen throughout the left lung. Possibly related to the above. If there are significant risk factors for lung carcinoma, however, short interval followup CT at 6-12 months should be considered. Bilateral basilar pulmonary parenchymal atelectatic changes and possibly some consolidation Small bilateral pleural effusions Nonspecific bilateral perinephric fat stranding Genesis Keller N.P. Apr 07, 2016 10:45
[2016-04-07 10:49] LABS: ALBUMIN/GLOBULIN RATIO 0.4 (1.0-2.7); CREATININE 1.5 mg/dL (0.7-1.2); GLOMERULAR FILTRATION RATE 48.6 mL/min (>60); POTASSIUM 4.8 mEQ/L (3.4-4.9); TOTAL PROTEIN 5.9 g/dL (6.6-8.7)
[2016-04-07 11:29] LABS: BILIRUBIN,DIRECT 1.8 mg/dL (0.1-0.3)
[2016-04-07] MEDS: ALPRAZolam 0.5mg tab ORAL PRN (12:01)
[2016-04-07 12:05] LABS: ANISOCYTOSIS 1+; BAND NEUTROPHILS % (MANUAL) 5 % (0-8); BASOPHILS % (MANUAL) 0 % (0-2); EOSINOPHILS % (MANUAL) 1 % (0-3); HYPOCHROMASIA 1+; LYMPHOCYTES % (MANUAL) 12 % (20-45); NEUTROPHILS % (MANUAL) 79 % (45-75); PLATELET ESTIMATE DECREASED; PLATELET MORPHOLOGY NORMAL; TOTAL CELLS COUNTED 100
[2016-04-07 12:06] LABS: INR 1.5 (0.9-1.1); PROTHROMBIN TIME 15.7 SEC (9.30-11.50)
[2016-04-07 12:24] LABS: LYMPHOCYTES ABSOLUTE 0.5 x10E3/uL (0.7-3.1); OTHERS PATHOLOGIST COMMENT; WBC 3.5 x10E3/uL (3.4-10.8)
--- NOTE | 2016-04-07 13:31 | General Progress Note ---
Assessment/Plan Assessment/Plan ASSESSMENT: 1. Pancytopenia. The patient is status post bone marrow biopsy, which shows no evidence of blasts or myelodysplasia (FISH Panel is negative). It does show a hypercellular marrow concerning for patchy [id number] fibrosis with degeneration, he is with a history of HIV as well, has no evidence of lymphoma on the biopsy. Iron stores are decreased on biopsy but ferritin overall is elevated. AFB and Gram GMS stain show no acid-fast bacilli and no fungal organisms. Patient has marked splenomegaly. Has extensive lymphadenopathy on CAT scan as well, will consider to biopsy one of the lymph nodes. Unlikely has ITP and does not have MDS. The patient does not have any evidence that displays primary myofibrosis. Thus overall, likely this is a secondary process to a underlying process. 2. Anemia secondary to chronic disease. His erythrocyte sedimentation rate is severely elevated. Reticulocyte count is low. Ferritin is elevated and TIBC lower. Has issue with iron sequestration/utilization 3. 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 Leukopenia secondary to likely splenomegaly versus sepsis. 5. Thrombocytopenia, concerning for underlying infection versus splenomegaly, also can be 2/2 to above process, will obtain biopsy of LN. Does not have DIC 6. Splenomegaly, noted on ultrasound. 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 Obtain a biopsy of the LN on imaging (will f/u on pathology results) will be done if plt count >25k, thus will transfuse this am 2. Does not have DIC, have reviewed labs 3. Hgb goal is >7 and plt goal >10k or >20k if febrile 4. Continue epogen. Does not need iron (have reviewed marrow results as well) 5. Will order for HLA-matched plts in the future, the order has been placed and d/w blood bank 6. ID recommendations in regards to antibiotics and antiretroviral meds 7. The patient has hx of Kaposis sarcoma, rule out disseminated disease with biopsy 8. Have discussed with pathologist on 04/04 and will rediscuss again after biopsy back of LN 9. Discussed with staff and consultants Greatly appreciate consultation, Kareem Trimble MD Subjective Constitutional: Reports: no symptoms HEENT: Reports: no symptoms Cardiovascular: Reports: no symptoms Respiratory: Reports: no symptoms Gastrointestinal/Abdominal: Reports: no symptoms Genitourinary: Reports: no symptoms 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: Reports: no symptoms Endocrine: Reports: no symptoms Hematologic/Lymphatic: Reports: anemia Allergies: Coded Allergies: No Known Allergies (Unverified , 03/16/16) Subjective stable, no complaints today, considering a biopsy Objective Last 24 Hour Vital Signs Date Time Temp Pulse Resp B/P Pulse Ox O2 Delivery O2 Flow Rate FiO2 04/07/16 11:47 99.3 124 20 118/64 93 Nasal Cannula 2.0 04/07/16 08:43 115 20 Nasal Cannula 2.0 28 04/07/16 08:43 95 Nasal Cannula 2.0 28 04/07/16 08:43 Nasal Cannula 2.0 28 04/07/16 08:00 97.0 122 23 113/61 95 Nasal Cannula 2.0 04/07/16 04:57 98.2 116 18 108/63 96 04/07/16 04:47 97.0 04/07/16 00:20 97.0 97 20 114/56 97 Room Air 04/07/16 00:14 125 04/06/16 20:00 100.0 128 20 105/47 Nasal Cannula 2.0 94 04/06/16 20:00 123 04/06/16 19:50 Nasal Cannula 2.0 28 04/06/16 19:50 128 20 Nasal Cannula 2.0 28 04/06/16 19:50 96 Nasal Cannula 2.0 28 04/06/16 16:00 110 04/06/16 16:00 98.1 112 20 126/67 Nasal Cannula 2.0 97 Intake and Output 04/06/16 04/07/16 19:00 07:00 Intake Total 860 ml Output Total 530 ml 250 ml Balance 330 ml -250 ml Intake Oral 860 ml Output Urine Total 530 ml 250 ml # Voids 3 Laboratory Tests 04/06/16 21:00: Urine Color Karli, Urine Appearance Slightly cloudy, Urine pH 5, Urine Specific [place] 1.010, Urine Protein 2+H, Urine Glucose (UA) Negative, Urine Ketones Negative, Urine Occult Blood 1+H, Urine Nitrite Negative, Urine Bilirubin Negative, Urine Ictotest Positive, Urine Urobilinogen 1H, Urine Leukocyte Esterase 1+H, Urine RBC 0-2H, Urine WBC 0-2, Urine Squamous Epithelial Cells None, Urine Amorphous Sediment ModerateH, Urine Bacteria ModerateH 04/07/16 09:38: White Blood Count 4.2L, Red Blood Count 2.71L, Hemoglobin 8.0L, Hematocrit 24.4L , Mean Corpuscular Volume 90, Mean Corpuscular Hemoglobin 29.7, Mean Corpuscular Hemoglobin Concent 32.9, Red Cell Distribution Width 15.1H, Platelet Count 15L, Mean Platelet Volume 10.3H, Neutrophils (%) (Auto) , Lymphocytes (%) (Auto) , Monocytes (%) (Auto) , Eosinophils (%) (Auto) , Basophils (%) (Auto) , Differential Total Cells Counted 100, Neutrophils % ( Manual) 79H, Lymphocytes % (Manual) 12L, Monocytes % (Manual) 3, Eosinophils % ( Manual) 1, Basophils % (Manual) 0, Band Neutrophils 5, Platelet Estimate DecreasedL, Platelet Morphology Normal, Hypochromasia 1+, Anisocytosis 1+, Reticulocyte Count 0.6, Haptoglobin 176, Prothrombin Time 15.7H, Prothromb Time International Ratio 1.5H, Fibrinogen 487H, Sodium Level 130L, Potassium Level 4.8, Chloride Level 91L, Carbon Dioxide Level 30, Anion Gap 9, Blood Urea Nitrogen 40H, Creatinine 1.5H, Estimat Glomerular Filtration Rate 48.6, Glucose Level 136H, Calcium Level 8.0L, Total Bilirubin 2.7H, Direct Bilirubin 1.8H, Aspartate Amino Transf (AST/SGOT) 21, Alanine Aminotransferase (ALT/SGPT) 13, Alkaline Phosphatase 92, Lactate Dehydrogenase 115L, Total Protein 5.9L, Albumin 1.8L, Globulin 4.1, Albumin/Globulin Ratio 0.4L Height (Feet): 5 Height (Inches): 10.00 Weight (Pounds): 165 General Appearance: no apparent distress EENT: TMs normal Neck: supple Cardiovascular: normal rate Respiratory/Chest: normal breath sounds Abdomen: non tender Extremities: normal range of motion Edema: 1+ Leg (L), 1+ Leg (R) Neurologic: alert Skin: warm/dry Kareem Trimble Apr 07, 2016 13:31
[2016-04-07] MEDS ORDERED: Miralax 17gm pkt ORAL PRN (16:00)
--- NOTE | 2016-04-07 17:17 | Diagnostic Imaging Report ---
Indication: Adenopathy. Followup. Technique: Continuous helical transaxial imaging of the chest was obtained from the thoracic inlet to the upper abdomen after intravenous nonionic contrast administration. Coronal 2-D reformats were also obtained. Total Dose length Product (DLP): mGycm CT Dose Index Volume (CTDIvol): mGy Comparison: March 10, 2016 Findings: Once again, there is demonstration of lymphadenopathy within the axilla and mediastinum. The single largest node is about 2.3 x 1.3 cm and is seen in the left axilla. Other nodes, smaller in size are noted. Small bilateral pleural effusions are present. Some reticular nodular densities have developed in a portion of the left upper lobe. Suspected infectious or inflammatory process, although neoplasm is not excluded. There is a small pericardial effusion again demonstrated. The visualized portion of the upper abdomen demonstrates fairly marked splenomegaly. In addition there is a partially imaged crescentic low-attenuation focus with slightly denser central region along the lateral margin of the spleen measuring 8.4 x 3.6 cm. This is most likely a hematoma but is incompletely evaluated on this CT of the chest. There is ascites also noted in the upper abdomen. Impression: Mediastinal and bilateral axillary lymphadenopathy. Neoplastic versus inflammatory relatively unchanged from March 18, 2016. Suspicion of a subacute 8.4 x 3.6 cm hematoma along the lateral edge of the spleen. This is incompletely imaged on the current examination. Recommend CT of the abdomen for further evaluation. Reticular nodular infiltrates developing in the left upper lobe periphery. Inflammatory versus neoplastic. Small pericardial effusion Development of small bilateral pleural effusions Ascites Critical value communication. Findings were discussed via telephone with 4 javier nurse via telephone 17:11 PM, 04-07-16.
--- NOTE | 2016-04-07 17:27 | Pulmonology Progress Note ---
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 . Subjective ROS Limited/Unobtainable: No Allergies: Coded Allergies: No Known Allergies (Unverified , 03/16/16) Objective Last 24 Hour Vital Signs Date Time Temp Pulse Resp B/P Pulse Ox O2 Delivery O2 Flow Rate FiO2 04/07/16 11:47 99.3 124 20 118/64 93 Nasal Cannula 2.0 04/07/16 08:43 115 20 Nasal Cannula 2.0 28 04/07/16 08:43 95 Nasal Cannula 2.0 28 04/07/16 08:43 Nasal Cannula 2.0 28 04/07/16 08:00 97.0 122 23 113/61 95 Nasal Cannula 2.0 04/07/16 04:57 98.2 116 18 108/63 96 04/07/16 04:47 97.0 04/07/16 00:20 97.0 97 20 114/56 97 Room Air 04/07/16 00:14 125 04/06/16 20:00 100.0 128 20 105/47 Nasal Cannula 2.0 94 04/06/16 20:00 123 04/06/16 19:50 Nasal Cannula 2.0 28 04/06/16 19:50 128 20 Nasal Cannula 2.0 28 04/06/16 19:50 96 Nasal Cannula 2.0 28 Intake and Output 04/06/16 04/07/16 19:00 07:00 Intake Total 860 ml Output Total 530 ml 250 ml Balance 330 ml -250 ml Intake Oral 860 ml Output Urine Total 530 ml 250 ml # Voids 3 Objective General Appearance: WD/WN Lines, tubes and drains: peripheral HEENT: normocephalic, atraumatic Neck: non-tender, normal alignment Respiratory/Chest: chest wall non-tender, rhonchi - left, rhonchi - right Cardiovascular/Chest: normal peripheral pulses, normal rate Abdomen: normal bowel sounds, non tender Genitourinary/Rectal: normal genital exam Extremities: normal range of motion, non-tender, normal inspection, no calf tenderness, normal capillary refill Skin Exam: normal pigmentation Neurologic: cook relief II-XII grossly normal Laboratory Tests 04/06/16 21:00: Urine Color Karli, Urine Appearance Slightly cloudy, Urine pH 5, Urine Specific [place] 1.010, Urine Protein 2+H, Urine Glucose (UA) Negative, Urine Ketones Negative, Urine Occult Blood 1+H, Urine Nitrite Negative, Urine Bilirubin Negative, Urine Ictotest Positive, Urine Urobilinogen 1H, Urine Leukocyte Esterase 1+H, Urine RBC 0-2H, Urine WBC 0-2, Urine Squamous Epithelial Cells None, Urine Amorphous Sediment ModerateH, Urine Bacteria ModerateH 04/07/16 09:38: White Blood Count 4.2L, Red Blood Count 2.71L, Hemoglobin 8.0L, Hematocrit 24.4L , Mean Corpuscular Volume 90, Mean Corpuscular Hemoglobin 29.7, Mean Corpuscular Hemoglobin Concent 32.9, Red Cell Distribution Width 15.1H, Platelet Count 15L, Mean Platelet Volume 10.3H, Neutrophils (%) (Auto) , Lymphocytes (%) (Auto) , Monocytes (%) (Auto) , Eosinophils (%) (Auto) , Basophils (%) (Auto) , Differential Total Cells Counted 100, Neutrophils % ( Manual) 79H, Lymphocytes % (Manual) 12L, Monocytes % (Manual) 3, Eosinophils % ( Manual) 1, Basophils % (Manual) 0, Band Neutrophils 5, Platelet Estimate DecreasedL, Platelet Morphology Normal, Hypochromasia 1+, Anisocytosis 1+, Reticulocyte Count 0.6, Haptoglobin 176, Prothrombin Time 15.7H, Prothromb Time International Ratio 1.5H, Fibrinogen 487H, Sodium Level 130L, Potassium Level 4.8, Chloride Level 91L, Carbon Dioxide Level 30, Anion Gap 9, Blood Urea Nitrogen 40H, Creatinine 1.5H, Estimat Glomerular Filtration Rate 48.6, Glucose Level 136H, Calcium Level 8.0L, Total Bilirubin 2.7H, Direct Bilirubin 1.8H, Aspartate Amino Transf (AST/SGOT) 21, Alanine Aminotransferase (ALT/SGPT) 13, Alkaline Phosphatase 92, Lactate Dehydrogenase 115L, Total Protein 5.9L, Albumin 1.8L, Globulin 4.1, Albumin/Globulin Ratio 0.4L Current Medications Medications (Trade) Dose Ordered Sig/Godwin Route PRN Reason Start Time Stop Time Status Last Admin Dose Admin Acetaminophen (Tylenol) 650 mg Q4H PRN ORAL fever 04/07/16 04:00 05/07/16 03:59 Albuterol/ Ipratropium (DuoNeb 0.5-3(2.5)mg/3ml) 3 ml Q4HRT PRN HHN Shortness of Breath 04/07/16 07:00 04/12/16 06:59 Alprazolam (Xanax) 1 mg Q4H PRN ORAL For Anxiety 04/07/16 04:00 04/14/16 03:59 04/07/16 12:01 Atovaquone (Mepron Susp) 1,500 mg DAILY ORAL 04/07/16 09:00 05/07/16 08:59 04/07/16 10:16 Chlorpromazine (Thorazine) 25 mg Q6H PRN IM HICCUPS 04/07/16 04:00 05/07/16 03:59 04/07/16 16:16 Epoetin Suresh (Procrit (for non ESRD use)) 3,000 units MON-MON-MON SUBQ 04/08/16 21:00 05/08/16 20:59 Escitalopram Oxalate (Lexapro) 10 mg DAILY ORAL 04/07/16 09:00 05/07/16 08:59 04/07/16 09:17 Hydrocortisone (Solu-CORTEF) 100 mg DAILY IV 04/07/16 09:00 05/07/16 08:59 04/07/16 09:16 Morphine Sulfate (Morphine Sulfate) 4 mg Q4H PRN IVP For Severe Pain 04/07/16 06:30 04/14/16 06:29 04/07/16 09:16 Nitroglycerin (Ntg) 0.4 mg Every 5 Minutes PRN SL Prn Chest Pain 04/07/16 03:45 05/07/16 03:44 Ondansetron HCl (Zofran) 4 mg Q6H PRN IVP Nausea & Vomiting 04/07/16 06:00 05/07/16 05:59 Pantoprazole (Protonix) 40 mg EVERY 12 HOURS ORAL 04/07/16 09:00 05/07/16 08:59 04/07/16 09:17 Patient Own Medication (Patient's Own Med) 1 ea DAILY ORAL 04/07/16 09:00 05/07/16 08:59 04/07/16 09:14 Patient Own Medication (Patient's Own Med) 1 ea DAILY ORAL 04/07/16 09:00 05/07/16 08:59 04/07/16 09:15 Polyethylene Glycol (Miralax) 17 gm DAILYPRN PRN ORAL Constipation 04/07/16 16:00 05/07/16 15:59 Promethazine HCl/ Codeine (Phenergan with Codeine) 10 ml Q6H PRN ORAL For Cough 04/07/16 08:00 05/07/16 07:59 Temazepam (Restoril) 15 mg HSPRN PRN ORAL Insomnia 04/07/16 21:00 04/14/16 20:59 MARIA ISABEL SZYMANSKI Apr 07, 2016 17:27
--- NOTE | 2016-04-07 21:22 | Infectious Diseases Prog Note ---
Assessment/Plan Assessment/Plan Assessment/Plan ASSESSMENT: 55 y/o male with: // Bone marrow Cx <1+ S.epidermidis = contaminant // Negative: coccidioides, histoplasma, blastomyces, CrAg, T-SPOT, ( coccidioides indeterminant ) // Possible PNA , SP Rx - sputum AFB smear(-) x3, Cx NGTD, T-SPOT(-), TB PCR(-) - CXR 03/29: interim resolution of previously demonstrated right lower lobe infiltrate. Possible small left pleural effusion - CT: predominantly upper lobe pulmonary interstitial disease, possible lymphocytic interstitial pneumonitis. Multiple sub-5 mm parenchymal nodules seen throughout the left lung. Bilateral basilar pulmonary parenchymal atelectatic changes and possibly some consolidation. Small bilateral pleural effusions - negative/WNL: LDH, CrAg, blastomyces, histoplasma, ( coccidioides indeterminant ) // Diffuse LAD ? Etio , due to HIV CMV PCR, VEL, Bx pending - SP BMBx: mild-mod fibrosis, granulomatous inflammation. AFB, fungal stains (-) - CT: Extensive thoracic, abdominal, and pelvic lymphadenopathy // HIV / AIDS, on cART ( recently changed to prezcobix, tivicay d/t genotype ) - CD4 29 // Kaposi sarcoma // Pancytopenia - SP BMBx: mild-mod fibrosis, granulomatous inflammation. AFB, fungal stains (-) - negative/WNL: LDH, ARMIDA, CrAg, Parvovirus IgM, blastomyces, histoplasma, T- SPOT ( coccidioides indeterminant ) // Fever - resolved // CT : Mediastinal and bilateral axillary lymphadenopathy. Neoplastic versus inflammatory // Symptomatic FOBT(-) anemia SP PRBCs - denies blood loss. GI following, plan EGD/colonoscopy - CT A/P(-) RP hematoma // ARF - overall improved, stable // Massive splenomegaly // Thrombocytopenia // Anxiety // Elevated ESR // NKDA // Full Code PLAN: - monitor pt off of ABX ( 03/26 SP IV vancomycin, cefepime d# ) - continue cART ( prezcobix, tivicay - ok for pt to take own meds ), changed bactrim prophy to mepron given cytopenias ,will start Zithromax after blood ( AFB ) is back - f/u AFB BCx, sputum AFB Cx, CMV PCR, VEL - monitor CBC, temperatures - monitor BMP - transfuse prn - LN Bx - HIV VL Subjective Constitutional: Denies: anorexia, chills, drenching sweats, fatigue, fever, no symptoms, other Allergies: Coded Allergies: No Known Allergies (Unverified , 03/16/16) Objective Vital Signs Last 24 Hour Vital Signs Date Time Temp Pulse Resp B/P Pulse Ox O2 Delivery O2 Flow Rate FiO2 04/07/16 19:35 96 Nasal Cannula 2.0 28 04/07/16 19:35 Nasal Cannula 2.0 28 04/07/16 19:34 126 20 Nasal Cannula 2.0 28 04/07/16 16:00 99.0 117 17 113/68 94 Nasal Cannula 2.0 04/07/16 11:47 99.3 124 20 118/64 93 Nasal Cannula 2.0 04/07/16 08:43 115 20 Nasal Cannula 2.0 28 04/07/16 08:43 95 Nasal Cannula 2.0 04/07/16 08:43 Nasal Cannula 2.0 28 04/07/16 08:00 97.0 122 23 113/61 95 Nasal Cannula 2.0 04/07/16 04:57 98.2 116 18 108/63 96 04/07/16 04:47 97.0 04/07/16 00:20 97.0 97 20 114/56 97 Room Air 04/07/16 00:14 125 Height (Feet): 5 Height (Inches): 10.00 Weight (Pounds): 165 HEENT: anicteric Respiratory/Chest: lungs clear Cardiovascular: normal rate Abdomen: non distended Laboratory Tests Test 04/07/16 09:38 White Blood Count 4.2 K/UL (4.8-10.8) L Red Blood Count 2.71 M/UL (4.70-6.10) L Hemoglobin 8.0 G/DL (14.2-18.0) L Hematocrit 24.4 % (42.0-52.0) L Mean Corpuscular Volume 90 FL (80-99) Mean Corpuscular Hemoglobin 29.7 PG (27.0-31.0) Mean Corpuscular Hemoglobin Concent 32.9 G/DL (32.0-36.0) Red Cell Distribution Width 15.1 % (11.6-14.8) H Platelet Count 15 K/UL (150-450) L Mean Platelet Volume 10.3 FL (6.5-10.1) H Neutrophils (%) (Auto) % (45.0-75.0) Lymphocytes (%) (Auto) % (20.0-45.0) Monocytes (%) (Auto) % (1.0-10.0) Eosinophils (%) (Auto) % (0.0-3.0) Basophils (%) (Auto) % (0.0-2.0) Differential Total Cells Counted 100 Neutrophils % (Manual) 79 % (45-75) H Lymphocytes % (Manual) 12 % (20-45) L Monocytes % (Manual) 3 % (1-10) Eosinophils % (Manual) 1 % (0-3) Basophils % (Manual) 0 % (0-2) Band Neutrophils 5 % (0-8) Platelet Estimate Decreased L Platelet Morphology Normal Hypochromasia 1+ Anisocytosis 1+ Reticulocyte Count 0.6 % (0.0-2.0) Haptoglobin 176 mg/dL (30-200) Prothrombin Time 15.7 SEC (9.30-11.50) H Prothromb Time International Ratio 1.5 (0.9-1.1) H Fibrinogen 487 mg/dL (200-400) H Sodium Level 130 mEQ/L (135-145) L Potassium Level 4.8 mEQ/L (3.4-4.9) Chloride Level 91 mEQ/L (98-107) L Carbon Dioxide Level 30 mEQ/L (20-30) Anion Gap 9 (5-15) Blood Urea Nitrogen 40 mg/dL (7-23) H Creatinine 1.5 mg/dL (0.7-1.2) H Estimat Glomerular Filtration Rate 48.6 mL/min (>60) Glucose Level 136 mg/dL (74-106) H Calcium Level 8.0 mg/dL (8.6-10.2) L Total Bilirubin 2.7 mg/dL (0.0-1.2) H Direct Bilirubin 1.8 mg/dL (0.1-0.3) H Aspartate Amino Transf (AST/SGOT) 21 U/L (5-40) Alanine Aminotransferase (ALT/SGPT) 13 U/L (3-41) Alkaline Phosphatase 92 U/L (40-129) Lactate Dehydrogenase 115 U/L (135-230) L Total Protein 5.9 g/dL (6.6-8.7) L Albumin 1.8 g/dL (3.5-5.2) L Globulin 4.1 g/dL Albumin/Globulin Ratio 0.4 (1.0-2.7) L Current Medications Medications (Trade) Dose Ordered Sig/Godwin Route PRN Reason Start Time Stop Time Status Last Admin Dose Admin Acetaminophen (Tylenol) 650 mg Q4H PRN ORAL fever 04/07/16 04:00 05/07/16 03:59 Albuterol/ Ipratropium (DuoNeb 0.5-3(2.5)mg/3ml) 3 ml Q4HRT PRN HHN Shortness of Breath 04/07/16 07:00 04/12/16 06:59 Alprazolam (Xanax) 1 mg Q4H PRN ORAL For Anxiety 04/07/16 04:00 04/14/16 03:59 04/07/16 12:01 Atovaquone (Mepron Susp) 1,500 mg DAILY ORAL 04/07/16 09:00 05/07/16 08:59 04/07/16 10:16 Chlorpromazine (Thorazine) 25 mg Q6H PRN IM HICCUPS 04/07/16 04:00 05/07/16 03:59 04/07/16 16:16 Epoetin Suresh (Procrit (for non ESRD use)) 3,000 units MON-MON-MON SUBQ 04/08/16 21:00 05/08/16 20:59 Escitalopram Oxalate (Lexapro) 10 mg DAILY ORAL 04/07/16 09:00 05/07/16 08:59 04/07/16 09:17 Hydrocortisone (Solu-CORTEF) 100 mg DAILY IV 04/07/16 09:00 05/07/16 08:59 04/07/16 09:16 Morphine Sulfate (Morphine Sulfate) 4 mg Q4H PRN IVP For Severe Pain 04/07/16 06:30 04/14/16 06:29 04/07/16 20:39 Nitroglycerin (Ntg) 0.4 mg Every 5 Minutes PRN SL Prn Chest Pain 04/07/16 03:45 05/07/16 03:44 Ondansetron HCl (Zofran) 4 mg Q6H PRN IVP Nausea & Vomiting 04/07/16 06:00 05/07/16 05:59 Pantoprazole (Protonix) 40 mg EVERY 12 HOURS ORAL 04/07/16 09:00 05/07/16 08:59 04/07/16 20:39 Patient Own Medication (Patient's Own Med) 1 ea DAILY ORAL 04/07/16 09:00 05/07/16 08:59 04/07/16 09:14 Patient Own Medication (Patient's Own Med) 1 ea DAILY ORAL 04/07/16 09:00 05/07/16 08:59 04/07/16 09:15 Polyethylene Glycol (Miralax) 17 gm DAILYPRN PRN ORAL Constipation 04/07/16 16:00 05/07/16 15:59 Promethazine HCl/ Codeine (Phenergan with Codeine) 10 ml Q6H PRN ORAL For Cough 04/07/16 08:00 05/07/16 07:59 Temazepam (Restoril) 15 mg HSPRN PRN ORAL Insomnia 04/07/16 21:00 04/14/16 20:59 DANIEL GODINEZ M.D. Apr 07, 2016 21:22
[2016-04-08] VITALS: BP 90/51
[2016-04-08 04:03] VITALS: BP 105/65
[2016-04-08 07:14] LABS: MEAN CORPUSCULAR HEMOGLOBIN 30.4 PG (27.0-31.0); MEAN CORPUSCULAR HGB CONC 33.8 G/DL (32.0-36.0); MEAN CORPUSCULAR VOLUME 90 FL (80-99); MEAN PLATELET VOLUME 10.7 FL (6.5-10.1); PLATELET COUNT 18 K/UL (150-450); RED BLOOD COUNT 2.44 M/UL (4.70-6.10); WHITE BLOOD COUNT 3.6 K/UL (4.8-10.8)
[2016-04-08 07:15] LABS: ALBUMIN/GLOBULIN RATIO 0.4 (1.0-2.7); CALCIUM 7.9 mg/dL (8.6-10.2); CREATININE 1.6 mg/dL (0.7-1.2); GLOMERULAR FILTRATION RATE 45.1 mL/min (>60); POTASSIUM 5.2 mEQ/L (3.4-4.9)
[2016-04-08 07:31] LABS: BILIRUBIN,DIRECT 2.3 mg/dL (0.1-0.3)
[2016-04-08 08:00] VITALS: BP 120/68
[2016-04-08] MEDS: Atovaquone 750mg/5ml Susp ORAL SCH (08:33)
[2016-04-08] MEDS: Hydrocortisone 100mg Inj IV SCH (08:34)
[2016-04-08] MEDS: Morphine Sulfate 4mg/ml Inj IVP PRN ×2 (08:34→18:58)
[2016-04-08] MEDS: PREZCOBIX ORAL SCH (08:34)
--- NOTE | 2016-04-08 09:15 | General Progress Note ---
Assessment/Plan Status: unchanged, deteriorating Status Narrative Cr creeping up Assessment/Plan Acute renal failure, multifactorial ( sepsis, HIV , Vanco...) PreRenal superimposed on Renal HypoNatremia Cr 2.8 down to 1.7 PanCytopenia Sepsis, Diarrhea, HIV , Kaposi's Pneumonia Hypocalcemia, electrolyte imbalance Anemia in chronic illness, symptomatic Hypokalemia on admit now K elevated JF (acute kidney injury) Thrombocytopenia, massive splenomegali CAP (community acquired pneumonia) Plan: per consultants protonix po Antibiotics per ID Urine studies- noted Monitor renal parameters and lytes- Avoid Nephrotoxics Monitor Urine out put Subjective ROS Limited/Unobtainable: No Constitutional: Reports: malaise, weakness Allergies: Coded Allergies: No Known Allergies (Unverified , 03/16/16) Objective Last 24 Hour Vital Signs Date Time Temp Pulse Resp B/P Pulse Ox O2 Delivery O2 Flow Rate FiO2 04/08/16 08:00 97.7 131 22 120/68 95 Room Air 04/08/16 07:53 Nasal Cannula 2.0 04/08/16 07:52 97 Nasal Cannula 2.0 04/08/16 07:51 118 22 Nasal Cannula 2.0 04/08/16 04:03 100.2 129 18 105/65 91 Nasal Cannula 2.0 04/08/16 00:00 98.1 119 20 90/51 94 Nasal Cannula 2.0 04/07/16 22:10 98.2 127 20 86/53 95 Nasal Cannula 2.0 04/07/16 20:00 100.0 122 16 98/55 96 Nasal Cannula 2.0 04/07/16 19:35 96 Nasal Cannula 2.0 28 04/07/16 19:35 Nasal Cannula 2.0 28 04/07/16 19:34 126 20 Nasal Cannula 2.0 28 04/07/16 16:00 99.0 117 17 113/68 94 Nasal Cannula 2.0 04/07/16 11:47 99.3 124 20 118/64 93 Nasal Cannula 2.0 Intake and Output 04/07/16 04/08/16 19:00 07:00 Intake Total 420 ml 240 ml Output Total 500 ml Balance -80 ml 240 ml Intake Oral 420 ml 240 ml Output Urine Total 500 ml # Voids 3 Laboratory Tests 04/07/16 09:38: White Blood Count 4.2L, Red Blood Count 2.71L, Hemoglobin 8.0L, Hematocrit 24.4L , Mean Corpuscular Volume 90, Mean Corpuscular Hemoglobin 29.7, Mean Corpuscular Hemoglobin Concent 32.9, Red Cell Distribution Width 15.1H, Platelet Count 15L, Mean Platelet Volume 10.3H, Neutrophils (%) (Auto) , Lymphocytes (%) (Auto) , Monocytes (%) (Auto) , Eosinophils (%) (Auto) , Basophils (%) (Auto) , Differential Total Cells Counted 100, Neutrophils % ( Manual) 79H, Lymphocytes % (Manual) 12L, Monocytes % (Manual) 3, Eosinophils % ( Manual) 1, Basophils % (Manual) 0, Band Neutrophils 5, Platelet Estimate DecreasedL, Platelet Morphology Normal, Hypochromasia 1+, Anisocytosis 1+, Reticulocyte Count 0.6, Haptoglobin 176, Prothrombin Time 15.7H, Prothromb Time International Ratio 1.5H, Fibrinogen 487H, Sodium Level 130L, Potassium Level 4.8, Chloride Level 91L, Carbon Dioxide Level 30, Anion Gap 9, Blood Urea Nitrogen 40H, Creatinine 1.5H, Estimat Glomerular Filtration Rate 48.6, Glucose Level 136H, Calcium Level 8.0L, Total Bilirubin 2.7H, Direct Bilirubin 1.8H, Aspartate Amino Transf (AST/SGOT) 21, Alanine Aminotransferase (ALT/SGPT) 13, Alkaline Phosphatase 92, Lactate Dehydrogenase 115L, Total Protein 5.9L, Albumin 1.8L, Globulin 4.1, Albumin/Globulin Ratio 0.4L 04/08/16 05:40: White Blood Count 3.6L, Red Blood Count 2.44L, Hemoglobin 7.4L, Hematocrit 22.0L , Mean Corpuscular Volume 90, Mean Corpuscular Hemoglobin 30.4, Mean Corpuscular Hemoglobin Concent 33.8, Red Cell Distribution Width 15.0H, Platelet Count 18L, Mean Platelet Volume 10.7H, Neutrophils (%) (Auto) , Lymphocytes (%) (Auto) , Monocytes (%) (Auto) , Eosinophils (%) (Auto) , Basophils (%) (Auto) , Sodium Level 134L, Potassium Level 5.2H, Chloride Level 93L, Carbon Dioxide Level 32H, Anion Gap 9, Blood Urea Nitrogen 44H, Creatinine 1.6H, Estimat Glomerular Filtration Rate 45.1, Glucose Level 124H, Calcium Level 7.9L, Total Bilirubin 3.1H, Direct Bilirubin 2.3H, Aspartate Amino Transf (AST/SGOT) 20, Alanine Aminotransferase (ALT/SGPT) 12, Alkaline Phosphatase 81, Total Protein 6.0L, Albumin 1.9L, Globulin 4.1, Albumin/Globulin Ratio 0.4L Height (Feet): 5 Height (Inches): 10.00 Weight (Pounds): 165 General Appearance: no apparent distress, lethargic Cardiovascular: tachycardia Respiratory/Chest: decreased breath sounds Abdomen: distended Objective other PE not changed DEREK SMITH Apr 08, 2016 09:15
[2016-04-08 09:32] LABS: ANISOCYTOSIS 1+; BAND NEUTROPHILS % (MANUAL) 2 % (0-8); BASOPHILS % (MANUAL) 0 % (0-2); EOSINOPHILS % (MANUAL) 0 % (0-3); HYPOCHROMASIA 1+; LYMPHOCYTES % (MANUAL) 12 % (20-45); NEUTROPHILS % (MANUAL) 81 % (45-75); PLATELET ESTIMATE DECREASED; PLATELET MORPHOLOGY NORMAL; TOTAL CELLS COUNTED 100
--- NOTE | 2016-04-08 10:12 | General Progress Note ---
Assessment/Plan Assessment/Plan ASSESSMENT: 1. Pancytopenia. The patient is status post bone marrow biopsy, which shows no evidence of blasts or myelodysplasia (FISH Panel is negative). It does show a hypercellular marrow concerning for patchy [id number]-[id number] fibrosis with degeneration, he is with a history of HIV as well, has no evidence of lymphoma on the biopsy. Iron stores are decreased on biopsy but ferritin overall is elevated. AFB and Gram GMS stain show no acid-fast bacilli and no fungal organisms. Patient has marked splenomegaly. Has extensive lymphadenopathy on CAT scan as well, will consider to biopsy one of the lymph nodes. Unlikely has ITP and does not have MDS. The patient does not have any evidence that displays primary myofibrosis. Could be hiv related. Thus overall, likely this is a secondary process to a underlying process. 2. Anemia secondary to chronic disease. His erythrocyte sedimentation rate is severely elevated. Reticulocyte count is low. Ferritin is elevated and TIBC lower. Has issue with iron sequestration/utilization 3. 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 Leukopenia secondary to likely splenomegaly versus sepsis. 5. Thrombocytopenia, concerning for underlying infection versus splenomegaly, also can be 2/2 to above process, will obtain biopsy of LN. Does not have DIC 6. Splenomegaly, noted on ultrasound. 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 Hematoma of spleen RECOMMENDATIONS: 1. Obtain a biopsy of the axillary LN on imaging (will f/u on pathology results ) will be done if plt count >25k, thus will transfuse this am with platelets 2. Does not have DIC, have reviewed labs 3. Hgb goal is >7 and plt goal >10k or >20k if febrile 4. Continue epogen. Does not need iron (have reviewed marrow results as well) 5. Will order for HLA-matched plts in the future, the order has been placed and d/w blood bank 6. ID recs and pulm followup 7. The patient has hx of Kaposis sarcoma, rule out disseminated disease with biopsy 8. Have [facility] pathologist on 04/04 and will rediscuss again after biopsy back of LN 9. staff and consultants Greatly appreciate consultation, Kareem Trimble MD Subjective Constitutional: Reports: no symptoms HEENT: Reports: no symptoms Cardiovascular: Reports: no symptoms Respiratory: Reports: no symptoms Gastrointestinal/Abdominal: Reports: no symptoms Genitourinary: Reports: no symptoms 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: Reports: no symptoms Endocrine: Reports: no symptoms Hematologic/Lymphatic: Reports: anemia Allergies: Coded Allergies: No Known Allergies (Unverified , 03/16/16) Subjective stable, no complaints today, pending biopsy today Objective Last 24 Hour Vital Signs Date Time Temp Pulse Resp B/P Pulse Ox O2 Delivery O2 Flow Rate FiO2 04/08/16 08:00 97.7 131 22 120/68 95 Room Air 04/08/16 07:53 Nasal Cannula 2.0 04/08/16 07:52 97 Nasal Cannula 2.0 04/08/16 07:51 118 22 Nasal Cannula 2.0 04/08/16 04:03 100.2 129 18 105/65 91 Nasal Cannula 2.0 04/08/16 00:00 98.1 119 20 90/51 94 Nasal Cannula 2.0 04/07/16 22:10 98.2 127 20 86/53 95 Nasal Cannula 2.0 04/07/16 20:00 100.0 122 16 98/55 96 Nasal Cannula 2.0 04/07/16 19:35 96 Nasal Cannula 2.0 28 04/07/16 19:35 Nasal Cannula 2.0 28 04/07/16 19:34 126 20 Nasal Cannula 2.0 28 04/07/16 16:00 99.0 117 17 113/68 94 Nasal Cannula 2.0 04/07/16 11:47 99.3 124 20 118/64 93 Nasal Cannula 2.0 Intake and Output 04/07/16 04/08/16 19:00 07:00 Intake Total 420 ml 240 ml Output Total 500 ml Balance -80 ml 240 ml Intake Oral 420 ml 240 ml Output Urine Total 500 ml # Voids 3 Laboratory Tests 04/08/16 05:40: White Blood Count 3.6L, Red Blood Count 2.44L, Hemoglobin 7.4L, Hematocrit 22.0L , Mean Corpuscular Volume 90, Mean Corpuscular Hemoglobin 30.4, Mean Corpuscular Hemoglobin Concent 33.8, Red Cell Distribution Width 15.0H, Platelet Count 18L, Mean Platelet Volume 10.7H, Neutrophils (%) (Auto) , Lymphocytes (%) (Auto) , Monocytes (%) (Auto) , Eosinophils (%) (Auto) , Basophils (%) (Auto) , Differential Total Cells Counted 100, Neutrophils % ( Manual) 81H, Lymphocytes % (Manual) 12L, Monocytes % (Manual) 5, Eosinophils % ( Manual) 0, Basophils % (Manual) 0, Band Neutrophils 2, Platelet Estimate DecreasedL, Platelet Morphology Normal, Hypochromasia 1+, Anisocytosis 1+, Sodium Level 134L, Potassium Level 5.2H, Chloride Level 93L, Carbon Dioxide Level 32H, Anion Gap 9, Blood Urea Nitrogen 44H, Creatinine 1.6H, Estimat Glomerular Filtration Rate 45.1, Glucose Level 124H, Calcium Level 7.9L, Total Bilirubin 3.1H, Direct Bilirubin 2.3H, Aspartate Amino Transf (AST/SGOT) 20, Alanine Aminotransferase (ALT/SGPT) 12, Alkaline Phosphatase 81, Total Protein 6.0L, Albumin 1.9L, Globulin 4.1, Albumin/Globulin Ratio 0.4L Height (Feet): 5 Height (Inches): 10.00 Weight (Pounds): 165 General Appearance: no apparent distress EENT: TMs normal Neck: supple Cardiovascular: regular rhythm Respiratory/Chest: normal breath sounds Abdomen: soft Extremities: non-tender Edema: 1+ Leg (L), 1+ Leg (R) Edema: mild edema Neurologic: alert Skin: warm/dry Kareem Trimble Apr 08, 2016 10:12
--- NOTE | 2016-04-08 10:27 | Diagnostic Imaging Report ---
Indications: New splenic lesion on CT thorax performed earlier today, requiring further evaluation Technique: Continuous helical CT imaging of the abdomen and pelvis was performed with automatic exposure control on a Siemens sensation [address] scanner. Axial, coronal, sagittal images reconstructed at 3 mm slice thickness. No IV contrast was administered due to elevated creatinine level. No oral contrast administered, reason unstated. CTDI volume(s): 13 mGy Total DLP: 1118 mGy-cm Findings: Comparison: Contrast-enhanced CT scan the thorax 04/07/2016; noncontrast CT abdomen pelvis 03/31/16 Circumscribed, multilobulated focus of heterogeneously decreased attenuation is again noted in the lateral aspect of the spleen, less well demonstrated than on earlier contrast enhanced CT scan. It measures approximately 9.5 x 4 cm in cross-sectional diameter. It cannot be adequately measured in AP dimension. The spleen has overall increased in size, currently measuring 16 x 12 x 22 cm. No obvious additional focal chronic again noted are abnormality demonstrated. Again noted are multiple enlarged lymph nodes in the peripancreatic and para-aortic regions of the retroperitoneum and in the left inguinal region, mild ascites, apparent mild mural thickening of urinary bladder wall, degenerative and surgical changes in the lumbar spine, unchanged. Remainder visualized abdominopelvic anatomy demonstrates no other obvious acute abnormality. Pericardial and small bilateral pleural effusions, linear and patchy alveolar opacities in the dependent portions both lung bases again noted. IMPRESSION: Decreased conspicuity of new splenic lesion compared to earlier contrast-enhanced CT thorax, limiting evaluation, most likely hematoma, less likely infarct. Overall increase in splenic size compared to 03/31/16 Stable multifocal lymphadenopathy, inflammatory versus neoplastic Stable mild ascites Increase in pericardial of development of bilateral pleural effusions since 03/31/16 Development of pulmonary bibasal atelectasis versus pneumonia since 03/31/16 Other stable chronic changes as described Written preliminary report placed in PACS 04/07/2016 2017
--- NOTE | 2016-04-08 10:45 | Infectious Diseases Prog Note ---
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 Multiple sub-5 mm parenchymal nodules seen throughout the left lung. Bilateral basilar pulmonary parenchymal atelectatic changes and possibly some consolidation. Small bilateral pleural effusions - negative/WNL: CMV PCR, LDH, CrAg, blastomyces, histoplasma, ( coccidioides indeterminant ) // Diffuse LAD ? Etio , due to HIV - SP BMBx: mild-mod fibrosis, granulomatous inflammation. AFB, fungal stains (-) - CT: Extensive thoracic, abdominal, and pelvic lymphadenopathy // HIV / AIDS, on cART ( recently changed to prezcobix, tivicay d/t genotype ) - CD4 29 // Kaposi sarcoma // Pancytopenia - SP BMBx: mild-mod fibrosis, granulomatous inflammation. AFB, fungal stains (-) - negative/WNL: LDH, ARMIDA, CrAg, Parvovirus IgM, blastomyces, histoplasma, T- SPOT ( coccidioides indeterminant ) // ARF - overall improved, stable // Massive splenomegaly // Thrombocytopenia // Anxiety // Elevated ESR // NKDA // Full Code PLAN: - monitor pt off of ABX ( 03/26 SP IV vancomycin, cefepime d# ) - continue cART ( prezcobix, tivicay - ok for pt to take own meds ), changed bactrim prophy to Mepron given cytopenias , add Zithromax ( MAC prophylaxis ) - f/u AFB BCx, sputum AFB Cx, - monitor CBC, temperatures - monitor BMP - transfuse prn - LN Bx :P - HIV VL DW PCP Subjective Constitutional: Denies: anorexia, chills, drenching sweats, fatigue, fever, no symptoms, other Allergies: Coded Allergies: No Known Allergies (Unverified , 03/16/16) Objective Vital Signs Last 24 Hour Vital Signs Date Time Temp Pulse Resp B/P Pulse Ox O2 Delivery O2 Flow Rate FiO2 04/08/16 08:00 97.7 131 22 120/68 95 Room Air 04/08/16 07:53 Nasal Cannula 2.0 04/08/16 07:52 97 Nasal Cannula 2.0 04/08/16 07:51 118 22 Nasal Cannula 2.0 04/08/16 04:03 100.2 129 18 105/65 91 Nasal Cannula 2.0 04/08/16 00:00 98.1 119 20 90/51 94 Nasal Cannula 2.0 04/07/16 22:10 98.2 127 20 86/53 95 Nasal Cannula 2.0 04/07/16 20:00 100.0 122 16 98/55 96 Nasal Cannula 2.0 04/07/16 19:35 96 Nasal Cannula 2.0 28 04/07/16 19:35 Nasal Cannula 2.0 28 04/07/16 19:34 126 20 Nasal Cannula 2.0 28 04/07/16 16:00 99.0 117 17 113/68 94 Nasal Cannula 2.0 04/07/16 11:47 99.3 124 20 118/64 93 Nasal Cannula 2.0 Height (Feet): 5 Height (Inches): 10.00 Weight (Pounds): 165 HEENT: atraumatic Respiratory/Chest: normal breath sounds Cardiovascular: regular rhythm Abdomen: non distended Microbiology Date/Time Source Procedure Growth Status 04/06/16 21:00 Urine,Clean Catch Urine Culture - Preliminary Mixed Gram Positive Organism Resulted Laboratory Tests Test 04/08/16 05:40 White Blood Count 3.6 K/UL (4.8-10.8) L Red Blood Count 2.44 M/UL (4.70-6.10) L Hemoglobin 7.4 G/DL (14.2-18.0) L Hematocrit 22.0 % (42.0-52.0) L Mean Corpuscular Volume 90 FL (80-99) Mean Corpuscular Hemoglobin 30.4 PG (27.0-31.0) Mean Corpuscular Hemoglobin Concent 33.8 G/DL (32.0-36.0) Red Cell Distribution Width 15.0 % (11.6-14.8) H Platelet Count 18 K/UL (150-450) L Mean Platelet Volume 10.7 FL (6.5-10.1) H Neutrophils (%) (Auto) % (45.0-75.0) Lymphocytes (%) (Auto) % (20.0-45.0) Monocytes (%) (Auto) % (1.0-10.0) Eosinophils (%) (Auto) % (0.0-3.0) Basophils (%) (Auto) % (0.0-2.0) Differential Total Cells Counted 100 Neutrophils % (Manual) 81 % (45-75) H Lymphocytes % (Manual) 12 % (20-45) L Monocytes % (Manual) 5 % (1-10) Eosinophils % (Manual) 0 % (0-3) Basophils % (Manual) 0 % (0-2) Band Neutrophils 2 % (0-8) Platelet Estimate Decreased L Platelet Morphology Normal Hypochromasia 1+ Anisocytosis 1+ Sodium Level 134 mEQ/L (135-145) L Potassium Level 5.2 mEQ/L (3.4-4.9) H Chloride Level 93 mEQ/L (98-107) L Carbon Dioxide Level 32 mEQ/L (20-30) H Anion Gap 9 (5-15) Blood Urea Nitrogen 44 mg/dL (7-23) H Creatinine 1.6 mg/dL (0.7-1.2) H Estimat Glomerular Filtration Rate 45.1 mL/min (>60) Glucose Level 124 mg/dL (74-106) H Calcium Level 7.9 mg/dL (8.6-10.2) L Total Bilirubin 3.1 mg/dL (0.0-1.2) H Direct Bilirubin 2.3 mg/dL (0.1-0.3) H Aspartate Amino Transf (AST/SGOT) 20 U/L (5-40) Alanine Aminotransferase (ALT/SGPT) 12 U/L (3-41) Alkaline Phosphatase 81 U/L (40-129) Total Protein 6.0 g/dL (6.6-8.7) L Albumin 1.9 g/dL (3.5-5.2) L Globulin 4.1 g/dL Albumin/Globulin Ratio 0.4 (1.0-2.7) L Current Medications Medications (Trade) Dose Ordered Sig/Godwin Route PRN Reason Start Time Stop Time Status Last Admin Dose Admin Acetaminophen (Tylenol) 650 mg Q4H PRN ORAL fever 3/2/17 04:00 05/07/16 03:59 Albuterol/ Ipratropium (DuoNeb 0.5-3(2.5)mg/3ml) 3 ml Q4HRT PRN HHN Shortness of Breath 04/07/16 07:00 04/12/16 06:59 Alprazolam (Xanax) 1 mg Q4H PRN ORAL For Anxiety 04/07/16 04:00 04/14/16 03:59 04/07/16 12:01 Atovaquone (Mepron Susp) 1,500 mg DAILY ORAL 04/07/16 09:00 05/07/16 08:59 04/08/16 08:33 Chlorpromazine (Thorazine) 25 mg Q6H PRN IM HICCUPS 04/07/16 04:00 05/07/16 03:59 04/07/16 16:16 Epoetin Suresh (Procrit (for non ESRD use)) 3,000 units MON-MON-MON SUBQ 04/08/16 21:00 05/08/16 20:59 Escitalopram Oxalate (Lexapro) 10 mg DAILY ORAL 04/07/16 09:00 05/07/16 08:59 04/08/16 08:34 Hydrocortisone (Solu-CORTEF) 100 mg DAILY IV 04/07/16 09:00 05/07/16 08:59 04/08/16 08:34 Morphine Sulfate (Morphine Sulfate) 4 mg Q4H PRN IVP For Severe Pain 04/07/16 06:30 04/14/16 06:29 04/08/16 08:34 Nitroglycerin (Ntg) 0.4 mg Every 5 Minutes PRN SL Prn Chest Pain 04/07/16 03:45 05/07/16 03:44 Ondansetron HCl (Zofran) 4 mg Q6H PRN IVP Nausea & Vomiting 04/07/16 06:00 05/07/16 05:59 Pantoprazole (Protonix) 40 mg EVERY 12 HOURS ORAL 04/07/16 09:00 05/07/16 08:59 04/08/16 08:34 Patient Own Medication (Patient's Own Med) 1 ea DAILY ORAL 04/07/16 09:00 05/07/16 08:59 04/08/16 08:34 Patient Own Medication (Patient's Own Med) 1 ea DAILY ORAL 04/07/16 09:00 05/07/16 08:59 04/08/16 08:34 Polyethylene Glycol (Miralax) 17 gm DAILYPRN PRN ORAL Constipation 04/07/16 16:00 05/07/16 15:59 Promethazine HCl/ Codeine (Phenergan with Codeine) 10 ml Q6H PRN ORAL For Cough 04/07/16 08:00 05/07/16 07:59 Temazepam (Restoril) 15 mg HSPRN PRN ORAL Insomnia 04/07/16 21:00 04/14/16 20:59 DANIEL GODINEZ M.D. Apr 08, 2016 10:45
--- NOTE | 2016-04-08 10:59 | GI Progress Note ---
Assessment/Plan Problems: (1) Diarrhea ICD Codes: R19.7 - Diarrhea, unspecified SNOMED: 88219330 (2) Splenomegaly with HIV infection ICD Codes: B20 - Human immunodeficiency virus [HIV] disease; R16.1 - Splenomegaly, not elsewhere classified SNOMED: 256587564 (3) Anemia ICD Codes: D64.9 - Anemia, unspecified SNOMED: 680701690 Qualifiers: Qualified Codes: D64.9 - Anemia, unspecified (4) Thrombocytopenia ICD Codes: D69.6 - Thrombocytopenia, unspecified SNOMED: 906341800 (5) HIV disease ICD Codes: B20 - Human immunodeficiency virus [HIV] disease SNOMED: 34171526 (6) Episode of generalized weakness ICD Codes: R53.1 - Weakness SNOMED: 99213193 Status: unchanged Status Narrative Discussed with Dr. Epps. Assessment/Plan Assessment - Anemia - Thrombocytopenia - HIV - Diarrhea >> cdiff negative - s/p bone biopsy >> GRAM STAIN RESULTS. RARE WHITE BLOOD CELLS. NO ORGANISMS SEEN. - Stool w.u >> negative - O&P negative - OB stool negative x 3 - fu repeat OB stool >> negative - airborne isolation off - APCT r/o retroperitoneal bleed >> negative for hematoma - repeat iron levels >> WNL Recommendations - fu Hematology consult - fu abd U/S r/o saqib - monitor H&H, transfuse prn - EGD/Colon when stable - ppi - fu labs - poor prognosis Subjective Subjective denies any abdominal pain/diarrhea/constipation fatigue eating well Objective Last 24 Hour Vital Signs Date Time Temp Pulse Resp B/P Pulse Ox O2 Delivery O2 Flow Rate FiO2 04/08/16 08:00 97.7 131 22 120/68 95 Room Air 04/08/16 07:53 Nasal Cannula 2.0 04/08/16 07:52 97 Nasal Cannula 2.0 04/08/16 07:51 118 22 Nasal Cannula 2.0 04/08/16 04:03 100.2 129 18 105/65 91 Nasal Cannula 2.0 04/08/16 00:00 98.1 119 20 90/51 94 Nasal Cannula 2.0 04/07/16 22:10 98.2 127 20 86/53 95 Nasal Cannula 2.0 04/07/16 20:00 100.0 122 16 98/55 96 Nasal Cannula 2.0 04/07/16 19:35 96 Nasal Cannula 2.0 28 04/07/16 19:35 Nasal Cannula 2.0 28 04/07/16 19:34 126 20 Nasal Cannula 2.0 28 04/07/16 16:00 99.0 117 17 113/68 94 Nasal Cannula 2.0 04/07/16 11:47 99.3 124 20 118/64 93 Nasal Cannula 2.0 Intake and Output 04/07/16 04/08/16 19:00 07:00 Intake Total 420 ml 240 ml Output Total 500 ml Balance -80 ml 240 ml Intake Oral 420 ml 240 ml Output Urine Total 500 ml # Voids 3 Laboratory Tests Test 04/08/16 05:40 White Blood Count 3.6 K/UL (4.8-10.8) L Red Blood Count 2.44 M/UL (4.70-6.10) L Hemoglobin 7.4 G/DL (14.2-18.0) L Hematocrit 22.0 % (42.0-52.0) L Mean Corpuscular Volume 90 FL (80-99) Mean Corpuscular Hemoglobin 30.4 PG (27.0-31.0) Mean Corpuscular Hemoglobin Concent 33.8 G/DL (32.0-36.0) Red Cell Distribution Width 15.0 % (11.6-14.8) H Platelet Count 18 K/UL (150-450) L Mean Platelet Volume 10.7 FL (6.5-10.1) H Neutrophils (%) (Auto) % (45.0-75.0) Lymphocytes (%) (Auto) % (20.0-45.0) Monocytes (%) (Auto) % (1.0-10.0) Eosinophils (%) (Auto) % (0.0-3.0) Basophils (%) (Auto) % (0.0-2.0) Differential Total Cells Counted 100 Neutrophils % (Manual) 81 % (45-75) H Lymphocytes % (Manual) 12 % (20-45) L Monocytes % (Manual) 5 % (1-10) Eosinophils % (Manual) 0 % (0-3) Basophils % (Manual) 0 % (0-2) Band Neutrophils 2 % (0-8) Platelet Estimate Decreased L Platelet Morphology Normal Hypochromasia 1+ Anisocytosis 1+ Sodium Level 134 mEQ/L (135-145) L Potassium Level 5.2 mEQ/L (3.4-4.9) H Chloride Level 93 mEQ/L (98-107) L Carbon Dioxide Level 32 mEQ/L (20-30) H Anion Gap 9 (5-15) Blood Urea Nitrogen 44 mg/dL (7-23) H Creatinine 1.6 mg/dL (0.7-1.2) H Estimat Glomerular Filtration Rate 45.1 mL/min (>60) Glucose Level 124 mg/dL (74-106) H Calcium Level 7.9 mg/dL (8.6-10.2) L Total Bilirubin 3.1 mg/dL (0.0-1.2) H Direct Bilirubin 2.3 mg/dL (0.1-0.3) H Aspartate Amino Transf (AST/SGOT) 20 U/L (5-40) Alanine Aminotransferase (ALT/SGPT) 12 U/L (3-41) Alkaline Phosphatase 81 U/L (40-129) Total Protein 6.0 g/dL (6.6-8.7) L Albumin 1.9 g/dL (3.5-5.2) L Globulin 4.1 g/dL Albumin/Globulin Ratio 0.4 (1.0-2.7) L Height (Feet): 5 Height (Inches): 10.00 Weight (Pounds): 165 General Appearance: no apparent distress, alert, thin Cardiovascular: normal rate Respiratory/Chest: normal breath sounds, no respiratory distress Abdominal Exam: normal bowel sounds, non tender, soft Objective Procedure: CT Abdomen Pelvis WO Contrast Indications: New splenic lesion on CT thorax performed earlier today, requiring further evaluation Comparison: Contrast-enhanced CT scan the thorax 04/07/2016; noncontrast CT abdomen pelvis 03/31/16 Circumscribed, multilobulated focus of heterogeneously decreased attenuation is again noted in the lateral aspect of the spleen, less well demonstrated than on earlier contrast enhanced CT scan. It measures approximately 9.5 x 4 cm in cross-sectional diameter. It cannot be adequately measured in AP dimension. The spleen has overall increased in size, currently measuring 16 x 12 x 22 cm. No obvious additional focal chronic again noted are abnormality demonstrated. Again noted are multiple enlarged lymph nodes in the peripancreatic and para-aortic regions of the retroperitoneum and in the left inguinal region, mild ascites, apparent mild mural thickening of urinary bladder wall, degenerative and surgical changes in the lumbar spine, unchanged. Remainder visualized abdominopelvic anatomy demonstrates no other obvious acute abnormality. Pericardial and small bilateral pleural effusions, linear and patchy alveolar opacities in the dependent portions both lung bases again noted. IMPRESSION: Decreased conspicuity of new splenic lesion compared to earlier contrast- enhanced CT thorax, limiting evaluation, most likely hematoma, less likely infarct. Overall increase in splenic size compared to 03/31/16 Stable multifocal lymphadenopathy, inflammatory versus neoplastic Stable mild ascites Increase in pericardial of development of bilateral pleural effusions since 03/31 Development of pulmonary bibasal atelectasis versus pneumonia since 03/31/16 Other stable chronic changes as described Procedure: CT CHEST Abdomen Pelvis WO Con Indication: ABN LABS Impression: Splenomegaly Extensive thoracic, abdominal, and pelvic lymphadenopathy, as detailed above. This is nonspecific, likely related to stated clinical history of HIV. May indicate reactive, inflammatory, infectious adenopathy, or a lymphoproliferative disorder. Correlate with clinical history and findings Evidence of predominantly upper lobe pulmonary interstitial disease, as described, predominant findings being interstitial septal thickening and bronchial wall thickening. While the differential for this is quite broad, given the history of HIV positivity the possibility of lymphocytic interstitial pneumonitis should be considered Multiple sub-5 mm parenchymal nodules seen throughout the left lung. Possibly related to the above. If there are significant risk factors for lung carcinoma, however, short interval followup CT at 6-12 months should be considered. Bilateral basilar pulmonary parenchymal atelectatic changes and possibly some consolidation Small bilateral pleural effusions Nonspecific bilateral perinephric fat stranding Genesis Keller N.P. Apr 08, 2016 10:59
[2016-04-08 12:00] VITALS: BP 114/68
[2016-04-08] MEDS ORDERED: Azithromycin 600mg Tab ORAL SCH (12:00)
[2016-04-08] MEDS ORDERED: Sodium Polystyrene Sulfonate 15gm Powder ORAL ONE (13:30)
--- NOTE | 2016-04-08 13:59 | Pulmonology Progress Note ---
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 diarrhea, r/o infectious cause - none diffuse LAD r/o infectious vs myeloproliferative disorder s/p bone marrow biopsy s/p biopsy axillary lymph node 04/08 anemia pancytopenia acute renal failure, multifactorial ( sepsis, HIV , Vanco): Pre Renal superimposed on Renal electrolyte imbalance HIV disease splenomegaly with HIV infection Kaposi sarcoma PLAN OF CARE MS floor empiric abx, ID follows urine, blood cx, sputum cx, stool cx, stool OP all negative, fungal serology negative: bone marrow + Staph epidermidis, contamination per ID sputum AFB x 3, negative, TB test negative off isolation s/p blood transfusion (PRBC and PLT) ; monitor counts stool OB x 3 negative peripheral blood smear review: no blasts, no platelets aggregation, no change in morphology of PRBC CT chest showed multiple nodules and interstitial lung disease , predominantly upper lobe ? lymphocytic interstitial pneumonitis O2 prn respiratory treatment CT abdomen with evidence of extensive lymphadenopathy fup with BM biopsy results nephro follows no change in renal parameters ARF presumably multifactorial due to sepsis, high Vanco level, HIV disease monitor renal parameters, lytes, Vanco resumed, closely monitor levels avoid nephrotoxic stress dose steroids, decrease to q12 electrolytes management as per nephro CD4 - 376 latest, continue HAART therapy as per ID management GI follows EGD and colon when stable PPI pain management antiemetic prn prognosis poor code status changed to DNR/DNI case discussed and evaluated by supervising physician Subjective Allergies: Coded Allergies: No Known Allergies (Unverified , 03/16/16) Subjective temp 100.2 earlier HH down again -7.4/ PLT still low, 18 ( chronic) no chest pain, no SOB cough dry, no hemoptysis, no wheezing s/p biopsy LN earlier as order by [facility] Objective Last 24 Hour Vital Signs Date Time Temp Pulse Resp B/P Pulse Ox O2 Delivery O2 Flow Rate FiO2 04/08/16 12:00 98.6 115 20 114/68 98 Room Air 04/08/16 09:04 100.2 04/08/16 08:00 97.7 131 22 120/68 95 Room Air 04/08/16 07:53 Nasal Cannula 2.0 04/08/16 07:52 97 Nasal Cannula 2.0 04/08/16 07:51 118 22 Nasal Cannula 2.0 04/08/16 04:03 100.2 129 18 105/65 91 Nasal Cannula 2.0 04/08/16 00:00 98.1 119 20 90/51 94 Nasal Cannula 2.0 04/07/16 22:10 98.2 127 20 86/53 95 Nasal Cannula 2.0 04/07/16 20:00 100.0 122 16 98/55 96 Nasal Cannula 2.0 04/07/16 19:35 96 Nasal Cannula 2.0 28 04/07/16 19:35 Nasal Cannula 2.0 28 04/07/16 19:34 126 20 Nasal Cannula 2.0 28 04/07/16 16:00 99.0 117 17 113/68 94 Nasal Cannula 2.0 Intake and Output 04/07/16 04/08/16 19:00 07:00 Intake Total 420 ml 240 ml Output Total 500 ml Balance -80 ml 240 ml Intake Oral 420 ml 240 ml Output Urine Total 500 ml # Voids 3 Objective General Appearance: no acute distress HEENT: normocephalic, atraumatic, anicteric, PERRL Respiratory/Chest: lungs clear with moderate air entry , no respiratory distress, no accessory muscle use Cardiovascular: normal rate, regular rhythm, no JVD Abdomen: soft, non tender, non distended Genitourinary: normal external genitalia Skin: rash - diffused purple spots of Kaposi sarcoma 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: no motor/sensory deficits, alert, oriented x 3, responsive Musculoskeletal: normal muscle bulk Microbiology Date/Time Source Procedure Growth Status 04/06/16 21:00 Urine,Clean Catch Urine Culture - Preliminary Mixed Gram Positive Organism Resulted Laboratory Tests 04/08/16 05:40: White Blood Count 3.6L, Red Blood Count 2.44L, Hemoglobin 7.4L, Hematocrit 22.0L , Mean Corpuscular Volume 90, Mean Corpuscular Hemoglobin 30.4, Mean Corpuscular Hemoglobin Concent 33.8, Red Cell Distribution Width 15.0H, Platelet Count 18L, Mean Platelet Volume 10.7H, Neutrophils (%) (Auto) , Lymphocytes (%) (Auto) , Monocytes (%) (Auto) , Eosinophils (%) (Auto) , Basophils (%) (Auto) , Differential Total Cells Counted 100, Neutrophils % ( Manual) 81H, Lymphocytes % (Manual) 12L, Monocytes % (Manual) 5, Eosinophils % ( Manual) 0, Basophils % (Manual) 0, Band Neutrophils 2, Platelet Estimate DecreasedL, Platelet Morphology Normal, Hypochromasia 1+, Anisocytosis 1+, Sodium Level 134L, Potassium Level 5.2H, Chloride Level 93L, Carbon Dioxide Level 32H, Anion Gap 9, Blood Urea Nitrogen 44H, Creatinine 1.6H, Estimat Glomerular Filtration Rate 45.1, Glucose Level 124H, Calcium Level 7.9L, Total Bilirubin 3.1H, Direct Bilirubin 2.3H, Aspartate Amino Transf (AST/SGOT) 20, Alanine Aminotransferase (ALT/SGPT) 12, Alkaline Phosphatase 81, Total Protein 6.0L, Albumin 1.9L, Globulin 4.1, Albumin/Globulin Ratio 0.4L Current Medications Medications (Trade) Dose Ordered Sig/Godwin Route PRN Reason Start Time Stop Time Status Last Admin Dose Admin Acetaminophen (Tylenol) 650 mg Q4H PRN ORAL fever 04/07/16 04:00 05/07/16 03:59 Albuterol/ Ipratropium (DuoNeb 0.5-3(2.5)mg/3ml) 3 ml Q4HRT PRN HHN Shortness of Breath 04/07/16 07:00 04/12/16 06:59 Alprazolam (Xanax) 1 mg Q4H PRN ORAL For Anxiety 04/07/16 04:00 04/14/16 03:59 04/07/16 12:01 Atovaquone (Mepron Susp) 1,500 mg DAILY ORAL 04/07/16 09:00 05/07/16 08:59 04/08/16 08:33 Azithromycin (Zithromax) 1,200 mg Fr@1200 ORAL 04/08/16 12:00 04/15/16 11:59 Chlorpromazine (Thorazine) 25 mg Q6H PRN IM HICCUPS 04/07/16 04:00 05/07/16 03:59 04/07/16 16:16 Epoetin Suresh (Procrit (for non ESRD use)) 3,000 units MON-WED-MON SUBQ 04/08/16 21:00 05/08/16 20:59 Escitalopram Oxalate (Lexapro) 10 mg DAILY ORAL 04/07/16 09:00 05/07/16 08:59 04/08/16 08:34 Hydrocortisone (Solu-CORTEF) 100 mg DAILY IV 04/07/16 09:00 05/07/16 08:59 04/08/16 08:34 Morphine Sulfate (Morphine Sulfate) 4 mg Q4H PRN IVP For Severe Pain 04/07/16 06:30 04/14/16 06:29 04/08/16 08:34 Nitroglycerin (Ntg) 0.4 mg Every 5 Minutes PRN SL Prn Chest Pain 04/07/16 03:45 05/07/16 03:44 Ondansetron HCl (Zofran) 4 mg Q6H PRN IVP Nausea & Vomiting 04/07/16 06:00 05/07/16 05:59 Pantoprazole (Protonix) 40 mg EVERY 12 HOURS ORAL 04/07/16 09:00 05/07/16 08:59 04/08/16 08:34 Patient Own Medication (Patient's Own Med) 1 ea DAILY ORAL 04/07/16 09:00 05/07/16 08:59 04/08/16 08:34 Patient Own Medication (Patient's Own Med) 1 ea DAILY ORAL 04/07/16 09:00 05/07/16 08:59 04/08/16 08:34 Polyethylene Glycol (Miralax) 17 gm DAILYPRN PRN ORAL Constipation 04/07/16 16:00 05/07/16 15:59 Promethazine HCl/ Codeine (Phenergan with Codeine) 10 ml Q6H PRN ORAL For Cough 04/07/16 08:00 05/07/16 07:59 Temazepam (Restoril) 15 mg HSPRN PRN ORAL Insomnia 04/07/16 21:00 04/14/16 20:59 [facility]Madhuri NP Apr 08, 2016 13:59
--- NOTE | 2016-04-08 14:40 | Diagnostic Imaging Report ---
Indications: Bilateral cervical and axillary lymphadenopathy Technique: Real-time grayscale and duplex Doppler imaging of the thyroid gland was performed Findings: Comparison: CT chest 04/07/2016 The right thyroid lobe measures 4.5 x 1.7 x 1.6 cm. Normal contour and echotexture without focal abnormality. Intact blood flow on duplex Doppler imaging. The left thyroid lobe measures 3 x 1.6 x 2 cm. Normal contour and echotexture without focal abnormality. Intact blood flow on duplex Doppler imaging. The thyroid isthmus measures or mm in thickness. Normal contour and echotexture without focal abnormality. Intact blood flow on duplex Doppler imaging. No surrounding abnormalities are identified. Multiple enlarged lymph nodes in right side of neck retaining fatty hilum, largest 2.6 cm in greatest diameter with cortical thickness up to 6 mm. Multiple small lymph nodes in left side of neck retain fatty hilum, largest 0.3 cm in greatest diameter with cortical thickness up to 2 mm. Multiple enlarged lymph nodes in right axilla contain fatty hilum, largest 2.8 cm with cortical thickness of 2 mm. 2.8 x 1.2 x 2.2 cm circumscribed hypoechoic mass in left axilla without fatty hilum. Impression: Sonographically unremarkable thyroid gland 2.8 cm soft tissue mass compatible with abnormal lymph node in left axilla 2.6 cm lymph node in the right side of neck with mild cortical thickening, may be abnormal Prominent but otherwise unremarkable lymph nodes in left side of neck, right axilla
[2016-04-08 16:00] VITALS: BP 98/60
--- NOTE | 2016-04-08 16:02 | Diagnostic Imaging Report ---
Indications: Extensive lymphadenopathy of unknown etiology Technique: Procedure, indications, risks, alternatives were explained to the patient, who understands and gives written consent to proceed. Patient received transfusion of 2 platelet packs immediately prior to procedure. Left inguinal region surveyed sonographically, and then sterilely prepped and draped in usual fashion. Skin and subcutaneous soft tissues infiltrated with 1% lidocaine and sodium bicarbonate. A small dermatotomy made, through which a 17-gauge guiding cannula was advanced under direct sonographic guidance into the periphery of the dominant lymph node in the left inguinal region. An 18-gauge Achieve automated core biopsy needle was advanced through the cannula, under direct sonographic guidance fired into the cortex of the targeted lymph node, removed, core biopsy specimen retrieved and submitted to pathologist, present at time of procedure. 6 such passes were made. Guiding cannula was removed. 22-gauge spinal needle advanced via the same access site under direct sonographic guidance into cortex of same lymph node, aspirate obtained, submitted to pathologist present at time of procedure. 2 such passes were made. Followup imaging was performed, dermatotomy site cleansed and bandaged. Patient tolerated procedures well without immediate complications and was returned to his room in stable condition. Findings: Comparison: CT abdomen pelvis 04/07/2016 Intraprocedural imaging demonstrates core biopsy needle, then aspiration needle within the cortex of the dominant lymph node in the left inguinal region on each pass. Post procedure imaging demonstrates no evidence of hematoma formation or other acute abnormality. IMPRESSION: CT-guided percutaneous core needle biopsy and needle aspiration of dominant lymph node in left inguinal region, pathology and microbiology results pending.
--- NOTE | 2016-04-08 16:29 | Diagnostic Imaging Report ---
Indications: Abnormal liver function tests Technique: Transabdominal real-time grayscale and duplex Doppler imaging of the upper abdomen and retroperitoneum was performed. Findings: Comparison: CT abdomen pelvis 04/07/2016. Liver 19 cm length. Normal surface contour, parenchymal echogenicity. No focal lesions. Gallbladder contains hypoechoic non-shadowing material. No obvious stones.. No mural thickening or adjacent fluid collections. Sonographic Cuevas sign not reported.. Bile ducts normal caliber. Common bile duct 5 mm. Pancreas head and body suboptimally visualized without obvious abnormality; tail completely obscured. Spleen 21 cm, no focal abnormality. Right kidney unremarkable. Left kidney unremarkable. Autosomal abdominal aorta, intrahepatic portion of inferior vena cava patent, normal caliber. Mid and distal abdominal aorta obscured. Duplex Doppler imaging demonstrates antegrade flow in splenic, portal, hepatic veins. Mild ascites. IMPRESSION: Hepatosplenomegaly Gallbladder sludge Mild ascites Pancreatic tail, abdominal aorta obscured.
[2016-04-08 20:00] VITALS: BP 110/52
[2016-04-08] MEDS: ALPRAZolam 0.5mg tab ORAL PRN (20:49)
[2016-04-08] MEDS ORDERED: Epogen (for non ESRD use) SUBQ SCH (21:00)
[2016-04-08] MEDS ORDERED: Tubing Blood Filter IV ONE ×2 (22:42→22:48)
[2016-04-08] MEDS ORDERED: NS 275ml ONE ×2 (22:42→22:48)
[2016-04-08] MEDS ORDERED: D5NS 1000ml IV ONE (22:42)
[2016-04-09 00:36] VITALS: BP 95/56
[2016-04-09 04:00] VITALS: BP 106/54
[2016-04-09 08:00] VITALS: BP 103/62
[2016-04-09 08:06] LABS: ALBUMIN/GLOBULIN RATIO 0.4 (1.0-2.7); CREATININE 1.7 mg/dL (0.7-1.2); GLOMERULAR FILTRATION RATE 42.1 mL/min (>60); POTASSIUM 4.1 mEQ/L (3.4-4.9); TOTAL PROTEIN 6.1 g/dL (6.6-8.7)
[2016-04-09 08:22] LABS: MEAN CORPUSCULAR HEMOGLOBIN 30.2 PG (27.0-31.0); MEAN CORPUSCULAR HGB CONC 33.3 G/DL (32.0-36.0); MEAN CORPUSCULAR VOLUME 91 FL (80-99); MEAN PLATELET VOLUME 13.2 FL (6.5-10.1); PLATELET COUNT 18 K/UL (150-450); RED BLOOD COUNT 2.33 M/UL (4.70-6.10); RED CELL DISTRIBUTION WIDTH 15.3 % (11.6-14.8); WHITE BLOOD COUNT 3.3 K/UL (4.8-10.8)
[2016-04-09] MEDS: Atovaquone 750mg/5ml Susp ORAL SCH (08:27)
[2016-04-09] MEDS: PREZCOBIX ORAL SCH (08:27)
[2016-04-09] MEDS: Hydrocortisone 100mg Inj IV SCH (08:27)
[2016-04-09 08:29] LABS: BILIRUBIN,DIRECT 2.3 mg/dL (0.1-0.3)
[2016-04-09] MEDS: Morphine Sulfate 4mg/ml Inj IVP PRN ×2 (09:43→16:50)
--- NOTE | 2016-04-09 10:14 | General Progress Note ---
Assessment/Plan Problem List: (1) Anemia in chronic illness ICD Codes: D63.8 - Anemia in other chronic diseases classified elsewhere SNOMED: 042233789 (2) HIV disease ICD Codes: B20 - Human immunodeficiency virus [HIV] disease SNOMED: 75119316 (3) Splenomegaly with HIV infection ICD Codes: B20 - Human immunodeficiency virus [HIV] disease; R16.1 - Splenomegaly, not elsewhere classified SNOMED: 083756190 (4) Diarrhea ICD Codes: R19.7 - Diarrhea, unspecified SNOMED: 08704597 (5) Kaposi sarcoma ICD Codes: C46.9 - Kaposi's sarcoma, unspecified SNOMED: 732337879 Assessment/Plan - Anemia - Thrombocytopenia - HIV - Diarrhea >> cdiff negative - s/p bone biopsy >> GRAM STAIN RESULTS. RARE WHITE BLOOD CELLS. NO ORGANISMS SEEN. - Stool w.u >> negative - O&P negative - OB stool negative x 3 - fu repeat OB stool >> negative - airborne isolation off - APCT r/o retroperitoneal bleed >> negative for hematoma - repeat iron levels >> WNL Subjective ROS Limited/Unobtainable: Yes Allergies: Coded Allergies: No Known Allergies (Unverified , 03/16/16) Subjective no event Objective Last 24 Hour Vital Signs Date Time Temp Pulse Resp B/P Pulse Ox O2 Delivery O2 Flow Rate FiO2 04/09/16 08:00 97.9 118 20 103/62 100 Nasal Cannula 04/09/16 07:40 115 20 Nasal Cannula 2.0 04/09/16 07:39 Nasal Cannula 2.0 28 04/09/16 07:39 95 Nasal Cannula 2.0 04/09/16 04:00 97.5 114 20 106/54 95 Nasal Cannula 04/09/16 00:36 99.9 116 20 95/56 97 Nasal Cannula 04/08/16 23:06 99.4 04/08/16 22:00 100.7 04/08/16 21:49 100.7 04/08/16 20:00 102.7 135 24 110/52 97 Nasal Cannula 2.0 04/08/16 19:30 97 Nasal Cannula 2.0 28 04/08/16 19:30 129 20 Nasal Cannula 2.0 28 04/08/16 19:30 Nasal Cannula 2.0 28 04/08/16 16:00 97.7 107 22 98/60 97 Nasal Cannula 2.0 04/08/16 12:00 98.6 115 20 114/68 98 Room Air Intake and Output 04/08/16 04/09/16 19:00 07:00 Intake Total 360 ml Output Total 150 ml 125 ml Balance -150 ml 235 ml Intake Oral 360 ml Output Urine Total 150 ml 125 ml # Bowel Movements 4 Laboratory Tests 04/09/16 06:50: White Blood Count 3.3L, Red Blood Count 2.33L, Hemoglobin 7.0L, Hematocrit 21.1L , Mean Corpuscular Volume 91, Mean Corpuscular Hemoglobin 30.2, Mean Corpuscular Hemoglobin Concent 33.3, Red Cell Distribution Width 15.3H, Platelet Count 18L, Mean Platelet Volume 13.2H, Neutrophils (%) (Auto) , Lymphocytes (%) (Auto) , Monocytes (%) (Auto) , Eosinophils (%) (Auto) , Basophils (%) (Auto) , Neutrophils % (Manual) [Pending], Lymphocytes % (Manual) [Pending], Platelet Estimate [Pending], Platelet Morphology [Pending], Sodium Level 134L, Potassium Level 4.1, Chloride Level 92L, Carbon Dioxide Level 33H, Anion Gap 9, Blood Urea Nitrogen 50H, Creatinine 1.7H, Estimat Glomerular Filtration Rate 42.1, Glucose Level 162H, Calcium Level 8.0L, Total Bilirubin 3.2H, Direct Bilirubin 2.3H, Aspartate Amino Transf (AST/SGOT) 20, Alanine Aminotransferase (ALT/SGPT) 12, Alkaline Phosphatase 95, Total Protein 6.1L, Albumin 1.9L, Globulin 4.2, Albumin/Globulin Ratio 0.4L Height (Feet): 5 Height (Inches): 10.00 Weight (Pounds): 165 General Appearance: no apparent distress EENT: normal ENT inspection Neck: supple Cardiovascular: normal rate Respiratory/Chest: decreased breath sounds Abdomen: normal bowel sounds, non tender, soft Extremities: non-tender ADITYA HOLM Apr 09, 2016 10:14
[2016-04-09 12:00] VITALS: BP 109/59
[2016-04-09 12:55] LABS: LYMPHOCYTES % (MANUAL) 23 % (20-45); NEUTROPHILS % (MANUAL) 76 % (45-75); TOTAL CELLS COUNTED 100
[2016-04-09 12:56] LABS: ANISOCYTOSIS 1+; BAND NEUTROPHILS % (MANUAL) 0 % (0-8); BASOPHILS % (MANUAL) 0 % (0-2); EOSINOPHILS % (MANUAL) 0 % (0-3); HYPOCHROMASIA 1+; PLATELET ESTIMATE DECREASED; PLATELET MORPHOLOGY NORMAL
--- NOTE | 2016-04-09 13:11 | General Progress Note ---
Assessment/Plan Status: unchanged Status Narrative Cr 1.7 Hgb remains low Assessment/Plan Acute renal failure, multifactorial ( sepsis, HIV , Vanco...) PreRenal superimposed on Renal HypoNatremia Cr 2.8 down to 1.7 PanCytopenia Sepsis, Diarrhea, HIV , Kaposi's Pneumonia Hypocalcemia, electrolyte imbalance Anemia in chronic illness, symptomatic Hypokalemia on admit now K elevated JF (acute kidney injury) Thrombocytopenia, massive splenomegali CAP (community acquired pneumonia) Plan: per consultants protonix po Antibiotics per ID Urine studies- noted Monitor renal parameters and lytes- Avoid Nephrotoxics Monitor Urine out put Subjective ROS Limited/Unobtainable: No Constitutional: Reports: malaise, weakness Allergies: Coded Allergies: No Known Allergies (Unverified , 03/16/16) Objective Last 24 Hour Vital Signs Date Time Temp Pulse Resp B/P Pulse Ox O2 Delivery O2 Flow Rate FiO2 04/09/16 12:00 99.0 116 20 109/59 100 Nasal Cannula 04/09/16 08:00 97.9 118 20 103/62 100 Nasal Cannula 04/09/16 07:40 115 20 Nasal Cannula 2.0 28 04/09/16 07:39 Nasal Cannula 2.0 28 04/09/16 07:39 95 Nasal Cannula 2.0 28 04/09/16 04:00 97.5 114 20 106/54 95 Nasal Cannula 04/09/16 00:36 99.9 116 20 95/56 97 Nasal Cannula 04/08/16 23:06 99.4 04/08/16 22:00 100.7 04/08/16 21:49 100.7 04/08/16 20:00 102.7 135 24 110/52 97 Nasal Cannula 2.0 04/08/16 19:30 97 Nasal Cannula 2.0 28 04/08/16 19:30 129 20 Nasal Cannula 2.0 28 04/08/16 19:30 Nasal Cannula 2.0 28 04/08/16 16:00 97.7 107 22 98/60 97 Nasal Cannula 2.0 Intake and Output 04/08/16 04/09/16 19:00 07:00 Intake Total 360 ml Output Total 150 ml 125 ml Balance -150 ml 235 ml Intake Oral 360 ml Output Urine Total 150 ml 125 ml # Bowel Movements 4 Laboratory Tests 04/09/16 06:50: White Blood Count 3.3L, Red Blood Count 2.33L, Hemoglobin 7.0L, Hematocrit 21.1L , Mean Corpuscular Volume 91, Mean Corpuscular Hemoglobin 30.2, Mean Corpuscular Hemoglobin Concent 33.3, Red Cell Distribution Width 15.3H, Platelet Count 18L, Mean Platelet Volume 13.2H, Neutrophils (%) (Auto) , Lymphocytes (%) (Auto) , Monocytes (%) (Auto) , Eosinophils (%) (Auto) , Basophils (%) (Auto) , Differential Total Cells Counted 100, Neutrophils % ( Manual) 76H, Lymphocytes % (Manual) 23, Monocytes % (Manual) 1, Eosinophils % ( Manual) 0, Basophils % (Manual) 0, Band Neutrophils 0, Platelet Estimate DecreasedL, Platelet Morphology Normal, Hypochromasia 1+, Anisocytosis 1+, Sodium Level 134L, Potassium Level 4.1, Chloride Level 92L, Carbon Dioxide Level 33H, Anion Gap 9, Blood Urea Nitrogen 50H, Creatinine 1.7H, Estimat Glomerular Filtration Rate 42.1, Glucose Level 162H, Calcium Level 8.0L, Total Bilirubin 3.2H, Direct Bilirubin 2.3H, Aspartate Amino Transf (AST/SGOT) 20, Alanine Aminotransferase (ALT/SGPT) 12, Alkaline Phosphatase 95, Total Protein 6.1L, Albumin 1.9L, Globulin 4.2, Albumin/Globulin Ratio 0.4L Height (Feet): 5 Height (Inches): 10.00 Weight (Pounds): 165 General Appearance: no apparent distress, lethargic Cardiovascular: tachycardia Respiratory/Chest: decreased breath sounds Objective other PE not changed DEREK SMITH Apr 09, 2016 13:11
[2016-04-09] MEDS: ALPRAZolam 0.5mg tab ORAL PRN (14:12)
[2016-04-09 16:11] VITALS: BP 107/69
[2016-04-09] MEDS ORDERED: NS 275ml ONE (16:35)
[2016-04-09] MEDS ORDERED: Tubing Blood Filter IV ONE (16:35)
--- NOTE | 2016-04-09 18:06 | General Progress Note ---
Assessment/Plan Assessment/Plan Assessment/Plan 1. Pancytopenia. The patient is status post bone marrow biopsy, which shows no evidence of blasts. It does show a hypercellular marrow concerning for patchy xago-ie-ssbaexto fibrosis with degeneration, he is with a history of HIV as well , has no evidence of lymphoma on the biopsy. Iron stores are decreased on biopsy but ferritin overall is elevated. AFB and Gram GMS stain show no acid- fast bacilli and no fungal organisms. Patient has marked splenomegaly. Has extensive lymphadenopathy on CAT scan as well, will consider to biopsy one of the lymph nodes. Very unlikely has ITP given acute onset in thrombocytopenia. Also, the patient has been on steroids (hydrocortisone), therefore, it will empiric coverage for ITP. The patient does not have any evidence that displays primary myofibrosis. Thus overall, likely this is a secondary process. 2. Anemia secondary to chronic disease. His erythrocyte sedimentation rate is severely elevated. Reticulocyte count is low. Ferritin is elevated and TIBC lower. Has issue with iron sequestration/utilization 3. 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 Leukopenia secondary to likely splenomegaly versus sepsis. 5. Thrombocytopenia, concerning for underlying infection versus splenomegaly, also can be 2/2 to above process, will obtain biopsy of LN 6. Splenomegaly, noted on ultrasound. 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 9. HIV. 10. Malnutrition. 11. Failure to thrive. RECOMMENDATIONS: 1. Imaging has been reviewed. Obtain a biopsy of the LN on imaging, will place order 2. Rule out DIC process. Labs have been ordered 3. Hgb goal is >7 and plt goal >10k or >20k if febrile 4. Continue patient on epogen at this time 5. Will order for HLA-matched plts in the future, the order has been placed and d/w blood bank 6. ID recommendations in regards to antibiotics and antiretroviral medications. 7. The patient has hx of Kaposis sarcoma, rule out disseminated disease 8. Followup on GI, ID, and Pulmonary recs 9. Discussed with staff as well as primary MD Celia Trimble MD Subjective Constitutional: Reports: no symptoms HEENT: Reports: no symptoms Cardiovascular: Reports: no symptoms Respiratory: Reports: no symptoms Gastrointestinal/Abdominal: Reports: no symptoms Genitourinary: Reports: no symptoms 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: Reports: no symptoms Endocrine: Reports: no symptoms Hematologic/Lymphatic: Reports: no symptoms Allergies: Coded Allergies: No Known Allergies (Unverified , 03/16/16) Objective Last 24 Hour Vital Signs Date Time Temp Pulse Resp B/P Pulse Ox O2 Delivery O2 Flow Rate FiO2 04/09/16 16:11 98.4 115 18 107/69 97 Nasal Cannula 2.0 04/09/16 12:00 99.0 116 20 109/59 100 Nasal Cannula 04/09/16 08:00 97.9 118 20 103/62 100 Nasal Cannula 04/09/16 07:40 115 20 Nasal Cannula 2.0 28 04/09/16 07:39 Nasal Cannula 2.0 28 04/09/16 07:39 95 Nasal Cannula 2.0 28 04/09/16 04:00 97.5 114 20 106/54 95 Nasal Cannula 04/09/16 00:36 99.9 116 20 95/56 97 Nasal Cannula 04/08/16 23:06 99.4 04/08/16 22:00 100.7 04/08/16 21:49 100.7 04/08/16 20:00 102.7 135 24 110/52 97 Nasal Cannula 2.0 04/08/16 19:30 97 Nasal Cannula 2.0 28 04/08/16 19:30 129 20 Nasal Cannula 2.0 28 04/08/16 19:30 Nasal Cannula 2.0 28 Intake and Output 04/08/16 04/09/16 19:00 07:00 Intake Total 360 ml Output Total 150 ml 125 ml Balance -150 ml 235 ml Intake Oral 360 ml Output Urine Total 150 ml 125 ml # Bowel Movements 4 Laboratory Tests 04/09/16 06:50: White Blood Count 3.3L, Red Blood Count 2.33L, Hemoglobin 7.0L, Hematocrit 21.1L , Mean Corpuscular Volume 91, Mean Corpuscular Hemoglobin 30.2, Mean Corpuscular Hemoglobin Concent 33.3, Red Cell Distribution Width 15.3H, Platelet Count 18L, Mean Platelet Volume 13.2H, Neutrophils (%) (Auto) , Lymphocytes (%) (Auto) , Monocytes (%) (Auto) , Eosinophils (%) (Auto) , Basophils (%) (Auto) , Differential Total Cells Counted 100, Neutrophils % ( Manual) 76H, Lymphocytes % (Manual) 23, Monocytes % (Manual) 1, Eosinophils % ( Manual) 0, Basophils % (Manual) 0, Band Neutrophils 0, Platelet Estimate DecreasedL, Platelet Morphology Normal, Hypochromasia 1+, Anisocytosis 1+, Sodium Level 134L, Potassium Level 4.1, Chloride Level 92L, Carbon Dioxide Level 33H, Anion Gap 9, Blood Urea Nitrogen 50H, Creatinine 1.7H, Estimat Glomerular Filtration Rate 42.1, Glucose Level 162H, Calcium Level 8.0L, Total Bilirubin 3.2H, Direct Bilirubin 2.3H, Aspartate Amino Transf (AST/SGOT) 20, Alanine Aminotransferase (ALT/SGPT) 12, Alkaline Phosphatase 95, Total Protein 6.1L, Albumin 1.9L, Globulin 4.2, Albumin/Globulin Ratio 0.4L Height (Feet): 5 Height (Inches): 10.00 Weight (Pounds): 165 General Appearance: no apparent distress, confused EENT: TMs normal Neck: supple Cardiovascular: regular rhythm Respiratory/Chest: lungs clear Abdomen: soft Edema: no edema noted Arm (L), no edema noted Arm (R), no edema noted Leg (L), no edema noted Leg (R), no edema noted Pedal (L), no edema noted Pedal (R), no edema noted Generalized Edema: mild edema Neurologic: alert Lymphatic: normal anterior cervical (L), normal anterior cervical (R), normal axillary (L), normal axillary (R), normal inguinal (L), normal inguinal (R), normal other, normal posterior cervical (L), normal posterior cervical (R), normal submandibular (L), normal submandibular (R), normal supraclavicular (L), normal supraclavicular (R) CELIA TRIMBLE Apr 09, 2016 18:05
--- NOTE | 2016-04-09 18:44 | Pulmonology Progress Note ---
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 diarrhea, r/o infectious cause - none diffuse LAD r/o infectious vs myeloproliferative disorder s/p bone marrow biopsy s/p biopsy axillary lymph node 3/3 anemia pancytopenia acute renal failure, multifactorial ( sepsis, HIV , Vanco): Pre Renal superimposed on Renal electrolyte imbalance HIV disease splenomegaly with HIV infection Kaposi sarcoma PLAN OF CARE MS floor abx, ID follows urine, blood cx, sputum cx, stool cx, stool OP all negative, fungal serology negative: bone marrow + Staph epidermidis, contamination per ID sputum AFB x 3, negative, TB test negative off isolation s/p blood transfusion (PRBC and PLT) ; monitor counts stool OB x 3 negative peripheral blood smear review: no blasts, no platelets aggregation, no change in morphology of PRBC CT chest showed multiple nodules and interstitial lung disease , predominantly upper lobe ? lymphocytic interstitial pneumonitis O2 prn respiratory treatment CT abdomen with evidence of extensive lymphadenopathy fup with BM biopsy results nephro follows no change in renal parameters ARF presumably multifactorial due to sepsis, high Vanco level, HIV disease monitor renal parameters, lytes, Vanco resumed, closely monitor levels avoid nephrotoxic stress dose steroids, decrease to q12 electrolytes management as per nephro CD4 - 376 latest, continue HAART therapy as per ID management GI follows EGD and colon when stable PPI pain management antiemetic prn prognosis poor code status changed to DNR/DNI had a long discussion with mother and family friends and relatives, opting for hospice services case discussed and evaluated by supervising physician Subjective Allergies: Coded Allergies: No Known Allergies (Unverified , 03/16/16) Subjective temp 102.7 last night HH down again -7.0/21.1 no chest pain, no SOB cough dry, no hemoptysis, no wheezing s/p biopsy LN 3/3 as order by onco DNR status now Objective Last 24 Hour Vital Signs Date Time Temp Pulse Resp B/P Pulse Ox O2 Delivery O2 Flow Rate FiO2 04/09/16 18:36 97 Nasal Cannula 2.0 28 04/09/16 18:36 Nasal Cannula 2.0 28 04/09/16 18:36 118 20 Nasal Cannula 2.0 28 04/09/16 16:11 98.4 115 18 107/69 97 Nasal Cannula 2.0 04/09/16 12:00 99.0 116 20 109/59 100 Nasal Cannula 04/09/16 08:00 97.9 118 20 103/62 100 Nasal Cannula 04/09/16 07:40 115 20 Nasal Cannula 2.0 28 04/09/16 07:39 Nasal Cannula 2.0 28 04/09/16 07:39 95 Nasal Cannula 2.0 28 04/09/16 04:00 97.5 114 20 106/54 95 Nasal Cannula 04/09/16 00:36 99.9 116 20 95/56 97 Nasal Cannula 04/08/16 23:06 99.4 04/08/16 22:00 100.7 04/08/16 21:49 100.7 04/08/16 20:00 102.7 135 24 110/52 97 Nasal Cannula 2.0 04/08/16 19:30 97 Nasal Cannula 2.0 28 04/08/16 19:30 129 20 Nasal Cannula 2.0 28 04/08/16 19:30 Nasal Cannula 2.0 28 Intake and Output 04/08/16 04/09/16 19:00 07:00 Intake Total 360 ml Output Total 150 ml 125 ml Balance -150 ml 235 ml Intake Oral 360 ml Output Urine Total 150 ml 125 ml # Bowel Movements 4 Objective General Appearance: no acute distress HEENT: normocephalic, atraumatic, anicteric, PERRL Respiratory/Chest: lungs clear with moderate air entry , no respiratory distress, no accessory muscle use Cardiovascular: normal rate, regular rhythm, no JVD Abdomen: soft, non tender, non distended Genitourinary: normal external genitalia Skin: rash - diffused purple spots of Kaposi sarcoma 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: no motor/sensory deficits, alert, oriented x 3, responsive Musculoskeletal: normal muscle bulk Microbiology Date/Time Source Procedure Growth Status 04/06/16 21:00 Urine,Clean Catch Urine Culture - Final Mixed Gram Positive Organism Complete Laboratory Tests 04/09/16 06:50: White Blood Count 3.3L, Red Blood Count 2.33L, Hemoglobin 7.0L, Hematocrit 21.1L , Mean Corpuscular Volume 91, Mean Corpuscular Hemoglobin 30.2, Mean Corpuscular Hemoglobin Concent 33.3, Red Cell Distribution Width 15.3H, Platelet Count 18L, Mean Platelet Volume 13.2H, Neutrophils (%) (Auto) , Lymphocytes (%) (Auto) , Monocytes (%) (Auto) , Eosinophils (%) (Auto) , Basophils (%) (Auto) , Differential Total Cells Counted 100, Neutrophils % ( Manual) 76H, Lymphocytes % (Manual) 23, Monocytes % (Manual) 1, Eosinophils % ( Manual) 0, Basophils % (Manual) 0, Band Neutrophils 0, Platelet Estimate DecreasedL, Platelet Morphology Normal, Hypochromasia 1+, Anisocytosis 1+, Sodium Level 134L, Potassium Level 4.1, Chloride Level 92L, Carbon Dioxide Level 33H, Anion Gap 9, Blood Urea Nitrogen 50H, Creatinine 1.7H, Estimat Glomerular Filtration Rate 42.1, Glucose Level 162H, Calcium Level 8.0L, Total Bilirubin 3.2H, Direct Bilirubin 2.3H, Aspartate Amino Transf (AST/SGOT) 20, Alanine Aminotransferase (ALT/SGPT) 12, Alkaline Phosphatase 95, Total Protein 6.1L, Albumin 1.9L, Globulin 4.2, Albumin/Globulin Ratio 0.4L Current Medications Medications (Trade) Dose Ordered Sig/Godwin Route PRN Reason Start Time Stop Time Status Last Admin Dose Admin Acetaminophen (Tylenol) 650 mg Q4H PRN ORAL fever 04/07/16 04:00 05/07/16 03:59 04/08/16 20:50 Albuterol/ Ipratropium (DuoNeb 0.5-3(2.5)mg/3ml) 3 ml Q4HRT PRN HHN Shortness of Breath 04/07/16 07:00 04/12/16 06:59 Alprazolam (Xanax) 1 mg Q4H PRN ORAL For Anxiety 04/07/16 04:00 04/14/16 03:59 04/09/16 14:12 Atovaquone (Mepron Susp) 1,500 mg DAILY ORAL 04/07/16 09:00 05/07/16 08:59 04/09/16 08:27 Azithromycin (Zithromax) 1,200 mg Fr@1200 ORAL 04/08/16 12:00 04/15/16 11:59 04/08/16 14:43 Chlorpromazine (Thorazine) 25 mg Q6H PRN IM HICCUPS 04/07/16 04:00 05/07/16 03:59 04/07/16 16:16 Epoetin Suresh (Procrit (for non ESRD use)) 3,000 units MON-MON-MON SUBQ 04/08/16 21:00 05/08/16 20:59 04/08/16 20:52 Escitalopram Oxalate (Lexapro) 10 mg DAILY ORAL 04/07/16 09:00 05/07/16 08:59 04/09/16 08:27 Hydrocortisone (Solu-CORTEF) 100 mg DAILY IV 04/07/16 09:00 05/07/16 08:59 04/09/16 08:27 Morphine Sulfate (Morphine Sulfate) 4 mg Q4H PRN IVP For Severe Pain 04/07/16 06:30 04/14/16 06:29 04/09/16 16:50 Nitroglycerin (Ntg) 0.4 mg Every 5 Minutes PRN SL Prn Chest Pain 04/07/16 03:45 05/07/16 03:44 Ondansetron HCl (Zofran) 4 mg Q6H PRN IVP Nausea & Vomiting 04/07/16 06:00 05/07/16 05:59 Pantoprazole (Protonix) 40 mg EVERY 12 HOURS ORAL 04/07/16 09:00 05/07/16 08:59 04/09/16 08:27 Patient Own Medication (Patient's Own Med) 1 ea DAILY ORAL 04/07/16 09:00 05/07/16 08:59 04/09/16 08:27 Patient Own Medication (Patient's Own Med) 1 ea DAILY ORAL 04/07/16 09:00 05/07/16 08:59 04/09/16 08:27 Polyethylene Glycol (Miralax) 17 gm DAILYPRN PRN ORAL Constipation 04/07/16 16:00 05/07/16 15:59 Promethazine HCl/ Codeine (Phenergan with Codeine) 10 ml Q6H PRN ORAL For Cough 04/07/16 08:00 05/07/16 07:59 Temazepam (Restoril) 15 mg HSPRN PRN ORAL Insomnia 04/07/16 21:00 04/14/16 20:59 Madhuri Manzanares NP ([facility]) Apr 09, 2016 18:44
[2016-04-09 20:00] VITALS: BP 98/60
[2016-04-10] VITALS: BP 90/44
[2016-04-10] MEDS: Morphine Sulfate 4mg/ml Inj IVP PRN ×5 (00:08→23:52)
[2016-04-10 04:00] VITALS: BP 101/55
[2016-04-10] MEDS: ALPRAZolam 0.5mg tab ORAL PRN ×4 (07:04→20:24)
--- NOTE | 2016-04-10 07:13 | General Progress Note ---
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 RARE WHITE BLOOD CELLS. NO ORGANISMS SEEN. - Stool w.u >> negative - O&P negative - OB stool negative x 3 - fu repeat OB stool >> negative - airborne isolation off - APCT r/o retroperitoneal bleed >> negative for hematoma - repeat iron levels >> WNL -prn blood transfusion Subjective ROS Limited/Unobtainable: Yes Allergies: Coded Allergies: No Known Allergies (Unverified , 03/16/16) Subjective no event Objective Last 24 Hour Vital Signs Date Time Temp Pulse Resp B/P Pulse Ox O2 Delivery O2 Flow Rate FiO2 04/10/16 04:00 98.6 121 22 101/55 96 Nasal Cannula 2.0 04/10/16 01:25 98.4 04/10/16 00:00 98.2 120 20 90/44 96 Nasal Cannula 2.0 04/09/16 20:00 98.4 119 18 98/60 97 Nasal Cannula 2.0 04/09/16 18:36 97 Nasal Cannula 2.0 28 04/09/16 18:36 Nasal Cannula 2.0 28 04/09/16 18:36 118 20 Nasal Cannula 2.0 28 04/09/16 16:11 98.4 115 18 107/69 97 Nasal Cannula 2.0 04/09/16 12:00 99.0 116 20 109/59 100 Nasal Cannula 04/09/16 08:00 97.9 118 20 103/62 100 Nasal Cannula 04/09/16 07:40 115 20 Nasal Cannula 2.0 28 04/09/16 07:39 Nasal Cannula 2.0 28 04/09/16 07:39 95 Nasal Cannula 2.0 28 Intake and Output 04/09/16 04/10/16 19:00 07:00 Intake Total 630 ml 350 ml Output Total 400 ml Balance 630 ml -50 ml Intake Oral 630 ml 350 ml Output Urine Total 400 ml # Voids 4 2 # Bowel Movements 2 Height (Feet): 5 Height (Inches): 10.00 Weight (Pounds): 165 General Appearance: no apparent distress EENT: normal ENT inspection Neck: supple Cardiovascular: normal rate Respiratory/Chest: decreased breath sounds Abdomen: normal bowel sounds, non tender, soft Extremities: non-tender ADITYA HOLM Apr 10, 2016 07:13
[2016-04-10 07:23] LABS: MEAN CORPUSCULAR HEMOGLOBIN 30.1 PG (27.0-31.0); MEAN CORPUSCULAR HGB CONC 33.5 G/DL (32.0-36.0); MEAN CORPUSCULAR VOLUME 90 FL (80-99); MEAN PLATELET VOLUME 14.3 FL (6.5-10.1); PLATELET COUNT 24 K/UL (150-450); RED CELL DISTRIBUTION WIDTH 14.7 % (11.6-14.8); WHITE BLOOD COUNT 3.7 K/UL (4.8-10.8)
--- NOTE | 2016-04-10 07:25 | General Progress Note ---
Assessment/Plan Assessment/Plan ASSESSMENT: 1. Pancytopenia. The patient is status post bone marrow biopsy, which shows no evidence of blasts or myelodysplasia (FISH Panel is negative). It does show a hypercellular marrow concerning for patchy [id number] fibrosis with degeneration, he is with a history of HIV as well, has no evidence of lymphoma on the biopsy. Iron stores are decreased on biopsy but ferritin overall is elevated. AFB and Gram GMS stain show no acid-fast bacilli and no fungal organisms. Patient has marked splenomegaly. Has extensive lymphadenopathy on CAT scan as well, will consider to biopsy one of the lymph nodes. Unlikely has ITP and does not have MDS. The patient does not have any evidence that displays primary myofibrosis. Could be hiv related. Thus overall, likely this is a secondary process to a underlying process. inguinal bx pending 2. Anemia secondary to chronic disease. His erythrocyte sedimentation rate is severely elevated. Reticulocyte count is low. Ferritin is elevated and TIBC lower. Has issue with iron sequestration/utilization 3. 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 Leukopenia secondary to likely splenomegaly versus sepsis. 5. Thrombocytopenia, concerning for underlying infection versus splenomegaly, also can be 2/2 to above process, will obtain biopsy of LN. Does not have DIC 6. Splenomegaly, noted on ultrasound. 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 Hematoma of spleen RECOMMENDATIONS: 1. Left inguinal biopsy report pending 2. Does not have DIC, have reviewed labs 3. Hgb goal is >7 and plt goal >10k or >20k if febrile 4. Continue epogen. Does not need iron (have reviewed marrow results as well) 5. HLA-matched plts in the future, the order has been placed and d/w blood bank 6. ID recs and pulm followup 7. The patient has hx of Kaposis sarcoma, rule out disseminated disease with biopsy 8. Have dw pathologist on 04/04 and will rediscuss again after biopsy back of LN 9. staff and consultants Greatly appreciate consultation, Kareem Trimble MD Subjective Constitutional: Reports: no symptoms HEENT: Reports: no symptoms Cardiovascular: Reports: no symptoms Respiratory: Reports: no symptoms Gastrointestinal/Abdominal: Reports: no symptoms Genitourinary: Reports: no symptoms 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: Reports: no symptoms Endocrine: Reports: no symptoms Hematologic/Lymphatic: Reports: anemia Allergies: Coded Allergies: No Known Allergies (Unverified , 03/16/16) Subjective stable, no complaints today, bleeding from iv site Objective Last 24 Hour Vital Signs Date Time Temp Pulse Resp B/P Pulse Ox O2 Delivery O2 Flow Rate FiO2 04/10/16 04:00 98.6 121 22 101/55 96 Nasal Cannula 2.0 04/10/16 01:25 98.4 04/10/16 00:00 98.2 120 20 90/44 96 Nasal Cannula 2.0 04/09/16 20:00 98.4 119 18 98/60 97 Nasal Cannula 2.0 04/09/16 18:36 97 Nasal Cannula 2.0 28 04/09/16 18:36 Nasal Cannula 2.0 28 04/09/16 18:36 118 20 Nasal Cannula 2.0 28 04/09/16 16:11 98.4 115 18 107/69 97 Nasal Cannula 2.0 04/09/16 12:00 99.0 116 20 109/59 100 Nasal Cannula 04/09/16 08:00 97.9 118 20 103/62 100 Nasal Cannula 04/09/16 07:40 115 20 Nasal Cannula 2.0 28 04/09/16 07:39 Nasal Cannula 2.0 28 04/09/16 07:39 95 Nasal Cannula 2.0 28 Intake and Output 04/09/16 04/10/16 19:00 07:00 Intake Total 630 ml 350 ml Output Total 400 ml Balance 630 ml -50 ml Intake Oral 630 ml 350 ml Output Urine Total 400 ml # Voids 4 3 # Bowel Movements 3 Laboratory Tests 04/10/16 04:50: White Blood Count [Pending], Red Blood Count [Pending], Hemoglobin [Pending], Hematocrit [Pending], Mean Corpuscular Volume [Pending], Mean Corpuscular Hemoglobin [Pending], Mean Corpuscular Hemoglobin Concent [Pending], Red Cell Distribution Width [Pending], Platelet Count [Pending], Mean Platelet Volume [ Pending], Neutrophils (%) (Auto) [Pending], Lymphocytes (%) (Auto) [Pending], Monocytes (%) (Auto) [Pending], Eosinophils (%) (Auto) [Pending], Basophils (%) (Auto) [Pending], Sodium Level [Pending], Potassium Level [Pending], Chloride Level [Pending], Carbon Dioxide Level [Pending], Blood Urea Nitrogen [Pending], Creatinine [Pending], Estimat Glomerular Filtration Rate [Pending], Glucose Level [Pending], Calcium Level [Pending] Height (Feet): 5 Height (Inches): 10.00 Weight (Pounds): 165 General Appearance: no apparent distress EENT: TMs normal Neck: normal alignment Cardiovascular: regular rhythm Respiratory/Chest: chest wall non-tender Abdomen: non tender Extremities: non-tender Edema: 1+ Leg (L), 1+ Leg (R) Edema: mild edema Neurologic: alert Skin: warm/dry Kareem Trimble Apr 10, 2016 07:25
[2016-04-10 07:51] LABS: CALCIUM 8.2 mg/dL (8.6-10.2); CREATININE 1.5 mg/dL (0.7-1.2); GLOMERULAR FILTRATION RATE 48.6 mL/min (>60); POTASSIUM 4.6 mEQ/L (3.4-4.9)
[2016-04-10 07:54] VITALS: BP 105/60
[2016-04-10] MEDS: PREZCOBIX ORAL SCH (09:25)
[2016-04-10] MEDS: Hydrocortisone 100mg Inj IV SCH (09:26)
[2016-04-10] MEDS: Atovaquone 750mg/5ml Susp ORAL SCH (09:26)
[2016-04-10 09:57] LABS: BAND NEUTROPHILS % (MANUAL) 0 % (0-8); BASOPHILS % (MANUAL) 0 % (0-2); EOSINOPHILS % (MANUAL) 0 % (0-3); HYPOCHROMASIA 3+; LYMPHOCYTES % (MANUAL) 18 % (20-45); NEUTROPHILS % (MANUAL) 75 % (45-75); PLATELET ESTIMATE DECREASED; TOTAL CELLS COUNTED 100
[2016-04-10 09:58] LABS: ANISOCYTOSIS 1+; PLATELET MORPHOLOGY NORMAL
--- NOTE | 2016-04-10 10:50 | Infectious Diseases Prog Note ---
Assessment/Plan Assessment/Plan A; HIV, AIDS Kaposi's sarcoma Pneumonia s/p Rx Pancytopenia P; Continue HAART, Zithromax & Mepron Subjective ROS Limited/Unobtainable: No Constitutional: Reports: anorexia Respiratory: Reports: dry cough Cardiovascular: Reports: no symptoms Gastrointestinal/Abdominal: Reports: other - dysphagia Genitourinary: Reports: no symptoms Allergies: Coded Allergies: No Known Allergies (Unverified , 03/16/16) Objective Vital Signs Last 24 Hour Vital Signs Date Time Temp Pulse Resp B/P Pulse Ox O2 Delivery O2 Flow Rate FiO2 04/10/16 07:54 99.0 133 22 105/60 100 Room Air 04/10/16 04:00 98.6 121 22 101/55 96 Nasal Cannula 2.0 04/10/16 01:25 98.4 04/10/16 00:00 98.2 120 20 90/44 96 Nasal Cannula 2.0 04/09/16 20:00 98.4 119 18 98/60 97 Nasal Cannula 2.0 04/09/16 18:36 97 Nasal Cannula 2.0 28 04/09/16 18:36 Nasal Cannula 2.0 28 04/09/16 18:36 118 20 Nasal Cannula 2.0 28 04/09/16 16:11 98.4 115 18 107/69 97 Nasal Cannula 2.0 04/09/16 12:00 99.0 116 20 109/59 100 Nasal Cannula Height (Feet): 5 Height (Inches): 10.00 Weight (Pounds): 165 General Appearance: no acute distress HEENT: other - dry mouth Respiratory/Chest: lungs clear Cardiovascular: normal rate Abdomen: soft, non tender 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: alert, oriented x 3, responsive Microbiology Date/Time Source Procedure Growth Status 04/09/16 06:30 Sputum Expectorated Gram Stain - Final Resulted 04/09/16 06:30 Sputum Expectorated Sputum Culture - Preliminary NO GROWTH Resulted Laboratory Tests Test 04/10/16 04:50 White Blood Count 3.7 K/UL (4.8-10.8) L Red Blood Count 2.80 M/UL (4.70-6.10) L Hemoglobin 8.4 G/DL (14.2-18.0) L Hematocrit 25.2 % (42.0-52.0) L Mean Corpuscular Volume 90 FL (80-99) Mean Corpuscular Hemoglobin 30.1 PG (27.0-31.0) Mean Corpuscular Hemoglobin Concent 33.5 G/DL (32.0-36.0) Red Cell Distribution Width 14.7 % (11.6-14.8) Platelet Count 24 K/UL (150-450) L Mean Platelet Volume 14.3 FL (6.5-10.1) H Neutrophils (%) (Auto) % (45.0-75.0) Lymphocytes (%) (Auto) % (20.0-45.0) Monocytes (%) (Auto) % (1.0-10.0) Eosinophils (%) (Auto) % (0.0-3.0) Basophils (%) (Auto) % (0.0-2.0) Differential Total Cells Counted 100 Neutrophils % (Manual) 75 % (45-75) Lymphocytes % (Manual) 18 % (20-45) L Monocytes % (Manual) 7 % (1-10) Eosinophils % (Manual) 0 % (0-3) Basophils % (Manual) 0 % (0-2) Band Neutrophils 0 % (0-8) Platelet Estimate Decreased L Platelet Morphology Normal Hypochromasia 3+ Anisocytosis 1+ Sodium Level 136 mEQ/L (135-145) Potassium Level 4.6 mEQ/L (3.4-4.9) Chloride Level 94 mEQ/L (98-107) L Carbon Dioxide Level 32 mEQ/L (20-30) H Anion Gap 10 (5-15) Blood Urea Nitrogen 45 mg/dL (7-23) H Creatinine 1.5 mg/dL (0.7-1.2) H Estimat Glomerular Filtration Rate 48.6 mL/min (>60) Glucose Level 128 mg/dL (74-106) H Calcium Level 8.2 mg/dL (8.6-10.2) L Current Medications Medications (Trade) Dose Ordered Sig/Godwin Route PRN Reason Start Time Stop Time Status Last Admin Dose Admin Acetaminophen (Tylenol) 650 mg Q4H PRN ORAL fever 04/07/16 04:00 05/07/16 03:59 04/08/16 20:50 Albuterol/ Ipratropium (DuoNeb 0.5-3(2.5)mg/3ml) 3 ml Q4HRT PRN HHN Shortness of Breath 04/07/16 07:00 04/12/16 06:59 04/10/16 08:04 Alprazolam (Xanax) 1 mg Q4H PRN ORAL For Anxiety 04/07/16 04:00 04/14/16 03:59 04/10/16 07:04 Atovaquone (Mepron Susp) 1,500 mg DAILY ORAL 04/07/16 09:00 05/07/16 08:59 04/10/16 09:26 Azithromycin (Zithromax) 1,200 mg Fr@1200 ORAL 04/08/16 12:00 04/15/16 11:59 04/08/16 14:43 Chlorpromazine (Thorazine) 25 mg Q6H PRN IM HICCUPS 04/07/16 04:00 05/07/16 03:59 04/07/16 16:16 Epoetin Suresh (Procrit (for non ESRD use)) 3,000 units MON-MON-MON SUBQ 04/08/16 21:00 05/08/16 20:59 04/08/16 20:52 Escitalopram Oxalate (Lexapro) 10 mg DAILY ORAL 04/07/16 09:00 05/07/16 08:59 04/10/16 09:26 Hydrocortisone (Solu-CORTEF) 100 mg DAILY IV 04/07/16 09:00 05/07/16 08:59 04/10/16 09:26 Morphine Sulfate (Morphine Sulfate) 4 mg Q4H PRN IVP For Severe Pain 04/07/16 06:30 04/14/16 06:29 04/10/16 09:27 Nitroglycerin (Ntg) 0.4 mg Every 5 Minutes PRN SL Prn Chest Pain 04/07/16 03:45 05/07/16 03:44 Ondansetron HCl (Zofran) 4 mg Q6H PRN IVP Nausea & Vomiting 04/07/16 06:00 05/07/16 05:59 Pantoprazole (Protonix) 40 mg EVERY 12 HOURS ORAL 04/07/16 09:00 05/07/16 08:59 04/10/16 09:26 Patient Own Medication (Patient's Own Med) 1 ea DAILY ORAL 04/07/16 09:00 05/07/16 08:59 04/10/16 09:25 Patient Own Medication (Patient's Own Med) 1 ea DAILY ORAL 04/07/16 09:00 05/07/16 08:59 04/10/16 09:25 Polyethylene Glycol (Miralax) 17 gm DAILYPRN PRN ORAL Constipation 04/07/16 16:00 05/07/16 15:59 Promethazine HCl/ Codeine (Phenergan with Codeine) 10 ml Q6H PRN ORAL For Cough 04/07/16 08:00 05/07/16 07:59 Temazepam (Restoril) 15 mg HSPRN PRN ORAL Insomnia 04/07/16 21:00 04/14/16 20:59 04/09/16 22:25 SUSAN HERNANDES Apr 10, 2016 10:50
[2016-04-10] MEDS ORDERED: Tubing Blood Filter IV ONE (11:11)
[2016-04-10] MEDS ORDERED: NS 275ml ONE (11:11)
--- NOTE | 2016-04-10 12:16 | Pulmonology Progress Note ---
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 diarrhea, r/o infectious cause - none diffuse LAD r/o infectious vs myeloproliferative disorder s/p bone marrow biopsy s/p biopsy axillary lymph node 04/08 anemia pancytopenia acute renal failure, multifactorial ( sepsis, HIV , Vanco): Pre Renal superimposed on Renal electrolyte imbalance HIV disease splenomegaly with HIV infection Kaposi sarcoma PLAN OF CARE [facility] floor abx, ID follows urine, blood cx, sputum cx, stool cx, stool OP all negative, fungal serology negative: bone marrow + Staph epidermidis, contamination per ID sputum AFB x 3, negative, TB test negative off isolation s/p blood transfusion (PRBC and PLT) ; monitor counts stool OB x 3 negative peripheral blood smear review: no blasts, no platelets aggregation, no change in morphology of PRBC CT chest showed multiple nodules and interstitial lung disease , predominantly upper lobe ? lymphocytic interstitial pneumonitis O2 prn respiratory treatment CT abdomen with evidence of extensive lymphadenopathy fup with BM biopsy results nephro follows no change in renal parameters ARF presumably multifactorial due to sepsis, high Vanco level, HIV disease monitor renal parameters, lytes, Vanco resumed, closely monitor levels avoid nephrotoxic stress dose steroids, decrease to q12 electrolytes management as per nephro CD4 - 376 latest, continue HAART therapy as per ID management GI follows EGD and colon when stable PPI pain management antiemetic prn prognosis poor code status changed to DNR/DNI had a long discussion on 04/09 with mother and family friends and relatives, opting for hospice services will likely need oxygen when discharged case discussed and evaluated by supervising physician Subjective Allergies: Coded Allergies: No Known Allergies (Unverified , 03/16/16) Subjective afebrile for 24 hrs, HH up after another blood transfusion on 04/09 no chest pain, no SOB cough dry, no hemoptysis, no wheezing s/p biopsy LN 04/08 as ordered by onco episode of SOB last night, O2 sat was 88%, placed on supplemetnal O2 DNR status now Objective Last 24 Hour Vital Signs Date Time Temp Pulse Resp B/P Pulse Ox O2 Delivery O2 Flow Rate FiO2 04/10/16 07:54 99.0 133 22 105/60 100 Room Air 04/10/16 04:00 98.6 121 22 101/55 96 Nasal Cannula 2.0 04/10/16 01:25 98.4 04/10/16 00:00 98.2 120 20 90/44 96 Nasal Cannula 2.0 04/09/16 20:00 98.4 119 18 98/60 97 Nasal Cannula 2.0 04/09/16 18:36 97 Nasal Cannula 2.0 28 04/09/16 18:36 Nasal Cannula 2.0 28 04/09/16 18:36 118 20 Nasal Cannula 2.0 28 04/09/16 16:11 98.4 115 18 107/69 97 Nasal Cannula 2.0 Intake and Output 04/09/16 04/10/16 19:00 07:00 Intake Total 630 ml 350 ml Output Total 400 ml Balance 630 ml -50 ml Intake Oral 630 ml 350 ml Output Urine Total 400 ml # Voids 4 3 # Bowel Movements 3 Objective General Appearance: no acute distress HEENT: normocephalic, atraumatic, anicteric, PERRL Respiratory/Chest: lungs clear with moderate air entry , no respiratory distress, no accessory muscle use Cardiovascular: normal rate, regular rhythm, no JVD Abdomen: soft, non tender, non distended Genitourinary: normal external genitalia Skin: rash - diffused purple spots of Kaposi sarcoma 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: no motor/sensory deficits, alert, oriented x 3, responsive Musculoskeletal: normal muscle bulk Microbiology Date/Time Source Procedure Growth Status 04/09/16 06:30 Sputum Expectorated Gram Stain - Final Resulted 04/09/16 06:30 Sputum Expectorated Sputum Culture - Preliminary NO GROWTH Resulted Laboratory Tests 04/10/16 04:50: White Blood Count 3.7L, Red Blood Count 2.80L, Hemoglobin 8.4L, Hematocrit 25.2L , Mean Corpuscular Volume 90, Mean Corpuscular Hemoglobin 30.1, Mean Corpuscular Hemoglobin Concent 33.5, Red Cell Distribution Width 14.7, Platelet Count 24L, Mean Platelet Volume 14.3H, Neutrophils (%) (Auto) , Lymphocytes (%) (Auto) , Monocytes (%) (Auto) , Eosinophils (%) (Auto) , Basophils (%) (Auto) , Differential Total Cells Counted 100, Neutrophils % (Manual) 75, Lymphocytes % ( Manual) 18L, Monocytes % (Manual) 7, Eosinophils % (Manual) 0, Basophils % ( Manual) 0, Band Neutrophils 0, Platelet Estimate DecreasedL, Platelet Morphology Normal, Hypochromasia 3+, Anisocytosis 1+, Sodium Level 136, Potassium Level 4.6, Chloride Level 94L, Carbon Dioxide Level 32H, Anion Gap 10 , Blood Urea Nitrogen 45H, Creatinine 1.5H, Estimat Glomerular Filtration Rate 48.6, Glucose Level 128H, Calcium Level 8.2L Current Medications Medications (Trade) Dose Ordered Sig/Godwin Route PRN Reason Start Time Stop Time Status Last Admin Dose Admin Acetaminophen (Tylenol) 650 mg Q4H PRN ORAL fever 04/07/16 04:00 05/07/16 03:59 04/08/16 20:50 Albuterol/ Ipratropium (DuoNeb 0.5-3(2.5)mg/3ml) 3 ml Q4HRT PRN HHN Shortness of Breath 04/07/16 07:00 04/12/16 06:59 04/10/16 08:04 Alprazolam (Xanax) 1 mg Q4H PRN ORAL For Anxiety 04/07/16 04:00 04/14/16 03:59 04/10/16 11:25 Atovaquone (Mepron Susp) 1,500 mg DAILY ORAL 04/07/16 09:00 05/07/16 08:59 04/10/16 09:26 Azithromycin (Zithromax) 1,200 mg Fr@1200 ORAL 04/08/16 12:00 04/15/16 11:59 04/08/16 14:43 Chlorpromazine (Thorazine) 25 mg Q6H PRN IM HICCUPS 04/07/16 04:00 05/07/16 03:59 04/07/16 16:16 Epoetin Suresh (Procrit (for non ESRD use)) 3,000 units MON-WED-MON SUBQ 04/08/16 21:00 05/08/16 20:59 04/08/16 20:52 Escitalopram Oxalate (Lexapro) 10 mg DAILY ORAL 04/07/16 09:00 05/07/16 08:59 04/10/16 09:26 Hydrocortisone (Solu-CORTEF) 100 mg DAILY IV 04/07/16 09:00 05/07/16 08:59 04/10/16 09:26 Morphine Sulfate (Morphine Sulfate) 4 mg Q4H PRN IVP For Severe Pain 04/07/16 06:30 04/14/16 06:29 04/10/16 09:27 Nitroglycerin (Ntg) 0.4 mg Every 5 Minutes PRN SL Prn Chest Pain 04/07/16 03:45 05/07/16 03:44 Ondansetron HCl (Zofran) 4 mg Q6H PRN IVP Nausea & Vomiting 04/07/16 06:00 05/07/16 05:59 Pantoprazole (Protonix) 40 mg EVERY 12 HOURS ORAL 04/07/16 09:00 05/07/16 08:59 04/10/16 09:26 Patient Own Medication (Patient's Own Med) 1 ea DAILY ORAL 04/07/16 09:00 05/07/16 08:59 04/10/16 09:25 Patient Own Medication (Patient's Own Med) 1 ea DAILY ORAL 04/07/16 09:00 05/07/16 08:59 04/10/16 09:25 Polyethylene Glycol (Miralax) 17 gm DAILYPRN PRN ORAL Constipation 04/07/16 16:00 05/07/16 15:59 Promethazine HCl/ Codeine (Phenergan with Codeine) 10 ml Q6H PRN ORAL For Cough 04/07/16 08:00 05/07/16 07:59 Temazepam (Restoril) 15 mg HSPRN PRN ORAL Insomnia 04/07/16 21:00 04/14/16 20:59 04/09/16 22:25 Leighton RendonArnot Ogden Medical CenterMadhuri Verde NP Apr 10, 2016 12:16
[2016-04-10 12:29] VITALS: BP 101/57
--- NOTE | 2016-04-10 12:51 | General Progress Note ---
Assessment/Plan Status: deteriorating - from overall stand point Assessment/Plan Acute renal failure, multifactorial ( sepsis, HIV , Vanco...) PreRenal superimposed on Renal HypoNatremia Cr 2.8 down to 1.5 PanCytopenia Sepsis, Diarrhea, HIV , Kaposi's Pneumonia Hypocalcemia, electrolyte imbalance Anemia in chronic illness, symptomatic Hypokalemia on admit now K elevated JF (acute kidney injury) Thrombocytopenia, massive splenomegali CAP (community acquired pneumonia) Plan: per consultants protonix po Antibiotics per ID Urine studies- noted Monitor renal parameters and lytes- Avoid Nephrotoxics Monitor 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 Subjective ROS Limited/Unobtainable: No Constitutional: Reports: malaise, weakness Allergies: Coded Allergies: No Known Allergies (Unverified , 03/16/16) Objective Last 24 Hour Vital Signs Date Time Temp Pulse Resp B/P Pulse Ox O2 Delivery O2 Flow Rate FiO2 04/10/16 12:29 97.7 114 20 101/57 93 Room Air 04/10/16 07:54 99.0 133 22 105/60 100 Room Air 04/10/16 04:00 98.6 121 22 101/55 96 Nasal Cannula 2.0 04/10/16 01:25 98.4 04/10/16 00:00 98.2 120 20 90/44 96 Nasal Cannula 2.0 04/09/16 20:00 98.4 119 18 98/60 97 Nasal Cannula 2.0 04/09/16 18:36 97 Nasal Cannula 2.0 28 04/09/16 18:36 Nasal Cannula 2.0 28 04/09/16 18:36 118 20 Nasal Cannula 2.0 28 04/09/16 16:11 98.4 115 18 107/69 97 Nasal Cannula 2.0 Intake and Output 04/09/16 04/10/16 19:00 07:00 Intake Total 630 ml 350 ml Output Total 400 ml Balance 630 ml -50 ml Intake Oral 630 ml 350 ml Output Urine Total 400 ml # Voids 4 3 # Bowel Movements 3 Laboratory Tests 04/10/16 04:50: White Blood Count 3.7L, Red Blood Count 2.80L, Hemoglobin 8.4L, Hematocrit 25.2L , Mean Corpuscular Volume 90, Mean Corpuscular Hemoglobin 30.1, Mean Corpuscular Hemoglobin Concent 33.5, Red Cell Distribution Width 14.7, Platelet Count 24L, Mean Platelet Volume 14.3H, Neutrophils (%) (Auto) , Lymphocytes (%) (Auto) , Monocytes (%) (Auto) , Eosinophils (%) (Auto) , Basophils (%) (Auto) , Differential Total Cells Counted 100, Neutrophils % (Manual) 75, Lymphocytes % ( Manual) 18L, Monocytes % (Manual) 7, Eosinophils % (Manual) 0, Basophils % ( Manual) 0, Band Neutrophils 0, Platelet Estimate DecreasedL, Platelet Morphology Normal, Hypochromasia 3+, Anisocytosis 1+, Sodium Level 136, Potassium Level 4.6, Chloride Level 94L, Carbon Dioxide Level 32H, Anion Gap 10 , Blood Urea Nitrogen 45H, Creatinine 1.5H, Estimat Glomerular Filtration Rate 48.6, Glucose Level 128H, Calcium Level 8.2L Height (Feet): 5 Height (Inches): 10.00 Weight (Pounds): 165 General Appearance: lethargic, confused Cardiovascular: tachycardia Respiratory/Chest: decreased breath sounds Abdomen: distended Objective other PE not changed DEREK SMITH 5, 2017 12:51
[2016-04-10 16:00] VITALS: BP 101/63
[2016-04-10 19:00] VITALS: BP 103/60
[2016-04-11] VITALS: BP 98/58
[2016-04-11 04:00] VITALS: BP 100/56
[2016-04-11 08:00] VITALS: BP 95/58
--- NOTE | 2016-04-11 09:32 | Infectious Diseases Prog Note ---
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 Multiple sub-5 mm parenchymal nodules seen throughout the left lung. Bilateral basilar pulmonary parenchymal atelectatic changes and possibly some consolidation. Small bilateral pleural effusions - negative/WNL: CMV PCR, LDH, CrAg, blastomyces, histoplasma, ( coccidioides indeterminant ) // Diffuse LAD ? Etio , due to HIV s/p biopsy axillary lymph node 04/08 - SP BMBx: mild-mod fibrosis, granulomatous inflammation. AFB, fungal stains (-) - CT: Extensive thoracic, abdominal, and pelvic lymphadenopathy // HIV / AIDS, on cART ( recently changed to prezcobix, tivicay d/t genotype ) - CD4 29 // Kaposi sarcoma // Pancytopenia - SP BMBx: mild-mod fibrosis, granulomatous inflammation. AFB, fungal stains (-) - negative/WNL: LDH, ARMIDA, CrAg, Parvovirus IgM, blastomyces, histoplasma, T- SPOT ( coccidioides indeterminant ) // ARF - overall improved, stable // Massive splenomegaly // Thrombocytopenia // Anxiety // Elevated ESR // NKDA // Full Code PLAN: - monitor pt off of ABX ( 03/26 SP IV vancomycin, cefepime d# ) - continue cART ( prezcobix, tivicay - ok for pt to take own meds ), changed bactrim prophy to Mepron given cytopenias , and Zithromax ( MAC prophylaxis ) - f/u AFB BCx, sputum AFB Cx, - monitor CBC, temperatures - monitor BMP - transfuse prn - LN Bx :Path - HIV VL DW PCP Subjective Constitutional: Denies: anorexia, chills, drenching sweats, fatigue, fever, no symptoms, other Allergies: Coded Allergies: No Known Allergies (Unverified , 03/16/16) Objective Vital Signs Last 24 Hour Vital Signs Date Time Temp Pulse Resp B/P Pulse Ox O2 Delivery O2 Flow Rate FiO2 04/11/16 08:00 97.5 110 20 95/58 98 Venturi Mask 04/11/16 04:00 98.0 120 19 100/56 92 Room Air 04/11/16 00:22 96.8 04/11/16 00:00 98.2 122 20 98/58 93 Simple Mask 2.0 04/10/16 19:00 96.8 89 20 103/60 95 Room Air 04/10/16 19:00 Nasal Cannula 2.0 28 04/10/16 19:00 95 Nasal Cannula 2.0 28 04/10/16 19:00 101 21 Nasal Cannula 2.0 28 04/10/16 16:00 97.7 94 20 101/63 94 Room Air 04/10/16 12:29 97.7 114 20 101/57 93 Room Air Height (Feet): 5 Height (Inches): 10.00 Weight (Pounds): 165 HEENT: atraumatic Respiratory/Chest: lungs clear Cardiovascular: regular rhythm Abdomen: no organomegaly Microbiology Date/Time Source Procedure Growth Status 04/09/16 06:30 Sputum Expectorated Gram Stain - Final Complete 04/09/16 06:30 Sputum Culture - Final Millicent Albicans Complete Laboratory Tests Test 04/10/16 22:00 Urine Hemosiderin Pending Current Medications Medications (Trade) Dose Ordered Sig/Godwin Route PRN Reason Start Time Stop Time Status Last Admin Dose Admin Acetaminophen (Tylenol) 650 mg Q4H PRN ORAL fever 04/07/16 04:00 05/07/16 03:59 04/08/16 20:50 Albuterol/ Ipratropium (DuoNeb 0.5-3(2.5)mg/3ml) 3 ml Q4HRT PRN HHN Shortness of Breath 04/07/16 07:00 04/12/16 06:59 04/10/16 08:04 Alprazolam (Xanax) 1 mg Q4H PRN ORAL For Anxiety 04/07/16 04:00 04/14/16 03:59 04/10/16 20:24 Atovaquone (Mepron Susp) 1,500 mg DAILY ORAL 04/07/16 09:00 05/07/16 08:59 04/10/16 09:26 Azithromycin (Zithromax) 1,200 mg Fr@1200 ORAL 04/08/16 12:00 04/15/16 11:59 04/08/16 14:43 Chlorpromazine (Thorazine) 25 mg Q6H PRN IM HICCUPS 04/07/16 04:00 05/07/16 03:59 04/07/16 16:16 Epoetin Suresh (Procrit (for non ESRD use)) 3,000 units MON-MON-MON SUBQ 04/08/16 21:00 05/08/16 20:59 04/08/16 20:52 Escitalopram Oxalate (Lexapro) 10 mg DAILY ORAL 04/07/16 09:00 05/07/16 08:59 04/10/16 09:26 Hydrocortisone (Solu-CORTEF) 100 mg DAILY IV 04/07/16 09:00 05/07/16 08:59 04/10/16 09:26 Morphine Sulfate (Morphine Sulfate) 4 mg Q4H PRN IVP For Severe Pain 04/07/16 06:30 04/14/16 06:29 04/10/16 23:52 Nitroglycerin (Ntg) 0.4 mg Every 5 Minutes PRN SL Prn Chest Pain 04/07/16 03:45 05/07/16 03:44 Ondansetron HCl (Zofran) 4 mg Q6H PRN IVP Nausea & Vomiting 04/07/16 06:00 05/07/16 05:59 Pantoprazole (Protonix) 40 mg EVERY 12 HOURS ORAL 04/07/16 09:00 05/07/16 08:59 04/10/16 20:25 Patient Own Medication (Patient's Own Med) 1 ea DAILY ORAL 04/07/16 09:00 05/07/16 08:59 04/10/16 09:25 Patient Own Medication (Patient's Own Med) 1 ea DAILY ORAL 04/07/16 09:00 05/07/16 08:59 04/10/16 09:25 Polyethylene Glycol (Miralax) 17 gm DAILYPRN PRN ORAL Constipation 04/07/16 16:00 05/07/16 15:59 Promethazine HCl/ Codeine (Phenergan with Codeine) 10 ml Q6H PRN ORAL For Cough 04/07/16 08:00 05/07/16 07:59 Temazepam (Restoril) 15 mg HSPRN PRN ORAL Insomnia 04/07/16 21:00 04/14/16 20:59 04/09/16 22:25 DANIEL GODINEZ M.D. Apr 11, 2016 09:32
[2016-04-11] MEDS: PREZCOBIX ORAL SCH (10:09)
[2016-04-11] MEDS: Atovaquone 750mg/5ml Susp ORAL SCH (10:09)
[2016-04-11] MEDS: Hydrocortisone 100mg Inj IV SCH (10:09)
--- NOTE | 2016-04-11 11:18 | General Progress Note ---
Assessment/Plan Assessment/Plan ASSESSMENT: 1. Pancytopenia. The patient is status post bone marrow biopsy, which shows no evidence of blasts or myelodysplasia (FISH Panel is negative). It does show a hypercellular marrow concerning for patchy [id number] fibrosis with degeneration, he is with a history of HIV as well, has no evidence of lymphoma on the biopsy. Iron stores are decreased on biopsy but ferritin overall is elevated. AFB and Gram GMS stain show no acid-fast bacilli and no fungal organisms. Patient has marked splenomegaly. Has extensive lymphadenopathy on CAT scan as well, will consider to biopsy one of the lymph nodes. Unlikely has ITP and does not have MDS. The patient does not have any evidence that displays primary myofibrosis. Could be hiv related. Thus overall, likely this is a secondary process to a underlying process. inguinal bx pending but prelim result is nonspecific and does not show anat malignancy 2. Anemia secondary to chronic disease. His erythrocyte sedimentation rate is severely elevated. Reticulocyte count is low. Ferritin is elevated and TIBC lower. Has issue with iron sequestration/utilization 3. 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 Leukopenia secondary to likely splenomegaly versus sepsis. 5. Thrombocytopenia, concerning for underlying infection versus splenomegaly, also can be 2/2 to above process, will obtain biopsy of LN. Does not have DIC 6. Splenomegaly, noted on ultrasound. 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 Hematoma of spleen RECOMMENDATIONS: 1. Left inguinal biopsy report preliminary does not show malignancy or infection , rest of specimen will send to [facility] and final report to follow shortly (at the latest by Monday) 2. Does not have DIC, have reviewed labs 3. Hgb goal is >7 and plt goal >10k or >20k if febrile 4. Continue epogen. Does not need iron (have reviewed marrow results as well) 6. Appreciate ID and pulm followup 7. Agree at this time with hospice/palliative care given lack of diagnosis and extensive workup thus far Thank you, Kareem Trimble MD Subjective Constitutional: Reports: no symptoms HEENT: Reports: no symptoms Cardiovascular: Reports: no symptoms Respiratory: Reports: no symptoms Gastrointestinal/Abdominal: Reports: no symptoms Genitourinary: Reports: no symptoms 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: Reports: no symptoms Endocrine: Reports: no symptoms Hematologic/Lymphatic: Reports: anemia Allergies: Coded Allergies: No Known Allergies (Unverified , 03/16/16) Subjective stable, no complaints today, family is in the room today, and want to know goals of care Objective Last 24 Hour Vital Signs Date Time Temp Pulse Resp B/P Pulse Ox O2 Delivery O2 Flow Rate FiO2 04/11/16 08:00 97.5 110 20 95/58 98 Venturi Mask 04/11/16 04:00 98.0 120 19 100/56 92 Room Air 04/11/16 00:22 96.8 04/11/16 00:00 98.2 122 20 98/58 93 Simple Mask 2.0 04/10/16 19:00 96.8 89 20 103/60 95 Room Air 04/10/16 19:00 Nasal Cannula 2.0 28 04/10/16 19:00 95 Nasal Cannula 2.0 28 04/10/16 19:00 101 21 Nasal Cannula 2.0 28 04/10/16 16:00 97.7 94 20 101/63 94 Room Air 04/10/16 12:29 97.7 114 20 101/57 93 Room Air Intake and Output 04/10/16 04/11/16 19:00 07:00 Intake Total 1000 ml 565 ml Balance 1000 ml 565 ml Intake Oral 1000 ml 565 ml # Voids 5 # Bowel Movements 4 Laboratory Tests 04/10/16 22:00: Urine Hemosiderin [Pending] Height (Feet): 5 Height (Inches): 10.00 Weight (Pounds): 165 General Appearance: no apparent distress EENT: normal ENT inspection Neck: normal inspection Cardiovascular: regular rhythm Respiratory/Chest: normal breath sounds Abdomen: non tender Extremities: non-tender Edema: 1+ Leg (L), 1+ Leg (R) Neurologic: alert Skin: warm/dry Kareem Trimble Apr 11, 2016 11:18
[2016-04-11 12:04] VITALS: BP 99/52
--- NOTE | 2016-04-11 14:32 | GI Progress Note ---
Assessment/Plan Problems: (1) Diarrhea ICD Codes: R19.7 - Diarrhea, unspecified SNOMED: 69795704 (2) Splenomegaly with HIV infection ICD Codes: B20 - Human immunodeficiency virus [HIV] disease; R16.1 - Splenomegaly, not elsewhere classified SNOMED: 346085983 (3) Anemia ICD Codes: D64.9 - Anemia, unspecified SNOMED: 205488874 Qualifiers: Qualified Codes: D64.9 - Anemia, unspecified (4) Thrombocytopenia ICD Codes: D69.6 - Thrombocytopenia, unspecified SNOMED: 840977496 (5) HIV disease ICD Codes: B20 - Human immunodeficiency virus [HIV] disease SNOMED: 04909221 (6) Episode of generalized weakness ICD Codes: R53.1 - Weakness SNOMED: 63916381 Status: unchanged Status Narrative Discussed with Dr. Epps. Assessment/Plan Assessment - Anemia - Thrombocytopenia - HIV - Diarrhea >> cdiff negative - s/p bone biopsy >> GRAM STAIN RESULTS. RARE WHITE BLOOD CELLS. NO ORGANISMS SEEN. - Stool w.u >> negative - O&P negative - OB stool negative x 3 - fu repeat OB stool >> negative - airborne isolation off - APCT r/o retroperitoneal bleed >> negative for hematoma - repeat iron levels >> WNL Recommendations - fu Hematology consult - monitor H&H, transfuse prn - ppi - fu labs Subjective Subjective denies any abdominal pain/diarrhea/constipation fatigue eating well Objective Last 24 Hour Vital Signs Date Time Temp Pulse Resp B/P Pulse Ox O2 Delivery O2 Flow Rate FiO2 04/11/16 12:04 97.0 105 19 99/52 95 Nasal Cannula 2.0 04/11/16 08:00 97.5 110 20 95/58 98 Venturi Mask 04/11/16 06:30 Room Air 2.0 28 04/11/16 06:30 94 Nasal Cannula 2.0 28 04/11/16 06:30 120 19 Room Air 2.0 28 04/11/16 04:00 98.0 120 19 100/56 92 Room Air 04/11/16 00:22 96.8 04/11/16 00:00 98.2 122 20 98/58 93 Simple Mask 2.0 04/10/16 19:00 96.8 89 20 103/60 95 Room Air 04/10/16 19:00 Nasal Cannula 2.0 28 04/10/16 19:00 95 Nasal Cannula 2.0 28 04/10/16 19:00 101 21 Nasal Cannula 2.0 28 04/10/16 16:00 97.7 94 20 101/63 94 Room Air Intake and Output 04/10/16 04/11/16 19:00 07:00 Intake Total 1000 ml 565 ml Balance 1000 ml 565 ml Intake Oral 1000 ml 565 ml # Voids 5 # Bowel Movements 4 Laboratory Tests Test 04/10/16 22:00 Urine Hemosiderin Pending Height (Feet): 5 Height (Inches): 10.00 Weight (Pounds): 165 General Appearance: no apparent distress, alert, thin Cardiovascular: normal rate Respiratory/Chest: no respiratory distress Abdominal Exam: soft Extremities: normal range of motion Objective Procedure: CT Abdomen Pelvis WO Contrast Indications: New splenic lesion on CT thorax performed earlier today, requiring further evaluation Comparison: Contrast-enhanced CT scan the thorax 04/07/2016; noncontrast CT abdomen pelvis 03/31/16 Circumscribed, multilobulated focus of heterogeneously decreased attenuation is again noted in the lateral aspect of the spleen, less well demonstrated than on earlier contrast enhanced CT scan. It measures approximately 9.5 x 4 cm in cross-sectional diameter. It cannot be adequately measured in AP dimension. The spleen has overall increased in size, currently measuring 16 x 12 x 22 cm. No obvious additional focal chronic again noted are abnormality demonstrated. Again noted are multiple enlarged lymph nodes in the peripancreatic and para-aortic regions of the retroperitoneum and in the left inguinal region, mild ascites, apparent mild mural thickening of urinary bladder wall, degenerative and surgical changes in the lumbar spine, unchanged. Remainder visualized abdominopelvic anatomy demonstrates no other obvious acute abnormality. Pericardial and small bilateral pleural effusions, linear and patchy alveolar opacities in the dependent portions both lung bases again noted. IMPRESSION: Decreased conspicuity of new splenic lesion compared to earlier contrast- enhanced CT thorax, limiting evaluation, most likely hematoma, less likely infarct. Overall increase in splenic size compared to 03/31/16 Stable multifocal lymphadenopathy, inflammatory versus neoplastic Stable mild ascites Increase in pericardial of development of bilateral pleural effusions since 03/31 Development of pulmonary bibasal atelectasis versus pneumonia since 03/31/16 Other stable chronic changes as described Procedure: CT CHEST Abdomen Pelvis WO Con Indication: ABN LABS Impression: Splenomegaly Extensive thoracic, abdominal, and pelvic lymphadenopathy, as detailed above. This is nonspecific, likely related to stated clinical history of HIV. May indicate reactive, inflammatory, infectious adenopathy, or a lymphoproliferative disorder. Correlate with clinical history and findings Evidence of predominantly upper lobe pulmonary interstitial disease, as described, predominant findings being interstitial septal thickening and bronchial wall thickening. While the differential for this is quite broad, given the history of HIV positivity the possibility of lymphocytic interstitial pneumonitis should be considered Multiple sub-5 mm parenchymal nodules seen throughout the left lung. Possibly related to the above. If there are significant risk factors for lung carcinoma, however, short interval followup CT at 6-12 months should be considered. Bilateral basilar pulmonary parenchymal atelectatic changes and possibly some consolidation Small bilateral pleural effusions Nonspecific bilateral perinephric fat stranding Genesis Keller N.P. Apr 11, 2016 14:32
[2016-04-11] MEDS: Morphine Sulfate 4mg/ml Inj IVP PRN (14:58)
--- NOTE | 2016-04-11 14:58 | General Progress Note ---
Assessment/Plan Status: unchanged, deteriorating Assessment/Plan Acute renal failure, multifactorial ( sepsis, HIV , Vanco...) PreRenal superimposed on Renal HypoNatremia Cr 2.8 down to 1.5 PanCytopenia Sepsis, Diarrhea, HIV , Kaposi's Pneumonia Hypocalcemia, electrolyte imbalance Anemia in chronic illness, symptomatic Hypokalemia on admit now K elevated JF (acute kidney injury) Thrombocytopenia, massive splenomegali CAP (community acquired pneumonia) Plan: No new labs today- per consultants protonix po Antibiotics per ID Urine studies- noted Monitor renal parameters and lytes- Avoid Nephrotoxics Monitor Urine out put skilled nursing plan ??? Subjective ROS Limited/Unobtainable: No Constitutional: Reports: malaise, weakness Allergies: Coded Allergies: No Known Allergies (Unverified , 03/16/16) Objective Last 24 Hour Vital Signs Date Time Temp Pulse Resp B/P Pulse Ox O2 Delivery O2 Flow Rate FiO2 04/11/16 12:04 97.0 105 19 99/52 95 Nasal Cannula 2.0 04/11/16 08:00 97.5 110 20 95/58 98 Venturi Mask 04/11/16 06:30 Room Air 2.0 28 04/11/16 06:30 94 Nasal Cannula 2.0 28 04/11/16 06:30 120 19 Room Air 2.0 28 04/11/16 04:00 98.0 120 19 100/56 92 Room Air 04/11/16 00:22 96.8 04/11/16 00:00 98.2 122 20 98/58 93 Simple Mask 2.0 04/10/16 19:00 96.8 89 20 103/60 95 Room Air 04/10/16 19:00 Nasal Cannula 2.0 28 04/10/16 19:00 95 Nasal Cannula 2.0 28 04/10/16 19:00 101 21 Nasal Cannula 2.0 28 04/10/16 16:00 97.7 94 20 101/63 94 Room Air Intake and Output 04/10/16 04/11/16 19:00 07:00 Intake Total 1000 ml 565 ml Balance 1000 ml 565 ml Intake Oral 1000 ml 565 ml # Voids 5 # Bowel Movements 4 Laboratory Tests 04/10/16 22:00: Urine Hemosiderin [Pending] Height (Feet): 5 Height (Inches): 10.00 Weight (Pounds): 165 General Appearance: lethargic Cardiovascular: tachycardia Respiratory/Chest: decreased breath sounds Objective other PE not changed DEREK SMITH Apr 11, 2016 14:58
[2016-04-11 16:00] VITALS: BP 99/59
[2016-04-11] MEDS: ALPRAZolam 0.5mg tab ORAL PRN (16:16)
--- NOTE | 2016-04-11 17:52 | Pulmonology Progress Note ---
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 . Subjective Allergies: Coded Allergies: No Known Allergies (Unverified , 03/16/16) Objective Last 24 Hour Vital Signs Date Time Temp Pulse Resp B/P Pulse Ox O2 Delivery O2 Flow Rate FiO2 04/11/16 16:16 97.0 04/11/16 16:00 99.5 104 14 99/59 97 Room Air 04/11/16 12:04 97.0 105 19 99/52 95 Nasal Cannula 2.0 04/11/16 08:00 97.5 110 20 95/58 98 Venturi Mask 04/11/16 06:30 Room Air 2.0 28 04/11/16 06:30 94 Nasal Cannula 2.0 28 04/11/16 06:30 120 19 Room Air 2.0 28 04/11/16 04:00 98.0 120 19 100/56 92 Room Air 04/11/16 00:00 98.2 122 20 98/58 93 Simple Mask 2.0 04/10/16 19:00 96.8 89 20 103/60 95 Room Air 04/10/16 19:00 Nasal Cannula 2.0 28 04/10/16 19:00 95 Nasal Cannula 2.0 28 04/10/16 19:00 101 21 Nasal Cannula 2.0 28 Intake and Output 04/10/16 04/11/16 19:00 07:00 Intake Total 1000 ml 565 ml Balance 1000 ml 565 ml Intake Oral 1000 ml 565 ml # Voids 5 # Bowel Movements 4 Objective General Appearance: WD/WN Lines, tubes and drains: peripheral HEENT: normocephalic, atraumatic Neck: non-tender, normal alignment Respiratory/Chest: chest wall non-tender, rhonchi - left, rhonchi - right Cardiovascular/Chest: normal peripheral pulses, normal rate Abdomen: normal bowel sounds, non tender Genitourinary/Rectal: normal genital exam Extremities: normal range of motion, non-tender, normal inspection, no calf tenderness, normal capillary refill Skin Exam: normal pigmentation 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 Microbiology Date/Time Source Procedure Growth Status 04/09/16 06:30 Sputum Expectorated Gram Stain - Final Complete 04/09/16 06:30 Sputum Culture - Final Millicent Albicans Complete Laboratory Tests 04/10/16 22:00: Urine Hemosiderin [Pending] Current Medications Medications (Trade) Dose Ordered Sig/Godwin Route PRN Reason Start Time Stop Time Status Last Admin Dose Admin Acetaminophen (Tylenol) 650 mg Q4H PRN ORAL fever 04/07/16 04:00 05/07/16 03:59 04/08/16 20:50 Albuterol/ Ipratropium (DuoNeb 0.5-3(2.5)mg/3ml) 3 ml Q4HRT PRN HHN Shortness of Breath 04/07/16 07:00 04/12/16 06:59 04/10/16 08:04 Alprazolam (Xanax) 1 mg Q4H PRN ORAL For Anxiety 04/07/16 04:00 04/14/16 03:59 04/11/16 16:16 Atovaquone (Mepron Susp) 1,500 mg DAILY ORAL 04/07/16 09:00 05/07/16 08:59 04/11/16 10:09 Azithromycin (Zithromax) 1,200 mg Fr@1200 ORAL 04/08/16 12:00 04/15/16 11:59 04/08/16 14:43 Chlorpromazine (Thorazine) 25 mg Q6H PRN IM HICCUPS 04/07/16 04:00 05/07/16 03:59 04/07/16 16:16 Epoetin Suresh (Procrit (for non ESRD use)) 3,000 units MON-WED-MON SUBQ 04/08/16 21:00 05/08/16 20:59 04/08/16 20:52 Escitalopram Oxalate (Lexapro) 10 mg DAILY ORAL 04/07/16 09:00 05/07/16 08:59 04/11/16 10:09 Hydrocortisone (Solu-CORTEF) 100 mg DAILY IV 04/07/16 09:00 05/07/16 08:59 04/11/16 10:09 Morphine Sulfate (Morphine Sulfate) 4 mg Q4H PRN IVP For Severe Pain 04/07/16 06:30 04/14/16 06:29 04/11/16 14:58 Nitroglycerin (Ntg) 0.4 mg Every 5 Minutes PRN SL Prn Chest Pain 04/07/16 03:45 05/07/16 03:44 Ondansetron HCl (Zofran) 4 mg Q6H PRN IVP Nausea & Vomiting 04/07/16 06:00 05/07/16 05:59 Pantoprazole (Protonix) 40 mg EVERY 12 HOURS ORAL 04/07/16 09:00 05/07/16 08:59 04/11/16 10:10 Patient Own Medication (Patient's Own Med) 1 ea DAILY ORAL 04/07/16 09:00 05/07/16 08:59 04/11/16 10:09 Patient Own Medication (Patient's Own Med) 1 ea DAILY ORAL 04/07/16 09:00 05/07/16 08:59 04/11/16 10:09 Polyethylene Glycol (Miralax) 17 gm DAILYPRN PRN ORAL Constipation 04/07/16 16:00 05/07/16 15:59 Promethazine HCl/ Codeine (Phenergan with Codeine) 10 ml Q6H PRN ORAL For Cough 04/07/16 08:00 05/07/16 07:59 Temazepam (Restoril) 15 mg HSPRN PRN ORAL Insomnia 04/07/16 21:00 04/14/16 20:59 04/09/16 22:25 MARIA ISABEL SZYMANSKI Apr 11, 2016 17:51
[2016-04-11] MEDS ORDERED: PCA Morphine 1mg/ml 30 ML IV PRN (18:30)
[2016-04-11] MEDS: PCA Morphine 1mg/ml 30 ML IV PRN (19:14)
[2016-04-11 20:00] VITALS: BP 101/56
[2016-04-12] VITALS: BP 97/56
[2016-04-12] MEDS: PCA Morphine 1mg/ml 30 ML IV PRN ×2 (01:59→08:41)
[2016-04-12 04:00] VITALS: BP 101/59
[2016-04-12] MEDS ORDERED: PCA Morphine 1mg/ml 30 ML IV PRN (11:12)
--- NOTE | 2016-04-12 13:35 | GI Progress Note ---
Assessment/Plan Problems: (1) Diarrhea ICD Codes: R19.7 - Diarrhea, unspecified SNOMED: 55848894 (2) Splenomegaly with HIV infection ICD Codes: B20 - Human immunodeficiency virus [HIV] disease; R16.1 - Splenomegaly, not elsewhere classified SNOMED: 178188003 (3) Anemia ICD Codes: D64.9 - Anemia, unspecified SNOMED: 486495295 Qualifiers: Qualified Codes: D64.9 - Anemia, unspecified (4) Thrombocytopenia ICD Codes: D69.6 - Thrombocytopenia, unspecified SNOMED: 748973577 (5) HIV disease ICD Codes: B20 - Human immunodeficiency virus [HIV] disease SNOMED: 27839422 (6) Episode of generalized weakness ICD Codes: R53.1 - Weakness SNOMED: 87196372 Status Narrative Discussed with Dr. Epps. Assessment/Plan pt today Objective Last 24 Hour Vital Signs Date Time Temp Pulse Resp B/P Pulse Ox O2 Delivery O2 Flow Rate FiO2 04/12/16 04:00 98.4 120 18 101/59 90 Room Air 04/12/16 02:30 98.1 04/12/16 00:00 98.1 118 18 97/56 90 Room Air 04/11/16 20:00 119 16 Nasal Cannula 2.0 28 04/11/16 20:00 98.2 119 14 101/56 91 Room Air 04/11/16 20:00 Nasal Cannula 2.0 28 04/11/16 20:00 92 Nasal Cannula 2.0 28 04/11/16 16:16 97.0 04/11/16 16:00 99.5 104 14 99/59 97 Room Air Intake and Output 04/11/16 04/12/16 19:00 07:00 Intake Total 240 ml 495 ml Balance 240 ml 495 ml Intake Oral 240 ml 440 ml IV Total 55 ml # Voids 2 4 Height (Feet): 5 Height (Inches): 10.00 Weight (Pounds): 165 General Appearance: thin Objective Procedure: CT Abdomen Pelvis WO Contrast Indications: New splenic lesion on CT thorax performed earlier today, requiring further evaluation Comparison: Contrast-enhanced CT scan the thorax 04/07/2016; noncontrast CT abdomen pelvis 03/31/16 Circumscribed, multilobulated focus of heterogeneously decreased attenuation is again noted in the lateral aspect of the spleen, less well demonstrated than on earlier contrast enhanced CT scan. It measures approximately 9.5 x 4 cm in cross-sectional diameter. It cannot be adequately measured in AP dimension. The spleen has overall increased in size, currently measuring 16 x 12 x 22 cm. No obvious additional focal chronic again noted are abnormality demonstrated. Again noted are multiple enlarged lymph nodes in the peripancreatic and para-aortic regions of the retroperitoneum and in the left inguinal region, mild ascites, apparent mild mural thickening of urinary bladder wall, degenerative and surgical changes in the lumbar spine, unchanged. Remainder visualized abdominopelvic anatomy demonstrates no other obvious acute abnormality. Pericardial and small bilateral pleural effusions, linear and patchy alveolar opacities in the dependent portions both lung bases again noted. IMPRESSION: Decreased conspicuity of new splenic lesion compared to earlier contrast- enhanced CT thorax, limiting evaluation, most likely hematoma, less likely infarct. Overall increase in splenic size compared to 03/31/16 Stable multifocal lymphadenopathy, inflammatory versus neoplastic Stable mild ascites Increase in pericardial of development of bilateral pleural effusions since 03/31 Development of pulmonary bibasal atelectasis versus pneumonia since 03/31/16 Other stable chronic changes as described Procedure: CT CHEST Abdomen Pelvis WO Con Indication: ABN LABS Impression: Splenomegaly Extensive thoracic, abdominal, and pelvic lymphadenopathy, as detailed above. This is nonspecific, likely related to stated clinical history of HIV. May indicate reactive, inflammatory, infectious adenopathy, or a lymphoproliferative disorder. Correlate with clinical history and findings Evidence of predominantly upper lobe pulmonary interstitial disease, as described, predominant findings being interstitial septal thickening and bronchial wall thickening. While the differential for this is quite broad, given the history of HIV positivity the possibility of lymphocytic interstitial pneumonitis should be considered Multiple sub-5 mm parenchymal nodules seen throughout the left lung. Possibly related to the above. If there are significant risk factors for lung carcinoma, however, short interval followup CT at 6-12 months should be considered. Bilateral basilar pulmonary parenchymal atelectatic changes and possibly some consolidation Small bilateral pleural effusions Nonspecific bilateral perinephric fat stranding Genesis Keller N.P. Apr 12, 2016 13:35
[2016-04-13 09:08] LABS: HIV RNA PCR QUANT 1.699 (.)
--- NOTE | 2016-04-16 10:28 | Discharge Summary ---
Discharge Summary Hospital Course Date of Admission Mar 16, 2016 at 18:55 Date of Discharge Apr 12, 2016 at 11:15 Admitting Diagnosis weakness, anemia GISELL Smith is a 55 year old male who was admitted on Mar 16, 2016 at 18:55 for Weakness, Anemia Hospital Course [id number] Discharge Discharge Disposition Patient Discharge Diagnoses: Marilyn Manriquez NP Apr 16, 2016 10:28
--- NOTE | 2016-04-17 05:29 | Discharge Summary 2 SIG ---
DATE OF ADMISSION: 03/16/2016 DATE OF DISCHARGE: 04/12/2016 CONSULTANTS: 1. Lazaro Lamb M.D 2. Glenn Epps M.D. 3. Kareem Trimble M.D. 4. Thiago Watkins M.D. BRIEF SUMMARY: The patient is an unfortunate 55-year-old male, who initially presented to ED complaining of generalized weakness. He was sent by PMD for evaluation of anemia. He has history of HIV and on evaluation at ED, he was found to have severe anemia and renal failure and was admitted for further care. Renal failure was multifactorial secondary to underlying HIV and infectious process. He was given IV hydration. He was seen by Infectious Disease specialist for evaluation of fever and pancytopenia and was initially started on empiric IV vancomycin and cefepime. He was continued on his HAART treatment and Bactrim was changed to atovaquone secondary to pancytopenia. He had a CT of the chest done, which showed splenomegaly with evidence of interstitial disease in the upper lobe. He was placed on airborne isolation. Sputum AFB was negative x3 and TB spot test was negative. He had persistent anemia requiring 18 units of packed RBC transfusion and was followed by Dr. Trimble. He had a bone marrow biopsy done, which showed no evidence of blasts or myelodysplasia. The FISH panel was negative. No evidence of lymphoma on biopsy. There was extensive lymphadenopathy on CAT scan as well. An inguinal biopsy was done did not show anat malignancy. Per family wishes, the patient was placed on hospice care and was placed on comfort measures. He eventually . FINAL DIAGNOSES: 1. Sepsis. 2. Pneumonia. 3. Acute renal failure. 4. Acute tubular necrosis. 5. Pancytopenia. 6. Human immunodeficiency virus. 7. Kaposi sarcoma. 8. Acute anemia requiring multiple transfusions. 9. Hyponatremia. 10. Hypocalcemia. 11. Coagulopathy secondary to underlying liver disease. 12. Palliative/hospice/comfort care. Rose Marie Helton M.D. I have been assigned to dictate discharge summary on this account and I was not involved in the patient's management. Marilyn Manriquez N.P. DR: Jessica JOB#: [id number] CC: ALONZO
== END 2016-04-12 11:15 | disposition expired | DRG 975 ==
LOC: EDBD 18:07 → EMR 18:15 → 4W 18:55 → EDBEDREQ 19:38 → 2W 03-17 19:27 → 2E 03-19 12:32 → 4E 03-24 11:55 → 2W 04-03 13:00 → 2E 04-04 12:24 → 4W 04-07 03:55
PROC: 07DR3ZX Extraction of Iliac Bone Marrow, Percutaneous Approach, Diagnostic (ICD-10-PCS; principal; 2016-03-23)
PROC: 079J3ZX Drainage of Left Inguinal Lymphatic, Percutaneous Approach, Diagnostic (ICD-10-PCS; 2016-04-08)
DX: A41.9 Sepsis, unspecified organism (principal); B20 Human immunodeficiency virus [HIV] disease; D61.818 Other pancytopenia; J18.9 Pneumonia, unspecified organism; N17.9 Acute kidney failure, unspecified; C46.9 Kaposi's sarcoma, unspecified; D68.9 Coagulation defect, unspecified; E46 Unspecified protein-calorie malnutrition; E87.1 Hypo-osmolality and hyponatremia; R65.20 Severe sepsis without septic shock; D63.8 Anemia in other chronic diseases classified elsewhere; D69.6 Thrombocytopenia, unspecified; E83.51 Hypocalcemia; E87.6 Hypokalemia; Z91.14 Patient's other noncompliance with medication regimen; F41.8 Other specified anxiety disorders; R19.7 Diarrhea, unspecified; R16.1 Splenomegaly, not elsewhere classified; Z66 Do not resuscitate
CPT/HCPCS: 36415; 71010; 71250; 71260; 74176; 76536; 76700; 76775; 76942; 80048; 80053; 80061; 80202; 81001; 81003; 81270; 82164; 82248; 82270; 82378; 82436; 82533; 82550; 82553; 82607; 82728; 82746; 82977; 83010; 83036; 83070; 83540; 83550; 83605; 83615; 83735; 83880; 83930; 83935; 84100; 84133; 84300; 84439; 84443; 84481; 84484; 84550; 85007; 85025; 85044; 85060; 85362; 85379; 85384; 85610; 85651; 85730; 86039; 86140; 86171; 86360; 86431; 86580; 86612; 86635; 86689; 86703; 86747; 86850; 86880; 86900; 86901; 86920; 87040; 87045; 87070; 87086; 87116; 87181; 87205; 87329; 87449; 87497; 87536; 87556; 89050; 93005; 94640; 94664; 94760; J7620